=== PATIENT | male | born 1945 | race Caucasian/White ===

== ENCOUNTER → 2021-06-16 15:50 | Outpatient (REF) | payer MEDICARE, SELFPAY ==
--- NOTE | 2021-06-16 15:59 | CA_ITS ---
Transthoracic Echocardiogram Patient (Last, First, Middle): Wily López, Gender: Male Date of : 1945 Age: 75 Procedure Date: 06/16/2021 Procedure Type: Transthoracic Echocardiogram Location: [facility] Height: 180.34 cm Weight: 74.84 kg BSA: 1.94 m2 Heart Rate: bpm BP: 142 / 78 mmHg Screen Maker: GERARD Monreal MD: Tamiko Gibbons MD Symptoms: NON RHEUMATIC AVS Study Quality: Fair ECG Rhythm: Sinus Conclusions: - The left ventricular systolic function is normal. The calculated ejection fraction is 65% by biplane method. - There is moderate aortic valve stenosis. Findings Left Ventricle Normal left ventricular cavity size. The left ventricular systolic function is normal. The calculated ejection fraction is 65% by biplane method. There is no evidence of regional wall motion abnormalities. Diastolic function is normal for age. There is mild septal and mild basal asymmetric hypertrophy. Right Ventricle Normal right ventricular cavity size and systolic function. Atria Both atria are normal in size. Aortic Valve There is severe calcification of the aortic valve. There is moderate aortic valve stenosis. The peak aortic velocity is 3.54 m/s with a calculated peak gradient of 50 mmHg. The mean gradient is 32 mmHg. The aortic valve area is 1.12 cm2. There is mild aortic valve regurgitation. Dimensionless index 0.36. Mitral Valve There is mild mitral annular calcification. There is trace mitral valve regurgitation. There is no mitral valve stenosis. Pulmonic Valve The pulmonic valve is likely normal. Tricuspid Valve There is mild tricuspid valve regurgitation. The pulmonary artery systolic pressure is normal. Great Vessels The asc aorta and aortic arch are normal in size. Small plaque is seen in the sino tubular ridge. Venous The inferior vena cava is normal in size and collapses greater than 50% with inspiration. Pericardium/Pleural There is no evidence of pericardial effusion. Prior Study Comparison Changes noted compared to prior study dated: 05/28/2018. Progression of aortic valve stenosis but still moderate (prior echo from [facility]). Measurements 2D Linear Measurements IVSd: 1.18 0.6-0.9/0.6-1.0 cm LVIDd: 3.26 3.9-5.3/4.2-5.9 cm LVIDd Index: 1.68 2.4-3.2/2.2-3.1 cm/m2 LVIDs: 2.01 2.0-3.6 cm LVPWd: 1.02 0.7-1.1 cm LA Diam: 3.70 2.7-3.8/3.0-4.0 cm LAIDs Index: 1.91 1.5-2.3 cm/m2 LV Mass: 133.25 67-162/88-224 g LV Mass Index: 68.69 43-95/49-115 g/m2 LVOT Diam: 2.00 3.0+(-)1.3 cm 2D Systolic Function EF 4C: 62.50 >55% EF 2C: 67.70 >55% EF BiP: 64.50 >55% Mitral Valve MV Pk E: 1.01 MV PK A: 0.79 MV Decel Time: 266.00 E/A: 1.30 E'Lateral: 6.85 E'Medial: 7.94 E/E' Med: 12.70 E/E' Lat: 14.70 PHT: 78.00 MVA PHT: 2.82 Decel Mclennan: 3.78 Aortic Valve AoV Pk Harpreet: 3.54 AoV Mn Harpreet: 2.75 AoV VTI: 0.92 AoV Pk Grad: 50.00 Aov Mn Grad: 32.00 FREIDA Cont.VTI: 1.12 LVOT LVOT Pk Harpreet: 1.26 LVOT Mn Harpreet: 0.87 LVOT VTI: 0.33 LVOT Pk Grad: 6.00 LVOT Mn Grad: 3.00 LVOT Diam: 2.00 LVOT Area: 3.14 Diastolic Function MV Pk E: 1.01 MV Pk A: 0.79 E/A: 1.30 E'Medial: 7.94 E/E' Med: 12.70 E' Laterial: 6.85 E/E' Lat: 14.70 Right Ventricle TAPSE (mm): 22.60 TVS' Harpreet: 14.50 Tricuspid Valve TR Pk Harpreet: 2.54 TR Pk Grad: 26.00 RA Press: 3.00 RVSP: 29.00 Great Vessels Aorta Sinus of Valsalva: 3.40 2.0-3.5 cm Ao Asc: 3.10 2.1-3.4 cm Ao Arch: 3.00 Updated in Other Vendor System with Status of Final Alcides Johnson MD electronically signed on 06/18/2021 2:31:49 PM with status of Final
== END ==
LOC: HO.CARD 15:50
PROVIDERS: Visit Provider Internal Medicine
DX: I35.0 Nonrheumatic aortic (valve) stenosis (principal)
CPT/HCPCS: 93306

== ENCOUNTER 2024-01-30 13:14 | Outpatient (AMB) | payer MEDICARE, OTHER, SELFPAY ==
[2024-01-30 13:19] VITALS: BP 130/60; PULSE 8; O2SAT 97; BMI 22.6
--- NOTE | 2024-01-30 13:19 | MHC.OFFVIS ---
Vital Signs 01/30/24 13:19 Height 5 ft 11 in Weight 162 lb 4.163 oz BMI 22.6 BP 130/60 Blood Pressure Location Lt brachial Position Sitting Pulse 8 L Pulse Source Pulse Oximeter Pulse Oximetry (%) 97 Oxygen Delivery Method Room Air Intake Visit Reasons: Arthrisis/CM Intake Note: Patient presents for follow up on rheumatoid arthritis. Patient would like to talk about Leflunomide today. Allergies No Known Allergies Allergy (Verified 01/30/24 13:25) HPI HPI Arthrisis/CM: Details: Stopped taking leflunomide 6 weeks ago due to elevated liver enzymes. ALT was 47, AST 40s. Repeat labs 01/21 show ALT is 40 and AST is normal, reviewed on patient's phone from patient portal access. Last ultrasound of the abdomen in the fall was normal. Continues to take MTX No infections recently [facility] who gave him left wrist cortisone injection. He has been experiencing increased pain in his left wrist and last for days. Review of Systems Const All systems reviewed & are unremarkable except as noted in HPI and below Physical Exam Vital Signs: Last Vital Signs Pulse 8 L 01/30/24 13:19 BP 130/60 01/30/24 13:19 Pulse Ox 97 01/30/24 13:19 Oxygen Delivery Method Room Air 01/30/24 13:19 BMI result Body Mass Index 22.6 Const Other: General: Comfortable CVS: RRR Respiratory: clear to auscultation bilaterally. Good respiratory effort Skin: No lesions seen MSK: Tenderness of left wrists with synovitis present radially. No squaring of CMCs. No other joints are tender without synovitis present. Dupuytren's contractures present bilateral. Good range of motion of upper extremities and lower extremities. Assessment & Plan Assessment & Plan (1) Rheumatoid arthritis: Comment: Seronegative. Presenting with synovitis in hands, atypical RA with subjective proximal muscle weakness mimicking PMR but normal inflammatory markers and muscle enzymes. Background Dupuytren's contractures with inability to make a full fist. He has had recurrent left wrist pain and swelling requiring intra-articular cortisone injections (3 this year). Last injection lasted 2 months. He has recurrent left wrist swelling on exam. Recently his labs were noted to have mild elevated liver enzymes. Patient self discontinued leflunomide with improvement. He continues to have minimal elevation in AST. 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: Code(s): Z79.899 - Other longterm (current) drug therapy Category: Medical Plan: See above (3) Dupuytren contracture of both hands: Comment: Stable Code(s): M72.0 - Palmar fascial fibromatosis [Dupuytren] Category: Medical Plan: Monitoring clinically Orders: Orders Erythrocyte Sedimentation Rate Today M06.9 - Rheumatoid arthritis, unspecified Alanine Aminotransferase 6 Weeks Z79.60 - senior living (current) use of unspecified immunomodulators and immunosuppressants Aspartate Amino Transferase 6 Weeks Z79.60 - senior living (current) use of unspecified immunomodulators and immunosuppressants Complete Blood Count Auto Diff Today Z79.60 - senior living (current) use of unspecified immunomodulators and immunosuppressants Hepatitis B,C Profile Today M06.9 - Rheumatoid arthritis, unspecified, Z79.899 - Other 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 Take prednisone with food. 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
--- OUTSIDE RECORDS SUMMARY | 2024-01-31 02:23 | XMS_ITS ---
Author Name [facility] Organization Unknown Results Test Name/Text Value Interpretation Date Range Source CREAT SERPL MCNC 0.7mg/dL Normal [id number] 0.7 - 1.3 [facility] SODIUM SERPL SCNC 138mmol/L Normal [id number] 135 - 145 [facility] GLUCOSE P FAST SERPL MCNC 99mg/dL Normal 70 - 99 [facility] Glomerular filtration rate/1.73 sq M. predicted 95 Normal [id number] 60 - [facility] CHLORIDE SERPL SCNC 105mmol/L Normal [id number] 98 - 10 7 [facility] HCO3 SER SCNC 24mmol/L Normal [id number] 24 - 32 [facility] POTASSIUM SERPL SCNC 3.8mmol/L Normal [id number] 3.5 - 5.1 [facility] ANION GAP SERPL SCNC 9mmol/L Normal [id number] 5 - 14 [facility] BUN SERPL MCNC 14mg/dL Normal [id number] 9 - 20 [facility] CALCIUM SERPL [facility]NC 8.7mg/dL Normal [id number] 8.4 - 10 .2 [facility] MAGNESIUM SERPL MCNC 1.9mg/dL Normal [id number] 1.7 - 2.8 [facility] RBC NO. BLD AUTO 4.24M/uL Below low normal [id number] 4.7 - 6 [facility] MCH RBC QN AUTO 31.8pg Normal [id number] 25 - 33 C [facility] MCHC RBC AUTO MCNC 33.1g/dL Normal 32 - 36 [facility] HGB BLD MCNC 13.5g/dL Normal [id number] 13.5 - 18 [facility] WBC NO. BLD AUTO 10.1K/uL Normal [id number] 4 - 10.5 [facility] HCT VFR BLD AUTO 40.8% Normal [id number] 40 - 54 [facility] MCV RBC AUTO 96.2fL Normal [id number] 78 - 100 [facility] RDW RBC AUTO RTO 14.3% Normal [id number] 12.1 - 17. 7 [facility] PLATELET NO. BLD AUTO 140K/uL Below low normal [id number] 5 150 - 450 [facility] PMV BLD AUTO 9.6fL Normal [id number] 7.4 - 11.4 [facility] GLUCOSE BLDC GLUCOMTR MCNC 93mg/dL Normal [id number] 70 - 199 [facility] GLUCOSE BLDC GLUCOMTR MCNC 106mg/dL Normal [id number] 70 - 199 [facility] GLUCOSE BLDC GLUCOMTR MCNC 116mg/dL Normal [id number] 70 - 199 [facility] GLUCOSE BLDC GLUCOMTR MCNC 271mg/dL Above high normal [id number] 70 - 199 [facility] GLUCOSE BLDC GLUCOMTR MCNC 289mg/dL Above high normal [id number] 70 - 199 [facility] CREAT SERPL MCNC 1mg/dL Normal 0.7 - 1.3 [facility] SODIUM SERPL SCNC 135mmol/L Normal 135 - 145 [facility] GLUCOSE SERPL MCNC 362mg/dL Above high normal [id number] 70 - 199 [facility] Glomerular filtration rate/1.73 sq M. predicted 78 Normal 60 - [facility] CHLORIDE SERPL SCNC 102mmol/L Normal 98 - 10 7 [facility] HCO3 SER SCNC 21mmol/L Below low normal 24 - 3 2 [facility] POTASSIUM SERPL SCNC 4.9mmol/L Normal 3.5 - 5.1 [facility] ANION GAP SERPL SCNC 12mmol/L Normal 5 - 14 [facility] BUN SERPL MCNC 17mg/dL Normal 9 - 20 [facility] CALCIUM SERPL MCNC 8.9mg/dL Normal 8.4 - 10 .2 [facility] MAGNESIUM SERPL MCNC 1.6mg/dL Below low normal 1.7 - 2.8 [facility] BLOOD GAS SITE ARTERIAL Normal CT [facility] XXX-Imp ISTAT Normal [facility] pCO2 temp adj Bld 40.8mmHg Normal 35 - 45 [facility] O2/INSPIRED GAS SETTING VFR VENT 100% Normal [facility] SODIUM BLDC SCNC 138mmol/L Normal 135 - 145 [facility] BASE DEFICIT BLDA SCNC 2mmol/L Normal 0 - 2 [facility] PH TEMP ADJ BLDA 7.368 Normal 7.35 - 7.4 5 [facility] SAO2% BLDA 99% Above high normal 95 - 98 [facility] POTASSIUM BLDC SCNC 3.9mmol/L Normal 3.5 - 5 .1 [facility] HGB BLDC MCNC 11.2g/dL Below low normal 13.5 - 18 [facility] HCO3 BLDA SCNC 23.7mmol/L Normal 22 - 26 C [facility] CORRECTED TEMP 96.8F Normal [facility] GLUCOSE BLDC GLUCOMTR MCNC 175mg/dL Normal 70 - 199 [facility] HCT VFR BLDC 33% Below low normal 40 - 54 [facility] CA I BLDC SCNC 1.28mmol/L Normal 1.19 - 1.35 [facility] pO2 temp adj Bld 168mmHg Above high normal 80 - 105 [facility] GLUCOSE BLDC GLUCOMTR MCNC 336mg/dL Above high normal 70 - 199 [facility] Hgb A1c MFr Bld HPLC 6.8% Above high normal 5 - 5.7 [facility] BLOOD BANK CMNT PATIENT-IMP Normal [facility] ABO+RH GP BLD Normal [id number] [facility] BLD GP AB SCN SERPL QL Normal [facility] DIFFERENTIAL TYPE AUTOMATED Normal [facility] NEUTROPHILS NFR BLD AUTO 60.5% Normal 44 - 74 [facility] BASOPHILS NFR BLD AUTO 0.1% Normal 0 - 2 [facility] MONOCYTES NFR BLD AUTO 10% Normal 2 - 12 [facility] HCT VFR BLD AUTO 34.9% Below low normal 40 - 54 [facility] MONOCYTES NO. BLD AUTO 0.6K/uL Normal 0 - 0.8 [facility] RDW RBC AUTO RTO 14.4% Normal 12.1 - 17. 7 [facility] PLATELET NO. BLD AUTO 145K/uL Below low normal 7 150 - 450 [facility] EOSINOPHIL NO. BLD AUTO 0.1K/uL Normal 0 - 0.5 [facility] RBC NO. BLD AUTO 3.62M/uL Below low normal 4.7 - 6 [facility] MCH RBC QN AUTO 32.3pg Normal 25 - 33 C [facility] MCHC RBC AUTO MCNC 33.6g/dL Normal 32 - 36 [facility] HGB BLD MCNC 11.7g/dL Below low normal 13.5 - 18 [facility] BASOPHILS IN BLOOD BY AUTOMATED COUNT 0K/uL Normal 0 - 0.2 [facility] WBC NO. BLD AUTO 5.8K/uL Normal 4 - 10.5 [facility] EOSINOPHIL NFR BLD AUTO 1.2% Normal 0 - 6 [facility] LYMPHOCYTES NFR BLD AUTO 28.2% Normal 20 - 48 [facility] MCV RBC AUTO 96.3fL Normal 78 - 100 [facility] NEUTROPHILS NO. BLD AUTO 3.5K/uL Normal [id number] 1.8 - 7.8 [facility] LYMPHOCYTES NO. BLD AUTO 1.6K/uL Normal [id number] 1 - 3.2 [facility] PMV BLD AUTO 10fL Normal [id number] 7.4 - 11.4 [facility] GLUCOSE BLDC GLUCOMTR MCNC 169mg/dL Normal [id number] 70 - 199 [facility] TRANS NUM UNITS PACKED RBC Normal [facility] GLUCOSE BLDC GLUCOMTR MCNC 173mg/dL Normal [id number] 70 - 199 [facility] BNP BLD MCNC 89pg/mL Normal 0 - 100 [facility] PATIENT-IMP Normal [facility] ABO+RH GP BLD Normal [facility]TT [facility] BLD GP AB SCN SERPL QL Normal [facility]LOOD [facility] PATIENT-IMP Normal [id number] [facility] ABO+RH GP BLD Normal [id number] [facility] GLUCOSE BLDC GLUCOMTR MCNC 274mg/dL Above high normal [id number] 70 - 199 [facility] CREAT SERPL MCNC 0.7mg/dL Normal 0.7 - 1.3 [facility] SODIUM SERPL SCNC 135mmol/L Normal [id number] 135 - 145 [facility] GLUCOSE SERPL MCNC 306mg/dL Above high normal [id number] 70 - 199 [facility] Glomerular filtration rate/1.73 sq M. predicted 95 Normal [id number] 60 - [facility] CHLORIDE SERPL SCNC 100mmol/L Normal [id number] 98 - 10 7 [facility] HCO3 SER SCNC 26mmol/L Normal [id number] 24 - 32 [facility] POTASSIUM SERPL SCNC 4.6mmol/L Normal 3.5 - 5.1 [facility] ANION GAP SERPL SCNC 9mmol/L Normal [id number] 5 - 14 [facility] BUN SERPL MCNC 18mg/dL Normal [id number] 9 - 20 [facility] CALCIUM SERPL MCNC 8.9mg/dL Normal 8.4 - 10 .2 [facility] ALBUMIN/GLOB SERPL MRTO 1.7 Normal [facility] ALP SERPL-CCNC 63U/L Normal 34 - 104 [facility] BILIRUB SERPL MCNC 1.3mg/dL Above high normal 0.3 - 1 [facility] AST SERPL CCNC 25U/L Normal 5 - 40 [facility] ALBUMIN SERPL BCG MCNC 3.9g/dL Normal 3.5 - 5 [facility] ALT SERPL CCNC 20U/L Normal 7 - 52 [facility] PROT SERPL MCNC 6.2g/dL Below low normal 6.4 - 8.5 [facility] BILIRUB DIRECT SERPL MCNC 0.2mg/dL Normal 0 - 0.2 [facility] PT TIME PPP 10.3sec Below low normal 10.5 - 1 3.3 [facility] INR PPP 0.9 Normal 0.8 - 1.1 [facility] AN APTT TIME PPP 33sec Normal 25 - 37 [facility] DIFFERENTIAL TYPE AUTOMATED Normal [facility] NEUTROPHILS NFR BLD AUTO 68.2% Normal 44 - 74 [facility] BASOPHILS NFR BLD AUTO 0.2% Normal 0 - 2 [facility] MONOCYTES NFR BLD AUTO 8.7% Normal 2 - 12 [facility] HCT VFR BLD AUTO 41.5% Normal 40 - 54 [facility] MONOCYTES NO. BLD AUTO 0.6K/uL Normal 0 - 0.8 [facility] RDW RBC AUTO RTO 14.2% Normal 12.1 - 17. 7 [facility] PLATELET NO. BLD AUTO 173K/uL Normal 150 - 450 [facility] EOSINOPHIL NO. BLD AUTO 0K/uL Normal 0 - 0.5 [facility] RBC NO. BLD AUTO 4.3M/uL Below low normal [id number] 4.7 - 6 [facility] MCH RBC QN AUTO 32.5pg Normal 25 - 33 C [facility] MCHC RBC AUTO MCNC 33.6g/dL Normal 32 - 36 [facility] HGB BLD MCNC 14g/dL Normal 13.5 - 18 [facility] BASOPHILS IN BLOOD BY AUTOMATED COUNT 0K/uL Normal 0 - 0.2 [facility] WBC NO. BLD AUTO 7.1K/uL Normal 4 - 10.5 [facility] EOSINOPHIL NFR BLD AUTO 0.6% Normal 0 - 6 [facility] LYMPHOCYTES NFR BLD AUTO 22.3% Normal 20 - 48 [facility] MCV RBC AUTO 96.5fL Normal 78 - 100 [facility] NEUTROPHILS NO. BLD AUTO 4.8K/uL Normal 1.8 - 7.8 [facility] LYMPHOCYTES NO. BLD AUTO 1.6K/uL Normal 1 - 3.2 [facility] PMV BLD AUTO 9.5fL Normal 7.4 - 11.4 [facility] GLUCOSE BLDC GLUCOMTR MCNC 158mg/dL Normal [id number] 70 - 199 [facility] GLUCOSE BLDC GLUCOMTR MCNC 207mg/dL Above high normal [id number] 70 - 199 [facility] History of Medication Use Medication Directions Dispensed Refills Start Date End Date Stat methotrexate 2.5 mg tablet Take 7 tablets (17.5 mg total) by mouth once a week 01/13/2024 9 active dutasteride (AVODART) 0.5 mg capsule Take 1 capsule (0.5 mg total) by mouth 1 (one) time each day. 01/13/2024 9 active cholecalciferol (VITAMIN D-3) 50 mcg (2,000 unit) capsule Take by mouth 1 (one) time each day. 01/13/2024 9 active melatonin 5 mg tablet 1 tablet (5 mg total) 1 (one) time each day. 01/13/2024 9 active FA/mv,Ca,iron,min/lyc opene/lut (MULTIVITAL ORAL) Take by mouth 1 (one) time each day. 01/13/2024 9 active aspirin 81 mg EC tablet Take 1 tablet (81 mg total) by mouth 1 (one) time each day. 01/13/2024 9 active tamsulosin (FLOMAX) 0.4 mg 24 hr capsule Take 1 capsule (0.4 mg total) by mouth 1 (one) time each day. 01/13/2024 9 active atorvastatin (LIPITOR) 80 mg tablet Take 1 tablet (80 mg total) by mouth 1 (one) time each day. 01/13/2024 9 active leucovorin 5 mg tablet Take 1 tablet (5 mg total) by mouth once a week The day after methotrexate 01/13/2024 9 active lisinopriL (PRINIVIL,ZESTRIL) 10 mg tablet Take 1 tablet (10 mg total) by mouth 1 (one) time each day. 01/13/2024 9 active acetaminophen (TYLENOL) 325 MG tablet Take 2 tablets (650 mg total) by mouth every 6 (six) hours as needed. 08/05/2023 aborted pantoprazole (PROTONIX) 40 MG tablet Take 1 tablet (40 mg total) by mouth every morning on an empty stomach for 90 doses. 08/05/2023 active clopidogrel (PLAVIX) 75 MG tablet Take 1 tablet (75 mg total) by mouth daily. 05/16/2023 aborted atorvastatin (LIPITOR) tablet 80 mg Take 1 tablet (80 mg total) by mouth daily. 01/05/2023 active methotrexate 2.5 MG tablet Take 7 tablets (17.5 mg total) by mouth every 7 days. Saturdays01/05/2023 active dutasteride (AVODART) 0.5 MG capsule Take 1 capsule (0.5 mg total) by mouth daily. 01/05/2023 active Cholecalciferol (D3 2000) 50 MCG (1999 UT) CAPS Take by mouth daily. 01/05/2023 active insulin continuous subcutaneous pump (Outpatient) Inject 46 Units under the skin continuous. Type of insulin: novolog Takes approximately 46 units per day via INSULIN PUMP 01/05/2023 active leucovorin (WELLCOVORIN) 5 MG tablet Take 1 tablet (5 mg total) by mouth once a week The day after methotrexate 01/05/2023 active tamsulosin (FLOMAX) 0.4 MG CAPS Take 1 capsule (0.4 mg total) by mouth daily. 01/05/2023 active Melatonin 5 MG TABS Take 5 mg by mouth daily. 01/05/2023 active Multiple Vitamins-Minerals (MULTIVITAL PO) Take by mouth daily. 01/05/2023 active aspirin 81 MG EC tablet Take 1 tablet (81 mg total) by mouth daily. 01/05/2023 active lisinopril (PRINIVIL,ZESTRIL) tablet 10 mg Take 1 tablet (10 mg total) by mouth daily. 01/05/2023 active Problems Problem Status Onset Date Problem Type Date of Resolution Source Aortic stenosis, severe active ProblemAct [facility] S/p TAVR (transcatheter aortic valve replacement), bioprosthetic active ProblemAct [facility] S/P TAVR (transcatheter aortic valve replacement) active EncounterDiagnosisAct [facility] MG Bradycardia active EncounterDiagnosisAct [facility] Bilateral carotid artery stenosis active EncounterDiagnosisAct [facility] MG Pure hypercholesterolemia active EncounterDiagnosisAct [facility] SDH (subdural hematoma) (HCC) active EncounterDiagnosisAct [facility] MG
== END 2024-01-30 14:08 | disposition home or self-care (01) ==
PROVIDERS: Visit Provider Internal Medicine Rheumatology
DX: M06.9 Rheumatoid arthritis, unspecified (principal); Z79.899 Other long term (current) drug therapy; M72.0 Palmar fascial fibromatosis [Dupuytren]
CPT/HCPCS: 99214; G2211

== ENCOUNTER → 2024-01-30 13:14 | Outpatient (BNVA) | payer MEDICARE, OTHER, SELFPAY | PROVIDERS: Visit Provider Internal Medicine Rheumatology | DX: M06.9 Rheumatoid arthritis, unspecified (principal); M72.0 Palmar fascial fibromatosis [Dupuytren]; Z79.899 Other long term (current) drug therapy | CPT/HCPCS: 99212 ==

== ENCOUNTER 2024-02-05 09:33 | Outpatient (REF) | payer MEDICARE, OTHER, SELFPAY ==
[2024-02-05 10:52] LABS: MANUAL DIFF FLAG NO
[2024-02-05 10:59] LABS: Basophils Percent Auto 0.2 % (0-2); Eosinophils Percent Auto 0.5 % (0-4); Hematocrit 40.4 % (42.0-52.0); Hemoglobin 13.7 g/dl (14.0-18.0); Imm Gran Abs Auto 0.03 X10*3/uL (0.00-0.03); Imm Gran Pct Auto 0.4 % (0.0-0.4); Lymphocytes Absolute Auto 3.2 X10*3/uL (1.2-4.9); Mean Corpuscular HGB Conc 33.9 g/dl (31.0-36.0); Mean Corpuscular Hemoglobin 32.6 pg (27.0-33.0); Mean Corpuscular Volume 96.2 fL (80.0-98.0); Mean Platelet Volume 10.7 fL (9.4-12.4); Monocytes Absolute Auto 0.8 X10*3/uL (0.1-1.2); Monocytes Percent Auto 9.3 % (2-11); Neutrophils Absolute Auto 4.2 x10*3/uL (2.0-8.3); Neutrophils Percent Auto 50.6 % (45-73); Platelet Count 182 X10*3/uL (160-400); Red Cell Distribution Width 13.7 % (11.0-16.0); White Blood Count 8.3 X10*3/uL (4.8-10.8)
[2024-02-05 11:29] LABS: C Reactive Protein < 0.04 mg/dL (< or = 0.50)
[2024-02-05 11:36] LABS: HBS Num1 1.36 mIU/mL (0-7.99); HBc Num1 0.11 S/CO (0.00-0.79); HBsAGNum1 0.38 S/CO (0.00-0.99); Hepatitis B Core Antibody Nonreactive (Nonreactive); Hepatitis B Surface Antigen Negative (Negative); ~HepC Num1 0.06 S/CO (0.00-0.79); ~Hepatitis B Surface Antibody NONREACTIVE (Nonreactive); ~Hepatitis C Antibody Nonreactive (Nonreactive)
[2024-02-05 11:39] LABS: Erythrocyte Sedimentation Rate 4 MM/HR (0-15)
[2024-02-08 05:44] LABS: TS Negative Control Passed; TS Panel A 0; TS Panel B 0; TS Positive Control Passed; TSpotTB Negative (Negative)
== END 2024-02-05 09:34 | disposition home or self-care (01) ==
LOC: HO.10HDL 09:33
PROVIDERS: Visit Provider Internal Medicine Rheumatology
DX: M06.9 Rheumatoid arthritis, unspecified (principal); M72.0 Palmar fascial fibromatosis [Dupuytren]; Z79.899 Other long term (current) drug therapy; Z79.60 Long term (current) use of unspecified immunomodulators and immunosuppressants
CPT/HCPCS: 36415; 85025; 85652; 86140; 86481; 86704; 86706; 86803; 87340

== ENCOUNTER 2024-04-29 13:16 | Outpatient (AMB) | payer MEDICARE, OTHER, SELFPAY ==
--- NOTE | 2024-04-29 13:23 | MHC.OFFVIS ---
Vital Signs 04/29/24 13:24 Height 5 ft 11 in Weight 164 lb 7.437 oz BMI 22.9 BP 130/80 Blood Pressure Location Lt brachial Position Sitting Pulse 61 Pulse Source Pulse Oximeter Pulse Oximetry (%) 99 Oxygen Delivery Method Room Air Intake Visit Reasons: 3 mo follow up Intake Note: Patient presents for follow up on rheumatoid arthritis. Allergies No Known Allergies Allergy (Verified 04/29/24 13:24) HPI HPI 3 mo follow up: Details: Prednisone course caused hyperglycemia. He has intermittent shoulder pain one at a time lasting 3-4 minutes. Occurs every 10 days. No relieving factor. He has not self-medicated with NSAIDs or tylenol. Review of Systems Const All systems reviewed & are unremarkable except as noted in HPI and below Physical Exam Vital Signs: Last Vital Signs Pulse 61 04/29/24 13:24 BP 130/80 04/29/24 13:24 Pulse Ox 99 04/29/24 13:24 Oxygen Delivery Method Room Air 04/29/24 13:24 BMI result Body Mass Index 22.9 Const Other: General: Comfortable CVS: RRR Respiratory: clear to auscultation bilaterally. Good respiratory effort Skin: No lesions seen MSK: Tenderness of left wrists with synovitis present radially. No squaring of CMCs. No other joints are tender without synovitis present. Dupuytren's contractures present bilateral. 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 Normal range of motion of shoulders, hips, knees and ankles. Office Procedures AMB Joint Injection/Aspiration Joint Injection/Aspiration Details: Left wrist Prep: site was prepped using aseptic technique Injected: 20 mg of, Kenalog, with 0.5 mL of and 1% plain lidocaine Procedure: The patient tolerated the procedure well. Postprocedure protocol was discussed with patient. Coding 42064 - Medium joint Procedure code (CPT) selection complete Office Meds lidocaine (PF) 10 mg/mL (1 %) injection solution Performing Provider: Chaim De Jesus MD Performing Location[place] [facility] [facility] Administered by: Chaim De Jesus MD on 04/29/24 21:48 Dose Route Admin Location Dispensed Lot Number Expiration Date [facility] Material Planning [employer] 5 mg Infiltration 2 mL [id number] [facility] Kenalog 40 mg/mL suspension for injection Performing Provider: Chaim De Jesus MD Performing Location: [facility] [place] [facility] Administered by: Chaim De Jesus MD on 04/29/24 21:48 Dose Route Admin Location Dispensed Lot Number Expiration Date [employer] 20 mg intra-articular 1 mL [id number] MICAH HAYES Assessment & Plan Assessment & Plan (1) Rheumatoid arthritis: Comment: Recurrent left synovitis. Prednisone course caused hyperglycemia. He stopped prednisone a day early due to hyperglycemia. He is on an insulin pump but had to give himself additional insulin to control blood sugars, which eventually normalized in a few days. He has response to intra-articular cortisone injection. I will treat current symptoms with intra-articular cortisone injection. We discussed adding on DMARD therapy sulfasalazine. Discussed side effects, benefits and drug monitoring. I will avoid hydroxychloroquine due to risk of photosensitivity. Patient has spends time in the summer golfing. X-ray from 05/2023 of left wrist revealed findings due to sequelae of post ligamentous injury and there is suggestion of early SLAC. If after introducing sulfasalazine and optimizing his dose, if he continues to have left wrist swelling, I will order MRI for further evaluation. Rheumatology history: Seronegative. Presenting with synovitis in hands, atypical RA with subjective proximal muscle weakness mimicking PMR but normal inflammatory markers and muscle enzymes. Background Dupuytren's contractures with inability to make a full fist. He has had recurrent left wrist pain and swelling requiring intra-articular cortisone injections (3 this year). Last injection lasted 2 months. He has recurrent left wrist swelling on exam. Recently his labs were noted to have mild elevated liver enzymes. Patient self discontinued leflunomide with improvement. He continues to have minimal elevation in AST. Code(s): M06.9 - Rheumatoid arthritis, unspecified Category: Medical Qualifiers: Rheumatoid factor presence: without rheumatoid factor Laterality: bilateral Plan: Labs ordered for disease and drug monitoring on high-risk medication Continue methotrexate 20 mg once weekly Continue folic acid 1 mg daily Patient received left wrist cortisone injection After lab results are back, we will send prescription for sulfasalazine 500 mg twice a day. He will then need labs 4 weeks after starting sulfasalazine: CBC, creatinine, AST, ALT. Patient prefers to have labs done locally actually [facility] in 4 weeks. Requisition given to patient. 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: Code(s): Z79.899 - Other shelter (current) drug therapy Category: Medical Plan: See above (3) Dupuytren contracture of both hands: Comment: Stable Code(s): M72.0 - Palmar fascial fibromatosis [Dupuytren] Category: Medical Plan: Monitoring clinically Orders: Orders Complete Blood Count Auto Diff Today Z79.60 - care home (current) use of unspecified immunomodulators and immunosuppressants Alanine Aminotransferase Today Z79.60 - care home (current) use of unspecified immunomodulators and immunosuppressants Erythrocyte Sedimentation Rate Today Z79.899 - Other shelter (current) drug therapy Alanine Aminotransferase 1 Month Z79.60 - care home (current) use of unspecified immunomodulators and immunosuppressants Aspartate Amino Transferase 1 Month Z79.60 - care home (current) use of unspecified immunomodulators and immunosuppressants Creatinine 1 Month Z79.60 - 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) use of unspecified immunomodulators and immunosuppressants Creatinine Today Z79.60 - care home (current) use of unspecified immunomodulators and immunosuppressants Aspartate Amino Transferase Today Z79.60 - 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) use of unspecified immunomodulators and immunosuppressants C Reactive Protein Today Z79.899 - Other shelter (current) drug therapy Complete Blood Count Auto Diff 1 Month Z79.60 - 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 Take prednisone with food. Discontinued Reason: Doctor's Order 5 mg PO DIRECTED 30 tabs 0RF Coding Level of Care Code Est Pt Level 4 (21007) Complex EM visit Add On G2211 Diagnoses Rheumatoid arthritis M06.9 Rheumatoid factor presence: without rheumatoid factor Laterality: bilateral Other shelter (current) drug therapy Z79.899 Dupuytren contracture of both hands M72.0 CPT Codes Coding - 34123 Medium joint: 32998 - Medium joint ([id number]) Time Spent (min) 30
[2024-04-29 13:24] VITALS: BP 130/80; PULSE 61; O2SAT 99; BMI 22.9
--- OUTSIDE RECORDS SUMMARY | 2024-04-29 16:05 | XMS_ITS | Clinical Summary ---
Author Organization [facility] Address [address] [place] [address] Care Team Providers Care Process Consultant Name Role Phone Tawnya Thompson MD Primary Care Provider [phone] Allergies No known active allergies Medications Medication Sig Dispensed Refills Start Date End Date Status atorvastatin (LIPITOR) tablet 80 mg Take 1 tablet (80 mg total) by mouth daily. 0 08/27/2022 Active aspirin 81 MG EC tablet Take 1 tablet (81 mg total) by mouth daily. 0 Active dutasteride (AVODART) 0.5 MG capsule Take 1 capsule (0.5 mg total) by mouth daily. 0 05/26/2016 Active leucovorin (WELLCOVORIN) 5 MG tablet Take 1 tablet (5 mg total) by mouth once a week The day after methotrexate 0 08/26/2022 Active Melatonin 5 MG TABS Take 5 mg by mouth daily. 0 Active methotrexate 2.5 MG tablet Take 7 tablets (17.5 mg total) by mouth every 7 days. Saturdays 0 07/30/2021 Active tamsulosin (FLOMAX) 0.4 MG CAPS Take 1 capsule (0.4 mg total) by mouth daily. 0 05/26/2016 Active Multiple Vitamins-Minerals (MULTIVITAL PO) Take by mouth daily. 0 Active Cholecalciferol (D3 1999) 50 MCG (1999) CAPS Take by mouth daily. 0 Acti ve lisinopril (PRINIVIL,ZESTRIL) tablet 10 mg Take 1 tablet (10 mg total) by mouth daily. 0 Active insulin continuous subcutaneous pump (Outpatient) Inject 46 Units under the skin continuous. 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 Overview: Velasquez Chetan Resilia 26 mm Social History Tobacco Use Types Packs/Day Years Used Date Smoking Tobacco: Former Cigarettes 1 Passive Smoke Exposure: Past Smokeless Tobacco: Never Tobacco Cessation:Counseling Given: Not Answered Alcohol Use Standard Drinks/Week Comments Not Currently 0 (1 standard drink = 0.6 oz pur e alcohol) 3x weekly Sex and Gender Information Value Date Recorded Sex Assigned at Male 01/03/2023 9:33 AM EST Gender Identity Not on file Sexual Orientation Not on file Job Start Date Occupation Industry Not on file Not on file Not on file Last Filed Vital Signs Vital Sign Reading Time Taken Comments Blood Pressure 124/62 05/14/2023 1:31 PM EDT Pulse 57 05/14/2023 1:31 PM EDT Temperature 36.9 ??C (98.5 ??F) 01/31/2023 8:42 AM ES T Respiratory Rate 19 01/31/2023 8:42 AM EST Oxygen Saturation 97% 05/14/2023 1:31 PM EDT Inhaled Oxygen Concentration - - Weight 75.8 kg (167 lb) 05/14/2023 1:31 PM EDT Height 180.3 cm (5' 11 ) 05/14/2023 1:31 PM EDT Body Mass Index 23.29 05/14/2023 1:31 PM EDT Plan of Treatment Health Maintenance Due Date Last Done Comments Hepatitis C Screening 1945 COVID-19 Vaccine (#1) 05/21/1946 Depression Screening 1958 Preventative Health Evaluation 1964 DTap / Tdap / Td (1 - Tdap) 1965 Shingrix-Zoster Vaccine (1 of 2) 1996 Fall Risk Assessment 11/20/2011 Pneumococcal Vaccine (2 of 2 - PCV) 11/20/2011 06/01/2008 RSV Adult > 60+ Yrs or Pregn ant (1 - 1-dose 75+ series) 2021 Influenza Vaccine (#1) 2023 02/09/2009 Hepatitis B Vaccines Aged Out No long er eligible based on patient's age to complete this topic RSV Ped < 20 months Aged Out No longe r eligible based on patient's age to complete this topic Medical Devices Implanted Type Area Sign Painter Device Identifier Shelf Expiration Date Model / Serial / Lot System Perclose Prostyle Suture Medicated Abbt-Vas [id number] - [id number] Implanted:Qty: 1 on 01/25/2023 at [facility] [place] [facility] [employer] BENJI [id number] / / Valve Chetan Thv Velasquez Resilia 26mm [facility] [id number] - [id number] Implanted:Qty: 1 on 01/30/2023 by Rick Nicole MD at [facility] [employer] 08/23/2025 [id number] / [id number] / Advance Directives For more information, please contact: [phone] Latest Code Status on File Code Status Date Activated Date Inactivated Comments Full Code 01/30/2023 8:24 AM 01/31/2023 7:07 PM Thi s code status was ascertained in the following way: discussion with patient Code Status History Code Status Date Activated Date Inactivated Comments Full Code 01/30/2023 6:15 AM 01/30/2023 8:24 AM Thi s code status was ascertained in the following way: discussion with patient . Full Code 01/25/2023 9:20 AM 01/25/2023 8:01 PM . Care Teams Process Consultant Relationship Specialty Start Date End Date Tawnya Thompson MD [address] [place] [phone] PCP - General Family Medicine 11/06/22
--- OUTSIDE RECORDS SUMMARY | 2024-04-29 16:05 | XMS_ITS | Data Portability ---
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 deficiency N PTSD N Heart Attack (AL) N Diabetes Y Bleeding Disorder N Cerebral Palsy N Tuberculosis N Neck Problems N Back Problems N Asthma N Epilepsy/Seizures N Bipolar Disorder N Sleep Disorder N Aneurysm N Hepatitis N Heart Disease N High Cholesterol or Hyperlipidemia Y Osteoporosis N Past Encounters Encounter ID Performer Location Encounter Start Date Encounter Closed Date Diagnosis/Indication Diagnosis SNOMED-CT Code Diagnosis ICD10 Code Diagnosis Note [id number] Ray Quintana MD [facility] [address] [place] [address] ERIC BLANCO SEKOU [id number] 08/09/2021 10:45:46 08/09/2021 16:55:00 Subdural hematoma 61100356 S06.5X0A Focal onse t epileptic seizure 91054756 G40.109 [id number] Ray Quintana MD [facility] [address] [place] [address] ERIC BLANCOSEKOU [id number] 08/24/2021 10:56:06 08/24/2021 19:00:42 Subdural hematoma 58925182 S06.5X0A Focal onse t epileptic seizure [id number] G40.109 [id number] Ray Quintana MD [facility] [address] [place] [address] ERIC BLANCO SEKOU [id number] 10/11/2021 10:42:03 10/11/2021 11:47:22 Subdural hematoma 60578244 S06.5X0A Focal onse t epileptic seizure 04672911 G40.109 Health Concerns Section Related Observation LastModified by Organization Detai ls LastModified Time None Recorded Concern Status LastModified by Organization Details LastModified Time None Recorded Advance Directives Directive None Recorded Payers Encounter Date Sequence Insurance Name Policy Number Policy Mercado Covered Member ID Mercado Member ID Guarantor Name 08/09/2021 2 [facility] PLAN - PREFERRED (MEDICARE SUPPLEMENT) [id number] Wily [facility] [id number] [facility] 08/09/2021 1 MEDICARE B-MA: [employer] Edryanne [facility] [id number] [facility] [facility]AN - PREFERRED (MEDICARE SUPPLEMENT) [id number] [facility] [id number] [facility] 08/24/2021 1 MEDICARE B-UT: [facility] Edryanne T [facility] [id number] [facility] [facility] HE[facility] PLAN - PREFERRED (MEDICARE SUPPLEMENT) [id number] [facility] [id number] [facility] 10/11/2021 1 MEDICARE B-UT: [facility] Wily López [id number] Wily López Notes Date Note Type Note Provider Name and Address Organization Details Recorded Time 08/09/2021 text/html He presents for initial neurology consultation for assessment and management of April 18, 2021 head trauma skiing leading to immediate headache, and delayed? ~ June 28, 2021 onset? 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 Past history includes hypertension, hyperlipidemia, type 1 diabetes, rheumatoid arthritis and benign prostatic hyperplasia. He is accompanied by his , Silke, who helps with the history.On April 18, 2021 he was skiing in [place] when he was hit from behind by another skater. Almost immediately afterwards, he began having headaches. He had hospital evaluation in [place] that was unrevealing. Headaches persisted with no other worrisome symptomatology until ~June 28, 2021 when he had onset of episodic difficulty getting his words out, episodes lasting up to ~15 minutes. In addition, he noticed continual difficulty walking and more subtle difficulty using his arms, especially his right arm.He had three hospitalizations June 28 through ~July 08, 2021. The first hospitalization included SDH evacuation and starting levetiracetam 500 mg twice a day for his episodic expressive aphasia. The second hospitalization involved an increase of levetiracetam by 500 mg twice a day and the third increase occurred during a telephone call in between hospitalizations by another 500 mg twice a day so that he was on 1500 mg twice a day ~2 days before the third hospitalization. At this point, the levetiracetam did not seem to be helping his word finding difficulty and his noticed that it had become almost continual. He noticed throughout the course that speech difficulty was especially likely and especially prominent if he felt pressured such as when a speech therapist came and asked him a lot of questions. He continued to have difficulty walking and more subtle difficulty moving his arms. EEG, 18 hours in duration per , found no evidence of seizure. He was hospitalized a third time for a second subdural evacuation. About 2 days later, his speech difficulty improved markedly. He does not remember any problems with speech after that. His did not notice any but reports that hospital personnel noticed minimal episodes. About 3 days after the second SDH evacuation, his walking and his arm discoordination were completely resolved. At some point, his headaches began to improve. They are now only mild and occasional.He remains on levetiracetam 1500 mg twice a day. He is a little tired in the afternoon which he thinks might relate to the levetiracetam. Neither he nor his has noticed irritability or worsening in mood more generally. Ray Quintana MD [address] [place] [address], [phone], [facility] 08/09/2021 14:56:57 08/24/2021 text/html Follow up of Mar head trauma skiing leading to immediate headache, and delayed? ~ June 28, 2021 onset? 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 Past history includes hypertension, hyperlipidemia, type 1 diabetes, rheumatoid arthritis and benign prostatic hyperplasia. He is accompanied by his , Silke, who helps with the history.Since August 09, 2021 initial neurology consultation, he feels that his slow improvement continues. He is still not 100% but? Over 90%. He notes that he had some visual blurring after the events of June 28, 2021 when that is slowly improving. He wonders if he should go to his scheduled ophthalmology appointment for glasses adjustment. I suggest that he wait until he reach some plateau of visual blurring improvement from after June 28, 2021. Presenting symptomatology is reviewed from initial neurology consultation August 09, 2021:On April 18, 2021 he was skiing in [place] when he was hit from behind by another skater. Almost immediately afterwards, he began having headaches. He had hospital evaluation in [place] that was unrevealing. Headaches persisted with no other worrisome symptomatology until ~June 28, 2021 when he had onset of episodic difficulty getting his words out, episodes lasting up to ~15 minutes. In addition, he noticed continual difficulty walking and more subtle difficulty using his arms, especially his right arm.He had three hospitalizations June 28 through ~July 08, 2021. The first hospitalization included SDH evacuation and starting levetiracetam 500 mg twice a day for his episodic expressive aphasia. The second hospitalization involved an increase of levetiracetam by 500 mg twice a day and the third increase occurred during a telephone call in between hospitalizations by another 500 mg twice a day so that he was on 1500 mg twice a day ~2 days before the third hospitalization. At this point, the levetiracetam did not seem to be helping his word finding difficulty and his noticed that it had become almost continual. He noticed throughout the course that speech difficulty was especially likely and especially prominent if he felt pressured such as when a speech therapist came and asked him a lot of questions. He continued to have difficulty walking and more subtle difficulty moving his arms. EEG, 18 hours in duration per , found no evidence of seizure. He was hospitalized a third time for a second subdural evacuation. About 2 days later, his speech difficulty improved markedly. He does not remember any problems with speech after that. His did not notice any but reports that hospital personnel noticed minimal episodes. About 3 days after the second SDH evacuation, his walking and his arm discoordination were completely resolved. At some point, his headaches began to improve. They are now only mild and occasional.He remains on levetiracetam 1500 mg twice a day. He is a little tired in the afternoon which he thinks might relate to the levetiracetam. Neither he nor his has noticed irritability or worsening in mood more generally. Ray Quintana MD [address] [place] [address] [place], [phone], [facility] 08/24/2021 17:35:04 10/11/2021 text/html Follow up of Mar ru2021 head trauma skiing leading to immediate headache, and delayed? ~ June 28, 2021 onset? 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 Past history includes hypertension, hyperlipidemia, type 1 diabetes, rheumatoid arthritis and benign prostatic hyperplasia. He is accompanied by his , Silke, who helps with the history.Since August 24, 2021 neurology follow-up encounter, Slow improvement has continued of his symptoms status post June 2021 hospitalization for subdural hematoma. He had said he was over 90% better and he is even better. His blurry vision has resolved. (He has not yet had ophthalmology appointment but he plans to do that for an evaluation.) The only different symptom he notes from before the events emerging out of April 18 skiing injury is an occasional seconds long mild headache. He has tapered off levetiracetam. Presenting symptomatology is reviewed from initial neurology consultation August 09, 2021:On April 18, 2021 he was skiing in [place] when he was hit from behind by another skater. Almost immediately afterwards, he began having headaches. He had hospital evaluation in [place] that was unrevealing. Headaches persisted with no other worrisome symptomatology until ~June 28, 2021 when he had onset of episodic difficulty getting his words out, episodes lasting up to ~15 minutes. In addition, he noticed continual difficulty walking and more subtle difficulty using his arms, especially his right arm.He had three hospitalizations June 28 through ~July 08, 2021. The first hospitalization included SDH evacuation and starting levetiracetam 500 mg twice a day for his episodic expressive aphasia. The second hospitalization involved an increase of levetiracetam by 500 mg twice a day and the third increase occurred during a telephone call in between hospitalizations by another 500 mg twice a day so that he was on 1500 mg twice a day ~2 days before the third hospitalization. At this point, the levetiracetam did not seem to be helping his word finding difficulty and his noticed that it had become almost continual. He noticed throughout the course that speech difficulty was especially likely and especially prominent if he felt pressured such as when a speech therapist came and asked him a lot of questions. He continued to have difficulty walking and more subtle difficulty moving his arms. EEG, 18 hours in duration per , found no evidence of seizure. He was hospitalized a third time for a second subdural evacuation. About 2 days later, his speech difficulty improved markedly. He does not remember any problems with speech after that. His did not notice any but reports that hospital personnel noticed minimal episodes. About 3 days after the second SDH evacuation, his walking and his arm discoordination were completely resolved. At some point, his headaches began to improve. They are now only mild and occasional.He remains on levetiracetam 1500 mg twice a day. He is a little tired in the afternoon which he thinks might relate to the levetiracetam. Neither he nor his has noticed irritability or worsening in mood more generally. Ray Quintaan MD [address] [place] [address] [place], [phone], [facility] 10/11/2021 11:43:04
--- OUTSIDE RECORDS SUMMARY | 2024-04-29 16:05 | XMS_ITS | Clinical Summary ---
Author Organization [facility] [place] Address [address] [place] [address] Phone Care Team Providers Care Radiographer Mammographer Name Role Phone Tawnya Thompson MD Primary Care Provider [phone] Allergies No known active allergies Medications aspirin 81 mg EC tablet Take 1 tablet (81 mg total) by mouth 1 (one) time each day. Active atorvastatin (LIPITOR) 80 mg tablet Take 1 tablet (80 mg total) by mouth 1 (one) time each day. 3 Active dutasteride (AVODART) 0.5 mg capsule Take 1 capsule (0.5 mg total) by mouth 1 (one) time each day. 7 Active leucovorin 5 mg tablet Take 1 tablet (5 mg total) by mouth once a week The day after methotrexate 3 Active melatonin 5 mg tablet 1 tablet (5 mg total) 1 (one) time each day. Active methotrexate 2.5 mg tablet Take 8 tablets (20 mg total) by mouth once a week 2 Active tamsulosin (FLOMAX) 0.4 mg 24 hr capsule Take 1 capsule (0.4 mg total) by mouth 1 (one) time each day. 7 Active FA/mv,Ca,iron,m in/lycopene/lut (MULTIVITAL ORAL) Take by mouth 1 (one) time each day. Active lisinopriL (PRINIVIL,ZESTR IL) 20 mg tabletIndicatio ns:S/P TAVR (transcatheter aortic valve replacement),Co ronary artery disease involving navajo coronary artery of navajo heart without angina pectoris,Pure hypercholestero lemia,Bradycard ia Take 1 tablet (20 mg total) by mouth 1 (one) time each day. 90 each 3 5 03/26/19 26 Active Active Problems Problem Noted Date Diagnosed Date Aortic stenosis, severe 01/30/2023 Encounters Date Type Department Care Team Description 03/26/2024 2:30 PM EST Office Visit [facility] [address] [place] [phone] Aj Abdullahi MD S/P TAVR (transcatheter aortic valve replacement) (Primary Dx); Coronary artery disease involving navajo coronary artery of navajo heart without angina pectoris; Pure hypercholesterolemia; Bradycardia 03/26/2024 1:30 PM EST Ancillary Procedure [facility] [address] [place] [phone] Nonrheumatic aortic (valve) stenosis from Last 3 Months Surgical History Surgery Date Site/Laterality Comments CRANIOTOMY PROCEDURE:CRANIOTOMY;COMMENT:2020 -june CARDIAC CATHETERIZATION 01/25/2023 N/A PROCEDURE:CARDIAC CATHETERIZATION;COMMENT:Procedure : LEFT HEART CATHETERIZATION PCI; Surgeon: Cain Hopson MD; Location: [facility]; Service: Cardiology; Laterality: N/A; CARDIAC CATHETERIZATION 01/25/2023 N/A PROCEDURE:CARDIAC CATHETERIZATION;COMMENT:Procedure : CORONARY ANGIOGRAPHY; Surgeon: Cain Hopson MD; Location: [facility]; Service: Cardiology; Laterality: N/A; AORTIC VALVE REPLACEMENT 01/30/2023 Bilateral PROCEDURE:AORTIC VALVE REPLACEMENT;COMMENT:Procedure: TAVR TF PERCUSTANEOUS; Surgeon: Rick Nicole MD; Location: [facility] HYBRID [facility]PERATING ROOM; Service: Cardiovascular; Laterality: Bilateral; Medical History Medical History Date Comments Type 1 diabetes (CMS/HCC) DX:Typ e 1 diabetes (HCC);COMMENT:wears continuous glucose monitor and insulin pumo HTN (hypertension) DX:HTN (hyper tension) HLD (hyperlipidemia) DX:HLD (hyp erlipidemia) Aortic valvar stenosis DX:Aortic valvar stenosis Subdural hematoma (CMS/HCC) DX:S ubdural hematoma (HCC) Eye abnormality DX:Eye abnormali ty;COMMENT:right eye does not close Social History Tobacco Use Types Packs/Day Years Used Date Smoking Tobacco: Former Smokeless Tobacco: Never Alcohol Use Standard Drinks/Week Comments Not Currently 0 (1 standard drink = 0.6 oz pur e alcohol) Sex and Gender Information Value Date Recorded Sex Assigned at Not on file Legal Sex Male 8:42 PM EST Gender Identity Not on file Sexual Orientation Not on file Obstetrics History Last Filed Vital Signs Vital Sign Reading Time Taken Comments Blood Pressure 140/62 03/26/2024 2:01 PM EST Pulse 54 03/26/2024 2:01 PM EST Temperature - - Respiratory Rate - - Oxygen Saturation 99% 03/26/2024 2:01 PM EST Inhaled Oxygen Concentration - - Weight 73.5 kg (162 lb) 03/26/2024 2:01 PM EST Height 180.3 cm (5' 11 ) 03/26/2024 2:01 PM EST Body Mass Index 22.59 03/26/2024 2:01 PM EST Plan of Treatment Upcoming Encounters Date Type Department Care Team (Late st Contact Info) Description 03/26/2025 12:00 PM EST Office Visit [facility] [place] [address] [facility] [address] [place] [address] Aj Abdullahi MD [address] [address] Health Maintenance Due Date Last Done Comments COVID-19 Vaccine (#1) 11/20/1950 Diabetes: Annual Foot Exam 1956 Diabetes: Annual Retina Eye Exam 1955 DTaP,Tdap,and Td Vaccines (1 - Tdap) 1965 Zoster Vaccines (1 of 2) 1996 RSV Immunization Patients 60+ Years Old (1 - 1-dose 75+ series) 2021 Pneumococcal Vaccine: 50+ Years (3 of 3 - PCV20 or PCV21) 03/22/2022 03/22/2017, 06/01/2008 Depression Screening 03/16/2023 Falls Risk Assessment 03/16/2023 Social Influencers of Health Screening 03/16/2023 Medicare Annual Wellness Visit 08/16/2023 08/15/2022 Influenza Vaccine (#1) 2023 , 11/30/2021, 12/03/2020, Additional history exists Diabetes: Annual Urine Albumin-Creatinine Ratio (uACR) 03/26/2024 Diabetes: Blood Sugar Control Test (HGBA1C) 03/26/2024 01/30/2023, 01/30/2023, 07/07/2021 Diabetes: Annual GFR (Glomerular Filtration Rate) 11/11/2024 11/12/2023, 09/21/2023, 01/31/2023, Additional history exists Hypertension/CHF/CAD Annual BMP Blood Test 11/11/2024 11/12/2023, 09/21/2023, 01/31/2023, Additional history exists Cholesterol Screening (Lipid Panel) 06/29/2026 06/29/2021, 06/29/2021 HPV Vaccines Aged Out 10/19/2008 No longer eligi ble based on patient's age to complete this topic Hepatitis C Screening Completed 08/06/2019 HIB Vaccines Aged Out No longer eligi ble based on patient's age to complete this topic Hepatitis A Vaccines Aged Out No long er eligible based on patient's age to complete this topic Hepatitis B Vaccines Aged Out No long er eligible based on patient's age to complete this topic IPV Vaccines Aged Out No longer eligi ble based on patient's age to complete this topic MMR Vaccines Aged Out No longer eligi ble based on patient's age to complete this topic Meningococcal ACWY Vaccine Aged Out N o longer eligible based on patient's age to complete this topic Meningococcal B Vacine Aged Out No lo nger eligible based on patient's age to complete this topic RSV Immunization Patients Under 20 months Aged Out No longer eligible based on patient's age to complete this topic Varicella Vaccines Aged Out No longer eligible based on patient's age to complete this topic Medical Devices Implanted Type Area Strategic Planning Specialist Device Identifier Shelf Expiration Date Model / Serial / Lot System Perclose Prostyle Suture Medicated Abbt-Vasc [id number] Implanted:Qty: 1 on 01/25/2023 [employer] 127 [id number] / / Valve Chetan Thv Velasquez Resilia 26mm [facility] [id number] - [id number] Implanted:Qty: 1 on 01/30/2023 by Rick Nicole MD Heart [employer]HAEL 08/23/2025 [id number] / [id number] / Procedures Procedure Name Priority Date/Time Associated Diagnosis Comments ECG 12-LEAD Routine 03/26/2024 2:21 PM EST S/P TAVR (transcatheter aortic valve replacement) Coronary artery disease involving navajo coronary artery of navajo heart without angina pectoris Pure hypercholesterolem ia Bradycardia TRANSTHORACIC ECHOCARDIOGRAM (TTE) COMPLETE Routine 03/26/2024 1:47 PM EST Nonrheumatic aortic (valve) stenosis ANNUAL BMP BLOOD TEST Routine 01/31/2023 HEMOGLOBIN A1C Routine 01/30/2023 LIPID PANEL Routine 06/29/2021 from Last 3 Months or Most Recently Relevant to Health Maintenance Results * ECG 12 lead (03/26/2024 2:21 PM EST) Narrative Aj Abdullahi MD - 03/26/2024 2:21 PM EST Sinus bradycardia at 53 bpm-otherwise normal tracing Result [facility] Aj Abdullahi MD ECG ORDERABLES Final Result * TRANSTHORACIC ECHOCARDIOGRAM (TTE) COMPLETE (03/26/2024 1:47 PM EST) Anatomical Region Laterality Modality Ultrasound us Aj Abdullahi MD CV ECHO PROCEDURES Final Result * Annual BMP Blood Test (01/31/2023) Annual BMP Blood Test Abstracted Result [facility] Historical Provider HEALTH MAINTENANCE Final Result * (ABNORMAL) Hemoglobin A1c (01/30/2023) Hemoglobin A1C 6.8(A) <=5.7 % Blood Venous blood specimen / Unknown Result [facility] Historical Provider LAB BLOOD ORDERABLES Nani l Result * Lipid panel (06/29/2021) LDL/HDL Ratio 0 Comment:No Interpretation Triglycerides 0 mg/dL Comment:No Interpretation Cholesterol 0 mg/dL Comment:No Interpretation HDL 0 mg/dL Comment:No Interpretation LDL Cholesterol 0 mg/dL Comment:No Interpretation Blood Venous blood specimen / Unknown Historical Provider LAB BLOOD ORDERABLES Nani l Result from Last 3 Months or Most Recently Relevant to Health Maintenance Insurance MEDICARE [facility] Care Teams Radiographer Mammographer Relationship Specialty Start Date End Date Tawnya Thompson MD [facility] [address] [place] [address] PCP - General 11/06/22
--- OUTSIDE RECORDS SUMMARY | 2024-04-29 16:05 | XMS_ITS | Clinical Summary ---
Author Organization [facility] Address [address] [place] [address] Care Team Providers Care Campus Security Director Name Role Phone Tawnya Thompson MD Primary Care Provider + [phone] Allergies No known active allergies Medications Medication Sig Dispensed Refills Start Date End Date Status atorvastatin (LIPITOR) 40 MG tablet Take 40 mg by mouth daily. As part of a 60mg dose. Active dutasteride (AVODART) 0.5 MG capsule Take 0.5 mg by mouth every morning. Active leuCOVORIN (WELLCOVORIN) 5 MG tablet Take 5 mg by mouth once a week. Day after Methotrexate (Every Sunday) Active lisinopril (PRINIVIL,ZeSTRIL) 5 MG tablet Take 5 mg by mouth every morning. Active tamsulosin (FLOMAX) 0.4 MG capsule Take 0.4 mg by mouth every evening. Active acetaminophen (TYLENOL) 500 MG tablet Take 1,000 mg by mouth 4 times daily (every 6 hours) as needed for mild pain. Active melatonin 5 MG Tab tablet Take 5 mg by mouth nightly. Active levETIRAcetam (KEPPRA) 750 MG tabletIndications: Confusion,Seizure (HCC) Take 2 tablets (1,500 mg total) by mouth 2 (two) times a day. 120 tablet 07/08/2021 Active atorvastatin (LIPITOR) 20 MG tablet Take 20 mg by mouth daily. As part of a 60mg dose. Active methotrexate (RHEUMATREX) 2.5 MG tabletIndications: Rheumatoid arthritis, involving unspecified site, unspecified whether rheumatoid factor present (HCC) Take 7 tablets (17.5 mg total) by mouth once a week Every Sunday 28 tablet 07/30/2021 Active amLODIPine (NORVASC) 5 MG tabletIndications: Subdural hematoma (HCC) Take 1 tablet (5 mg total) by mouth 2 (two) times a day. 60 tablet 07/16/2021 Active docusate sodium (COLACE) 100 MG capsuleIndications :Subdural hematoma (HCC) Take 1 capsule (100 mg total) by mouth 2 (two) times a day as needed for constipation. 60 capsule 07/16/2021 Active Alcohol Swabs 70 % PadsIndications:Ty pe 1 diabetes mellitus with other specified complication Use as directed. 100 Pad 07/16/2021 Active insulin detemir (LevEMIR FlexTouch) 100 UNIT/ML prefilled pen injectionIndicatio ns:Type 1 diabetes mellitus with other specified complication Inject 25 Units under the skin daily. 3.5 mL 07/16/2021 Active BD Pen Needle Maria Luz U/F 32G X 4 MM MiscIndications:Ty pe 1 diabetes mellitus with other specified complication Use as directed 100 pen needle 07/16/2021 Active insulin aspart (NovoLOG FlexPen) 100 UNIT/ML prefilled pen injectionIndicatio ns:Type 1 diabetes mellitus with other specified complication Inject 7 Units under the skin 4 (four) times a day with meals and nightly. Correction scale of 1: 40 for BG above 140 mg/dL with meals, 1:50 for BG above 200 mg/dL at bedtime and 2 am. 3.92 mL 07/16/2021 Active BD Pen Needle Maria Luz U/F 32G X 4 MM MiscIndications:Ty pe 1 diabetes mellitus with other specified complication Use as directed 100 pen needle 07/16/2021 Active Active Problems Problem Noted Date Diagnosed Date Seizure 07/07/2021 Aphasia 07/06/2021 Hypertension 06/29/2021 Hyperlipidemia 06/29/2021 BPH (benign prostatic hyperplasia) 06/29/2021 DM (diabetes mellitus) 06/29/2021 Rheumatoid arthritis 06/29/2021 Compression of brain 06/29/2021 Subdural hematoma 06/28/2021 Social History Tobacco Use Types Packs/Day Years Used Date Smoking Tobacco: Never Smokeless Tobacco: Never Alcohol Use Standard Drinks/Week Comments Not Currently 7 (1 standard drink = 0.6 oz pur e alcohol) 1 Drink/day Sex and Gender Information Value Date Recorded Sex Assigned at Not on file Gender Identity Not on file Sexual Orientation Not on file Last Filed Vital Signs Vital Sign Reading Time Taken Comments Blood Pressure 149/62 07/16/2021 7:43 AM EDT Pulse 66 07/16/2021 7:43 AM EDT Temperature 36.6 ??C (97.9 ??F) 07/16/2021 7:43 AM ED T Respiratory Rate 18 07/16/2021 7:43 AM EDT Oxygen Saturation 98% 07/16/2021 7:43 AM EDT Inhaled Oxygen Concentration - - Weight 71.4 kg (157 lb 6.4 oz) 07/16/2021 6:00 A M EDT Height 180.3 cm (5' 11 ) 07/12/2021 6:50 PM EDT Body Mass Index 21.95 07/12/2021 6:50 PM EDT Plan of Treatment Health Maintenance Due Date Last Done Comments Hepatitis C Virus Screening 1945 Foot Exam 1956 Ophthalmology Exam 1956 Microalbumin/Creatinine Ratio Urine 1964 DTaP/Tdap/Td Vaccines (1 - Tdap) 1965 Pneumococcal Vaccines 50+ (1 of 2 - PCV) 1965 Zoster (Shingles) Vaccine (1 of 2) 1996 RSV Vaccine 60 years and older and Patients (1 - 1-dose 75+ series) 2021 Hemoglobin A1C 01/07/2022 07/07/2021, 06/19, 07/22/2020, Additional history exists Lipid Panel 06/29/2022 06/29/2021 Creatinine with GFR 07/16/2022 07/16/2021, 07/15/2021, 07/14/2021, Additional history exists Influenza Vaccine 09/20/2023 10/28/2010, , 12/27/2007, Additional history exists COVID-19 Vaccine ( season) 2023 Hepatitis B Vaccines Aged Out No long er eligible based on patient's age to complete this topic Medical Devices Implanted Type Area Film Historian Device Identifier Shelf Expiration Date Model / Serial / Lot Small Siva Hole Plate Implanted:Qty: 1 on 06/29/2021 by Juliane Joel MD at [facility] Left: Cranial [employer] NL-BR-010S / / 6 Hole Double Y-Plate Implanted:Qty: 2 on 06/29/2021 by Juliane Joel MD at [facility] Left: Cranial [employer] [id number] / / 5mm Low Profile Screw Implanted:Qty: 18 on 06/29/2021 by Juliane Joel MD at [facility] Explanted:Qty: 9 on 07/12/2021 by Juliane Joel MD at [facility] Left: Cranial [employer] 16-NF-005 / / 6 Hole Straight Plate Implanted:Qty: 2 on 07/12/2021 by Juliane Joel MD at [facility] Left: Cranial [employer] [id number] / / 5mm Screw Implanted:Qty: 14 on 07/12/2021 by Juliane Joel MD at [facility] Left: Cranial [employer] 16-NF-005 / / Procedures Procedure Name Priority Date/Time Associated Diagnosis Comments RENAL FUNCTION PANEL Routine 07/16/2021 5:36 AM EDT HEMOGLOBIN A1C WITH ESTIMATED AVERAGE GLUCOSE Routine 07/07/2021 6:31 AM EDT LIPID PANEL Routine 06/29/2021 5:36 AM EDT from Last 3 Months or Most Recently Relevant to Health Maintenance Results * (ABNORMAL) Renal Function Panel (07/16/2021 5:36 AM EDT) Glucose 217(H) 65 - 99 mg/dL 07/16/2021 6:47 AM EDT [facility] Blood Urea Nitrogen (BUN) 12 8 - 21 mg/dL 07/16/2021 6:47 AM EDT [facility] Creatinine 0.7 0.5 - 1.3 mg/dL 07/16/2021 6:47 AM EDT [facility] eGFR >60 >59 07/16/2021 6:47 AM EDT [facility] Comment:MDRD in mL/min/1.73 sq meters. Sodium 134(L) 136 - 145 mmol/L 07/16/2021 6:47 AM EDT [facility] Potassium 3.7 3.4 - 5.3 mmol/L 07/16/2021 6:47 AM EDT [facility] Chloride 96(L) 98 - 107 mmol/L 07/16/2021 6:47 AM EDT [facility] CO2 23 22 - 33 mmol/L 07/16/2021 6:47 AM EDT [facility] Calcium 8.8 8.7 - 10.5 mg/dL 07/16/2021 6:47 AM EDT [facility] Phosphorus 2.9 2.7 - 4.5 mg/dL 07/16/2021 6:47 AM EDT [facility] Albumin 3.2(L) 3.4 - 4.8 g/dL 07/16/2021 6:47 AM EDT [facility] BUN/Creatinine Ratio 17 10.0 - 25.0 Ratio 07/16/2021 6:47 AM T [facility] Blood specimen (specimen) (Plasma/Serum) 07/16/2021 5:36 AM EDT 07/16/2021 6:00 AM EDT Dejah N Vaculin PA [facility] [address] [address] * (ABNORMAL) Hemoglobin A1c with Estimated Average Glucose (07/07/2021 6:31 AM EDT) Hemoglobin A1C 6.5(H) <5.7 % 07/07/2021 3:00 PM T [facility] Comment: A1c% ? Interpretation 5.7 - 6.0 ?Increase risk of diabetes 6.1 - 6.4 ?Higher risk of diabetes > or = 6.5 ?? Consistent with diabetes Diabetes Care, 33(Supp 1):S1-S61, 2009 Estimated Average Glucose 140 mg/dL 07/07/2021 3:00 PM [facility] Blood specimen (specimen) Blood specimen / Unknown 07/07/2021 6:31 AM EDT 07/07/2021 7:02 AM EDT Herson Soriano PA LAB BLOOD ORDERABLE S [facility]OSPITAL [facility] [address] [place] [address] * Lipid Panel (06/29/2021 5:36 AM EDT) Cholesterol, Total 139 <200 mg/dL 2021 6:12 AM EDT [facility] Triglycerides 64 <150 mg/dL 06/29/2021 6:12 AM EDT [facility] Cholesterol, HDL 64 >39 mg/dL 06/30/19 6:12 AM EDT [facility] Estimated LDL 62 <130 mg/dL 06/29/2021 6:12 AM EDT [facility] Comment: NCEP Guidelines: ?< 100 mg/dL ??Optimal 100 - 129 mg/dL ??Near Optimal/Above Optimal 130 - 159 mg/dL ??Borderline High 160 - 189 mg/dL ??High ??>/= 190 mg/dL ??Very High Cholesterol/HDL Ratio 2.2 0.0 - 5.0 Ratio 06/29/2021 6:12 AM EDT [facility] Comment: Relative Risk ? Ratio - Male ? Ratio - Female ?0.5 ?3.4 ?3.3 ?1.0 ?5.0 ?4.4 ?2.0 ?9.6 ?7.1 ?3.0 ? 23.4 ? 11.0 Blood specimen (specimen) (Plasma/Serum) 06/29/2021 5:36 AM EDT 06/29/2021 5:44 AM EDT Haroon Reynolds APRN LAB BLOOD ORD ERABLES [facility] [address] [place] [address] from Last 3 Months or Most Recently Relevant to Health Maintenance Advance Directives * Full Code (Latest Code Status on File) Date Activated Date Inactivated Comments 07/11/2021 2:06 PM * Full Code Date Activated Date Inactivated Comments 07/06/2021 6:43 PM 07/11/2021 10:46 AM * Full Code Date Activated Date Inactivated Comments 06/28/2021 10:17 PM 07/06/2021 2:42 PM Care Teams Campus Security Director Relationship Specialty Start Date End Date Tawnya Thompson MD [address] [place] [id number] PCP - General Family Medicine 06/28/21
== END 2024-04-29 14:12 | disposition home or self-care (01) ==
LOC: HO.RHES 13:17
PROVIDERS: PCP Family Medicine; Visit Provider Internal Medicine Rheumatology
DX: M06.09 Rheumatoid arthritis without rheumatoid factor, multiple sites (principal); Z79.899 Other long term (current) drug therapy; M72.0 Palmar fascial fibromatosis [Dupuytren]; M25.532 Pain in left wrist
CPT/HCPCS: 20605; 99214

== ENCOUNTER 2024-04-29 13:16 | Outpatient (REF) | payer MEDICARE, OTHER, SELFPAY ==
--- OUTSIDE RECORDS SUMMARY | 2024-04-29 17:35 | XMS_ITS | Clinical Summary ---
Author Organization [facility] Address [address] [place] [address] Care Team Providers Care Local Sales Manager Name Role Phone Tawnya Thompson MD Primary Care Provider + [phone] Allergies No known active allergies Medications Medication [...] this topic Medical Devices Implanted Type Area Lithograph Press Operator Device Identifier Shelf Expiration Date Model / Serial / Lot Small Siva Hole Plate Implanted:Qty: 1 on 06/29/2021 by Juliane Joel MD at [facility] Left: Cranial [employer] NL-BR-010S / / 6 Hole Double Y-Plate Implanted:Qty: 2 on 06/29/2021 by Juliane Joel MD at [facility] Left: Cranial [employer] [id number] / / 5mm Low Profile Screw Implanted:Qty: 18 on 06/29/2021 by Juliane Joel MD at [facility] Explanted:Qty: 9 on 07/12/2021 by Juliane Joel MD at [facility] Left: Cranial [employer] 16-NF-005 / / 6 Hole Straight Plate Implanted:Qty: 2 on 07/12/2021 by Juliane Joel MD at [facility] Left: Cranial [employer] [id number] / / 5mm Screw Implanted:Qty: 14 on 07/12/2021 by Juliane Joel MD at [facility] Left: Cranial [employer] 16-NF-005 / [...] - 99 mg/dL 07/16/2021 6:47 AM EDT [facility] Blood Urea Nitrogen (BUN) 12 8 - 21 mg/dL 07/16/2021 6:47 AM EDT [facility] Creatinine 0.7 0.5 - 1.3 mg/dL 07/16/2021 6:47 AM EDT [facility] eGFR >60 >59 07/16/2021 6:47 AM EDT [facility] Comment:MDRD in mL/min/1.73 sq meters. Sodium 134(L) 136 - 145 mmol/L 07/16/2021 6:47 AM EDT [facility] Potassium 3.7 3.4 - 5.3 mmol/L 07/16/2021 6:47 AM EDT [facility] Chloride 96(L) 98 - 107 mmol/L 07/16/2021 6:47 AM EDT [facility] CO2 23 22 - 33 mmol/L 07/16/2021 6:47 AM EDT [facility] Calcium 8.8 8.7 - 10.5 mg/dL 07/16/2021 6:47 AM EDT [facility] Phosphorus 2.9 2.7 - 4.5 mg/dL 07/16/2021 6:47 AM EDT [facility] Albumin 3.2(L) 3.4 - 4.8 g/dL 07/16/2021 6:47 AM EDT [facility] BUN/Creatinine Ratio 17 10.0 - 25.0 Ratio 07/16/2021 6:47 AM T [facility] Blood specimen (specimen) (Plasma/Serum) 07/16/2021 5:36 AM EDT 07/16/2021 6:00 AM EDT Dejah N Vaculin PA [facility] [address] [address] * (ABNORMAL) Hemoglobin A1c with Estimated Average Glucose (07/07/2021 6:31 AM EDT) Hemoglobin A1C 6.5(H) <5.7 % 07/07/2021 3:00 PM T [facility] Comment: A1c% ? Interpretation 5.7 - 6.0 ?Increase risk of diabetes 6.1 - 6.4 ?Higher risk of diabetes > or = 6.5 ?? Consistent with diabetes Diabetes Care, 33(Supp 1):S1-S61, 2009 Estimated Average Glucose 140 mg/dL 07/07/2021 3:00 PM [facility] Blood specimen (specimen) Blood specimen / Unknown 07/07/2021 6:31 AM EDT 07/07/2021 7:02 AM EDT Herson Soriano PA LAB BLOOD ORDERABLE S HOSPITAL LAB [facility] [address] [place] [address] * Lipid Panel (06/29/2021 5:36 AM EDT) Cholesterol, Total 139 <200 mg/dL 2021 6:12 AM EDT [facility] Triglycerides 64 <150 mg/dL 06/29/2021 6:12 AM EDT [facility] Cholesterol, HDL 64 >39 mg/dL 06/30/19 6:12 AM EDT [facility] Estimated LDL 62 <130 mg/dL 06/29/2021 6:12 AM EDT [facility] Comment: NCEP Guidelines: ?< 100 mg/dL ??Optimal 100 - 129 mg/dL ??Near Optimal/Above Optimal 130 - 159 mg/dL ??Borderline High 160 - 189 mg/dL ??High ??>/= 190 mg/dL ??Very High Cholesterol/HDL Ratio 2.2 0.0 - 5.0 Ratio 06/29/2021 6:12 AM EDT [facility] Comment: Relative Risk ? Ratio - Male ? Ratio - Female ?0.5 ?3.4 ?3.3 ?1.0 ?5.0 ?4.4 ?2.0 ?9.6 ?7.1 ?3.0 ? 23.4 ? 11.0 Blood specimen (specimen) (Plasma/Serum) 06/29/2021 5:36 AM EDT 06/29/2021 5:44 AM EDT Haroon Reynolds APRN LAB BLOOD ORD ERABLES [facility] [address] [place] [address] from Last 3 Months or Most Recently Relevant to Health Maintenance Advance Directives * Full Code (Latest Code Status on File) Date Activated Date Inactivated Comments 07/11/2021 2:06 PM * Full Code Date Activated Date Inactivated Comments 07/06/2021 6:43 PM 07/11/2021 10:46 AM * Full Code Date Activated Date Inactivated Comments 06/28/2021 10:17 PM 07/06/2021 2:42 PM Care Teams Local Sales Manager Relationship Specialty Start Date End Date Tawnya Thompson MD [address] [place] [id number] PCP - General Family Medicine 06/28/21
--- OUTSIDE RECORDS SUMMARY | 2024-04-29 17:35 | XMS_ITS | Clinical Summary ---
Author Organization [facility] Address [address] [place] [address] Care Team Providers Care Vp Business Development Name Role Phone Tawnya Thompson MD Primary Care Provider [phone] Allergies No known active allergies Medications Medication [...] this topic Medical Devices Implanted Type Area Job Coach Device Identifier Shelf Expiration Date Model / Serial / Lot System Perclose Prostyle Suture Medicated Abbt-Vas [id number] - [id number] Implanted:Qty: 1 on 01/25/2023 at [facility] [employer] [employer] BENJI [id number] / / Valve Chetan Thv Velasquez Resilia 26mm [facility] [id number] - [id number] Implanted:Qty: 1 on 01/30/2023 by Rick Nicole MD at [facility] Heart [employer] MICHAEL 08/23/2025 [id number] / [id number] / Advance Directives For more information, please contact: [phone] Latest Code Status on File Code Status [...] AM 01/25/2023 8:01 PM . Care Teams Vp Business Development Relationship Specialty Start Date End Date Tawnya Thompson MD [address] [place] [phone] PCP - General Family Medicine 11/06/22
--- OUTSIDE RECORDS SUMMARY | 2024-04-29 17:35 | XMS_ITS | Clinical Summary ---
Author Organization [facility] [employer] [place] Address [address] [place] [address] Phone Care Team Providers Care Funeral Director'S Assistant Name Role Phone Tawnya Thompson MD Primary Care Provider [phone] Allergies No known active allergies Medications aspirin [...] aortic valve replacement),Co ronary artery disease involving alturas coronary artery of alturas heart without angina pectoris,Pure hypercholestero lemia,Bradycard ia Take 1 tablet (20 mg total) by mouth 1 (one) time each day. 90 each 3 5 03/26/19 26 Active Active Problems Problem Noted Date Diagnosed Date Aortic stenosis, severe 01/30/2023 Encounters Date Type Department Care Team Description 03/26/2024 2:30 PM EST Office Visit [facility] [address] [place] [phone] Aj Abdullahi MD S/P TAVR (transcatheter aortic valve replacement) (Primary Dx); Coronary artery disease involving alturas coronary artery of alturas heart without angina pectoris; Pure hypercholesterolemia; Bradycardia 03/26/2024 1:30 PM EST Ancillary Procedure [facility] [address] [place] [phone] Nonrheumatic aortic (valve) stenosis from Last 3 Months Surgical History Surgery Date Site/Laterality Comments CRANIOTOMY PROCEDURE:CRANIOTOMY;COMMENT:2020 -june CARDIAC CATHETERIZATION 01/25/2023 N/A PROCEDURE:CARDIAC CATHETERIZATION;COMMENT:Procedure : LEFT HEART CATHETERIZATION PCI; Surgeon: Cain Hopson MD; Location: [facility] CARDIAC FOOD SUPERVISOR; Service: Cardiology; Laterality: N/A; CARDIAC CATHETERIZATION 01/25/2023 N/A PROCEDURE:CARDIAC CATHETERIZATION;COMMENT:Procedure : CORONARY ANGIOGRAPHY; Surgeon: Cain Hopson MD; Location: [facility] CARDIAC FOOD SUPERVISOR; Service: Cardiology; Laterality: N/A; AORTIC VALVE REPLACEMENT 01/30/2023 Bilateral PROCEDURE:AORTIC VALVE REPLACEMENT;COMMENT:Procedure: TAVR TF PERCUSTANEOUS; Surgeon: Rick Nicole MD; Location: [facility] HYBRID OPERATING ROOM; Service: Cardiovascular; Laterality: Bilateral; [...] 03/26/2025 12:00 PM EST Office Visit [facility] [address] [facility] [address] [place] [address] Aj Abdullahi MD [address] [address] Health Maintenance Due Date Last Done Comments [...] this topic Medical Devices Implanted Type Area Animal Cytologist Device Identifier Shelf Expiration Date Model / Serial / Lot System Perclose Prostyle Suture Medicated Abbt-Vasc [id number] Implanted:Qty: 1 on 01/25/2023 [facility] 127 [id number] / / Valve Chetan Thv Velasquez Resilia 26mm [facility] [id number] - [id number] Implanted:Qty: 1 on 01/30/2023 by Rick Nicole MD Heart [employer] MICHAEL 08/23/2025 [id number] / [id number] / Procedures Procedure Name Priority Date/Time Associated Diagnosis Comments ECG 12-LEAD Routine 03/26/2024 2:21 PM EST S/P TAVR (transcatheter aortic valve replacement) Coronary artery disease involving alturas coronary artery of alturas heart without angina pectoris Pure hypercholesterolem ia [...] bradycardia at 53 bpm-otherwise normal tracing Result [facility] Aj Abdullahi MD ECG ORDERABLES Final Result * TRANSTHORACIC ECHOCARDIOGRAM (TTE) COMPLETE (03/26/2024 1:47 PM EST) Anatomical Region Laterality Modality Ultrasound us Aj Abdullahi MD CV ECHO PROCEDURES Final Result * Annual BMP Blood Test (01/31/2023) Annual BMP Blood Test Abstracted Result [facility] Historical Provider HEALTH MAINTENANCE Final Result * (ABNORMAL) Hemoglobin A1c (01/30/2023) Hemoglobin A1C 6.8(A) <=5.7 % Blood Venous blood specimen / Unknown Result [facility] Historical Provider LAB BLOOD ORDERABLES Nani [...] Recently Relevant to Health Maintenance Insurance MEDICARE [facility] Care Teams Funeral Director'S Assistant Relationship Specialty Start Date End Date Tawnya Thompson MD [facility] [address] [place] [address] PCP - General 11/06/22
[2024-04-29 18:34] LABS: MANUAL DIFF FLAG NO
[2024-04-29 18:41] LABS: Basophils Percent Auto 0.1 % (0-2); Eosinophils Absolute Auto 0.1 X10*3/uL (0.0-0.4); Eosinophils Percent Auto 0.7 % (0-4); Hematocrit 38.7 % (42.0-52.0); Hemoglobin 12.6 g/dl (14.0-18.0); Imm Gran Abs Auto 0.02 X10*3/uL (0.00-0.03); Imm Gran Pct Auto 0.3 % (0.0-0.4); Lymphocytes Absolute Auto 1.7 X10*3/uL (1.2-4.9); Lymphocytes Percent Auto 24.1 % (20-40); Mean Corpuscular HGB Conc 32.6 g/dl (31.0-36.0); Mean Corpuscular Hemoglobin 30.9 pg (27.0-33.0); Mean Corpuscular Volume 94.9 fL (80.0-98.0); Monocytes Absolute Auto 0.6 X10*3/uL (0.1-1.2); Neutrophils Absolute Auto 4.7 x10*3/uL (2.0-8.3); Neutrophils Percent Auto 65.8 % (45-73); Platelet Count 187 X10*3/uL (160-400); Red Blood Count 4.08 X10*6/uL (4.60-5.80); Red Cell Distribution Width 14.5 % (11.0-16.0); White Blood Count 7.1 X10*3/uL (4.8-10.8)
[2024-04-29 19:13] LABS: Alanine Aminotransferase 35 U/L (0-40); Aspartate Amino Transferase 44 U/L (5-37); C Reactive Protein < 0.04 mg/dL (< or = 0.50); Estimated Glomerular Filt Rate > 60
[2024-04-29 20:12] LABS: Erythrocyte Sedimentation Rate 7 MM/HR (0-15)
== END 2024-04-29 13:17 | disposition home or self-care (01) ==
LOC: HO.HKASLDS 13:16
PROVIDERS: PCP Family Medicine; Visit Provider Internal Medicine Rheumatology
DX: M06.9 Rheumatoid arthritis, unspecified (principal); Z79.60 Long term (current) use of unspecified immunomodulators and immunosuppressants; Z79.899 Other long term (current) drug therapy
CPT/HCPCS: 20605; 36415; 82565; 84450; 84460; 85025; 85652; 86140; 99212; J2003; J3300

== ENCOUNTER 2024-07-29 10:06 | Outpatient (AMB) | payer MEDICARE, OTHER, SELFPAY ==
[2024-07-29 10:08] VITALS: BP 130/60; PULSE 55; O2SAT 100; BMI 918.0
--- NOTE | 2024-07-29 10:08 | MHC.OFFVIS ---
Vital Signs 07/29/24 10:08 Height 11 in Weight 158 lb BMI 918.0 BP 130/60 Blood Pressure Location Lt brachial Position Sitting Pulse 55 Pulse Source Pulse Oximeter Pulse Oximetry (%) 100 Oxygen Delivery Method Room Air Intake Visit Reasons: 3 Months Intake Note: Patient presents for follow up on rheumatoid arthritis. Accompanied by: Self / Same As Patient Allergies No Known Allergies Allergy (Verified 04/29/24 13:24) HPI HPI 3 Months: Details: Left wrist pain and swelling returned after cortisone injection. Left wrist feels weak. Avoids putting weight on it. No new joint swelling. No recent infections. History of type 1 diabetes on insulin pump. Physical Exam Vital Signs: Last Vital Signs Pulse 55 07/29/24 10:08 BP 130/60 07/29/24 10:08 Pulse Ox 100 07/29/24 10:08 Oxygen Delivery Method Room Air 07/29/24 10:08 BMI result Body Mass Index 918.0 Const Other: General: Comfortable CVS: RRR Respiratory: clear to auscultation bilaterally. Good respiratory effort Skin: No lesions seen MSK: Tenderness of left wrist with synovitis present radially. No squaring of CMCs. Dupuytren's contractures present bilateral. 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 Normal range of motion of shoulders, hips, knees and ankles. Assessment & Plan Assessment & Plan (1) Rheumatoid arthritis: Comment: Recurrent left synovitis. Failed intra-articular cortisone course. In the past prednisone course caused hyperglycemia. His labs from April revealed mild transaminitis. I will be repeating labs. If LFTs normalize, we discussed adding on DMARD therapy sulfasalazine and changing methotrexate to subcutaneous injection for greater bio availability. Discussed side effects, benefits and drug monitoring. I will avoid hydroxychloroquine due to risk of photosensitivity and patient would like to avoid retinal toxicity with his underlying history of diabetes. Patient has spends time in the summer golfing. X-ray from 05/2023 of left wrist revealed findings due to sequelae of post ligamentous injury and there is suggestion of early SLAC. If after introducing sulfasalazine and optimizing his dose, if he continues to have left wrist swelling, I will order MRI for further evaluation ? Ligament tear contributing to swelling/reduced function. Rheumatology history: Seronegative. Presenting with synovitis in hands, atypical RA with subjective proximal muscle weakness mimicking PMR but normal inflammatory markers and muscle enzymes. Background Dupuytren's contractures with inability to make a full fist. He has had recurrent left wrist pain and swelling requiring intra-articular cortisone injections (3 x 2023). He has had decreased effectiveness of two cortisone injections. He has recurrent left wrist synovitis. He self discontinued leflunomide with resulting improvement. Mild elevation in AST may be related to leflunomide. Code(s): M06.9 - Rheumatoid arthritis, unspecified Category: Medical Qualifiers: Rheumatoid factor presence: without rheumatoid factor Laterality: bilateral Plan: Labs ordered for disease and drug monitoring on high-risk medication Continue methotrexate 20 mg once weekly Continue folic acid 1 mg daily Information on sulfasalazine given to patient After lab results are back, we will send prescription for sulfasalazine 500 mg twice a day. He will then need labs 4 weeks after starting sulfasalazine: CBC, creatinine, AST, ALT. Patient prefers to have labs done locally at [facility] in 4 weeks. He will also be scheduled for nurse teaching visit for methotrexate subcutaneous injection teaching on Sunday or Sunday. He will hold methotrexate Sunday prior to teaching visit. Return to clinic in 3 months (2) Other assisted (current) drug therapy: Code(s): Z79.899 - Other assisted (current) drug therapy Category: Medical Plan: See above (3) Dupuytren contracture of both hands: Comment: Stable Code(s): M72.0 - Palmar fascial fibromatosis [Dupuytren] Category: Medical Plan: Monitoring clinically Orders: Orders Erythrocyte Sedimentation Rate Today Z79.899 - Other continuous churn buttermaker (current) drug therapy C Reactive Protein Today Z79.899 - Other continuous churn buttermaker (current) drug therapy Coding Level of Care Code Est Pt Level 4 (30364) Complex EM visit Add On G2211 Diagnoses Rheumatoid arthritis M06.9 Rheumatoid factor presence: without rheumatoid factor Laterality: bilateral Other assisted (current) drug therapy Z79.899 Dupuytren contracture of both hands M72.0
--- OUTSIDE RECORDS SUMMARY | 2024-07-29 11:35 | XMS_ITS | Clinical Summary ---
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 90 each 3 5 03/26/19 26 Active Active Problems Problem Noted Date Diagnosed Date Aortic stenosis, severe 01/30/2023 Encounters Date Type Department Care Team Description 07/04/2024 Episode [facility] [address] [place] [address] Lurdes Hill RN from Last 3 Months Surgical History Surgery Date Site/Laterality Comments CRANIOTOMY PROCEDURE:CRANIOTOMY;COMMENT:2020 -june CARDIAC CATHETERIZATION 01/25/2023 N/A PROCEDURE:CARDIAC CATHETERIZATION;COMMENT:Procedure : LEFT HEART CATHETERIZATION PCI; Surgeon: Cain Hopson MD; Location: [facility]; Service: Cardiology; Laterality: N/A; CARDIAC CATHETERIZATION 01/25/2023 N/A PROCEDURE:CARDIAC CATHETERIZATION;COMMENT:Procedure : CORONARY ANGIOGRAPHY; Surgeon: Cain Hopson MD; Location: [facility]; Service: Cardiology; Laterality: N/A; AORTIC VALVE REPLACEMENT 01/30/2023 Bilateral PROCEDURE:AORTIC VALVE REPLACEMENT;COMMENT:Procedure: TAVR TF PERCUSTANEOUS; Surgeon: Rick Nicole MD; Location: [facility] HYBRID OPERATING ROOM; Service: Cardiovascular; Laterality: Bilateral; Medical History Medical History Date Comments Type 1 diabetes (CMS/HCC V24 , CMS/HCC V28) DX:Type 1 diabetes (HCC);COM MENT:wears continuous glucose monitor and insulin pumo HTN (hypertension) DX:HTN (hyper tension) HLD (hyperlipidemia) DX:HLD (hyp erlipidemia) Aortic valvar stenosis DX:Aortic valvar stenosis Subdural hematoma (CMS/HCC V 24, CMS/HCC V28) DX:Subdural hematoma (HCC) Eye abnormality DX:Eye abnormali ty;COMMENT:right [...] Description 03/26/2025 12:00 PM EST Office Visit [facility] - [place] [address] [facility] [address] [place] [id number] Aj Abdullahi MD [address] [facility] [address] [place], [place] [id number] Health Maintenance Due Date Last Done Comments COVID-19 Vaccine (#1) 11/20/1950 Diabetes: Annual Foot Exam 1956 Diabetes: Annual Retina Eye Exam 1955 DTaP,Tdap,and Td Vaccines (1 - Tdap) 1965 Zoster Vaccines (1 of 2) 1996 RSV Immunization Adult Patients (1 - 1-dose 75+ series) 2021 Pneumococcal Vaccine: 50+ Years (3 of 3 - PCV20 or PCV21) 03/22/2022 03/22/2017, 06/01/2008 Depression Screening 03/16/2023 Falls Risk Assessment 03/16/2023 Social Influencers of Health Screening 03/16/2023 Medicare Annual Wellness Visit 08/16/2023 08/15/2022 Diabetes: Annual Urine Albumin-Creatinine Ratio (uACR) 03/26/2024 Diabetes: Blood Sugar Control Test (HGBA1C) 03/26/2024 01/30/2023, 01/30/2023, 07/07/2021 Influenza Vaccine (Season Ended) 2024 11/03/2022, 11/30/2021, 12/03/2020, Additional history exists Diabetes: Annual GFR (Glomerular Filtration Rate) 11/11/2024 [...] age to complete this topic Meningococcal B Vaccine Aged Out No l onger eligible based on patient's age to complete this topic RSV Immunization Patients Under 20 months Aged Out No longer eligible based on patient's age to complete this topic Varicella Vaccines Aged Out No longer eligible based on patient's age to complete this topic Medical Devices Implanted Type Area Multimedia Producer Device Identifier Shelf Expiration Date Model / Serial / Lot System Perclose Prostyle Suture Medicated [facility] [id number] Implanted:Qty: 1 on 01/25/2023 [employer] [id number] / / Valve Chetan Thv Velasquez Resilia 26mm [facility] [id number] - [id number] Implanted:Qty: 1 on 01/30/2023 by Rick Nicole MD Heart [employer] 08/23/2025 [id number] / [id number] / Procedures Procedure Name Priority Date/Time Associated Diagnosis Comments HM ANNUAL BMP BLOOD TEST Routine 01/31/2023 HEMOGLOBIN A1C Routine 01/30/2023 LIPID PANEL Routine 06/29/2021 from Last 3 Months or Most Recently Relevant to Health Maintenance Results * Annual BMP Blood Test (01/31/2023) Pathologist [facility] Annual BMP Blood Test Abstracted [facility] Provider HEALTH MAINTENANCE Final Result * (ABNORMAL) Hemoglobin A1c (01/30/2023) [facility] Hemoglobin A1C 6.8(A) <=5.7 % Blood Venous blood specimen / Unknown [facility] Provider LAB BLOOD ORDERABLES Nani l Result * Lipid panel (06/29/2021) [facility] LDL/HDL Ratio 0 Comment:No Interpretation Triglycerides 0 mg/dL Comment:No Interpretation Cholesterol 0 mg/dL Comment:No Interpretation HDL 0 mg/dL Comment:No Interpretation LDL Cholesterol 0 mg/dL Comment:No Interpretation Blood Venous blood specimen / Unknown [facility] Provider LAB BLOOD ORDERABLES Nani l Result from Last 3 Months or Most Recently Relevant to Health Maintenance Insurance MEDICARE [facility] Care Teams Automotive Project Engineer Relationship Specialty Start Date End Date Tawnya Thompson MD [facility] [address] [place] [address] PCP - General 11/06/22
== END 2024-07-29 10:36 | disposition home or self-care (01) ==
LOC: HO.RHES 10:07
PROVIDERS: PCP Family Medicine; Visit Provider Internal Medicine Rheumatology
DX: M06.9 Rheumatoid arthritis, unspecified (principal); Z79.899 Other long term (current) drug therapy; M72.0 Palmar fascial fibromatosis [Dupuytren]
CPT/HCPCS: 99214; G2211

== ENCOUNTER 2024-07-29 10:06 | Outpatient (REF) | payer MEDICARE, OTHER, SELFPAY ==
[2024-07-29 17:57] LABS: MANUAL DIFF FLAG NO
[2024-07-29 18:18] LABS: Basophils Percent Auto 0.2 % (0-2); Eosinophils Absolute Auto 0.1 X10*3/uL (0.0-0.4); Eosinophils Percent Auto 0.9 % (0-4); Hemoglobin 12.9 g/dl (14.0-18.0); Imm Gran Abs Auto 0.01 X10*3/uL (0.00-0.03); Imm Gran Pct Auto 0.2 % (0.0-0.4); Lymphocytes Absolute Auto 1.5 X10*3/uL (1.2-4.9); Lymphocytes Percent Auto 28.1 % (20-40); Mean Corpuscular HGB Conc 33.1 g/dl (31.0-36.0); Mean Corpuscular Hemoglobin 31.2 pg (27.0-33.0); Mean Corpuscular Volume 94.4 fL (80.0-98.0); Mean Platelet Volume 11.2 fL (9.4-12.4); Monocytes Absolute Auto 0.4 X10*3/uL (0.1-1.2); Neutrophils Absolute Auto 3.4 x10*3/uL (2.0-8.3); Neutrophils Percent Auto 62.6 % (45-73); Platelet Count 191 X10*3/uL (160-400); Red Blood Count 4.13 X10*6/uL (4.60-5.80); Red Cell Distribution Width 15.1 % (11.0-16.0); White Blood Count 5.4 X10*3/uL (4.8-10.8)
[2024-07-29 18:30] LABS: Alanine Aminotransferase 32 U/L (0-40); Alkaline Phosphatase 62 U/L (39-117); Aspartate Amino Transferase 39 U/L (5-37); Bilirubin Direct 0.4 mg/dL (0.0-0.5); Bilirubin Total 1.2 mg/dL (0.0-1.0); C Reactive Protein < 0.10 mg/dL (< or = 0.50); Estimated Glomerular Filt Rate > 60; Total Protein 6.1 g/dL (6.5-8.0)
[2024-07-29 19:32] LABS: Erythrocyte Sedimentation Rate 4 MM/HR (0-15)
== END 2024-07-29 10:07 | disposition home or self-care (01) ==
LOC: HO.HKASLDS 10:06
PROVIDERS: PCP Family Medicine; Referring Provider Internal Medicine Rheumatology; Visit Provider Internal Medicine Rheumatology
DX: M06.9 Rheumatoid arthritis, unspecified (principal); Z79.899 Other long term (current) drug therapy; Z79.60 Long term (current) use of unspecified immunomodulators and immunosuppressants
CPT/HCPCS: 36415; 80076; 82565; 85025; 85652; 86140; 99212

== ENCOUNTER 2024-11-04 10:12 | Outpatient (AMB) | payer MEDICARE, OTHER, SELFPAY ==
[2024-11-04 10:16] VITALS: BP 130/80; PULSE 56; O2SAT 99; BMI 22.1
--- NOTE | 2024-11-04 10:16 | MHC.OFFVIS ---
Vital Signs 11/04/24 10:16 Height 5 ft 11 in Weight 158 lb 4.67 oz BMI 22.1 BP 130/80 Blood Pressure Location Rt brachial Position Sitting Pulse 56 Pulse Source Pulse Oximeter Pulse Oximetry (%) 99 Oxygen Delivery Method Room Air Intake Visit Reasons: 3 Months Intake Note: Patient presents for follow up on rheumatoid arthritis. Accompanied by: Spouse Allergies No Known Allergies Allergy (Verified 11/04/24 10:19) Medication List - Last Reconciled 11/04/24 by Chaim De Jesus MD aspirin 81 mg PO DAILY atorvastatin 20 mg PO DAILY dutasteride 0.5 mg PO DAILY insulin aspart U-100 (Novolog PenFill U-100 Insulin aspart) 60 units subcut TID leucovorin calcium 5 mg PO DAILY 12 weeks lisinopril 20 mg PO DAILY methotrexate sodium 17.5 mg (7 x 2.5 mg) PO QWEEK 12 weeks multivitamin 1 tab PO DAILY HPI HPI 3 Months: Details: Accompanied with his . Left shoulder pain and reduced function in 5 days after celevrex. MS in hands all day. MS in back 1 hour, which improves with stretching. Golf 3-4 times a week. He is having a hard time straightening his hand. Physical Exam Vital Signs: Last Vital Signs Pulse 56 11/04/24 10:16 BP 130/80 11/04/24 10:16 Pulse Ox 99 11/04/24 10:16 Oxygen Delivery Method Room Air 11/04/24 10:16 BMI result Body Mass Index 22.1 Const Other: General: Comfortable CVS: RRR Respiratory: clear to auscultation bilaterally. Good respiratory effort Skin: No lesions seen MSK: Tenderness of left wrist with synovitis present radially. No squaring of CMCs. Dupuytren's contractures present bilateral. 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 Normal range of motion of shoulders, hips, knees and ankles. Assessment & Plan Assessment & Plan (1) Rheumatoid arthritis: Comment: Recurrent left synovitis. Failed intra-articular cortisone course. In the past prednisone course caused hyperglycemia. His recent labs in August reveal resolution of transaminitis. We discussed next steps in repeating x-ray. X-ray from 05/2023 of left wrist revealed findings due to sequelae of post ligamentous injury and there is suggestion of early SLAC. If x-ray does not reveal any new joint pathology, I will have to obtain an MRI with and without contrast to evaluate if inflammatory arthritis is contributing to swelling or if there is a ligament injury, which will aid next steps in management. If he has active inflammatory arthritis on MRI, DMARD therapy we will need to be changed. If he has a ligament injury, he will need orthopedic referral for evaluation and further management. Patient agrees with plan. He has agreed to try OT to improve range of motion and stiffness with his underlying Dupuytren's contractures. Rheumatology history: Seronegative. Presenting with synovitis in hands, atypical RA with subjective proximal muscle weakness mimicking PMR but normal inflammatory markers and muscle enzymes. Background Dupuytren's contractures with inability to make a full fist. He has had recurrent left wrist pain and swelling requiring intra-articular cortisone injections (3 x 2023). He has had decreased effectiveness of two cortisone injections. He has recurrent left wrist synovitis. He self discontinued leflunomide with resulting improvement. Mild elevation in AST may be related to leflunomide, which resolved August 2024 labs. I will avoid hydroxychloroquine due to risk of photosensitivity and patient would like to avoid retinal toxicity with his underlying history of diabetes. Code(s): M06.9 - Rheumatoid arthritis, unspecified Category: Medical Qualifiers: Rheumatoid factor presence: without rheumatoid factor Laterality: bilateral Plan: He had labs done ordered by PCP yesterday. I am obtaining lab results for drug monitoring on high-risk medication Continue methotrexate 17.5 mg once weekly Continue folic acid 1 mg daily X-ray left wrist ordered OT ordered. Per patient's request he would like to have it done at [facility]. Requisition given to patient. 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 Code(s): M72.0 - Palmar fascial fibromatosis [Dupuytren] Category: Medical Plan: OT ordered Orders: Orders XR wrist LT min 3V Today M06.9 - Rheumatoid arthritis, unspecified OT Evaluation and Treatment Today M06.9 - Rheumatoid arthritis, unspecified, M72.0 - Palmar fascial fibromatosis [Dupuytren], Z79.899 - Other intermediate school teacher (current) drug therapy Medications: Changed From methotrexate sodium Recheck liver function test in 2 weeks 17.5 mg (7 x 2.5 mg) PO QWEEK 32 tabs 2RF To methotrexate sodium Recheck liver function test in 2 weeks 17.5 mg (7 x 2.5 mg) PO QWEEK 84 tabs 0RF 12 weeks From leucovorin calcium take 1 tab the day after Methotrexate. 5 mg PO DAILY To leucovorin calcium take 1 tab the day after Methotrexate. 5 mg PO DAILY 84 tabs 4RF 12 weeks Coding Level of Care Code Est Pt Level 4 (70348) Complex EM visit Add On G2211 Diagnoses Rheumatoid arthritis M06.9 Rheumatoid factor presence: without rheumatoid factor Laterality: bilateral Other residential (current) drug therapy Z79.899 Dupuytren contracture of both hands M72.0
--- OUTSIDE RECORDS SUMMARY | 2024-11-04 13:16 | XMS_ITS | Encounter Summary ---
Author Organization [facility] Address [address] [place] [address] Phone Care Team Providers Care Iron Pellet Tester Name Role Phone Tamiko Gibbons MD Primary Care Provi shaunna Tamiko Gibbons MD Unavailable [phone] Unknown, Unknown Primary Care Provider Tawnya Dodd MD Primary Care Provider Tawnya Thompson MD Primary Care Provider [phone] Encounter Details Date Type Department Care Team (Late st Contact Info) Description 10/19/2020 Transcribe Orders Virtual Department [address] [place] [address] Tamiko Gibbons MD [address] [place], [place] [id number] [email or web address] Benign lipomatous neoplasm, unspecified (Primary Dx) Social History Tobacco Use Types Packs/Day Years Used Date Smoking Tobacco: Former Smokeless Tobacco: Never Alcohol Use Standard Drinks/Week Comments Yes 0 (1 standard drink = 0.6 oz pur e alcohol) daily Sex and Gender Information Value Date Recorded Sex Assigned at Male 04/01/2017 11:15 AM EST Legal Sex Male 6:46 PM EST Gender Identity Male 04/01/2017 11:15 AM EST Sexual Orientation Straight 04/01/2017 11 :15 AM EST documented as of this encounter Plan of Treatment Not on file documented as of this encounter Visit Diagnoses Diagnosis Benign lipomatous neoplasm, unspecified- Primary documented in this encounter Care Teams Iron Pellet Tester Relationship Specialty Start Date End Date Tamiko Gibbons MD [email or web address] PCP - General 08/25/15 05/31/21 Unknown, Unknown, PCP - General 06/01/21 06/27/21 Tawnya Thompson MD PCP - General Family Medicine 06/28/21 12/19/23 Tawnya Thompson MD [address] [place] [address] PCP - General Family Medicine 12/20/23 Tamiko Gibbons MD [address] [place] [address] [email or web address] Assigned Provider 11/29/19 06/25/21 documented as of this encounter Additional Source Comments The information contained in this document represents components of the legal health record. It is not the complete legal health record.[facility]
--- OUTSIDE RECORDS SUMMARY | 2024-11-04 13:16 | XMS_ITS | Encounter Summary ---
Author Organization [facility] Address [address] [place] [phone] Phone Care Team Providers Care Road Packer Operator Name Role Phone Tamiko Gibbons MD Primary Care Provi shaunna Tamiko Gibbons MD Unavailable [phone] Unknown, Unknown Primary Care Provider Tawnya Dodd MD Primary Care Provider Tawnya Thompson MD Primary Care Provider Encounter Details Date Type Department Care Team (Late st Contact Info) Description 10/27/2020 Ancillary Orders Virtual Department [address] [place] [id number] Tamiko Gibbons MD [address] [place], [place] [phone] [email or web address] Benign lipomatous neoplasm, unspecified Social History Tobacco Use Types Packs/Day Years [...] on file documented as of this encounter Results * US Chest Wall (10/27/2020 12:53 PM EDT) Anatomical Region Laterality Modality Chest Ultrasound 10/27/2020 1:07 PM EDT Impressions 10/27/2020 1:13 PM EDT Mass likely is a lipoma and can be correlated clinically as above. Narrative 10/27/2020 1:13 PM EDT Ultrasonic examination of the left chest wall along the axillary line is performed and compared to a chest CT from 09/13/2019. Corresponding to palpable abnormality is an area similar in appearance to subcutaneous fat measuring 5.0 x 1.0 x 5.4 cm. This may correlate to an area of some fatty asymmetry on the prior CT and very likely represents a lipoma. Correlate clinically regarding pain or growth which may make it an active actionable finding. Otherwise clinical follow-up over time suggested. Procedure Note Leobardo Costa MD - 10/27/2020 Ultrasonic examination of the left chest wall along the axillary line isperformed and compared to a chest CT from 09/13/2019. Corresponding topalpable abnormality is an area similar in appearance to subcutaneous fatmeasuring 5.0 x 1.0 x 5.4 cm. This may correlate to an area of some fattyasymmetry on the prior CT and very likely represents a lipoma. Correlateclinically regarding pain or growth which may make it an active actionablefinding. Otherwise clinical follow-up over time suggested. IMPRESSION: Mass likely is a lipoma and can be correlated clinically as above. us Tamiko Gibbons MD IMG US CHEST Fin al Result documented in this encounter Visit Diagnoses Diagnosis Benign lipomatous neoplasm, unspecified Benign lipomatous neoplasm, unspecified documented in this encounter Care Teams Road Packer Operator Relationship Specialty Start Date End Date Tamiko Gibbons MD [email or web address] PCP - General 08/25/15 05/31/21 Unknown, Unknown, PCP - General 06/01/21 06/27/21 Tawnya Thompson MD [email or web address] PCP - General Family Medicine 06/28/21 12/19/23 Tawnya Thompson MD [address] [place] [address] PCP - General Family Medicine 12/20/23 Tamiko Gibbons MD [address] [place] [address] [email or web address] Insurance Assigned Provider 11/29/19 06/25/21 documented as of this encounter Additional Source Comments The information contained in this document represents components of the legal health record. It is not the complete legal health record.[facility]
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
--- OUTSIDE RECORDS SUMMARY | 2024-11-04 13:17 | XMS_ITS | Encounter Summary ---
Author Organization [facility] Address [address] [facility] [address] [place] [address] Phone Care Team Providers Care Power And Recovery Supervisor Name Role Phone Tawnya Thompson MD Primary Care Provider [phone] Tawnya Thompson MD Primary Care Provider [phone] Encounter Details Date Type Department Care Team (Late st Contact Info) Description 12/19/2023 Procedure Pass [facility] Endoscopy Admitting Dept Virtual Department [address] [place] [address] Social History Tobacco Use Types Packs/Day Years [...] documented as of this encounter Visit Diagnoses Not on filedocumented in this encounter Care Teams Power And Recovery Supervisor Relationship Specialty Start Date End Date Tawnya Thompson MD PCP - General Family Medicine 06/28/21 12/19/23 Tawnya Thompson MD [address] [place] [id number] PCP - General Family Medicine 12/20/23 documented as of this encounter Additional Source Comments The information contained in this document represents components of the legal health record. It is not the complete legal health record.[facility]
--- OUTSIDE RECORDS SUMMARY | 2024-11-04 13:17 | XMS_ITS | Clinical Summary ---
Author Organization [facility] Music Composition Teacher [place] Address [address] [place] [address] Phone Care Team Providers Care Tanning Consultant Name Role Phone Tawnya Thompson MD Primary Care Provider [phone] Allergies No known active allergies Medications aspirin [...] aortic valve replacement),Co ronary artery disease involving [place] coronary artery of [place] heart without angina pectoris,Pure hypercholestero lemia,Bradycard ia Take 1 tablet (20 mg total) by mouth 1 (one) time each day. 90 each 3 5 03/26/19 26 Active Active Problems Problem Noted Date Diagnosed Date Aortic stenosis, severe 01/30/2023 Surgical History Surgery Date Site/Laterality Comments CRANIOTOMY PROCEDURE:CRANIOTOMY;COMMENT:2020 -june CARDIAC CATHETERIZATION 01/25/2023 N/A PROCEDURE:CARDIAC CATHETERIZATION;COMMENT:Procedure : LEFT HEART CATHETERIZATION PCI; Surgeon: Cain Hopson MD; Location: [facility] CARDIAC INFORMATION TECHNOLOGY COORDINATOR; Service: Cardiology; Laterality: N/A; CARDIAC CATHETERIZATION 01/25/2023 N/A PROCEDURE:CARDIAC CATHETERIZATION;COMMENT:Procedure : CORONARY ANGIOGRAPHY; Surgeon: Cain Hopson MD; Location: [facility] CARDIAC INFORMATION TECHNOLOGY COORDINATOR; Service: Cardiology; Laterality: N/A; AORTIC VALVE REPLACEMENT 01/30/2023 Bilateral PROCEDURE:AORTIC VALVE REPLACEMENT;COMMENT:Procedure: TAVR TF PERCUSTANEOUS; Surgeon: Rick Nicole MD; Location: [facility] HYBRID OPERATING ROOM; Service: Cardiovascular; Laterality: Bilateral; Medical History Medical History Date Comments Type 1 diabetes (CMS/HCC V24 , CMS/HCC V28) DX:Type 1 diabetes (HCC);COM MENT:wears continuous glucose monitor and insulin pumo HTN (hypertension) DX:HTN (hyper tension) HLD (hyperlipidemia) DX:HLD (hyp erlipidemia) Aortic valvar stenosis DX:Aortic valvar stenosis Subdural hematoma (CMS/HCC V 24, [facility]/HCC V28) DX:Subdural hematoma (HCC) Eye abnormality DX:Eye [...] 03/26/2025 12:00 PM EST Office Visit [facility] [place] [address] [facility] [address] [place] [id number] Aj Abdullahi MD [address] [facility] [address] [place], [place] [id number] Health Maintenance Due Date Last Done Comments COVID-19 Vaccine (#1) 11/20/1950 Diabetes: Annual Foot Exam 1956 Diabetes: Annual Retina Eye Exam 1955 DTaP,Tdap,and Td Vaccines (1 - Tdap) 1965 Zoster Vaccines (1 of 2) 1996 RSV Immunization Adult Patients (1 - 1-dose 75+ series) 2021 Pneumococcal Vaccine: 50+ Years (3 of 3 - PCV20 or PCV21) 03/22/2022 03/22/2017, 06/01/2008 Falls Risk Assessment 03/16/2023 Social Influencers of Health Screening 03/16/2023 Medicare Annual Wellness Visit 08/16/2023 08/15/2022 Depression Screening 02/20/2024 Diabetes: Annual Urine Albumin-Creatinine Ratio (uACR) 03/26/2024 Diabetes: Blood Sugar Control Test (HGBA1C) 03/26/2024 01/30/2023, 01/30/2023, 07/07/2021 Influenza Vaccine (#1) 2024 , 11/30/2021, 12/03/2020, Additional history exists Diabetes: [...] this topic Medical Devices Implanted Type Area Merchandise Pickup/Receiving Associate Device Identifier Shelf Expiration Date Model / Serial / Lot System Perclose Prostyle Suture Medicated [facility] [id number] Implanted:Qty: 1 on 01/25/2023 [employer] [id number] / / Valve Chetan Thv Velasquez Resilia 26mm [facility] [id number] - [id number] Implanted:Qty: 1 on 01/30/2023 by Rick Nicole MD Heart [employer] 08/23/2025 [id number] / [id number] / Procedures Procedure Name Priority Date/Time Associated Diagnosis Comments ANNUAL BMP BLOOD TEST Routine 01/31/2023 HEMOGLOBIN A1C Routine 01/30/2023 LIPID PANEL Routine 06/29/2021 from Last 3 Months or Most Recently Relevant to Health Maintenance Results * Annual BMP Blood Test (01/31/2023) Pathologist [facility] Annual BMP Blood Test Abstracted Historical Provider HEALTH MAINTENANCE Final Result * (ABNORMAL) Hemoglobin A1c (01/30/2023) [facility] Hemoglobin A1C 6.8(A) <=5.7 % Blood Venous blood specimen / Unknown Result [facility] Provider LAB BLOOD ORDERABLES Nani l Result * Lipid panel (06/29/2021) [facility] LDL/HDL Ratio 0 Comment:No Interpretation Triglycerides 0 mg/dL Comment:No Interpretation Cholesterol 0 mg/dL Comment:No Interpretation HDL 0 mg/dL Comment:No Interpretation LDL Cholesterol 0 mg/dL Comment:No Interpretation Blood Venous blood specimen / Unknown [facility] Provider LAB BLOOD ORDERABLES Nani l Result from Last 3 Months or Most Recently Relevant to Health Maintenance Insurance MEDICARE [facility] Care Teams Tanning Consultant Relationship Specialty Start Date End Date Tawnya Thompson MD [facility] [address] [place] [address] PCP - General 11/06/22
--- OUTSIDE RECORDS SUMMARY | 2024-11-04 13:17 | XMS_ITS | Encounter Summary ---
Author Organization [facility] Address [address] [facility] [place] [address] Phone Care Team Providers Care Metal Technician Name Role Phone Tamiko Gibbons MD Primary Care Provi shaunna Tamiko Gibbons MD Unavailable [phone] Unknown, Unknown Primary Care Provider Tawnya Dodd MD Primary Care Provider Tawnya Thompson MD Primary Care Provider Encounter Details Date Type Department Care Team (Late st Contact Info) Description 02/28/2019 Transcribe [address] [facility] Laboratory [address]nd [place] [address] Tamiko Gibbons MD [address] [place], [place] [phone] [email or web address] Type 1 diabetes mellitus with complication (Primary Dx); Elevated PSA Social History Tobacco Use Types Packs/Day Years [...] documented as of this encounter Results * Comprehensive metabolic panel (02/28/2019 7:32 AM EST) SODIUM 138 133 - 146 mmol/L [facility] POTASSIUM 4.7 3.3 - 5.1 mmol/L [facility] CHLORIDE 100 96 - 108 mmol/L [facility] CO2 27 21 - 35 mmol/L [facility] BUN 18 6 - 19 mg/dL [facility] CREATININE 0.80 0.5 - 1.5 mg/dL [facility] GLUCOSE 95 70 - 99 mg/dL [facility] ALBUMIN 4.0 3.9 - 4.8 g/dL [facility] TOTAL PROTEIN 6.8 6.5 - 8.0 g/dL [facility] CALCIUM 9.3 8.4 - 10.3 mg/dL [facility] ALKALINE PHOSPHATASE 75 39 - 117 U/L [facility] TOTAL BILIRUBIN 1.2 0.0 - 1.2 mg/dL [facility] AST 30 0 - 37 U/L [facility] ALT 21 0 - 40 U/L [facility] GLOBULIN 2.8 1 - 4.8 g/dL [facility] EGFR 89 >59 mL/min/1.7 3m2 [facility] Comment:If patient is black, multiply result by 1.159. Estimated glomerular filtration rate calculated using the CKD-EPI equation. ANION GAP 16 10 - 20 mmol/L [facility] Blood 02/28/2019 7:32 AM EST 02/28/2019 7:35 AM EST us Tamiko Gibbons MD LAB BLOOD ORDERABLE S Final Result [facility] [address] [place], [place] [id number] * (ABNORMAL) CBC and differential (02/28/2019 7:32 AM EST) WBC 5.29 3.40 - 11.20 K/uL [facility] RBC 4.32(L) 4.50 - 5.50 M/uL [facility] HGB 13.4 13.0 - 17.0 g/dL [facility] HCT 40.5 40.0 - 51.0 % [facility] PLT 212 130 - 400 K/uL [facility] MCV 93.8 79.0 - 98.0 fL [facility] MCH 31.0 27.0 - 34.8 pg [facility] MCHC 33.1 31.5 - 36.0 g/dL [facility] RDW 12.6 10.8 - 14.6 % [facility] MPV 10.7 9.4 - 12.4 fl [facility] NRBC 0.00 0.00 /100 WBCs [facility] ABSOLUTE NRBC 0.00 0.00 K/uL [facility] DIFF METHOD Auto [facility] NEUTS 39.3(L) 45.30 - 77.70 % [facility] LYMPHS 45.0(H) 12.30 - 39.70 % [facility] MONOS 12.5 4.10 - 12.80 % [facility] EOS 2.6 0 - 7.2 % [facility] BASOS 0.4 0 - 2.80 % [facility] Granulocytes, immature (%) 0.2 0.0 - 0.9 % [facility] ABSOLUTE NEUTS 2.08 1.40 - 7.70 K/uL [facility] ABSOLUTE LYMPHS 2.38 0.60 - 3.20 K/uL [facility] ABSOLUTE MONOS 0.66(H) 0.11 - 0.59 K/uL [facility] ABSOLUTE EOS 0.14 0.01 - 0.50 K/uL [facility] ABSOLUTE BASOS 0.02 0.00 - 0.08 K/uL [facility] Granulocytes, immature 0.01 0.00 - 0.05 K/uL [facility] Blood 02/28/2019 7:32 AM EST 02/28/2019 7:35 AM EST us Tamiko Gibbons MD LAB BLOOD ORDERABLE S Final Result [facility] [address] [place] [address] * (ABNORMAL) Hemoglobin A1c (02/28/2019 7:32 AM EST) HEMOGLOBIN A1C 7.2(H) 4.3 - 5.8 % [facility] Blood 02/28/2019 7:32 AM EST 02/28/2019 7:35 AM EST us Tamiko Gibbons MD LAB BLOOD ORDERABLE S Final Result Performing Organization Address City/[facility]/ZIP Co de Phone Number [address] [address] * (ABNORMAL) PSA (screening) (02/28/2019 7:32 AM EST) PSA 4.24(H) 0 - 4.00 ng/mL [facility] Blood 02/28/2019 7:32 AM EST 02/28/2019 7:34 AM EST us Tamiko Gibbons MD LAB BLOOD ORDERABLE S Final Result Performing Organization Address City/[facility] Co de Phone Number [address] [address] documented in this encounter Visit Diagnoses Diagnosis Type 1 diabetes mellitus with complication- Primary Elevated PSA Elevated prostate specific antigen (PSA) documented in this encounter Care Teams Metal Technician Relationship Specialty Start Date End Date Tamiko Gibbons MD [email or web address] PCP - General 08/25/15 05/31/21 Unknown, Yung, PCP - General 06/01/21 06/27/21 Tawnya Thompson MD PCP - General Family Medicine 06/28/21 12/19/23 Tawnya Thompson MD [address] [place] [id number] PCP - General Family Medicine 12/20/23 Tamiko Gibbons MD [address] [place] [address] [email or web address] Insurance Assigned Provider 11/29/19 06/25/21 documented as of this encounter Additional Source Comments The information contained in this document represents components of the legal health record. It is not the complete legal health record.[facility]
--- OUTSIDE RECORDS SUMMARY | 2024-11-04 13:17 | XMS_ITS | Encounter Summary ---
Author Organization [facility] Address [address] [place] [address] [place] [phone] Phone Care Team Providers Care Chief Of Party Name Role Phone Tamiko Gibbons MD Primary Care Provi shaunna Tamiko Gibbons MD Unavailable [phone] Unknown, Unknown Primary Care Provider Tawnya Dodd MD Primary Care Provider Tawnya Thompson MD Primary Care Provider Encounter Details Date Type Department Care Team (Late st Contact Info) Description 03/19/2017 Transcribe Orders [facility] Laboratory [address] [facility] 2nd [place] [address] Tamiko Gibbons MD [address] [place], [place] [phone] [email or web address] Type 1 diabetes mellitus with complication (Primary Dx); Hyperlipidemia, unspecified hyperlipidemia type; Elevated PSA Social History Tobacco Use Types Packs/Day Years Used Date Smoking Tobacco: Former Sex and Gender Information Value Date Recorded Sex Assigned at Male 04/01/2017 11:15 AM EST Legal Sex Male 6:46 PM EST Gender Identity Male 04/01/2017 11:15 AM EST Sexual Orientation Straight 04/01/2017 11 :15 AM EST documented as of this encounter Plan of Treatment Not on file documented as of this encounter Results * Alanine aminotransferase (ALT) (03/19/2017 2:37 PM EST) ALT 17 0 - 40 U/L [facility] Blood 03/19/2017 2:37 PM EST 03/19/2017 2:40 PM EST us Tamiko Gibbons MD LAB BLOOD ORDERABLE S Final Result Performing Organization Address [facility]/ZIP Co de Phone Number [address] [address] * Aspartate aminotransferase (AST) (03/19/2017 2:37 PM EST) AST 22 0 - 37 U/L [facility] Blood 03/19/2017 2:37 PM EST 03/19/2017 2:40 PM EST Tamiko Gibbons MD LAB BLOOD ORDERABLE S Final Result Performing Organization Address [facility]/ZIP Co de Phone Number [address] [address] * (ABNORMAL) PSA (screening) (03/19/2017 2:37 PM EST) PSA 5.04(H) 0 - 4.00 ng/mL [facility] Blood 03/19/2017 2:37 PM EST 03/19/2017 2:39 PM EST Tamiko Gibbons MD LAB BLOOD ORDERABLE S Final Result Performing Organization Address [facility] Co de Phone Number [address] [address] * (ABNORMAL) Hemoglobin A1c (03/19/2017 2:37 PM EST) HEMOGLOBIN A1C 6.5(H) 4.3 - 5.8 % [facility] Blood 03/19/2017 2:37 PM EST 03/19/2017 2:40 PM EST us Tamiko Gibbons MD LAB BLOOD ORDERABLE S Final Result Performing Organization Address [facility]/ZIP Co de Phone Number [address] [address] * (ABNORMAL) Basic metabolic panel (03/19/2017 2:37 PM EST) SODIUM 137 133 - 146 mmol/L [facility] CHLORIDE 101 96 - 108 mmol/L [facility] POTASSIUM 4.3 3.3 - 5.1 mmol/L [facility] CO2 28 21 - 35 mmol/L [facility] BUN 20(H) 6 - 19 mg/dL [facility] CREATININE 0.90 0.5 - 1.5 mg/dL [facility] GLUCOSE 101(H) 70 - 99 mg/dL [facility] CALCIUM 8.8 8.4 - 10.3 mg/dL [facility] EGFR >60 mL/min/1.7 3m2 [facility] Comment:Abnormal if <60. If patient is -Bulgarian, multiply the result by 1.21. ANION GAP 12 10 - 20 mmol/L [facility] Blood 03/19/2017 2:37 PM EST 03/19/2017 2:40 PM EST Tamiko Gibbons MD LAB BLOOD ORDERABLE S Final Result Performing Organization Address [facility] Co de Phone Number [address] [address] documented in this encounter Visit Diagnoses Diagnosis Type 1 diabetes mellitus with complication- Primary Hyperlipidemia, unspecified hyperlipidemia type Elevated PSA Elevated prostate specific antigen (PSA) documented in this encounter Care Teams Chief Of Party Relationship Specialty Start Date End Date Tamiko Gibbons MD [email or web address] PCP - General 08/25/15 05/31/21 Unknown, Unknown, PCP - General 06/01/21 06/27/21 Tawnya Thompson MD [email or web address] PCP - General Family Medicine 06/28/21 12/19/23 Tawnya Thompson MD [address] [place] [address] [email or web address] PCP - General Family Medicine 12/20/23 Tamiko Gibbons MD [address] [place] [address] [email or web address] Assigned Provider 11/29/19 06/25/21 documented as of this encounter Additional Source Comments The information contained in this document represents components of the legal health record. It is not the complete legal health record.[facility]
--- OUTSIDE RECORDS SUMMARY | 2024-11-04 13:17 | XMS_ITS | Encounter Summary ---
Author Organization [facility] Address [address] [facility] [address] [place] [address] Phone Care Team Providers Care Executive Office Manager Name Role Phone Tawnya Thompson MD Primary Care Provider [phone] Tawnya Thompson MD Primary Care Provider [phone] Encounter Details Date Type Department Care Team (Late st Contact Info) Description 10/04/2023 Procedure Pass [facility], Ct Scan - [address] [address] Social History Tobacco Use Types Packs/Day Years Used Date Smoking Tobacco: Former Smokeless Tobacco: Never Alcohol Use Standard Drinks/Week Comments Yes 0 (1 standard drink = 0.6 oz pur e alcohol) daily Education Answer Date Recorded Are you interested in more education? Not on noni e 06/25/2022 Are you concerned about learning? Not on file 06/25/2022 No 06/25/2022 No 06/25/2022 Digital Access Answer Date Recorded No 07/15/2022 No 07/15/2022 Reliable internet access at home? Not on file 07/15/2022 Device with a working camera? Not on file Sex and Gender Information Value Date Recorded Sex Assigned at Male 04/01/2017 11:15 AM EST Legal Sex Male 6:46 PM EST Gender Identity Male 04/01/2017 11:15 AM EST Sexual Orientation Straight 04/01/2017 11 :15 AM EST documented as of this encounter Plan of Treatment Not on file documented as of this encounter Visit Diagnoses Not on filedocumented in this encounter Care Teams Executive Office Manager Relationship Specialty Start Date End Date Tawnya Thompson MD PCP - General Family Medicine 06/28/21 12/19/23 Tawnya Thompson MD [address] [place] [id number] PCP - General Family Medicine 12/20/23 documented as of this encounter Additional Source Comments The information contained in this document represents components of the legal health record. It is not the complete legal health record.[facility]
--- OUTSIDE RECORDS SUMMARY | 2024-11-04 13:17 | XMS_ITS | Encounter Summary ---
Author Organization [facility] Address [address] [facility] [address] [place] [address] Phone Care Team Providers Care Capacity Planning Engineer Name Role Phone Tamiko Gibbons MD Primary Care Provi shaunna Tamiko Gibbons MD Unavailable [phone] Unknown, Unknown Primary Care Provider Tawnya Dodd MD Primary Care Provider Tawnya Thompson MD Primary Care Provider Encounter Details Date Type Department Care Team (Late st Contact Info) Description 07/16/2019 Ancillary Orders Virtual Department [address] [place] [phone] Tamiko Gibbons MD [address] [place], [place] [phone] [email or web address] Acute pain of right shoulder; Weakness of extremity Social History Tobacco Use Types Packs/Day Years [...] documented as of this encounter Results * XR SHOULDER 2 VIEWS (RIGHT) (07/24/2019 1:53 PM EDT) Anatomical Region Laterality Modality Shoulder Right Radiographic Lashae ging 07/24/2019 2:02 PM EDT Impressions 07/24/2019 2:03 PM EDT Mild degenerative changes without acute bony pathology suggested. POS - [id number] Narrative 07/24/2019 2:03 PM EDT COMPARISON: None FINDINGS: Frontal, oblique, and transscapular Y-views disclose no fracture, subluxation, or other acute bony abnormality. Mild degenerative spurring is seen along the caudal margin of the glenoid. Humeral head articular surface is smooth. There are degenerative changes and small dystrophic-appearing soft tissue calcifications related to the acromioclavicular joint. Visualized right ribs are intact and visualized upper lung field clear. Procedure Note Roseline Denney MD - 07/24/2019 COMPARISON: None FINDINGS: Frontal, oblique, and transscapular Y-views disclose no fracture,subluxation, or other acute bony abnormality. Mild degenerative spurringis seen along the caudal margin of the glenoid. Humeral head articularsurface is smooth. There are degenerative changes and smalldystrophic-appearing soft tissue calcifications related to theacromioclavicular joint. Visualized right ribs are intact and visualizedupper lung field clear. IMPRESSION: Mild degenerative changes without acute bony pathology suggested. POS - [id number] Tamiko Gibbons MD IMG XR UPPER EXTREM ITY Final Result * XR CERVICAL SPINE 4-5 VIEWS (07/24/2019 1:53 PM EDT) Anatomical Region Laterality Modality C-spine Radiographic Lashae ging 07/24/2019 2:00 PM EDT Impressions 07/24/2019 2:02 PM EDT Mild degenerative disc changes without evidence of acute bony pathology or significant bony neural foraminal stenosis. POS - [id number] Narrative 07/24/2019 2:02 PM EDT COMPARISON: None FINDINGS: Frontal, lateral, oblique, and AP open-mouth views were obtained. No vertebral body fracture or subluxation apparent. Mild diffuse degenerative disc changes from the C3-C7 levels without large osteophytes present. Neural foramina are overall patent. Prevertebral soft tissues are within normal limits in width with chronic calcific plaquing demonstrated on the left. Procedure Note Roseline Denney MD - 07/24/2019 COMPARISON: None FINDINGS: Frontal, lateral, oblique, and AP open-mouth views were obtained. Novertebral body fracture or subluxation apparent. Mild diffuse degenerativedisc changes from the C3-C7 levels without large osteophytes present.Neural foramina are overall patent. Prevertebral soft tissues are withinnormal limits in width with chronic calcific plaquing demonstrated on theleft. IMPRESSION: Mild degenerative disc changes without evidence of acute bony pathology orsignificant bony neural foraminal stenosis. POS - [id number] Tamiko Gibbons MD IMG XR SPINE Fin al Result documented in this encounter Visit Diagnoses Diagnosis Acute pain of right shoulder Weakness of extremity Acute pain of right shoulder Weakness of extremity Acute pain of right shoulder Weakness of extremity documented in this encounter Care Teams Capacity Planning Engineer Relationship Specialty Start Date End Date Tamiko Gibbons MD [email or web address] PCP - General 08/25/15 05/31/21 Unknown, Yung, PCP - General 06/01/21 06/27/21 Tawnya Thompson MD [email or web address] PCP - General Family Medicine 06/28/21 12/19/23 Tawnya Thompson MD [address] [place] [address] [email or web address] PCP - General Family Medicine 12/20/23 Tamiko Gibbons MD [address] [place] [address] [email or web address] Assigned Provider 11/29/19 06/25/21 documented as of this encounter Additional Source Comments The information contained in this document represents components of the legal health record. It is not the complete legal health record.[facility]
--- OUTSIDE RECORDS SUMMARY | 2024-11-04 13:17 | XMS_ITS | Encounter Summary ---
Author Organization [facility] Address [address] [place] [address] Phone Care Team Providers Care Erector Operator Name Role Phone Tamiko Gibbons MD Primary Care Provi shaunna Tamiko Gibbons MD Unavailable [phone] Unknown, Unknown Primary Care Provider Tawnya Dodd MD Primary Care Provider [phone] Tawnya Thompson MD Primary Care Provider [phone] Encounter Details Date Type Department Care Team (Late st Contact Info) Description 05/31/2020 Transcribe Orders [facility] Laboratory [address] [place] [address] Tamiko Gibbons MD [address] [place], [place] [phone] [email or web address] Type 1 diabetes mellitus with complication (Primary Dx); Neuropathy Social History Tobacco Use Types Packs/Day Years [...] on file documented as of this encounter Procedures Procedure Name Priority Date/Time Associated Diagnosis Comments TSH WITH REFLEX Routine 05/31/2020 7:49 AM EDT Type 1 diabetes mellitus with complication Neuropathy HEMOGLOBIN A1C Routine 05/31/2020 7:49 AM EDT Type 1 diabetes mellitus with complication Neuropathy VITAMIN B12 Routine 05/31/2020 7:49 AM EDT Type 1 diabetes mellitus with complication Neuropathy LIPID PANEL Routine 05/31/2020 7:49 AM EDT Type 1 diabetes mellitus with complication Neuropathy BASIC METABOLIC PANEL Routine 05/31/2020 7:49 AM EDT Type 1 diabetes mellitus with complication Neuropathy documented in this encounter Results * Vitamin B12 (05/31/2020 7:49 AM EDT) VITAMIN B12 467 232 - 1,245 pg/mL [facility] Blood 05/31/2020 7:49 AM EDT 05/31/2020 8:00 AM EDT us Tamiko Gibbons MD LAB BLOOD ORDERABLE S Final Result Performing Organization Address City/[facility]/ZIP Co de Phone Number [address] [address] * (ABNORMAL) Hemoglobin A1c (05/31/2020 7:49 AM EDT) HEMOGLOBIN A1C 6.7(H) 4.3 - 5.8 % [facility] Blood 05/31/2020 7:49 AM EDT 05/31/2020 8:00 AM EDT us Tamiko Gibbons MD LAB BLOOD ORDERABLE S Final Result Performing Organization Address City/[facility]/ZIP Co de Phone Number [address] [address] * TSH with reflex (05/31/2020 7:49 AM EDT) TSH 4.19 0.27 - 4.20 uIU/mL [facility] Blood 05/31/2020 7:49 AM EDT 05/31/2020 8:00 AM EDT Tamiko Gibbons MD LAB BLOOD ORDERABLE S Final Result Performing Organization Address City/[facility]/ZIP Co de Phone Number [address] [address] * (ABNORMAL) Lipid panel (05/31/2020 7:49 AM EDT) HDL 67 mg/dL [facility] Comment: Interpretation <40 mg/dL: Low HDL cholesterol (major risk factor for CHD) Greater than or equal to 60 mg/dL: High HDL cholesterol ( negative risk factor for CHD) HDL - cholesterol is affected by a number of factors, e.g. smoking, excerise, hormones, sex and age. CHOLESTEROL 168 0 - 240 mg/dL [facility] TRIGLYCERIDES 66 30 - 160 mg/dL [facility] LDL 88 50 - 129 mg/dL [facility] Comment: LDL levels in terms of risk for coronary heart disease: <100 mg/dL: Optimal 100-129 mg/dL: Near or above optimal 130-159 mg/dL: Borderline high 160-189 mg/dL: High >190 mg/dL: Very High CARDIAC RISK RATIO 2.5(L) 3.4 - 5.0 [facility] Blood 05/31/2020 7:49 AM EDT 05/31/2020 8:00 AM EDT us Tamiko Gibbons MD LAB BLOOD ORDERABLE S Final Result Performing Organization Address City/[facility]/ZIP Co de Phone Number [address] [address] * Basic metabolic panel (05/31/2020 7:49 AM EDT) SODIUM 141 133 - 146 mmol/L [facility] CHLORIDE 104 96 - 108 mmol/L [facility] POTASSIUM 4.4 3.3 - 5.1 mmol/L [facility] CO2 28 21 - 35 mmol/L [facility] BUN 18 6 - 19 mg/dL [facility] CREATININE 0.80 0.5 - 1.5 mg/dL [facility] GLUCOSE 91 70 - 99 mg/dL [facility] CALCIUM 9.3 8.4 - 10.3 mg/dL [facility] EGFR 89 >59 mL/min/1.7 3m2 [facility] Comment:Estimated glomerular filtration rate calculated using the CKD-EPI equation. ANION GAP 13 10 - 20 mmol/L [facility] Blood 05/31/2020 7:49 AM EDT 05/31/2020 8:00 AM EDT us Tamiko Gibbons MD LAB BLOOD ORDERABLE S Final Result Performing Organization Address City/State/[facility] Co de Phone Number [address] [address] documented in this encounter Visit Diagnoses Diagnosis Type 1 diabetes mellitus with complication- Primary Neuropathy Mononeuritis of unspecified site documented in this encounter Care Teams Erector Operator Relationship Specialty Start Date End Date Tamiko Gibbons MD [email or web address] PCP - General 08/25/15 05/31/21 Unknown, Yung, PCP - General 06/01/21 06/27/21 Tawnya Thompson MD PCP - General Family Medicine 06/28/21 12/19/23 Tawnya Thompson MD [address] [place] [address] PCP - General Family Medicine 12/20/23 Tamiko Gibbons MD [address] [place] [address] [email or web address] Assigned Provider 11/29/19 06/25/21 documented as of this encounter Additional Source Comments The information contained in this document represents components of the legal health record. It is not the complete legal health record.[facility]
--- OUTSIDE RECORDS SUMMARY | 2024-11-04 13:17 | XMS_ITS | Encounter Summary ---
Author Organization [facility] Address [address] [place] [address] Phone Care Team Providers Care Behavioral Scientist Name Role Phone Tamiko Gibbons MD Primary Care Provi shaunna Tamiko Gibbons MD Unavailable [phone] Unknown, Unknown Primary Care Provider Tawnya Dodd MD Primary Care Provider Tawnya Thompson MD Primary Care Provider [phone] Encounter Details Date Type Department Care Team (Latest Contact Info) Description 06/07/2018 Transcribe Orders [facility] Laboratory [address]nd [place] [address] Madalyn Ellsworth NP [address] [place] [address] [email or web address] Abdominal pain, unspecified abdominal location (Primary Dx) Social History Tobacco Use Types [...] documented as of this encounter Results * Stool fat/fiber exam (06/13/2018 9:14 AM EDT) FATTY ACID NORMAL NORMAL [facility] Neutral Fat, stool NORMAL NORMAL [facility] Stool (Stool) 06/13/2018 9:1 4 AM EDT 06/13/2018 9:16 AM EDT Madalyn Ellsworth BREWERY REPRESENTATIVE BODY FLUIDS AND STOOLS ORDE RABLES Final Result [address] [address] * Ova and parasites, stool (06/13/2018 9:14 AM EDT) Specimen Source/ Description STOOL STOOL [facility] Special Requests None [facility] DIRECT EXAM NO PARASITES FOUND BY DIRECT OR CONCENTRATION METHODS [facility] DIRECT EXAM No parasites found by Trichrome Stain [facility] Report Status 06/19/2018 FINAL [facility] Stool (Stool) 06/13/2018 9:1 4 AM EDT 06/13/2018 9:17 AM EDT Madalyn Ellsworth BREWERY REPRESENTATIVE MICROBIOLOGY - GENERAL ORDE RABMARY Final Result Performing Organization Address [facility]/ZIP Co de Phone Number [address] [address] * H. pylori antigen, stool (06/13/2018 9:14 AM EDT) ST H.PYLORI AG Negative Negative [facility] DPT OF LAB MED AND PAT+ Stool (Stool) 06/13/2018 9:1 4 AM EDT 06/13/2018 9:16 AM EDT Madalyn Ellsworth BREWERY REPRESENTATIVE BODY FLUIDS AND STOOLS ORDE RABLES Final Result [facility] DPT OF LAB MED AND PAT+ [address] [place] [address] * Fecal occult blood, multiple (06/13/2018 9:14 AM EDT) FECAL OCC BLD 1 DATE 42,[id number] [facility] Occult bld, stool, #1 Negative Negative [facility] Stool (Stool) 06/13/2018 9:1 4 AM EDT 06/13/2018 9:16 AM EDT Madalyn Ellsworth BREWERY REPRESENTATIVE BODY FLUIDS AND STOOLS ORDE RABLES Final Result [facility] [address] [place] [address] * Giardia antigen screen (06/13/2018 9:14 AM EDT) ST GIARDIA ANTIGEN Negative Negative [facility] DPT OF LAB MED AND PAT+ Stool (Stool) 06/13/2018 9:1 4 AM EDT 06/13/2018 9:16 AM EDT us Madalyn Ellsworth NP MICROBIOLOGY - GENERAL ORDE RABLES Final Result [facility] DPT OF LAB MED AND PAT+ [address] [place] [address] * Fecal leukocyte examination (06/13/2018 9:14 AM EDT) Pathologist [facility] Specimen Source/ Description STOOL STOOL [facility] Special Requests None [employer] [facility] GRAM STAIN Few WBC'S [facility] Report Status 06/14/2018 FINAL [facility] Stool (Stool) 06/13/2018 9:1 4 AM EDT 06/13/2018 9:17 AM EDT Madalyn Ellsworth NP MICROBIOLOGY - GENERAL ORDE RABLES Final Result Performing Organization Address City/[facility]/ZIP Co de Phone Number [facility] [address] [place] [address] * C. DIFFICILE PCR (06/13/2018 9:14 AM EDT) Pathologist [facility] C.DIFFICILE PCR Negative Negative [facility] C.DIFFICILE STRAIN PRESUMPTIVE NEGATIVE PRESUMPTIVE NEGATIVE [facility] Comment:Detection of 027/NAP 1/BI strains of C.difficile is presumptive and is solely for epidemiological purposes and is not intended to guide or monitor treatment of infections. Stool (Stool) 06/13/2018 9:1 4 AM EDT 06/13/2018 9:17 AM EDT Madalyn Ellsworth NP MICROBIOLOGY - GENERAL ORD RABMARY Final Result Performing Organization Address [facility] Co de Phone Number [address] [address] * Ova and parasites, stool (06/11/2018 9:11 AM EDT) Specimen Source/ Description STOOL STOOL STOOL [facility] Special Requests None [facility] DIRECT EXAM NO PARASITES FOUND BY DIRECT OR CONCENTRATION METHODS [facility] DIRECT EXAM No parasites found by Trichrome Stain [facility] Report Status 06/19/2018 FINAL [facility] Stool (Stool) 06/11/2018 9:1 1 AM EDT 06/13/2018 9:15 AM EDT Madalyn Ellsworth NP [facility]BIOLOGY - [facility] Final Result Performing Organization Address [facility] Co de Phone Number [address] [address] * Ova and parasites, stool (06/10/2018 9:10 AM EDT) Specimen Source/ Description STOOL STOOL STOOL [facility] Special Requests None [facility] DIRECT EXAM NO PARASITES FOUND BY DIRECT OR CONCENTRATION METHODS [facility] DIRECT EXAM No parasites found by Trichrome Stain [facility] Report Status 06/19/2018 FINAL [facility] Stool (Stool) 06/10/2018 9:1 0 AM EDT 06/13/2018 9:13 AM EDT Madalyn Ellsworth NP MICROBIOLOGY - GENERAL ORD RONAL Final Result [address] [address] * TSH (06/07/2018 8:39 AM EDT) Pathologist [facility] TSH 3.27 0.27 - 4.20 uIU/mL [facility] Blood 06/07/2018 8:39 AM EDT 06/07/2018 8:46 AM EDT Madalynnicole Kiser Seng BREWERY REPRESENTATIVE LAB BLOOD ORDERABLES Final Result Performing Organization Address [facility]/ZIP Co de Phone Number [address] [address] * C-Reactive Protein (06/07/2018 8:39 AM EDT) [facility] C REACTIVE PROTEIN <0.3 0.0 - 4.0 mg/L [facility] Blood 06/07/2018 8:39 AM EDT 06/07/2018 8:46 AM EDT Madalyn Ellsworth BREWERY REPRESENTATIVE LAB BLOOD ORDERABLES Final Result Performing Organization Address [facility]/ZIP Co de Phone Number [address] [address] * (ABNORMAL) Comprehensive metabolic panel (06/07/2018 8:39 AM EDT) [facility] SODIUM 139 133 - 146 mmol/L [facility] POTASSIUM 4.6 3.3 - 5.1 mmol/L [facility] CHLORIDE 104 96 - 108 mmol/L [facility] CO2 23 21 - 35 mmol/L [facility] BUN 15 6 - 19 mg/dL [facility] CREATININE 0.80 0.5 - 1.5 mg/dL [facility] GLUCOSE 107(H) 70 - 99 mg/dL [facility] ALBUMIN 4.0 3.9 - 4.8 g/dL [facility] TOTAL PROTEIN 6.3(L) 6.5 - 8.0 g/dL [facility] CALCIUM 9.1 8.4 - 10.3 mg/dL [facility] ALKALINE PHOSPHATASE 61 39 - 117 U/L [facility] TOTAL BILIRUBIN 1.0 0.0 - 1.2 mg/dL [facility] Comment: Results from certain multiple myeloma patients may show a positive bias in recovery. Not all multiple myeloma patients show the bias and severity of the bias may vary between patients. In very rare cases, gammopathy, in particular type IgM (Waldenstrom's macroglobulinemia), may cause unreliable results. AST 29 0 - 37 U/L [facility] ALT 22 0 - 40 U/L [facility] GLOBULIN 2.3 1 - 4.8 g/dL [facility] EGFR 90 >59 mL/min/1.7 3m2 [facility] Comment:If patient is black, multiply result by 1.159. Estimated glomerular filtration rate calculated using the CKD-EPI equation. ANION GAP 17 10 - 20 mmol/L [facility] Blood 06/07/2018 8:39 AM EDT 06/07/2018 8:46 AM EDT us Madalyn Ellsworth NP LAB BLOOD ORDERABLES Final Result Performing Organization Address City/State/[facility] Co de Phone Number [facility] [address] [place] [address] * (ABNORMAL) CBC (06/07/2018 8:39 AM EDT) WBC 5.37 3.40 - 11.20 K/uL [facility] RBC 4.40(L) 4.50 - 5.50 M/uL [facility] HGB 13.3 13.0 - 17.0 g/dL [facility] HCT 41.2 40.0 - 51.0 % [facility] PLT 219 130 - 400 K/uL [facility] MCV 93.6 79.0 - 98.0 fL [facility] MCH 30.2 27.0 - 34.8 pg [facility] MCHC 32.3 31.5 - 36.0 g/dL [facility] RDW 13.2 10.8 - 14.6 % [facility] MPV 11.2 9.4 - 12.4 fl [facility] NRBC 0.00 0.00 /100 WBCs [facility] ABSOLUTE NRBC 0.00 0.00 K/uL [facility] Blood 06/07/2018 8:39 AM EDT 06/07/2018 8:46 AM EDT Madalyn Ellsworth BREWERY REPRESENTATIVE LAB BLOOD ORDERABLES Final Result Performing Organization Address [facility] Co de Phone Number [address] [address] * Immunoglobulin A (06/07/2018 8:39 AM EDT) IgA 214 70 - 400 mg/dL [facility] Blood 06/07/2018 8:39 AM EDT 06/07/2018 8:46 AM EDT Madalyn Ellsworth BREWERY REPRESENTATIVE LAB BLOOD ORDERABLES Final Result Performing Organization Address [facility] de Phone Number [address] [address] * Tissue transglutaminase IgA (06/07/2018 8:39 AM EDT) TTG IGA ANTIBODY <1.2 <4.0 (Negative) U/mL [facility] Blood 06/07/2018 8:39 AM EDT 06/07/2018 8:47 AM EDT Madalyn Ellsworth BREWERY REPRESENTATIVE LAB BLOOD ORDERABLES Final Result Performing Organization Address [facility] Co de Phone Number [facility] [address] [place] [phone] documented in this encounter Visit Diagnoses Diagnosis Abdominal pain, unspecified abdominal location- Primary documented in this encounter Care Teams Behavioral Scientist Relationship Specialty Start Date End Date Tamiko Gibbons MD [email or web address] PCP - General 08/25/15 05/31/21 Unknown, Unknown, PCP - General 06/01/21 06/27/21 Tawnya Thompson MD [email or web address] PCP - General Family Medicine 06/28/21 12/19/23 Tawnya Thompson MD [address] [place] [address] [email or web address] PCP - General Family Medicine 12/20/23 Tamiko Gibbons MD [address] [place] [address] [email or web address] Insurance Assigned Provider 11/29/19 06/25/21 documented as of this encounter Additional Source Comments The information contained in this document represents components of the legal health record. It is not the complete legal health record.[facility]
--- OUTSIDE RECORDS SUMMARY | 2024-11-04 13:17 | XMS_ITS | Encounter Summary ---
Author Organization [facility] Address [address] [place] [address] [place] [address] Phone Care Team Providers Care Photogrammetric Engineer Name Role Phone Tamiko Gibbons MD Primary Care Provi shaunna Tamiko Gibbons MD Unavailable [phone] Unknown, Unknown Primary Care Provider Tawnya Dodd MD Primary Care Provider Tawnya Thompson MD Primary Care Provider Encounter Details Date Type Department Care Team (Latest Contact Info) Description 01/14/2018 Transcribe Orders [facility] Laboratory [address] [facility] 2nd [place] [address] Tamiko Gibbons MD [address] [place], [place] [phone] [email or web address] Gastroesophageal reflux disease, esophagitis presence not specified (Primary Dx); Type 1 diabetes mellitus with complication Social History Tobacco Use Types Packs/Day Years [...] documented as of this encounter Results * (ABNORMAL) Hemoglobin A1c (01/14/2018 7:32 AM EST) HEMOGLOBIN A1C 6.5(H) 4.3 - 5.8 % [facility] Blood 01/14/2018 7:32 AM EST 01/14/2018 7:36 AM EST us Tamiko Gibbons MD LAB BLOOD ORDERABLE S Final Result [facility] [address] [place] [address] * (ABNORMAL) CBC and differential (01/14/2018 7:32 AM EST) WBC 5.42 3.40 - 11.20 K/uL [facility] RBC 4.17(L) 4.50 - 5.50 M/uL [facility] HGB 12.9(L) 13.0 - 17.0 g/dL [facility] HCT 39.0(L) 40.0 - 51.0 % [facility] PLT 213 130 - 400 K/uL [facility] MCV 93.5 79.0 - 98.0 fL [facility] MCH 30.9 27.0 - 34.8 pg [facility] MCHC 33.1 31.5 - 36.0 g/dL [facility] RDW 12.6 10.8 - 14.6 % [facility] MPV 10.4 9.4 - 12.4 fl [facility] NRBC 0.00 0.00 /100 WBCs [facility] ABSOLUTE NRBC 0.00 0.00 K/uL [facility] DIFF METHOD Auto [facility] NEUTS 37.6(L) 45.30 - 77.70 % [facility] LYMPHS 48.7(H) 12.30 - 39.70 % [facility] MONOS 10.3 4.10 - 12.80 % [facility] EOS 3.0 0 - 7.2 % [facility] BASOS 0.2 0 - 2.80 % [facility] Granulocytes, immature (%) 0.2 0.0 - 0.9 % [facility] ABSOLUTE NEUTS 2.04 1.40 - 7.70 K/uL [facility] ABSOLUTE LYMPHS 2.64 0.60 - 3.20 K/uL [facility] ABSOLUTE MONOS 0.56 0.11 - 0.59 K/uL [facility] ABSOLUTE EOS 0.16 0.01 - 0.50 K/uL [facility] ABSOLUTE BASOS 0.01 0.00 - 0.08 K/uL [facility] Granulocytes, immature 0.01 0.00 - 0.05 K/uL [facility] Blood 01/14/2018 7:32 AM EST 01/14/2018 7:36 AM EST us Tamiko Gibbons MD LAB BLOOD ORDERABLE S Final Result Performing Organization Address [facility]/ZIP Co de Phone Number [address] [address] * TSH with reflex (01/14/2018 7:32 AM EST) TSH 3.59 0.27 - 4.20 uIU/mL [facility] Blood 01/14/2018 7:32 AM EST 01/14/2018 7:36 AM EST us Tamiko Gibbons MD LAB BLOOD ORDERABLE S Final Result Performing Organization Address City/[facility]/ZIP Co de Phone Number [address] [address] * (ABNORMAL) Comprehensive metabolic panel (01/14/2018 7:32 AM EST) SODIUM 140 133 - 146 mmol/L [facility] POTASSIUM 4.4 3.3 - 5.1 mmol/L [facility] CHLORIDE 101 96 - 108 mmol/L [facility] CO2 24 21 - 35 mmol/L [facility] BUN 20(H) 6 - 19 mg/dL [facility] CREATININE 0.80 0.5 - 1.5 mg/dL [facility] GLUCOSE 78 70 - 99 mg/dL [facility] ALBUMIN 3.7(L) 3.9 - 4.8 g/dL [facility] TOTAL PROTEIN 5.9(L) 6.5 - 8.0 g/dL [facility] CALCIUM 9.3 8.4 - 10.3 mg/dL [facility] ALKALINE PHOSPHATASE 52 39 - 117 U/L [facility] TOTAL BILIRUBIN 1.0 0.0 - 1.2 mg/dL [facility] AST 30 0 - 37 U/L [facility] ALT 28 0 - 40 U/L [facility] GLOBULIN 2.2 1 - 4.8 g/dL [facility] EGFR 90 >59 mL/min/1.7 3m2 [facility] Comment:If patient is black, multiply result by 1.159. Estimated glomerular filtration rate calculated using the CKD-EPI equation. ANION GAP 19 10 - 20 mmol/L [facility] Blood 01/14/2018 7:32 AM EST 01/14/2018 7:36 AM EST us Tamiko Gibbons MD LAB BLOOD ORDERABLE S Final Result [facility] [address] [place] [address] documented in this encounter Visit Diagnoses Diagnosis Gastroesophageal reflux disease, esophagitis presence not specified- Primary Type 1 diabetes mellitus with complication documented in this encounter Care Teams Photogrammetric Engineer Relationship Specialty Start Date End Date Tamiko Gibbons MD [email or web address] PCP - General 08/25/15 05/31/21 Unknown, Yung, PCP - General 06/01/21 06/27/21 Tawnya Thompson MD PCP - General Family Medicine 06/28/21 12/19/23 Tawnya Thompson MD [address] [place] [phone] PCP - General Family Medicine 12/20/23 Tamiko Gibbons MD [address] [place] [address] [email or web address] Insurance Assigned Provider 11/29/19 06/25/21 documented as of this encounter Additional Source Comments The information contained in this document represents components of the legal health record. It is not the complete legal health record.[facility]
--- OUTSIDE RECORDS SUMMARY | 2024-11-04 13:17 | XMS_ITS | Encounter Summary ---
Author Organization [facility] Address [address] [facility] [address] [place] [address] Phone Care Team Providers Care Salesperson Hosiery Name Role Phone Tamiko Gibbons MD Primary Care Provi shaunna Tamiko Gibbons MD Unavailable [phone] Unknown, Unknown Primary Care Provider Tawnya Dodd MD Primary Care Provider Tawnya Thompson MD Primary Care Provider Encounter Details Date Type Department Care Team (Late st Contact Info) Description 04/12/2017 Transcribe Orders [facility] Laboratory [address] [facility] 2nd [place] [address] Tamiko Gibbons MD [address] [place], [place] [phone] [email or web address] Urinary tract infection without hematuria, site unspecified (Primary Dx) Social History Tobacco Use [...] documented as of this encounter Results * Urine culture (04/12/2017 12:06 PM EST) Specimen Source/ Description URINE CLEAN CATCH URINE [facility] Special Requests None [facility] GRAM STAIN NO ORGANISMS SEEN [facility] Culture/Test <10,000 colony forming units per ml [facility] Report Status 04/14/2017 FINAL [facility] Urine (Urine) 04/12/2017 12: 06 PM EST 04/12/2017 12:09 PM EST us Tamiko Gibbons MD MICROBIOLOGY - GENE RAL ORDERABLES Final Result Performing Organization Address [facility] Co de Phone Number [address] [address] * (ABNORMAL) Urinalysis (04/12/2017 12:06 PM EST) COLOR Yellow Yellow [facility] CLARITY Clear [facility] GLUCOSE Trace(A) Negative [facility] BILI Negative Negative [facility] KETONES Trace(A) Negative [facility] SPECIFIC GRAVITY 1.020 1.005 - 1.030 [facility] BLOOD Negative Negative [facility] PH 6.0 5.0 - 8.0 [facility] Protein-UA Negative Negative [facility] NITRITE Negative Negative [facility] Leukocyte esterase, ur Negative Negative [facility] Urine (Urine) 04/12/2017 12: 06 PM EST 04/12/2017 12:10 PM EST us Tamiko Gibbons MD URINE ORDERABLES Fi nal Result Performing Organization Address City/[facility]/ZIP Co de Phone Number [address] [address] documented in this encounter Visit Diagnoses Diagnosis Urinary tract infection without hematuria, site unspecified- Primary documented in this encounter Care Teams Salesperson Hosiery Relationship Specialty Start Date End Date Tamiko Gibbons MD [email or web address] PCP - General 08/25/15 05/31/21 Unknown, Unknown, PCP - General 06/01/21 06/27/21 Tawnya Thompson MD [email or web address] PCP - General Family Medicine 06/28/21 12/19/23 Tawnya Thompson MD [address] [place] [address] [email or web address] PCP - General Family Medicine 12/20/23 Tamiko Gibbons MD [address] [place] [address] [email or web address] Insurance Assigned Provider 11/29/19 06/25/21 documented as of this encounter Additional Source Comments The information contained in this document represents components of the legal health record. It is not the complete legal health record.[facility]
--- OUTSIDE RECORDS SUMMARY | 2024-11-04 13:17 | XMS_ITS | Encounter Summary ---
Author Organization [facility] Address [address] [place] [address] [place] [address] Phone Care Team Providers Care Script Artist Name Role Phone Tamiko Gibbons MD Primary Care Provi shaunna Tamiko Gibbons MD Unavailable [phone] Unknown, Unknown Primary Care Provider Tawnya Dodd MD Primary Care Provider Tawnya Thompson MD Primary Care Provider Encounter Details Date Type Department Care Team (Late st Contact Info) Description 08/12/2018 Transcribe Orders [facility] Laboratory 10 [facility] 2nd [place] [address] Tamiko Gibbons MD [address] [place], [place] [id number] [email or web address] Type 2 diabetes mellitus with complication, unspecified whether 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 smoking, excerise, hormones, sex and age. CHOLESTEROL 168 0 - 240 mg/dL [facility] TRIGLYCERIDES 69 30 - 160 mg/dL [facility] LDL 86 50 - 129 mg/dL [facility] Comment: LDL levels in terms of risk for coronary heart disease: <100 mg/dL: Optimal 100-129 mg/dL: Near or above optimal 130-159 mg/dL: Borderline high 160-189 mg/dL: High >190 mg/dL: Very High CARDIAC RISK RATIO 2.5(L) 3.4 - 5.0 C [facility] Blood 08/12/2018 7:32 AM EDT 08/12/2018 7:42 AM EDT us Tamiko Gibbons MD LAB BLOOD ORDERABLE S Final Result [facility] [address] [place] [address] * (ABNORMAL) Comprehensive metabolic panel (08/12/2018 7:32 AM EDT) SODIUM 139 133 - 146 mmol/L [facility] POTASSIUM 4.3 3.3 - 5.1 mmol/L [facility] CHLORIDE 105 96 - 108 mmol/L [facility] CO2 24 21 - 35 mmol/L [facility] BUN 22(H) 6 - 19 mg/dL [facility] CREATININE 0.80 0.5 - 1.5 mg/dL [facility] GLUCOSE 74 70 - 99 mg/dL [facility] ALBUMIN 3.7(L) 3.9 - 4.8 g/dL [facility] TOTAL PROTEIN 6.2(L) 6.5 - 8.0 g/dL [facility] CALCIUM 8.9 8.4 - 10.3 mg/dL [facility] ALKALINE PHOSPHATASE 55 39 - 117 U/L [facility] TOTAL BILIRUBIN 1.0 0.0 - 1.2 mg/dL [facility] AST 26 0 - 37 U/L [facility] ALT 18 0 - 40 U/L [facility] GLOBULIN 2.5 1 - 4.8 g/dL [facility] EGFR 90 >59 mL/min/1.7 3m2 [facility] Comment:If patient is black, multiply result by 1.159. Estimated glomerular filtration rate calculated using the CKD-EPI equation. ANION GAP 14 10 - 20 mmol/L [facility] Blood 08/12/2018 7:32 AM EDT 08/12/2018 7:42 AM EDT us Tamiko Gibbons MD LAB BLOOD ORDERABLE S Final Result Performing Organization Address City/State/[facility] Co de Phone Number [address] [address] documented in this encounter Visit Diagnoses Diagnosis Type 2 diabetes mellitus with complication, unspecified whether assisted insulin use- Primary documented in this encounter Care Teams Script Artist Relationship Specialty Start Date End Date Tamiko Gibbons MD [email or web address] PCP - General 08/25/15 05/31/21 Unknown, Unknown, PCP - General 06/01/21 06/27/21 Tawnya Thompson MD [email or web address] PCP - General Family Medicine 06/28/21 12/19/23 Tawnya Thompson MD [address] [place] [address] PCP - General Family Medicine 12/20/23 Tamiko Gibbons MD [address] [place] [address] [email or web address] Assigned Provider 11/29/19 06/25/21 documented as of this encounter Additional Source Comments The information contained in this document represents components of the legal health record. It is not the complete legal health record.[facility]
--- OUTSIDE RECORDS SUMMARY | 2024-11-04 13:17 | XMS_ITS | Encounter Summary ---
Author Organization [facility] Address [address] [address] Phone Care Team Providers Care Partner Name Role Phone Tamiko Gibbons MD Primary Care Provi shaunna Tamiko Gibbons MD Unavailable [phone] Unknown, Unknown Primary Care Provider Tawnya Dodd MD Primary Care Provider [phone] Tawnya Thompson MD Primary Care Provider Reason for Referral * Outpatient Procedure - Closed Specialty Diagnoses / Procedures Referred By Milady eller Referred To Contact Diagnoses Nonrheumatic aortic (valve) stenosis Procedures Adult Echo TTE Tamiko Gibbons MD Phone: tel: mailto:[email or web address] Referral ID Status Reason Start Date Expiration Date Visits Re quested Visits Authorized [id number] Closed 04/05/2021 04/05/2022 1 1 Encounter Details Date Type Department Care Team (Late st Contact Info) Description 04/05/2021 Transcribe Orders Virtual Department [address] [place] [address] Tamiko Gibbons MD [address] [place] [phone] [email or web address] Nonrheumatic aortic (valve) stenosis Social History Tobacco Use Types Packs/Day Years [...] as of this encounter Plan of Treatment Scheduled Orders Name Type Priority Associated Diagnoses Orde r Schedule Adult Echo TTE Echocardiography Routine Nonrheumatic aortic (valve) stenosis Expected: 04/05/2021, Expires: 04/05/2022 documented as of this encounter Visit Diagnoses Diagnosis Nonrheumatic aortic (valve) stenosis documented in this encounter Care Teams Partner Relationship Specialty Start Date End Date Tamiko Gibbons MD [email or web address] PCP - General 08/25/15 05/31/21 Unknown, Unknown, PCP - General 06/01/21 06/27/21 Tawnya Thompson MD PCP - General Family Medicine 06/28/21 12/19/23 Tawnya Thompson MD [address] [place] [address] PCP - General Family Medicine 12/20/23 Tamiko Gibbons MD [address] [place] [address] [email or web address] Insurance Assigned Provider 11/29/19 06/25/21 documented as of this encounter Additional Source Comments The information contained in this document represents components of the legal health record. It is not the complete legal health record.[facility]
--- OUTSIDE RECORDS SUMMARY | 2024-11-04 13:17 | XMS_ITS | Encounter Summary ---
Author Organization [facility] Address [address] [place] [address] Phone Care Team Providers Care Account Development Associate Name Role Phone Tamiko Gibbons MD Primary Care Provi shaunna Tamiko Gibbons MD Unavailable [phone] Unknown, Unknown Primary Care Provider Tawnya Dodd MD Primary Care Provider Tawnya Thompson MD Primary Care Provider [phone] Encounter Details Date Type Department Care Team (Late st Contact Info) Description 03/22/2017 Ancillary Orders Virtual Department [address] [place] [address] Tamiko Gibbons MD [address] [place], [place] [phone] [email or web address] Aortic valve stenosis, etiology of cardiac valve disease unspecified Social History Tobacco Use Types Packs/Day [...] documented as of this encounter Results * TTE COMPREHENSIVE (04/02/2017 8:59 AM EST) Body Surface Area 1.9 m2 Weight 73 kg Systolic BP 134 mmHg Diastolic BP 70 mmHg Left Atrium Dimension Anterior-Posterior 34 15 - 40 mm Aortic Valve Mean Gradient 15 mmHg Aortic Valve Mean Gradient 15 mmHg Aortic Valve Time Velocity Integral 656 mm Aortic Valve Peak Velocity 2,470 mm/s Aortic Valve Peak Velocity 2,470 mm/s Aortic Valve Peak Gradient 24 mmHg Aortic Sinus Diameter 34 mm Ascending Aorta Diameter 28 mm Inferior Vena Cava Diameter 12 0.0 - 21 mm Interventricular Septum Thickness 8 mm Left Ventricle Internal Diameter End Diastole 51 42 - 58 mm Left Ventricle Internal Diameter End Systole 25 25 - 40 mm Left Ventricular Outflow Tract Diameter 18 mm LVOT VTI REST 254 mm Left Ventricular Outflow Tract Velocity 1,150 mm/s Left Ventricular Outflow Tract Gradient at Rest 5 mmHg Left Ventricular Posterior Wall Thickness 9 mm Ejection Fraction 75 50 - 75 Percent Mitral Valve Deceleration Time 222 ms Mitral Valve A Wave Speed 89.5 mm/s Mitral Valve E Wave Speed 95.3 mm/s Right Ventricle Basal Diameter 31.8 25 - 41 mm Tricuspid Valve Peak Velocity 1,750 mm/s Tricuspid Valve Peak Velocity 1,750 mm/s Tricuspid Valve Peak Velocity 1,750 mm/s Raw LV EF% 76 % Height 180 cm Aortic Valve Sinus Index 1 18 20 - 32 mm Ascending Aorta Diameter 15 mm Aortic Sinus Index 18 mm Ascending Aorta Index 15 mm Anatomical Region Laterality Modality Heart Ultrasound Narrative 04/02/2017 11:27 AM EST The left ventricular cavity size and wall thickness are normal. Left ventricular systolic function is normal The estimated ejection fraction is 75% Left ventricular diastolic function appears within normal limits for age. There is restricted aortic leaflet opening consistent with mild valvular aortic stenosis Normal pulmonary pressure Compared to a prior TTE from 03/12/2015 no important changes Left Ventricle The left ventricular cavity size and wall thickness are normal. Left ventricular systolic function is normal. There are no segmental left ventricular wall motion abnormalities noted. The estimated ejection fraction is 75% (Normal 50-75%). The left ventricular ejection fraction was measured by visual estimate. Left ventricular diastolic function appears within normal limits for age. Right Ventricle The right ventricular size is normal. The right ventricular systolic function is normal. Left Atrium The left atrium is normal in size. The left atrial anterior-posterior dimension measures 34 mm (normal 15-40 mm). Right Atrium The right atrium is normal in size. The IVC is normal in size (2.1cm or less). The IVC measures 12 mm (normal <=21 mm). The IVC demonstrates normal collapse with inspiration which is consistent with normal RA pressure. Mitral Valve The mitral valve appears normal. The E/A ratio is 1.1. There is no significant mitral regurgitation detected by spectral and color Doppler. Tricuspid Valve The tricuspid valve appears normal. The peak TR jet is 12mmHg. The RAP is 3. The estimated RVSP is 15mmHg. Normal pulmonary pressure. There is evidence of trace tricuspid regurgitation by color and spectral Doppler. Aortic Valve The aortic valve appears abnormal. There is mild thickening of multiple aortic leaflets. There is restricted aortic leaflet opening consistent with mild valvular aortic stenosis. The peak aortic valve gradient is 24 mmHg. The aortic valve area was calculated by continuity equation. The mean aortic valve gradient is 15mmHg. The FREIDA is 0.98CM2. There is no evidence of aortic regurgitation by color and spectral Doppler. Pulmonic Valve The pulmonary valve appears normal. There is evidence of trace pulmonary regurgitation by color and spectral Doppler. Pericardium There is no evidence of pericardial effusion. There no evidence of a pleural effusion. Interatrial Septum The interatrial septum appears normal. Interventricular Septum Interventricular septal motion appears normal. General Findings The image quality was good (2). Comparison Findings Compared to a prior TTE from 03/12/2015 no important changes. Tamiko Gibbons MD CV ECHO ORDERABLES Final Result documented in this encounter Visit Diagnoses Diagnosis Aortic valve stenosis, etiology of cardiac valve disease unspecified Aortic valve stenosis, etiology of cardiac valve disease unspecified documented in this encounter Care Teams Account Development Associate Relationship Specialty Start Date End Date Tamiko Gibbons MD [email or web address] PCP - General 08/25/15 05/31/21 Yung, Yung, PCP - General 06/01/21 06/27/21 Tawnya hTompson MD PCP - General Family Medicine 06/28/21 12/19/23 Tawnya Thompson MD [address] [place] [address] [email or web address] PCP - General Family Medicine 12/20/23 Tamiko Gibbons MD [address] [place] [address] [email or web address] Assigned Provider 11/29/19 06/25/21 documented as of this encounter Additional Source Comments The information contained in this document represents components of the legal health record. It is not the complete legal health record.[facility]
--- OUTSIDE RECORDS SUMMARY | 2024-11-04 13:17 | XMS_ITS | Encounter Summary ---
Author Organization [facility] Address [address] [place] [address] [place] [address] Phone Care Team Providers Care Fisheries Biologist Name Role Phone Tamiko Gibbons MD Primary Care Provi shaunna Tamiko Gibbons MD Unavailable [phone] Unknown, Unknown Primary Care Provider Tawnya Dodd MD Primary Care Provider Tawnya Thompson MD Primary Care Provider Encounter Details Date Type Department Care Team (Late st Contact Info) Description 10/02/2017 Transcribe Orders [facility] Laboratory 10 [facility] 2nd [place] [address] Tamiko Gibbons MD [address] [place], [place] [phone] [email or web address] Type 1 diabetes mellitus with complication (Primary Dx); Hyperlipidemia, unspecified hyperlipidemia type Social History Tobacco Use Types Packs/Day Years [...] documented as of this encounter Results * PSA (screening) (10/02/2017 7:40 AM EDT) PSA 3.91 0 - 4.00 ng/mL [facility] Blood 10/02/2017 7:40 AM EDT 10/02/2017 7:44 AM EDT Tamiko Gibbons MD LAB BLOOD ORDERABLE S Final Result [address] [address] * (ABNORMAL) Lipid panel (10/02/2017 7:40 AM EDT) Pathologist [facility] HDL 80 mg/dL [facility] Comment: Interpretation: Risk Level Males Decreased >45 mg/dL Average 40-45 mg/dL Increased <40 mg/dL CHOLESTEROL 172 0 - 240 mg/dL [facility] TRIGLYCERIDES 67 30 - 160 mg/dL [facility] LDL 79 50 - 129 mg/dL [facility] Comment: LDL levels in terms of risk for coronary heart disease: <100 mg/dL: Optimal 100-129 mg/dL: Near or above optimal 130-159 mg/dL: Borderline high 160-189 mg/dL: High >190 mg/dL: Very High CARDIAC RISK RATIO 2.2(L) 3.4 - 5.0 C [facility] Blood 10/02/2017 7:40 AM EDT 10/02/2017 7:44 AM EDT us Tamiko Gibbons MD LAB BLOOD ORDERABLE S Final Result [address] [address] * (ABNORMAL) Comprehensive metabolic panel (10/02/2017 7:40 AM EDT) SODIUM 140 133 - 146 mmol/L [facility] POTASSIUM 4.4 3.3 - 5.1 mmol/L [facility] CHLORIDE 102 96 - 108 mmol/L [facility] CO2 25 21 - 35 mmol/L [facility] BUN 17 6 - 19 mg/dL [facility] CREATININE 0.80 0.5 - 1.5 mg/dL [facility] GLUCOSE 126(H) 70 - 99 mg/dL [facility] ALBUMIN 3.7(L) 3.9 - 4.8 g/dL [facility] TOTAL PROTEIN 6.3(L) 6.5 - 8.0 g/dL [facility] CALCIUM 9.3 8.4 - 10.3 mg/dL [facility] ALKALINE PHOSPHATASE 56 39 - 117 U/L [facility] TOTAL BILIRUBIN 0.9 0.0 - 1.2 mg/dL [facility] AST 25 0 - 37 U/L [facility] ALT 23 0 - 40 U/L [facility] GLOBULIN 2.6 1 - 4.8 g/dL [facility] EGFR 91 >59 mL/min/1.7 3m2 [facility] Comment:If patient is black, multiply result by 1.159. Estimated glomerular filtration rate calculated using the CKD-EPI equation. ANION GAP 17 10 - 20 mmol/L [facility] Blood 10/02/2017 7:40 AM EDT 10/02/2017 7:44 AM EDT us Tamiko Gibbons MD LAB BLOOD ORDERABLE S Final Result Performing Organization Address City/State/[facility] Co de Phone Number [facility] [address] [place] [address] documented in this encounter Visit Diagnoses Diagnosis Type 1 diabetes mellitus with complication- Primary Hyperlipidemia, unspecified hyperlipidemia type documented in this encounter Care Teams Fisheries Biologist Relationship Specialty Start Date End Date Tamiko Gibbons MD [email or web address] PCP - General 08/25/15 05/31/21 Unknown, Yung, PCP - General 06/01/21 06/27/21 Tawnya Thompson MD [email or web address] PCP - General Family Medicine 06/28/21 12/19/23 Tawnya Thompson MD [address] [place] [address] PCP - General Family Medicine 12/20/23 Tamiko Gibbons MD [address] [place] [address] [email or web address] Assigned Provider 11/29/19 06/25/21 documented as of this encounter Additional Source Comments The information contained in this document represents components of the legal health record. It is not the complete legal health record.[facility]
--- OUTSIDE RECORDS SUMMARY | 2024-11-04 13:17 | XMS_ITS | Encounter Summary ---
Author Organization [facility] Address [address] [address] Phone Care Team Providers Care Department Supervisor Name Role Phone Tamiko Gibbons MD Primary Care Provi shaunna Tamiko Gibbons MD Unavailable [phone] Unknown, Unknown Primary Care Provider Tawnya Dodd MD Primary Care Provider Tawnya Thompson MD Primary Care Provider [phone] Encounter Details Date Type Department Care Team (Late st Contact Info) Description 10/11/2017 Transcribe Orders [facility] Laboratory [address] [place] [address] Tamiko Gibbons MD [address] [place], [place] [phone] [email or web address] Diarrhea, unspecified type (Primary Dx) Social History Tobacco Use Types [...] documented as of this encounter Results * Giardia antigen screen (10/11/2017 8:25 AM EDT) ST GIARDIA ANTIGEN Negative Negative [facility] DPT OF LAB MED AND PAT+ Stool (Stool) 10/11/2017 8:2 5 AM EDT 10/11/2017 11:10 AM EDT Tamiko Gibbons MD MICROBIOLOGY - GENE RAL ORDERABLES Final Result [facility] DPT OF LAB MED AND PAT+ [address] [place] [address] * Fecal leukocyte examination (10/11/2017 8:25 AM EDT) Specimen Source/ Description STOOL STOOL STOOL [facility] Special Requests None HELIOTHERAPIST [facility] GRAM STAIN Rare WBC'S [facility] Report Status 10/12/2017 FINAL [facility] Stool (Stool) 10/11/2017 8:2 5 AM EDT 10/11/2017 11:10 AM EDT Tamiko Gibbons MD MICROBIOLOGY - GENE RAL ORDERABLES Final Result Performing Organization Address [facility] Co de Phone Number [address] [address] * Ova and parasites, stool (10/11/2017 8:25 AM EDT) Specimen Source/ Description STOOL STOOL STOOL [facility] Special Requests None [facility] DIRECT EXAM No parasites found by Trichrome Stain [facility] DIRECT EXAM NO PARASITES FOUND BY DIRECT OR CONCENTRATION METHODS [facility] Report Status 10/22/2017 FINAL [facility] Stool (Stool) 10/11/2017 8:2 5 AM EDT 10/11/2017 11:10 AM EDT Tamiko Gibbons MD MICROBIOLOGY - GENE RAL ORDERABLES Final Result Performing Organization Address City/[facility]/ZIP Co de Phone Number [address] [address] documented in this encounter Visit Diagnoses Diagnosis Diarrhea, unspecified type- Primary documented in this encounter Care Teams Department Supervisor Relationship Specialty Start Date End Date Tamiko Gibbons MD [email or web address] PCP - General 08/25/15 05/31/21 Unknown, Unknown, PCP - General 06/01/21 06/27/21 Tawnya Thompson MD PCP - General Family Medicine 06/28/21 12/19/23 Tawnya Thompson MD [address] [place] [address] PCP - General Family Medicine 12/20/23 Tamiko Gibbons MD [address] [place] [address] [email or web address] Assigned Provider 11/29/19 06/25/21 documented as of this encounter Additional Source Comments The information contained in this document represents components of the legal health record. It is not the complete legal health record.[facility]
--- OUTSIDE RECORDS SUMMARY | 2024-11-04 13:18 | XMS_ITS | Encounter Summary ---
Author Organization [facility] Address [address] [place] [address] [place] [address] Phone Care Team Providers Care Dope Weigh Operator Name Role Phone Tamiko Gibbons MD Primary Care Provi shaunna Tamiko Gibbons MD Unavailable [phone] Unknown, Unknown Primary Care Provider Tawnya Dodd MD Primary Care Provider Tawnya Thompson MD Primary Care Provider Encounter Details Date Type Department Care Team (Late st Contact Info) Description 09/13/2019 Procedure Pass [facility], Ct Scan - [address] [address] Social History Tobacco Use Types Packs/Day Years [...] on filedocumented in this encounter Care Teams Dope Weigh Operator Relationship Specialty Start Date End Date Tamiko Gibbons MD [email or web address] PCP - General 08/25/15 05/31/21 Unknown, Yung, PCP - General 06/01/21 06/27/21 Tawnya Thompson MD PCP - General Family Medicine 06/28/21 12/19/23 Tawnya Thompson MD [address] [place] [address] PCP - General Family Medicine 12/20/23 Tamiko Gibbons MD [address] [place] [address] [email or web address] Insurance Assigned Provider 11/29/19 06/25/21 documented as of this encounter Additional Source Comments The information contained in this document represents components of the legal health record. It is not the complete legal health record.[facility]
--- OUTSIDE RECORDS SUMMARY | 2024-11-04 13:18 | XMS_ITS | Encounter Summary ---
Author Organization [facility] Address [address] [facility] [address] [place] [address] Phone Care Team Providers Care Linoleum Tile Layer Name Role Phone Tawnya Thompson MD Primary Care Provider [phone] Tawnya Thompson MD Primary Care Provider [phone] Encounter Details Date Type Department Care Team (Late st Contact Info) Description 06/28/2021 Procedure Pass [facility], Ct Scan - [address] [address] Social History Tobacco Use Types Packs/Day Years [...] AM EST documented as of this encounter Functional Status * Calculated C-SSRS Risk Score (Lifetime/Recent) Answer Date of Assessment Author No Risk Indicated 06/28/2021 11:43 AM EDT Angela Dorantes RN * [place] Suicide Severity Rating Scale (Screener/Recent Self-Report) Question Answer Date of Assessment Author 1. Wish to be (Past 1 Month) No 06/28/2021 11:43 AM EDT Rafy Zamorano cie, RN 2. Non-Specific Active Suicidal Thoughts (Past 1 Month) No 06/28/2021 11:43 AM Rafy Estevez cie, RN 6. Suicidal Behavior (Lifetime) No 06/28/2021 11:43 AM Rafy Estevez cie, RN documented as of this encounter Plan of Treatment Not on file documented as of this encounter Visit Diagnoses Not on filedocumented in this encounter Care Teams Linoleum Tile Layer Relationship Specialty Start Date End Date Tawnya Thompson MD [email or web address] PCP - General Family Medicine 06/28/21 12/19/23 Tawnya Thompson MD [address] [place] [address] PCP - General Family Medicine 12/20/23 documented as of this encounter Additional Source Comments The information contained in this document represents components of the legal health record. It is not the complete legal health record.[facility]
--- OUTSIDE RECORDS SUMMARY | 2024-11-04 13:18 | XMS_ITS | Encounter Summary ---
Author Organization [facility] Address [address] [place] [address] [place] [address] Phone Care Team Providers Care Teaching Music Lessons Name Role Phone Tawnya Thompson MD Primary Care Provider [phone] Tawnya Thompson MD Primary Care Provider [phone] Encounter Details Date Type Department Care Team (Late st Contact Info) Description 07/01/2021 Ancillary Orders [facility],Outside Imaging [address] [place] [address] System, Provider Not In, PhD Partners [address] [address] Social History Tobacco Use Types Packs/Day Years [...] of this encounter Results * US Chest Outside (No Interpretation) (06/16/2021 12:00 AM EDT) Narrative SYSTEMGENERATED, DOCUMENTATION - 07/01/2021 5:29 PM EDT This study is for PACS storage only and not for interpretation. us Provider Not In System PhD IMG OUTSIDE IMAGING W /OUT INTERPRETATION Final Result documented in this encounter Visit Diagnoses Not on filedocumented in this encounter Care Teams Teaching Music Lessons Relationship Specialty Start Date End Date Tawnya Thompson MD [email or web address] PCP - General Family Medicine 06/28/21 12/19/23 Tawnya Thompson MD [address] [place] [address] PCP - General Family Medicine 12/20/23 documented as of this encounter Additional Source Comments The information contained in this document represents components of the legal health record. It is not the complete legal health record.[facility]
--- OUTSIDE RECORDS SUMMARY | 2024-11-04 13:18 | XMS_ITS | Encounter Summary ---
Author Organization [facility] Address [address] [place] [address] [place] [address] Phone Care Team Providers Care Dredge Engineer Name Role Phone Tamiko Gibbons MD Primary Care Provi shaunna Tamiko Gibbons MD Unavailable [phone] Unknown, Unknown Primary Care Provider Tawnya Dodd MD Primary Care Provider Tawnya Thompson MD Primary Care Provider Encounter Details Date Type Department Care Team (Late st Contact Info) Description 09/13/2019 Procedure Pass [facility], Ct Scan - [address] [address] Social History Tobacco Use Types Packs/Day Years [...] on filedocumented in this encounter Care Teams Dredge Engineer Relationship Specialty Start Date End Date Tamiko Gibbons MD [email or web address] PCP - General 08/25/15 05/31/21 Unknown, Yung, PCP - General 06/01/21 06/27/21 Tawnya Thompson MD [email or web address] PCP - General Family Medicine 06/28/21 12/19/23 Tawnya Thompson MD [address] [place] [address] [email or web address] PCP - General Family Medicine 12/20/23 Tamiko Gibbons MD [address] [place] [address] [email or web address] Insurance Assigned Provider 11/29/19 06/25/21 documented as of this encounter Additional Source Comments The information contained in this document represents components of the legal health record. It is not the complete legal health record.[facility]
--- OUTSIDE RECORDS SUMMARY | 2024-11-04 13:18 | XMS_ITS | Encounter Summary ---
Author Organization [facility] Address [address] [facility] [address] [place] [address] Phone Care Team Providers Care Ict Systems Test Engineer Name Role Phone Tamiko Gibbons MD Primary Care Provi shaunna Tamiko Gibbons MD Unavailable [phone] Unknown, Unknown Primary Care Provider Tawnya Dodd MD Primary Care Provider Tawnya Thompson MD Primary Care Provider Encounter Details Date Type Department Care Team (Latest Contact Info) Description 01/24/2019 Transcribe Orders [facility] Laboratory [address] 2nd [place] [address] Blade Velazco MD [address] [place] [address] [address] [place] [address] [email or web address] 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) Social History Tobacco Use Types [...] as of this encounter Results * (ABNORMAL) PSA (screening) (01/24/2019 9:31 AM EST) PSA 4.71(H) 0 - 4.00 ng/mL [facility] Blood 01/24/2019 9:31 AM EST 01/24/2019 9:33 AM EST us Blade Velazco MD LAB BLOOD ORDERABLES Nani styles Result [facility] [address] [place] [address] documented in this encounter Visit Diagnoses Diagnosis Benign localized hyperplasia of prostate with urinary retention- Primary Benign localized hyperplasia of prostate with urinary obstruction and other lower urinary tract symptoms (LUTS) documented in this encounter Care Teams Ict Systems Test Engineer Relationship Specialty Start Date End Date Tamiko Gibbons MD [email or web address] PCP - General 08/25/15 05/31/21 Unknown, Unknown, PCP - General 06/01/21 06/27/21 Tawnya Thompson MD PCP - General Family Medicine 06/28/21 12/19/23 Tawnya Thompson MD [address] [place] [address] PCP - General Family Medicine 12/20/23 Tamiko Gibbons MD [address] [place] [address] [email or web address] Insurance Assigned Provider 11/29/19 06/25/21 documented as of this encounter Additional Source Comments The information contained in this document represents components of the legal health record. It is not the complete legal health record.[facility]
--- OUTSIDE RECORDS SUMMARY | 2024-11-04 13:18 | XMS_ITS ---
Author Name [facility] Organization Unknown Results Test Name/Text Value Interpretation Date Range Source GLUCOSE BLDC GLUCOMTR MCNC 93.0 mg/dL Normal 01/31/2023 70 - 199 [facility] MCHC RBC AUTO MCNC 33.1 g/dL Normal 01/31/2023 32 - 36 [facility] MCH RBC QN AUTO 31.8 pg Normal 01/31/2023 25 - 33 CTT [facility] RDW RBC AUTO RTO 14.3 % Normal 01/31/2023 12.1 - 17.7 [facility] PMV BLD AUTO 9.6 fL Normal 01/31/2023 7.4 - 11.4 [facility] WBC NO. BLD AUTO 10.1 K/uL Normal 01/31/2023 4 - 10.5 CT [facility] MCV RBC AUTO 96.2 fL Normal 01/31/2023 78 - 100 [facility] HGB BLD MCNC 13.5 g/dL Normal 01/31/2023 13.5 - 18 [facility] RBC NO. BLD AUTO 4.24 M/uL Below low normal 01/31/2023 4.7 - 6 [facility] HCT VFR BLD AUTO 40.8 % Normal 01/31/2023 40 - 54 [facility] PLATELET NO. BLD AUTO 140.0 K/uL Below low normal 01/31/2023 150 - 450 [facility] BUN SERPL MCNC 14.0 mg/dL Normal 01/31/2023 9 - 20 CTT [facility] Glomerular filtration rate/1.73 sq M. predicted 95.0 Normal 01/31/2023 60 - [facility] CHLORIDE SERPL SCNC 105.0 mmol/L Normal 01/31/2023 98 - 1 07 [facility] CREAT SERPL MCNC 0.7 mg/dL Normal 01/31/2023 0.7 - 1.3 CT [facility] CALCIUM SERPL MCNC 8.7 mg/dL Normal 01/31/2023 8.4 - 10.2 [facility] ANION GAP SERPL SCNC 9.0 mmol/L Normal 01/31/2023 5 - 14 [facility] SODIUM SERPL SCNC 138.0 mmol/L Normal 01/31/2023 135 - 14 5 [facility] GLUCOSE P FAST SERPL MCNC 99.0 mg/dL Normal 01/31/2023 70 - 99 [facility] HCO3 SER SCNC 24.0 mmol/L Normal 01/31/2023 24 - 32 CTT [facility] POTASSIUM SERPL SCNC 3.8 mmol/L Normal 01/31/2023 3.5 - 5.1 [facility] MAGNESIUM SERPL MCNC 1.9 mg/dL Normal 01/31/2023 1.7 - 2.8 [facility] GLUCOSE BLDC GLUCOMTR MCNC 106.0 mg/dL Normal 01/31/2023 70 - 199 [facility] GLUCOSE BLDC GLUCOMTR MCNC 116.0 mg/dL Normal 01/31/2023 70 - 199 [facility] GLUCOSE BLDC GLUCOMTR MCNC 271.0 mg/dL Above high normal 01/30/2023 70 - 199 [facility] GLUCOSE BLDC GLUCOMTR MCNC 289.0 mg/dL Above high normal 01/30/2023 70 - 199 [facility] GLUCOSE BLDC GLUCOMTR MCNC 336.0 mg/dL Above high normal 01/30/2023 70 - 199 [facility] ANION GAP SERPL SCNC 12.0 mmol/L Normal 01/30/2023 5 - 14 [facility] CREAT SERPL MCNC 1.0 mg/dL Normal 01/30/2023 0.7 - 1.3 CT [facility] CHLORIDE SERPL SCNC 102.0 mmol/L Normal 01/30/2023 98 - 1 07 [facility] BUN SERPL MCNC 17.0 mg/dL Normal 01/30/2023 9 - 20 CTT [facility] GLUCOSE SERPL MCNC 362.0 mg/dL Above high normal 01/30/2023 70 - 199 [facility] SODIUM SERPL SCNC 135.0 mmol/L Normal 01/30/2023 135 - 14 5 [facility] CALCIUM SERPL MCNC 8.9 mg/dL Normal 01/30/2023 8.4 - 10.2 [facility] Glomerular filtration rate/1.73 sq M. predicted 78.0 Normal 01/30/2023 60 - [facility] POTASSIUM SERPL SCNC 4.9 mmol/L Normal 01/30/2023 3.5 - 5.1 [facility] HCO3 SER SCNC 21.0 mmol/L Below low normal 01/30/2023 24 - 3 2 [facility] MAGNESIUM SERPL MCNC 1.6 mg/dL Below low normal 01/30/2023 1.7 - 2.8 [facility] GLUCOSE BLDC GLUCOMTR MCNC 169.0 mg/dL Normal 01/30/2023 70 - 199 [facility] Hgb A1c MFr Bld HPLC 6.8 % Above high normal 01/30/2023 - 5.7 [facility] RBC NO. BLD AUTO 3.62 M/uL Below low normal 01/30/2023 4.7 - 6 [facility] MCHC RBC AUTO MCNC 33.6 g/dL Normal 01/30/2023 32 - 36 [facility] EOSINOPHIL NFR BLD AUTO 1.2 % Normal 01/30/2023 0 - 6 [facility] PMV BLD AUTO 10.0 fL Normal 01/30/2023 7.4 - 11.4 [facility] MONOCYTES NFR BLD AUTO 10.0 % Normal 01/30/2023 2 - 12 [facility] MCH RBC QN AUTO 32.3 pg Normal 01/30/2023 25 - 33 CTT [facility] NEUTROPHILS NO. BLD AUTO 3.5 K/uL Normal 01/30/2023 1.8 - 7.8 [facility] HCT VFR BLD AUTO 34.9 % Below low normal 01/30/2023 40 - 54 [facility] BASOPHILS IN BLOOD BY AUTOMATED COUNT 0.0 K/uL Normal 01/30/2023 0 - 0.2 [facility] MONOCYTES NO. BLD AUTO 0.6 K/uL Normal 01/30/2023 0 - 0.8 [facility] BASOPHILS NFR BLD AUTO 0.1 % Normal 01/30/2023 0 - 2 [facility] DIFFERENTIAL TYPE AUTOMATED Normal 01/30/2023 C T[facility] WBC NO. BLD AUTO 5.8 K/uL Normal 01/30/2023 4 - 10.5 CT [facility] HGB BLD MCNC 11.7 g/dL Below low normal 01/30/2023 13.5 - 18 [facility] LYMPHOCYTES NO. BLD AUTO 1.6 K/uL Normal 01/30/2023 1 - 3.2 [facility] RDW RBC AUTO RTO 14.4 % Normal 01/30/2023 12.1 - 17.7 [facility] LYMPHOCYTES NFR BLD AUTO 28.2 % Normal 01/30/2023 20 - 48 [facility] PLATELET NO. BLD AUTO 145.0 K/uL Below low normal 01/30/2023 150 - 450 [facility] MCV RBC AUTO 96.3 fL Normal 01/30/2023 78 - 100 [facility] NEUTROPHILS NFR BLD AUTO 60.5 % Normal 01/30/2023 44 - 74 [facility] EOSINOPHIL NO. BLD AUTO 0.1 K/uL Normal 01/30/2023 0 - 0.5 [facility] SAO2% BLDA 99.0 % Above high normal 01/30/2023 95 - 98 [facility] BASE DEFICIT BLDA SCNC 2.0 mmol/L Normal 01/30/2023 0 - 2 [facility] GLUCOSE BLDC GLUCOMTR MCNC 175.0 mg/dL Normal 01/30/2023 70 - 199 [facility] HCT VFR BLDC 33.0 % Below low normal 01/30/2023 40 - 54 [facility] SODIUM BLDC SCNC 138.0 mmol/L Normal 01/30/2023 135 - 145 [facility] O2/INSPIRED GAS SETTING VFR VENT 100.0 % Normal 01/30/2023 [facility] CORRECTED TEMP 96.8 F Normal 01/30/2023 [facility] CA I BLDC SCNC 1.28 mmol/L Normal 01/30/2023 1.19 - 1.35 [facility] pO2 temp adj Bld 168.0 mmHg Above high normal 01/30/2023 80 - 105 [facility] PH TEMP ADJ BLDA 7.368 Normal 01/30/2023 7.35 - 7.45 [facility] pCO2 temp adj Bld 40.8 mmHg Normal 01/30/2023 35 - 45 C T[facility] POTASSIUM BLDC SCNC 3.9 mmol/L Normal 01/30/2023 3.5 - 5. 1 [facility] G[facility]ITE ARTERIAL Normal [facility]/30[facility]20[facility] HGB BLDC MCNC 11.2 g/dL Below low normal 01/30/2023 13.5 - 1 8 [facility] Service Cmmt XXX-Imp ISTAT Normal 01/30/2023 [facility] HCO3 BLDA SCNC 23.7 mmol/L Normal 01/30/2023 22 - 26 CT [facility] TRANS NUM UNITS PACKED RBC Refer to TYPE AND SCREEN Order, for Red Cell Product Data / Detail Normal 01/30/2023 [facility] ABO+RH GP BLD O POSITIVE Normal 01/30/2023 [facility] BLD GP AB SCN SERPL QL NEGATIVE Normal 01/30/2023 [facility] BLOOD BANK CMNT PATIENT-IMP Testing performed at [facility], [address] [place] [address], Luci Vizcarra MD Sock Drier, [facility] [id number] Normal 01/30/2023 [facility] GLUCOSE BLDC GLUCOMTR MCNC 173.0 mg/dL Normal 01/30/2023 70 - 199 [facility] GLUCOSE BLDC GLUCOMTR MCNC 274.0 mg/dL Above high normal 01/25/2023 70 - 199 [facility] BILIRUB DIRECT SERPL MCNC 0.2 mg/dL Normal 01/25/2023 0 - 0.2 [facility] ALBUMIN SERPL BCG MCNC 3.9 g/dL Normal 01/25/2023 3.5 - 5 [facility] ALT SERPL CCNC 20.0 U/L Normal 01/25/2023 7 - 52 [facility] ALP SERPL-CCNC 63.0 U/L Normal 01/25/2023 34 - 104 [facility] BILIRUB SERPL MCNC 1.3 mg/dL Above high normal 01/25/2023 0. 3 - 1 [facility] ALBUMIN/GLOB SERPL MRTO 1.7 Normal 01/25/2023 [facility] AST SERPL CCNC 25.0 U/L Normal 01/25/2023 5 - 40 [facility] PROT SERPL MCNC 6.2 g/dL Below low normal 01/25/2023 6.4 - 8.5 [facility] BNP BLD MCNC 89.0 pg/mL Normal 01/25/2023 0 - 100 [facility] HGB BLD MCNC 14.0 g/dL Normal 01/25/2023 13.5 - 18 [facility] LYMPHOCYTES NO. BLD AUTO 1.6 K/uL Normal 01/25/2023 1 - 3.2 [facility] LYMPHOCYTES NFR BLD AUTO 22.3 % Normal 01/25/2023 20 - 48 [facility] RDW RBC AUTO RTO 14.2 % Normal 01/25/2023 12.1 - 17.7 [facility] PMV BLD AUTO 9.5 fL Normal 01/25/2023 7.4 - 11.4 [facility] EOSINOPHIL NFR BLD AUTO 0.6 % Normal 01/25/2023 0 - 6 [facility] MONOCYTES NO. BLD AUTO 0.6 K/uL Normal 01/25/2023 0 - 0.8 [facility] HCT VFR BLD AUTO 41.5 % Normal 01/25/2023 40 - 54 [facility] MCV RBC AUTO 96.5 fL Normal 01/25/2023 78 - 100 [facility] NEUTROPHILS NO. BLD AUTO 4.8 K/uL Normal 01/25/2023 1.8 - 7.8 [facility] RBC NO. BLD AUTO 4.3 M/uL Below low normal 01/25/2023 4.7 - 6 [facility] PLATELET NO. BLD AUTO 173.0 K/uL Normal 01/25/2023 150 - 450 [facility] MONOCYTES NFR BLD AUTO 8.7 % Normal 01/25/2023 2 - 12 [facility] BASOPHILS NFR BLD AUTO 0.2 % Normal 01/25/2023 0 - 2 [facility] NEUTROPHILS NFR BLD AUTO 68.2 % Normal 01/25/2023 44 - 74 [facility] MCHC RBC AUTO MCNC 33.6 g/dL Normal 01/25/2023 32 - 36 [facility] DIFFERENTIAL TYPE AUTOMATED Normal 01/25/2023 C [facility] EOSINOPHIL NO. BLD AUTO 0.0 K/uL Normal 01/25/2023 0 - 0.5 [facility] MCH RBC QN AUTO 32.5 pg Normal 01/25/2023 25 - 33 CTT [facility] WBC NO. BLD AUTO 7.1 K/uL Normal 01/25/2023 4 - 10.5 CT [facility] BASOPHILS IN BLOOD BY AUTOMATED COUNT 0.0 K/uL Normal 01/25/2023 0 - 0.2 [facility] Glomerular filtration rate/1.73 sq M. predicted 95.0 Normal 01/25/2023 60 - [facility] GLUCOSE SERPL MCNC 306.0 mg/dL Above high normal 01/25/2023 70 - 199 [facility] CREAT SERPL MCNC 0.7 mg/dL Normal 01/25/2023 0.7 - 1.3 CT [facility] SODIUM SERPL SCNC 135.0 mmol/L Normal 01/25/2023 135 - 14 5 [facility] CALCIUM SERPL MCNC 8.9 mg/dL Normal 01/25/2023 8.4 - 10.2 [facility] ANION GAP SERPL SCNC 9.0 mmol/L Normal 01/25/2023 5 - 14 [facility] CHLORIDE SERPL SCNC 100.0 mmol/L Normal 01/25/2023 98 - 1 07 [facility] BUN SERPL MCNC 18.0 mg/dL Normal 01/25/2023 9 - 20 CTT [facility] POTASSIUM SERPL SCNC 4.6 mmol/L Normal 01/25/2023 3.5 - 5.1 [facility] HCO3 SER SCNC 26.0 mmol/L Normal 01/25/2023 24 - 32 CTT [facility] INR PPP 0.9 Normal 01/25/2023 0.8 - 1.1 [facility] PT TIME PPP 10.3 sec Below low normal 01/25/2023 10.5 - 13. 3 [facility] APTT TIME PPP 33.0 sec Normal 01/25/2023 25 - 37 [facility] ABO+RH GP BLD O POSITIVE Normal 01/25/2023 [facility]IENT-IMP Testing performed at [facility], [address] [place] [address], Luci Vizcarra MD Sock Drier, [facility] [id number] No history of previous ABO/Rh. Pt nee Normal 01/25/2023 [facility] BLD GP AB SCN SERPL QL NEGATIVE Normal 01/25/2023 [facility] BLOOD BANK CMNT PATIENT-IMP Testing performed at [facility], [address] [place] [address], Luci Vizcarra MD Sock Drier, [facility] [id number] Normal 01/25/2023 [facility] ABO+RH GP BLD O POSITIVE Normal 01/25/2023 [facility] GLUCOSE BLDC GLUCOMTR MCNC 158.0 mg/dL Normal 01/25/2023 70 - 199 [facility] GLUCOSE BLDC GLUCOMTR MCNC 207.0 mg/dL Above high normal 01/25/2023 70 - 199 [facility] History of Medication Use Medication Directions Dispensed Refills Start Date End Date Stat lisinopriL (PRINIVIL,ZESTRIL) 20 mg tablet Take 1 tablet (20 mg total) by mouth 1 (one) time each day. 03/26/2024 active clopidogrel (PLAVIX) 75 MG tablet Take 1 tablet (75 mg total) by mouth daily. 02/01/2023 05/14/2023 aborted methotrexate 2.5 mg tablet Take 8 tablets (20 mg total) by mouth once a week 07/30/2021 active dutasteride (AVODART) 0.5 mg capsule Take 1 capsule (0.5 mg total) by mouth 1 (one) time each day. 05/26/2016 active dutasteride (AVODART) 0.5 MG capsule Take 1 capsule (0.5 mg total) by mouth daily. 05/26/2016 active tamsulosin (FLOMAX) 0.4 mg 24 hr capsule Take 1 capsule (0.4 mg total) by mouth 1 (one) time each day. 05/26/2016 active aspirin 81 mg EC tablet Take 1 tablet (81 mg total) by mouth 1 (one) time each day. active Cholecalciferol (D3 2000) 50 MCG (2000 UT) CAPS Take by mouth daily. active cholecalciferol (VITAMIN D-3) 50 mcg (2,000 unit) capsule Take by mouth 1 (one) time each day. active FA/mv,Ca,iron,min/lyco pene/lut (MULTIVITAL ORAL) Take by mouth 1 (one) time each day. active melatonin 5 mg tablet 1 tablet (5 mg total) 1 (one) time each day. active Melatonin 5 MG TABS Take 5 mg by mouth daily. 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 03/26/2024 Ambulatory Nonrheumatic aortic (valve) stenosis Nonrheumatic aortic (valve) stenosis [facility] 03/26/2024 Ambulatory Nonrheumatic aortic (valve) stenosis Nonrheumatic aortic (valve) stenosis [facility] 02/28/2023 Ambulatory [facility] 02/28/2023 Ambulatory [facility] 02/28/2023 Ambulatory Nonrheumatic aortic (valve) stenosis Nonrheumatic aortic (valve) stenosis [facility] 02/28/2023 Inpatient Presence of xenogeni c heart valve Presence of xenogenic heart valve [facility] 01/30/2023 Ambulatory Atherosclerotic hear t disease of port lions coronary artery without angina pectoris Atherosclerotic heart disease of port lions coronary artery without angina pectoris [facility] 01/25/2023 Ambulatory Nonrheumatic aortic (valve) stenosis Nonrheumatic aortic (valve) stenosis [facility] 01/03/2023 Ambulatory Nonrheumatic aortic (valve) stenosis Nonrheumatic aortic (valve) stenosis [facility] 01/03/2023 Ambulatory Nonrheumatic aortic (valve) stenosis Nonrheumatic aortic (valve) stenosis [facility] 01/03/2023 Ambulatory [facility] 01/03/2023 Ambulatory Nonrheumatic aortic (valve) stenosis Nonrheumatic aortic (valve) stenosis [facility] 01/03/2023 Ambulatory Nonrheumatic aortic (valve) stenosis Nonrheumatic aortic (valve) stenosis [facility] 01/03/2023 Ambulatory Traumatic subdur al hemorrhage with loss of consciousness of unspecified duration, initial encounter [facility] 10/05/2021 Ambulatory Traumatic subdur al hemorrhage with loss of consciousness of unspecified duration, initial encounter [facility] 08/15/2021 Inpatient Traumatic subdur al hemorrhage with loss of consciousness of unspecified duration, initial encounter [facility] 07/11/2021 Inpatient Disorientation, unspecified [facility] 07/06/2021 Inpatient Traumatic subdur al hemorrhage with loss of consciousness of unspecified duration, initial encounter [facility] 06/28/2021 Care Team Organization Name Specialty Phone Email Start Date End Da te [facility] Primary Care 04/30/2024 [facility] Primary [facility] 03/26/2024 [facility] 02/28/2023 02/28/2023 [facility] 01/03/2023 09/02/2024 [facility] Primary Care 01/03/20232022 [facility] C [facility] Primary Care 10/05/2021 [facility] Primary Care 06/28/202108/15
--- OUTSIDE RECORDS SUMMARY | 2024-11-04 13:18 | XMS_ITS | Encounter Summary ---
Author Organization [facility] Address [address] [place] [address] [place] [address] Phone Care Team Providers Care Bobbin Sorter Name Role Phone Tamiko Gibbons MD Primary Care Provi shaunna Tamiko Gibbons MD Unavailable [phone] Unknown, Unknown Primary Care Provider Tawnya Dodd MD Primary Care Provider [phone] Tawnya Thompson MD Primary Care Provider Encounter Details Date Type Department Care Team (Late st Contact Info) Description 09/22/2019 Procedure Pass [facility] Endoscopy Admitting Dept [facility] Department [address] [place] [phone] Social History Tobacco Use Types Packs/Day Years [...] on filedocumented in this encounter Care Teams Bobbin Sorter Relationship Specialty Start Date End Date Tamiko Gibbons MD [email or web address] PCP - General 08/25/15 05/31/21 Unknown, Yung, PCP - General 06/01/21 06/27/21 Tawnya Thompson MD PCP - General Family Medicine 06/28/21 12/19/23 Tawnya Thompson MD [address] [place] [address] PCP - General Family Medicine 12/20/23 Tamiko Gibbons MD [address] [place] [address] [email or web address] Insurance Assigned Provider 11/29/19 06/25/21 documented as of this encounter Additional Source Comments The information contained in this document represents components of the legal health record. It is not the complete legal health record.[facility]
--- OUTSIDE RECORDS SUMMARY | 2024-11-04 13:18 | XMS_ITS | Encounter Summary ---
Author Organization [facility] Address [address] [place] [address] [place] [phone] Phone Care Team Providers Care Software Applications Specialist Name Role Phone Tawnya Thompson MD Primary Care Provider [phone] Tawnya Thompson MD Primary Care Provider [phone] Encounter Details Date Type Department Care Team (Latest Contact Info) Description 07/07/2021 Transcribe Orders Virtual Department [address] [place] [phone] [place] [address] Subdural hematoma (Primary Dx) Social History Tobacco Use Types [...] as of this encounter Visit Diagnoses Diagnosis Subdural hematoma- Primary Subdural hemorrhage documented in this encounter Care Teams Software Applications Specialist Relationship Specialty Start Date End Date Tawnya Thompson MD PCP - General Family Medicine 06/28/21 12/19/23 Tawnya Thompson MD [address] [place] [address] PCP - General Family Medicine 12/20/23 documented as of this encounter Additional Source Comments The information contained in this document represents components of the legal health record. It is not the complete legal health record.[facility]
--- OUTSIDE RECORDS SUMMARY | 2024-11-04 13:18 | XMS_ITS | Encounter Summary ---
Author Organization [facility] Address [address] [place] [address] Phone Care Team Providers Care Bunch Breaker Machine Operator Name Role Phone Tawnya Thompson MD Primary Care Provider [phone]- [phone] Tawnya Thompson MD Primary Care Provider [phone]- [phone] Encounter Details Date Type Department Care Team (Late st Contact Info) Description 02/07/2023 Procedure Pass [facility] Admitting Dept Virtual Department [address] [place] [address] Social History Tobacco Use Types Packs/Day Years [...] on filedocumented in this encounter Care Teams Bunch Breaker Machine Operator Relationship Specialty Start Date End Date Tawnya Thompson MD [email or web address] PCP - General Family Medicine 06/28/21 12/19/23 Tawnya Thompson MD [address] [place] [address] [email or web address] PCP - General Family Medicine 12/20/23 documented as of this encounter Additional Source Comments The information contained in this document represents components of the legal health record. It is not the complete legal health record.[facility]
--- OUTSIDE RECORDS SUMMARY | 2024-11-04 13:18 | XMS_ITS | Encounter Summary ---
Author Organization [facility] Address [address] [place] [address] [place] [address] Phone Care Team Providers Care Flow Floor Attendant Name Role Phone Tamiko Gibbons MD Primary Care Provi shaunna Tamiko Gibbons MD Unavailable [phone] Unknown, Unknown Primary Care Provider Tawnya Dodd MD Primary Care Provider Tawnya Thompson MD Primary Care Provider Encounter Details Date Type Department Care Team (Late st Contact Info) Description 09/13/2019 Procedure Pass [facility], Ct Scan - [address] [address] Social History Tobacco Use Types Packs/Day Years [...] on filedocumented in this encounter Care Teams Flow Floor Attendant Relationship Specialty Start Date End Date Tamiko Gibbons MD [email or web address] PCP - General 08/25/15 05/31/21 Unknown, Yung, PCP - General 06/01/21 06/27/21 Tawnya Thompson MD PCP - General Family Medicine 06/28/21 12/19/23 Tawnya Thompson MD [address] [place] [address] PCP - General Family Medicine 12/20/23 Tamiko Gibbons MD [address] [place] [address] [email or web address] Insurance Assigned Provider 11/29/19 06/25/21 documented as of this encounter Additional Source Comments The information contained in this document represents components of the legal health record. It is not the complete legal health record.[facility]
--- OUTSIDE RECORDS SUMMARY | 2024-11-04 13:18 | XMS_ITS | Encounter Summary ---
Author Organization [facility] Address [address] [facility] [address] [place] [address] Phone Care Team Providers Care Radiological Defense Officer Name Role Phone Tawnya Thompson MD Primary Care Provider Tawnya Thompson MD Primary Care Provider [phone] Encounter Details Date Type Department Care Team (Latest Contact Info) Description 09/21/2023 Transcribe Orders [facility] Laboratory [address] [place] [address] Yulisa Cox PA-C [address], [address] [place] [address] [email or web address] Change in bowel habits (Primary Dx) Social History Tobacco Use Types [...] as of this encounter Results * (ABNORMAL) Pancreatic Elastase, Stool (09/29/2023 8:30 AM EDT) Pancreatic Elastase, Feces 118(L) >200 (Normal) mcg/g [facility] LAB MED/PATH [facility]PERIOR Comment: (NOTE) Interpretation: Borderline (100-200 mcg/g); Consistent with slight to moderate pancreatic insufficiency Stool (Stool) 09/29/2023 8:3 0 AM EDT 09/29/2023 10:24 AM EDT us Yulisa Cox PA-C BODY FLUIDS AND STOOLS ORDERABL ES Final Result Performing Organization Address [facility] Co de Phone Number [facility] LAB MED/[facility] [address] [place] [address] * (ABNORMAL) Stool fat/fiber exam (09/29/2023 8:30 AM EDT) FATTY ACID INCREASED(A ) NORMAL [facility] Neutral Fat, stool NORMAL NORMAL [facility] Stool (Stool) 09/29/2023 8:3 0 AM EDT 09/29/2023 10:25 AM EDT us Yulisa Cox PA-C BODY FLUIDS AND STOOLS ORDERABL ES Final Result Performing Organization Address City/[facility]/ZIP Co de Phone Number [facility] [address] [place] [address] * Ova and parasites, stool (09/29/2023 8:30 AM EDT) Parasitic exam FINAL [address] [facility] DPT OF LAB MED AND PAT+ Comment: (NOTE) SOURCE: STOOL, STLP OVA AND PARASITE, MICROSCOPY, F FINAL No parasites seen. Cryptosporidium, Cyclospora, and microsporidia are not readily detected by this method. Single negative specimen does not rule out parasitic infection. Stool (Stool) 09/29/2023 8:3 0 AM EDT 09/29/2023 10:25 AM EDT Yulisa Cox PA-C MICROBIOLOGY - GENERAL ORDERABL ES Final Result Performing Organization Address City/[facility]/ZIP Co de Phone Number [facility] DPT OF LAB MED AND PAT+ [address] [place] [address] * Stool culture (09/29/2023 8:30 AM EDT) Special Requests None 09/29/2023 10:22 AM EDT [facility] Stool Culture NO SALMONELLA, SHIGELLA OR CAMPYLOBACTER ISOLATED 09/30/2023 10:31 AM EDT [facility] Stool (Stool) 09/29/2023 8:3 0 AM EDT 09/29/2023 10:25 AM EDT Yulisa Cox PA-C MICROBIOLOGY - GENERAL ORDERABL ES Final Result Performing Organization Address [facility] Co de Phone Number [facility] [address] [place] [address] * Ova and parasites, stool (09/22/2023 2:42 PM EDT) Parasitic exam FINAL [address] [facility] DPT OF LAB MED AND PAT+ Comment: (NOTE) SOURCE: STOOL, STLP OVA AND PARASITE, MICROSCOPY, F FINAL No parasites seen. Leukocytes present. Red blood cells present. Cryptosporidium, Cyclospora, and microsporidia are not readily detected by this method. Single negative specimen does not rule out parasitic infection. Stool (Stool) 09/22/2023 2:4 2 PM EDT 09/28/2023 3:06 PM EDT Yulisa Cox PA-C MICROBIOLOGY - GENERAL ORDERABL ES Final Result Performing Organization Address City/[facility]/ZIP Co de Phone Number [facility] DPT OF LAB MED AND PAT+ [address] [place] [address] * Vitamin B12 (09/21/2023 2:43 PM EDT) VITAMIN B12 596 232 - 1,245 pg/mL [facility] Blood 09/21/2023 2:43 PM EDT 09/21/2023 2:53 PM EDT Yulisa Cox PA-C LAB BLOOD ORDERABLES Final Resu lt Performing Organization Address City/[facility]/ZIP Co de Phone Number [address] [address] * TSH (09/21/2023 2:43 PM EDT) TSH 1.95 0.27 - 4.20 uIU/mL [facility] Blood 09/21/2023 2:43 PM EDT 09/21/2023 2:53 PM EDT Yulisa Cox PA-C LAB BLOOD ORDERABLES Final Resu lt Performing Organization Address [facility]/ZIP Co de Phone Number [address] [address] * C-Reactive Protein (09/21/2023 2:43 PM EDT) Pathologist [facility] C REACTIVE PROTEIN <3.0 0.0 - 4.0 mg/L [facility] Blood 09/21/2023 2:43 PM EDT 09/21/2023 2:53 PM EDT Yulisa Cox PA-C LAB BLOOD ORDERABLES Final Resu lt Performing Organization Address City/[facility]/ZIP Co de Phone Number [address] [address] * (ABNORMAL) Comprehensive metabolic panel (09/21/2023 2:43 PM EDT) SODIUM 137 133 - 146 mmol/L [facility] POTASSIUM 4.3 3.3 - 5.1 mmol/L [facility] CHLORIDE 102 96 - 108 mmol/L [facility] CO2 24 21 - 35 mmol/L [facility] BUN 18 6 - 19 mg/dL [facility] CREATININE 0.70 0.5 - 1.5 mg/dL [facility] GLUCOSE 102(H) 70 - 99 mg/dL [facility] ALBUMIN 3.9 3.9 - 4.8 g/dL [facility] TOTAL PROTEIN 6.6 6.5 - 8.0 g/dL [facility] CALCIUM 9.4 8.4 - 10.3 mg/dL [facility] ALKALINE PHOSPHATASE 76 39 - 117 U/L [facility] TOTAL BILIRUBIN 1.1 0.0 - 1.2 mg/dL [facility] AST 42(H) 0 - 37 U/L [facility] ALT 32 0 - 40 U/L [facility] GLOBULIN 2.7 1 - 4.8 g/dL [facility] EGFR 95 >59 mL/min/1.7 3m2 [facility] Comment:Estimated glomerular filtration rate calculated using the CKD-EPI refit equation. ANION GAP 15 10 - 20 mmol/L [facility] Blood 09/21/2023 2:43 PM EDT 09/21/2023 2:53 PM EDT us Yulisa Cox PA-C LAB BLOOD ORDERABLES Final Resu lt [address] [address] * CBC (09/21/2023 2:43 PM EDT) WBC 6.09 4.00 - 11.00 K/uL [facility] RBC 4.17 3.90 - 5.69 M/uL [facility] HGB 12.9 12.4 - 17.3 g/dL [facility] HCT 39.6 37.0 - 51.0 % [facility] PLT 151 140 - 430 K/uL [facility] MCV 95.0 78.0 - 97.0 fL [facility] MCH 30.9 25.0 - 33.0 pg [facility] MCHC 32.6 32.0 - 36.0 g/dL [facility] RDW 15.0 11.0 - 15.0 % [facility] MPV 11.8 8.4 - 12.8 fl [facility] Blood 09/21/2023 2:43 PM EDT 09/21/2023 2:53 PM EDT Yulisa Cox PA-C LAB BLOOD ORDERABLES Final Resu lt Performing Organization Address [facility]/ZIP Co de Phone Number [address] [address] * Immunoglobulin A (09/21/2023 2:43 PM EDT) IgA 193 70 - 400 mg/dL [facility] Blood 09/21/2023 2:43 PM EDT 09/21/2023 2:53 PM EDT Yulisa Cox PA-C LAB BLOOD ORDERABLES Final Resu lt Performing Organization Address [facility] Co de Phone Number [address] [address] * Tissue transglutaminase IgA (09/21/2023 2:43 PM EDT) TTG IGA ANTIBODY <1.2 <4.0 (Negative) U/mL [facility] Blood 09/21/2023 2:43 PM EDT 09/21/2023 2:53 PM EDT Yulisa Cox PA-C LAB BLOOD ORDERABLES Final Resu lt Performing Organization Address City/[facility]/ZIP Co de Phone Number [facility] [address] [place] [address] * Ova and parasites, stool (09/21/2023 2:41 PM EDT) Parasitic exam FINAL [address] [facility] DPT OF LAB MED AND PAT+ Comment: (NOTE) SOURCE: STOOL, STLP OVA AND PARASITE, MICROSCOPY, F FINAL No parasites seen. Leukocytes present. Red blood cells present. Cryptosporidium, Cyclospora, and microsporidia are not readily detected by this method. Single negative specimen does not rule out parasitic infection. Stool (Stool) 09/21/2023 2:4 1 PM EDT 09/28/2023 3:05 PM EDT us Yulisa Cox PA-C MICROBIOLOGY - GENERAL ORDERABL ES Final Result [facility] DPT OF LAB MED AND PAT+ [address] [place] [address] documented in this encounter Visit Diagnoses Diagnosis Change in bowel habits- Primary Other symptoms involving digestive system documented in this encounter Care Teams Radiological Defense Officer Relationship Specialty Start Date End Date Tawnya Thompson MD PCP - General Family Medicine 06/28/21 12/19/23 Tawnya Thompson MD [address] [place] [address] PCP - General Family Medicine 12/20/23 documented as of this encounter Additional Source Comments The information contained in this document represents components of the legal health record. It is not the complete legal health record.[facility]
--- OUTSIDE RECORDS SUMMARY | 2024-11-04 13:18 | XMS_ITS | Clinical Summary ---
Author Organization [facility] Address [address] [place] [address] Care Team Providers Care Butadiene Converter Operator Name Role Phone Tawnya Thompson MD Primary Care Provider [phone] Allergies No known active allergies Medications atorvastatin (LIPITOR) 40 MG tablet Take 40 mg by mouth daily. As part of a 60mg dose. Active dutasteride (AVODART) 0.5 MG capsule Take 0.5 mg by mouth every morning. Active leuCOVORIN (WELLCOVORIN) 5 MG tablet Take 5 mg by mouth once a week. Day after Methotrexate (Every Sunday) Active lisinopril (PRINIVIL,ZeSTRI L) 5 MG tablet Take 5 mg by mouth every morning. Active tamsulosin (FLOMAX) 0.4 MG capsule Take 0.4 mg by mouth every evening. Active acetaminophen (TYLENOL) 500 MG tablet Take 1,000 mg by mouth 4 times daily (every 6 hours) as needed for mild pain. Active melatonin 5 MG Tab tablet Take 5 mg by mouth nightly. Active levETIRAcetam (KEPPRA) 750 MG tabletIndication s:Confusion,Seiz ure (HCC) Take 2 tablets (1,500 mg total) by mouth 2 (two) times a day. 120 tablet 2 Active atorvastatin (LIPITOR) 20 MG tablet Take 20 mg by mouth daily. As part of a 60mg dose. Active methotrexate (RHEUMATREX) 2.5 MG tabletIndication s:Rheumatoid arthritis, involving unspecified site, unspecified whether rheumatoid factor present (HCC) Take 7 tablets (17.5 mg total) by mouth once a week Every Sunday 28 tablet 2 Active amLODIPine (NORVASC) 5 MG tabletIndication s:Subdural hematoma (HCC) Take 1 tablet (5 mg total) by mouth 2 (two) times a day. 60 tablet 2 Active docusate sodium (COLACE) 100 MG capsuleIndicatio ns:Subdural hematoma (HCC) Take 1 capsule (100 mg total) by mouth 2 (two) times a day as needed for constipation. 60 capsule 2 Active Alcohol Swabs 70 % PadsIndications: Type 1 diabetes mellitus with other specified complication (HCC) Use as directed. 100 Pad 2 Active insulin detemir (LevEMIR FlexTouch) 100 UNIT/ML prefilled pen injectionIndicat ions:Type 1 diabetes mellitus with other specified complication (HCC) Inject 25 Units under the skin daily. 3.5 mL 2 Active BD Pen Needle Maria Luz U/F 32G X 4 MM MiscIndications: Type 1 diabetes mellitus with other specified complication (HCC) Use as directed 100 pen needle 2 Active insulin aspart (NovoLOG FlexPen) 100 UNIT/ML prefilled pen injectionIndicat ions:Type 1 diabetes mellitus with other specified complication (HCC) Inject 7 Units under the skin 4 (four) times a day with meals and nightly. Correction scale of 1: 40 for BG above 140 mg/dL with meals, 1:50 for BG above 200 mg/dL at bedtime and 2 am. 3.92 mL 2 Active BD Pen Needle Maria Luz U/F 32G X 4 MM MiscIndications: Type 1 diabetes mellitus with other specified complication (HCC) Use as directed 100 pen needle 2 Active Active Problems Problem Noted Date Diagnosed [...] at Not on file Legal Sex Male 4:09 PM EDT Gender Identity Not on file Sexual Orientation Not on file Last Filed Vital Signs Vital Sign Reading Time Taken Comments Blood Pressure 149/62 07/16/2021 7:43 AM EDT Pulse 66 07/16/2021 7:43 AM EDT Temperature 36.6 C (97.9 F) 07/16/2021 7:43 AM EDT Respiratory Rate 18 07/16/2021 7:43 AM EDT Oxygen Saturation 98% 07/16/2021 7:43 AM EDT Inhaled Oxygen Concentration - - Weight 71.4 kg (157 lb 6.4 oz) 07/16/2021 6:00 A M EDT Height 180.3 cm (5' 11 ) 07/12/2021 6:50 PM EDT Body Mass Index 21.95 07/12/2021 6:50 PM EDT Plan of Treatment Health Maintenance Due Date Last Done Comments Advance Care Planning 1945 Hepatitis C Virus Screening 1945 Foot Exam [...] 07/15/2021, 07/14/2021, Additional history exists Influenza Vaccine 09/19/2024 10/28/2010, , 12/27/2007, Additional history exists COVID-19 Vaccine ( season) 2024 Hepatitis B Vaccines Aged Out No long er eligible based on patient's age to complete this topic Medical Devices Implanted Type Area Director Of Retail Merchandising Device Identifier Shelf Expiration Date Model / Serial / Lot Small Siva Hole Plate Implanted:Qty: 1 on 06/29/2021 by Juliane Joel MD at [facility] Left: Cranial [employer] [id number] / / 6 Hole Double Y-Plate Implanted:Qty: 2 on 06/29/2021 by Juliane Joel MD at [facility] Left: Cranial [employer] [id number] / / 5mm Low Profile Screw Implanted:Qty: 18 on 06/29/2021 by Juliane Joel MD at [facility] Explanted:Qty: 9 on 07/12/2021 by Juliane Joel MD at [facility] Left: Cranial [employer] [id number] / / 6 Hole Straight Plate Implanted:Qty: 2 on 07/12/2021 by Juliane Joel MD at [facility] Left: Cranial [employer] [id number] / / 5mm Screw Implanted:Qty: 14 on 07/12/2021 by Juliane Joel MD at [facility] Left: Cranial [employer] [id number]-NF-[id number] [...] - 99 mg/dL 07/16/2021 6:47 AM EDT [facility] Blood Urea Nitrogen (BUN) 12 8 - 21 mg/dL 07/16/2021 6:47 AM EDT [facility] Creatinine 0.7 0.5 - 1.3 mg/dL 07/16/2021 6:47 AM EDT [facility] eGFR >60 >59 07/16/2021 6:47 AM EDT [facility] Comment:MDRD in mL/min/1.73 sq meters. Sodium 134(L) 136 - 145 mmol/L 07/16/2021 6:47 AM EDT [facility] Potassium 3.7 3.4 - 5.3 mmol/L 07/16/2021 6:47 AM T [facility] Chloride 96(L) 98 - 107 mmol/L 07/16/2021 6:47 AM EDT [facility] CO2 23 22 - 33 mmol/L 07/16/2021 6:47 AM EDT [facility] Calcium 8.8 8.7 - 10.5 mg/dL 07/16/2021 6:47 AM EDT [facility] Phosphorus 2.9 2.7 - 4.5 mg/dL 07/16/2021 6:47 AM T [facility] Albumin 3.2(L) 3.4 - 4.8 g/dL 07/16/2021 6:47 AM T [facility] BUN/Creatinine Ratio 17 10.0 - 25.0 Ratio 07/16/2021 6:47 AM T [facility] Blood specimen (specimen) (Plasma/Serum) 07/16/2021 5:36 AM EDT 07/16/2021 6:00 AM EDT us Dejah N Vaculin PA LAB BLOOD ORDERABLES Final Re sult [place] [address] * (ABNORMAL) Hemoglobin A1c with Estimated Average Glucose (07/07/2021 6:31 AM EDT) Hemoglobin A1C 6.5(H) <5.7 % 07/07/2021 3:00 PM EDT [facility] Comment: A1c% Interpretation 5.7 - 6.0 Increase risk of diabetes 6.1 - 6.4 Higher risk of diabetes > or = 6.5 Consistent with diabetes Diabetes Care, 33(Supp 1):S1-S61, 2009 Estimated Average Glucose 140 mg/dL 07/07/2021 3:00 PM EDT [facility] Blood specimen (specimen) Blood specimen / Unknown 07/07/2021 6:31 AM EDT 07/07/2021 7:02 AM EDT us Herson ROMO LAB BLOOD ORDERABLES Final Result [facility] [address] [place] [address] * Lipid Panel (06/29/2021 5:36 AM EDT) Pathologist [facility] Cholesterol, Total 139 <200 mg/dL 2021 6:12 AM EDT [facility] Triglycerides 64 <150 mg/dL 06/29/2021 6:12 AM EDT [facility] Cholesterol, HDL 64 >39 mg/dL 06/30/19 6:12 AM EDT [facility] Estimated LDL 62 <130 mg/dL 06/29/2021 6:12 AM EDT [facility] Comment: NCEP Guidelines: < 100 mg/dL Optimal 100 - 129 mg/dL Near Optimal/Above Optimal 130 - 159 mg/dL Borderline High 160 - 189 mg/dL High >/= 190 mg/dL Very High Cholesterol/HDL Ratio 2.2 0.0 - 5.0 Ratio 06/29/2021 6:12 AM EDT [facility] Comment: Relative Risk Ratio - Male Ratio - Female 0.5 3.4 3.3 1.0 5.0 4.4 2.0 9.6 7.1 3.0 23.4 11.0 Blood specimen (specimen) (Plasma/Serum) 06/29/2021 5:36 AM EDT 06/29/2021 5:44 AM EDT us Haroon Reynolds APRN LAB BLOOD ORDERABLES Final Result [facility] [address] [place] [address] from Last 3 Months or Most Recently Relevant to Health Maintenance Insurance MEDICARE PART A & B [facility] SUPPLEMENT ONLY Advance Directives * Full Code (Latest Code Status on File) Date Activated Date Inactivated Comments 07/11/2021 2:06 PM * Full Code Date Activated Date Inactivated Comments 07/06/2021 6:43 PM 07/11/2021 10:46 AM * Full Code Date Activated Date Inactivated Comments 06/28/2021 10:17 PM 07/06/2021 2:42 PM Care Teams Butadiene Converter Operator Relationship Specialty Start Date End Date Tawnya Thompson MD [address] [place] [id number] PCP - General Family Medicine 06/28/21
== END 2024-11-04 10:51 | disposition home or self-care (01) ==
LOC: HO.RHES 10:12
PROVIDERS: PCP Family Medicine; Visit Provider Internal Medicine Rheumatology
DX: M06.9 Rheumatoid arthritis, unspecified (principal); Z79.899 Other long term (current) drug therapy; M72.0 Palmar fascial fibromatosis [Dupuytren]
CPT/HCPCS: 99214; G2211

== ENCOUNTER → 2024-11-04 10:12 | Outpatient (BNVA) | payer MEDICARE, OTHER, SELFPAY | PROVIDERS: PCP Family Medicine; Visit Provider Internal Medicine Rheumatology | DX: M06.09 Rheumatoid arthritis without rheumatoid factor, multiple sites (principal); M72.0 Palmar fascial fibromatosis [Dupuytren]; Z79.899 Other long term (current) drug therapy | CPT/HCPCS: 99212 ==

== ENCOUNTER 2024-11-06 11:32 | Outpatient (REF) | payer MEDICARE, OTHER, SELFPAY ==
--- NOTE | ~2024-11-06 | XR_ITS ---
EXAMINATION: XR WRIST 3 OR MORE VIEWS LEFT HISTORY: M06.9 - Rheumatoid arthritis, unspecified COMPARISON: There are no prior studies available for comparison. FINDINGS: Four views of the left wrist including a scaphoid view are submitted. Osseous mineralization is normal. There is no fracture or dislocation. 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 There is widening of the scapholunate space, suggestive of old ligamentous injury. The soft tissues are unremarkable. XR/XR wrist LT min 3V IMPRESSION: Widening of the scapholunate space, suggestive of old ligamentous injury. 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 Electronically signed by: Sarmad Jeffers MD 11/06/2024 12:09 PM EDT
--- OUTSIDE RECORDS SUMMARY | 2024-11-06 13:55 | XMS_ITS | Clinical Summary ---
Author Organization [facility] Address [address] [place] [address] Care Team Providers Care Technical Report Writer Name Role Phone Tawnya Thompson MD Primary Care Provider Allergies No known active allergies Medications Medication [...] 57 05/14/2023 1:31 PM EDT Temperature 36.9 C (98.5 F) 01/31/2023 8:42 AM EST Respiratory Rate 19 01/31/2023 8:42 AM EST [...] 1-dose 75+ series) 2021 Influenza Vaccine (#1) 2024 02/09/2009 Hepatitis B Vaccines Aged Out No long er eligible based on patient's age to complete this topic RSV Ped < 20 months Aged Out No longe r eligible based on patient's age to complete this topic Medical Devices Implanted Type Area Statistical Methods Professor Device Identifier Shelf Expiration Date Model / Serial / Lot System Perclose Prostyle Suture Medicated Abbt-Vas [id number] - [id number] Implanted:Qty: 1 on 01/25/2023 at [facility] [employer] BENJI [id number] / / Valve Chetan Thv Velasquez Resilia 26mm [facility] [id number] - [id number] Implanted:Qty: 1 on 01/30/2023 by Rick Nicole MD at [facility] [employer] 08/23/2025 [id number] / [id number] / Advance Directives For more information, please contact: [phone] Latest Code Status on File Code Status [...] AM 01/25/2023 8:01 PM . Care Teams Technical Report Writer Relationship Specialty Start Date End Date Tawnya Thompson MD [address] [place] [phone] PCP - General Family Medicine 11/06/22
--- OUTSIDE RECORDS SUMMARY | 2024-11-06 13:55 | XMS_ITS | Encounter Summary ---
Author Organization [facility] Address [address] [facility] [address] [place] [address] Phone Care Team Providers Care Commission Broker Name Role Phone Tawnya Thompson MD Primary Care Provider [phone]- [phone] Tawnya Thompson MD Primary Care Provider [phone]- [phone] Encounter Details Date Type Department Care Team (Late st Contact Info) Description 10/04/2023 Procedure Pass [facility], Ct Scan - [address] [address] Social History Tobacco Use Types Packs/Day Years [...] on filedocumented in this encounter Care Teams Commission Broker Relationship Specialty Start Date End Date Tawnya Thompson MD PCP - General Family Medicine 06/28/21 12/19/23 Tawnya Thompson MD [address] [place] [phone] PCP - General Family Medicine 12/20/23 documented as of this encounter Additional Source Comments The information contained in this document represents components of the legal health record. It is not the complete legal health record.[facility]
--- OUTSIDE RECORDS SUMMARY | 2024-11-06 13:55 | XMS_ITS | Encounter Summary ---
Author Organization [facility] Address [address] [place] [address] [place] [address] Phone Care Team Providers Care Director Of Premium Seat Sales Name Role Phone Tamiko Gibbons MD Primary Care Provi shaunna Tamiko Gibbons MD Unavailable [phone] Unknown, Unknown Primary Care Provider Tawnya Dodd MD Primary Care Provider [phone] Tawnya Thompson MD Primary Care Provider Encounter Details Date Type Department Care Team (Latest Contact Info) Description 06/07/2018 Transcribe Orders [facility] Laboratory [address] [facility] [address]nd [place] [address] Madalyn Ellsworth, CAFETERIA MANAGER [address] [place] [address] Abdominal pain, unspecified abdominal location (Primary Dx) [...] 9:14 AM EDT) FATTY ACID NORMAL NORMAL [facility] Neutral Fat, stool NORMAL NORMAL [facility] Stool (Stool) 06/13/2018 9:1 4 AM EDT 06/13/2018 9:16 AM EDT Madalyn Ellsworth CAFETERIA MANAGER BODY FLUIDS AND STOOLS ORD ERABLES Final Result Performing Organization Address City/[facility]/ZIP Co de Phone Number [address] [address] * Ova and parasites, stool (06/13/2018 9:14 AM EDT) Specimen Source/ Description STOOL STOOL [facility] Special Requests None [facility] DIRECT EXAM NO PARASITES FOUND BY DIRECT OR CONCENTRATION METHODS [facility] DIRECT EXAM No parasites found by Trichrome Stain [facility] Report Status 06/19/2018 FINAL [facility] Stool (Stool) 06/13/2018 9:1 4 AM EDT 06/13/2018 9:17 AM EDT Madalyn Ellsworth CNP MICROBIOLOGY - GENERAL ORD ERABLES Final Result Performing Organization Address [facility]/ZIP Co de Phone Number [address] [address] * H. pylori antigen, stool (06/13/2018 9:14 AM EDT) ST H.PYLORI AG Negative Negative [facility] ER DPT OF LAB MED AND PAT+ Stool (Stool) 06/13/2018 9:1 4 AM EDT 06/13/2018 9:16 AM EDT Madalyn Margitodd Ellsworth CAFETERIA MANAGER BODY FLUIDS AND STOOLS ORD ERABLES Final Result Performing Organization Address City/[facility]/ZIP Co de Phone Number [facility] ER DPT OF LAB MED AND PAT+ [address] [place] [address] * Fecal occult blood, multiple (06/13/2018 9:14 AM EDT) FECAL OCC BLD 1 DATE [id number] [facility] Occult bld, stool, #1 Negative Negative [facility] Stool (Stool) 06/13/2018 9:1 4 AM EDT 06/13/2018 9:16 AM EDT Madalyn Margitodd Ellsworth [facility] BODY FLUIDS AND STOOLS ORD ERABLES Final Result [facility] [address] [place] [address] * Giardia antigen screen (06/13/2018 9:14 AM EDT) ST GIARDIA ANTIGEN Negative Negative [facility] ER DPT OF LAB MED AND PAT+ Stool (Stool) 06/13/2018 9:1 4 AM EDT 06/13/2018 9:16 AM EDT Madalyn Margi Seng [facility] MICROBIOLOGY - GENERAL ORD ERABLES Final Result Performing Organization Address City/[facility]/ZIP Co de Phone Number [facility] ER DPT OF LAB MED AND PAT+ [address] [place] [address] * Fecal leukocyte examination (06/13/2018 9:14 AM EDT) Specimen Source/ Description STOOL STOOL [facility] Special Requests None SONAR TECHNICIAN [facility] GRAM STAIN Few WBC'S [facility] Report Status 06/14/2018 FINAL [facility] Stool (Stool) 06/13/2018 9:1 4 AM EDT 06/13/2018 9:17 AM EDT Madalynnicole Ellsworth [facility] MICROBIOLOGY - GENERAL ORD ERABLES Final Result Performing Organization Address City/[facility]/ZIP Co de Phone Number [facility] [address] [place] [address] * C. DIFFICILE PCR (06/13/2018 9:14 AM EDT) C.DIFFICILE PCR Negative Negative [facility] C.DIFFICILE STRAIN PRESUMPTIVE NEGATIVE PRESUMPTIVE NEGATIVE [facility] Comment:Detection of 027/NAP 1/BI strains of C.difficile is presumptive and is solely for epidemiological purposes and is not intended to guide or monitor treatment of infections. Stool (Stool) 06/13/2018 9:1 4 AM EDT 06/13/2018 9:17 AM EDT Madalyn Margitodd Ellsworth [facility] MICROBIOLOGY - GENERAL ORD ERABLES Final Result Performing Organization Address [facility] Co de Phone Number [address] [address] * Ova and parasites, stool (06/11/2018 9:11 AM EDT) Specimen Source/ Description STOOL STOOL STOOL [facility] Special Requests None [facility] DIRECT EXAM NO PARASITES FOUND BY DIRECT OR CONCENTRATION METHODS [facility] DIRECT EXAM No parasites found by Trichrome Stain [facility] Report Status 06/19/2018 FINAL [facility] Stool (Stool) 06/11/2018 9:1 1 AM EDT 06/13/2018 9:15 AM EDT Madalyn Margitodd Ellsworth [facility] MICROBIOLOGY - GENERAL ORD ERABLES Final Result Performing Organization Address [facility] Co de Phone Number [address] [address] * Ova and parasites, stool (06/10/2018 9:10 AM EDT) Specimen Source/ Description STOOL STOOL STOOL [facility] Special Requests None [facility] DIRECT EXAM NO PARASITES FOUND BY DIRECT OR CONCENTRATION METHODS [facility] DIRECT EXAM No parasites found by Trichrome Stain [facility] Report Status 06/19/2018 FINAL [facility] Stool (Stool) 06/10/2018 9:1 0 AM EDT 06/13/2018 9:13 AM EDT Madalyn Ellsworth [facility] MICROBIOLOGY - GENERAL ORD ERABLES Final Result Performing Organization Address City/[facility] Co de Phone Number [address] [address] * TSH (06/07/2018 8:39 AM EDT) TSH 3.27 0.27 - 4.20 uIU/mL [facility] Blood 06/07/2018 8:39 AM EDT 06/07/2018 8:46 AM EDT Maadlyn Ellsworth [facility] LAB BLOOD ORDERABLES Final Result [address] [address] * C-Reactive Protein (06/07/2018 8:39 AM EDT) [facility] C REACTIVE PROTEIN <0.3 0.0 - 4.0 mg/L [facility] Blood 06/07/2018 8:39 AM EDT 06/07/2018 8:46 AM EDT Madalyn Ellsworth [facility] LAB BLOOD ORDERABLES Final Result [address] [address] * (ABNORMAL) Comprehensive metabolic panel (06/07/2018 8:39 AM EDT) Pathologist [facility] SODIUM 139 133 - 146 mmol/L [facility] POTASSIUM 4.6 3.3 - 5.1 mmol/L [facility] CHLORIDE 104 96 - 108 mmol/L [facility] CO2 23 21 - 35 mmol/L [facility] BUN 15 6 - 19 mg/dL [facility] CREATININE 0.80 0.5 - 1.5 mg/dL [facility] GLUCOSE 107(H) 70 - 99 mg/dL [facility] ALBUMIN 4.0 3.9 - 4.8 g/dL [facility] TOTAL PROTEIN 6.3(L) 6.5 - 8.0 g/dL [facility] CALCIUM 9.1 8.4 - 10.3 mg/dL [facility] ALKALINE PHOSPHATASE 61 39 - 117 U/L [facility] TOTAL BILIRUBIN 1.0 0.0 - 1.2 mg/dL [facility] Comment: Results from certain multiple myeloma patients may show a positive bias in recovery. Not all multiple myeloma patients show the bias and severity of the bias may vary between patients. In very rare cases, gammopathy, in particular type IgM (Waldenstrom's macroglobulinemia), may cause unreliable results. AST 29 0 - 37 U/L [facility] ALT 22 0 - 40 U/L [facility] GLOBULIN 2.3 1 - 4.8 g/dL [facility] EGFR 90 >59 mL/min/1.7 3m2 [facility] Comment:If patient is black, multiply result by 1.159. Estimated glomerular filtration rate calculated using the CKD-EPI equation. ANION GAP 17 10 - 20 mmol/L [facility] Blood 06/07/2018 8:39 AM EDT 06/07/2018 8:46 AM EDT Madalyn Ellsworth [facility] LAB BLOOD ORDERABLES Final Result [facility] [address] [place], [place] [id number] * (ABNORMAL) CBC (06/07/2018 8:39 AM EDT) WBC 5.37 3.40 - 11.20 K/uL [facility] RBC 4.40(L) 4.50 - 5.50 M/uL [facility] HGB 13.3 13.0 - 17.0 g/dL [facility] HCT 41.2 40.0 - 51.0 % [facility] PLT 219 130 - 400 K/uL [facility] MCV 93.6 79.0 - 98.0 fL [facility] MCH 30.2 27.0 - 34.8 pg [facility] MCHC 32.3 31.5 - 36.0 g/dL [facility] RDW 13.2 10.8 - 14.6 % [facility] MPV 11.2 9.4 - 12.4 fl [facility] NRBC 0.00 0.00 /100 WBCs [facility] ABSOLUTE NRBC 0.00 0.00 K/uL [facility] Blood 06/07/2018 8:39 AM EDT 06/07/2018 8:46 AM EDT Madalyn Ellsworth [facility] LAB BLOOD ORDERABLES Final Result Performing Organization Address [facility] Co de Phone Number [address] [address] * Immunoglobulin A (06/07/2018 8:39 AM EDT) IgA 214 70 - 400 mg/dL [facility] Blood 06/07/2018 8:39 AM EDT 06/07/2018 8:46 AM EDT [facility] LAB BLOOD ORDERABLES Final Result Performing Organization Address [facility] de Phone Number [address] [address] * Tissue transglutaminase IgA (06/07/2018 8:39 AM EDT) TTG IGA ANTIBODY <1.2 <4.0 (Negative) U/mL [facility] Blood 06/07/2018 8:39 AM EDT 06/07/2018 8:47 AM EDT Madalyn Ellsworth [facility] LAB BLOOD ORDERABLES Final Result Performing Organization Address [facility] de Phone Number [facility] [address] [place] [address] documented in this encounter Visit Diagnoses Diagnosis Abdominal pain, unspecified abdominal location- Primary documented in this encounter Care Teams Director Of Premium Seat Sales Relationship Specialty Start Date End Date Tamiko Gibbons MD [email or web address] PCP - General 08/25/15 05/31/21 Unknown, Yung, PCP - General 06/01/21 06/27/21 Tawnya Thompson MD [email or web address] PCP - General Family Medicine 06/28/21 12/19/23 Tawnya Thompson MD [address] [place] [address] [email or web address] PCP - General Family Medicine 12/20/23 Tamiko Gibbons MD [address] [place] [address] [email or web address] Assigned Provider 11/29/19 06/25/21 documented as of this encounter Additional Source Comments The information contained in this document represents components of the legal health record. It is not the complete legal health record.[facility]
--- OUTSIDE RECORDS SUMMARY | 2024-11-06 13:55 | XMS_ITS | Encounter Summary ---
Author Organization [facility] Address [address] [place] [address] Phone Care Team Providers Care College And Career Counselor Name Role Phone Tamiko Gibbons MD Primary Care Provi shaunna Tamiko Gibbons MD Unavailable [phone] Unknown, Unknown Primary Care Provider Tawnya Dodd MD Primary Care Provider Tawnya Thompson MD Primary Care Provider Encounter Details Date Type Department Care Team (Late st Contact Info) Description 03/22/2017 Ancillary Orders Virtual Department [address] [place] [address] Tamiko Gibbons MD [address] [place], [place] [phone] [email or web address] Aortic valve stenosis, etiology of cardiac valve [...] unspecified documented in this encounter Care Teams College And Career Counselor Relationship Specialty Start Date End Date Tamiko Gibbons MD [email or web address] PCP - General 08/25/15 05/31/21 Yung, Yung, PCP - General 06/01/21 06/27/21 Tawnya Thompson MD [email or web address] PCP - General Family Medicine 06/28/21 12/19/23 Tawnya Thompson MD [address] [place] [address] [email or web address] PCP - General Family Medicine 12/20/23 Tamiko Gibbons MD [address] [place] [address] [email or web address] Assigned Provider 11/29/19 06/25/21 documented as of this encounter Additional Source Comments The information contained in this document represents components of the legal health record. It is not the complete legal health record.[facility]
--- OUTSIDE RECORDS SUMMARY | 2024-11-06 13:55 | XMS_ITS | Encounter Summary ---
Author Organization [facility] Address [address] [place] [address] Phone Care Team Providers Care Bearingizer Name Role Phone Tamiko Gibbons MD Primary Care Provi shaunna Tamiko Gibbons MD Unavailable [phone] Unknown, Unknown Primary Care Provider Tawnya Dodd MD Primary Care Provider Tawnya Thompson MD Primary Care Provider Encounter Details Date Type Department Care Team (Late st Contact Info) Description 04/12/[address] [facility] Laboratory [address] [facility] 2nd [place] [address] Tamiko Gibbons MD [address] [place], [place] [phone] [email or web address] Urinary tract infection without hematuria, site unspecified [...] Specimen Source/ Description URINE CLEAN CATCH URINE [facility] Special Requests None [facility] GRAM STAIN NO ORGANISMS SEEN [facility] Culture/Test <10,000 colony forming units per ml [facility] Report Status 04/14/2017 FINAL [facility] Urine (Urine) 04/12/2017 12: 06 PM EST 04/12/2017 12:09 PM EST us Tamiko Gibbons MD MICROBIOLOGY - GENE RAL ORDERABLES Final Result Performing Organization Address [facility] Co de Phone Number [address] [address] * (ABNORMAL) Urinalysis (04/12/2017 12:06 PM EST) COLOR Yellow Yellow [facility] CLARITY Clear [facility] GLUCOSE Trace(A) Negative [facility] BILI Negative Negative [facility] KETONES Trace(A) Negative [facility] SPECIFIC GRAVITY 1.020 1.005 - 1.030 [facility] BLOOD Negative Negative [facility] PH 6.0 5.0 - 8.0 [facility] Protein-UA Negative Negative [facility] NITRITE Negative Negative [facility] Leukocyte esterase, ur Negative Negative [facility] Urine (Urine) 04/12/2017 12: 06 PM EST 04/12/2017 12:10 PM EST us Tamiko Gibbons MD URINE ORDERABLES Fi nal Result Performing Organization Address City/[facility]/ZIP Co de Phone Number [address] [address] documented in this encounter Visit Diagnoses Diagnosis Urinary tract infection without hematuria, site unspecified- Primary documented in this encounter Care Teams Bearingizer Relationship Specialty Start Date End Date Tamiko Gibbons MD [email or web address] PCP - General 08/25/15 05/31/21 Unknown, Unknown, PCP - General 06/01/21 06/27/21 Tawnya Thompson MD PCP - General Family Medicine 06/28/21 12/19/23 Tawnya Thompson MD [address] [place] [id number] PCP - General Family Medicine 12/20/23 Tamiko Gibbons MD [address] [place] [address] [email or web address] Assigned Provider 11/29/19 06/25/21 documented as of this encounter Additional Source Comments The information contained in this document represents components of the legal health record. It is not the complete legal health record.[facility]
--- OUTSIDE RECORDS SUMMARY | 2024-11-06 13:55 | XMS_ITS | Encounter Summary ---
Author Organization [facility] Address [address] [place] [address] [place] [address] Phone Care Team Providers Care Medical Certification Specialist Name Role Phone Tamiko Gibbons MD Primary Care Provi shaunna Tamiko Gibbons MD Unavailable [phone] Unknown, Unknown Primary Care Provider Tawnya Dodd MD Primary Care Provider Tawnya Thompson MD Primary Care Provider [phone] Encounter Details Date Type Department Care Team (Late st Contact Info) Description 03/19/2017 Transcribe Orders [facility] Laboratory [address] [facility] 2nd [place] [address] Tamiko Gibbons MD [address] [place], [place] [phone] [email or web address] Type 1 diabetes mellitus with complication (Primary [...] EST) ALT 17 0 - 40 U/L [facility] Blood 03/19/2017 2:37 PM EST 03/19/2017 2:40 PM EST us Tamiko Gibbons MD LAB BLOOD ORDERABLE S Final Result Performing Organization Address [facility]/ZIP Co de Phone Number [address] [address] * Aspartate aminotransferase (AST) (03/19/2017 2:37 PM EST) AST 22 0 - 37 U/L [facility] Blood 03/19/2017 2:37 PM EST 03/19/2017 2:40 PM EST Tamiko Gibbons MD LAB BLOOD ORDERABLE S Final Result Performing Organization Address [facility]/ZIP Co de Phone Number [address] [address] * (ABNORMAL) PSA (screening) (03/19/2017 2:37 PM EST) PSA 5.04(H) 0 - 4.00 ng/mL [facility] Blood 03/19/2017 2:37 PM EST 03/19/2017 2:39 PM EST Tamiko Gibbons MD LAB BLOOD ORDERABLE S Final Result Performing Organization Address [facility] Co de Phone Number [address] [address] * (ABNORMAL) Hemoglobin A1c (03/19/2017 2:37 PM EST) HEMOGLOBIN A1C 6.5(H) 4.3 - 5.8 % [facility] Blood 03/19/2017 2:37 PM EST 03/19/2017 2:40 PM EST us Tamiko Gibbons MD LAB BLOOD ORDERABLE S Final Result Performing Organization Address [facility]/ZIP Co de Phone Number [address] [address] * (ABNORMAL) Basic metabolic panel (03/19/2017 2:37 PM EST) SODIUM 137 133 - 146 mmol/L [facility] CHLORIDE 101 96 - 108 mmol/L [facility] POTASSIUM 4.3 3.3 - 5.1 mmol/L [facility] CO2 28 21 - 35 mmol/L [facility] BUN 20(H) 6 - 19 mg/dL [facility] CREATININE 0.90 0.5 - 1.5 mg/dL [facility] GLUCOSE 101(H) 70 - 99 mg/dL [facility] CALCIUM 8.8 8.4 - 10.3 mg/dL [facility] EGFR >60 mL/min/1.7 3m2 [facility] Comment:Abnormal if <60. If patient is -[place], multiply the result by 1.21. ANION GAP 12 10 - 20 mmol/L [facility] Blood 03/19/2017 2:37 PM EST 03/19/2017 2:40 PM EST Tamiko Gibbons MD LAB BLOOD ORDERABLE S Final Result Performing Organization Address [facility] Co de Phone Number [address] [address] documented in this encounter Visit Diagnoses Diagnosis Type 1 diabetes mellitus with complication- Primary Hyperlipidemia, unspecified hyperlipidemia type Elevated PSA Elevated prostate specific antigen (PSA) documented in this encounter Care Teams Medical Certification Specialist Relationship Specialty Start Date End Date Tamiko Gibbons MD [email or web address] PCP - General 08/25/15 05/31/21 Unknown, Unknown, PCP - General 06/01/21 06/27/21 Tawnya Thompson MD [email or web address] PCP - General Family Medicine 06/28/21 12/19/23 Tawnya Thompson MD [address] [place] [address] [email or web address] PCP - General Family Medicine 12/20/23 Tamiko Gibbons MD [address] [place] [address] [email or web address] Assigned Provider 11/29/19 06/25/21 documented as of this encounter Additional Source Comments The information contained in this document represents components of the legal health record. It is not the complete legal health record.[facility]
--- OUTSIDE RECORDS SUMMARY | 2024-11-06 13:55 | XMS_ITS | Encounter Summary ---
Author Organization [facility] Address [address] [facility] [address] [place] [address] Phone Care Team Providers Care Vallez Filter Operator Name Role Phone Tawnya Thompson MD Primary Care Provider [phone] Tawnya Thompson MD Primary Care Provider [phone] Encounter Details Date Type Department Care Team (Late st Contact Info) Description 12/19/2023 Procedure Pass [facility] Endoscopy Admitting Dept Virtual Department [address] [place] [address] Social History Tobacco Use Types Packs/Day Years [...] on filedocumented in this encounter Care Teams Vallez Filter Operator Relationship Specialty Start Date End Date Tawnya Thompson MD PCP - General Family Medicine 06/28/21 12/19/23 Tawnya Thompson MD [address] [place] [address] PCP - General Family Medicine 12/20/23 documented as of this encounter Additional Source Comments The information contained in this document represents components of the legal health record. It is not the complete legal health record.[facility]
--- OUTSIDE RECORDS SUMMARY | 2024-11-06 13:56 | XMS_ITS | Encounter Summary ---
Author Organization [facility] Address [address] [place] [address] Phone Care Team Providers Care Physician General Internal Medicine Name Role Phone Tamiko Gibbons MD Primary Care Provi shaunna Tamiko Gibbons MD Unavailable [phone] Unknown, Unknown Primary Care Provider Tawnya Dodd MD Primary Care Provider Tawnya Thompson MD Primary Care Provider Encounter Details Date Type Department Care Team (Late st Contact Info) Description 10/27/2020 Ancillary Orders Virtual Department [address] [place] [phone] Tamiko Gibbons MD [address] [place], [place] [phone] [email or web address] Benign lipomatous neoplasm, unspecified Social History Tobacco [...] unspecified documented in this encounter Care Teams Physician General Internal Medicine Relationship Specialty Start Date End Date Tamiko Gibbons MD [email or web address] PCP - General 08/25/15 05/31/21 Unknown, Unknown, PCP - General 06/01/21 06/27/21 Tawnya Thompson MD PCP - General Family Medicine 06/28/21 12/19/23 Tawnya Thompson MD [address] [place] [address] PCP - General Family Medicine 12/20/23 Tamiko Gibbons MD [address] [place] [address] [email or web address] Assigned Provider 11/29/19 06/25/21 documented as of this encounter Additional Source Comments The information contained in this document represents components of the legal health record. It is not the complete legal health record.[facility]
--- OUTSIDE RECORDS SUMMARY | 2024-11-06 13:56 | XMS_ITS | Clinical Summary ---
Author Organization [facility] Address [address] [facility] [address] [place] [address] Phone Care Team Providers Care Rn Case Management Name Role Phone Tawnya Thompson MD Primary [...] Department Care Team Description 10/20/2024 Orders Only [facility] Specimen Processing [address] [place] [address] Chaim De Jesus MD Rheumatoid arthritis, involving unspecified site, unspecified whether rheumatoid factor present (Primary Dx); Elevated liver enzymes; Drug therapy 08/19/2024 7:49 AM EDT - 08/19/2024 11:59 PM EDT Hospital Encounter [facility] Laboratory [address] [place] [address] Chaim De Jesus MD Discharge Disposition: Home or Self Care from Last 3 Months Immunizations Immunization Administration Dates Next Due [id number] FORMULATION 02/09/2009 HPV,quadrivalent 10/19/2008 Influenza, Unspecified Formulation [...] TAVR (transcatheter aortic valve replacement) 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, unspecified whether hamilton or transplanted heart COMPREHENSIVE METABOLIC PANEL Routine [...] EDT) ALT 21 0 - 40 U/L [facility] Blood 08/19/2024 8:15 AM EDT 08/19/2024 8:19 AM EDT us Chaim De Jesus MD LAB BLOOD ORDERABLES Nani l Result Performing Organization Address [facility]/ZIP Co de Phone Number [address] [address] * Aspartate aminotransferase (AST) (08/19/2024 8:15 AM EDT) AST 29 0 - 37 U/L [facility] Blood 08/19/2024 8:15 AM EDT 08/19/2024 8:19 AM EDT us Chaim De Jesus MD LAB BLOOD ORDERABLES Nani l Result [address] [address] * Creatinine/eGFR (05/30/2024 7:45 AM EDT) CREATININE 0.90 0.5 - 1.5 mg/dL [facility] EGFR 88 >59 mL/min/1.7 3m2 [facility] Comment:Estimated glomerular filtration rate calculated using the CKD-EPI refit equation. Blood 05/30/2024 7:45 AM EDT 05/30/2024 7:48 AM EDT us Chaim De Jesus MD LAB BLOOD ORDERABLES Nani l Result Performing Organization Address [facility]/ZIP Co de Phone Number [address] [address] * (ABNORMAL) Lipid panel (04/04/2024 8:12 AM EST) HDL 70 mg/dL [facility] Comment: Interpretation <40 mg/dL: Low HDL cholesterol (major risk factor for CHD) Greater than or equal to 60 mg/dL: High HDL cholesterol ( negative risk factor for CHD) HDL - cholesterol is affected by a number of factors, e.g. smoking, excerise, hormones, sex and age. CHOLESTEROL 161 0 - 240 mg/dL [facility] TRIGLYCERIDES 59 30 - 160 mg/dL [facility] LDL 79 50 - 129 mg/dL [facility] Comment: LDL levels in terms of risk for coronary heart disease: <100 mg/dL: Optimal 100-129 mg/dL: Near or above optimal 130-159 mg/dL: Borderline high 160-189 mg/dL: High >190 mg/dL: Very High CARDIAC RISK RATIO 2.3(L) 3.4 - 5.0 C [facility] Blood 04/04/2024 8:12 AM EST 04/04/2024 8:15 AM EST us Aj Abdullahi MD LAB BLOOD ORDERABLES Final R esult Performing Organization Address City/[facility]/ZIP Co de Phone Number [address] [address] * (ABNORMAL) Comprehensive metabolic panel (11/12/2023 12:37 PM EDT) SODIUM 139 133 - 146 mmol/L [facility] POTASSIUM 4.4 3.3 - 5.1 mmol/L [facility] CHLORIDE 104 96 - 108 mmol/L [facility] CO2 24 21 - 35 mmol/L [facility] BUN 16 6 - 19 mg/dL [facility] CREATININE 0.70 0.5 - 1.5 mg/dL [facility] GLUCOSE 133(H) 70 - 99 mg/dL [facility] ALBUMIN 4.1 3.9 - 4.8 g/dL [facility] TOTAL PROTEIN 6.7 6.5 - 8.0 g/dL [facility] CALCIUM 9.6 8.4 - 10.3 mg/dL [facility] ALKALINE PHOSPHATASE 77 39 - 117 U/L [facility] TOTAL BILIRUBIN 1.3(H) 0.0 - 1.2 mg/dL [facility] AST 37 0 - 37 U/L [facility] ALT 29 0 - 40 U/L [facility] GLOBULIN 2.6 1 - 4.8 g/dL [facility] EGFR 95 >59 mL/min/1.7 3m2 [facility] Comment:Estimated glomerular filtration rate calculated using the CKD-EPI refit equation. ANION GAP 15 10 - 20 mmol/L [facility] Blood 11/12/2023 12:3 7 PM EDT 11/12/2023 12:39 PM EDT us Yulisa Cox PA-C LAB BLOOD ORDERABLES Final Resu lt [address] [address] * (ABNORMAL) Hemoglobin A1c (07/22/2020 7:20 AM EDT) HEMOGLOBIN A1C 6.5(H) 4.3 - 5.8 % [facility] Blood 07/22/2020 7:20 AM EDT 07/22/2020 8:43 AM EDT Tamiko Gibbons MD LAB BLOOD ORDERABLE S Final Result Performing Organization Address City/[facility]/ZIP Co de Phone Number [address] [address] * Hepatitis C antibody, qualitative (08/06/2019 10:35 AM EDT) HCV NON-REACTIV E NON-REACTI VE [facility] Blood 08/06/2019 10:3 5 AM EDT 08/06/2019 10:37 AM EDT Tamiko Gibbons MD LAB BLOOD ORDERABLE S Final Result Performing Organization Address [facility] Co de Phone Number [address] [address] from Last 3 Months or Most Recently Relevant to Health Maintenance Insurance MEDICARE PART A & B [employer] MEDIC[employer] ENHANCE SUPPLEMENT MEDICARE PART A & B MEDICARE ENHANCE SUPPLEMENT MEDICARE PART A & B Member Subscriber Plan / Payer ( fective 2011-) Name:Wily López Member ID:[id number] Relation to Subscriber:Self Name:Wily López Subscriber ID:[id number] Payer ID:[id number] Group ID:Not on file Type:Medicare Address: [employer] [address] MEDICARE ENHANCE SUPPLEMENT MEDICARE PART A & B [facility] MEDICARE ENHANCE SUPPLEMENT MEDICARE PART A & [place] [address] [place] [id number] MEDICARE ENHANCE SUPPLEMENT MEDICARE PART A & B [facility] MEDICARE ENHANCE SUPPLEMENT MEDICARE PART A & [place] [address] [place] [id number] MEDICARE ENHANCE SUPPLEMENT MEDICARE PART A & B [facility] MEDICARE ENHANCE SUPPLEMENT MEDICARE PART A & B [employer] MED[employer] ENHANCE SUPPLEMENT Advance Directives For more information, please contact: [phone] (9AM - 5PM [facility], Sunday-Sunday) Documents on File Type Date Recorded 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 It is not the complete legal health record.[facility]
--- OUTSIDE RECORDS SUMMARY | 2024-11-06 13:56 | XMS_ITS | Encounter Summary ---
Author Organization [facility] Address [address] [place] [address] [place] [address] Phone Care Team Providers Care Coding Specialist Name Role Phone Tawnya Thompson MD Primary Care Provider [phone] Tawnya Thompson MD Primary Care Provider [phone] Encounter Details Date Type Department Care Team (Latest Contact Info) Description 07/07/2021 Transcribe Orders Virtual Department [address] [place] [address] [place] [address] Subdural hematoma (Primary Dx) Social History Tobacco [...] hemorrhage documented in this encounter Care Teams Coding Specialist Relationship Specialty Start Date End Date Tawnya Thompson MD PCP - General Family Medicine 06/28/21 12/19/23 Tawnya Thompson MD [address] [place] [phone] PCP - General Family Medicine 12/20/23 documented as of this encounter Additional Source Comments The information contained in this document represents components of the legal health record. It is not the complete legal health record.[facility]
--- OUTSIDE RECORDS SUMMARY | 2024-11-06 13:56 | XMS_ITS | Clinical Summary ---
Author Organization [facility] Address [address] [place] [address] Care Team Providers Care Habitat Conservation Planner Name Role Phone Tawyna Thompson MD Primary Care Provider [phone] Allergies No known active allergies Medications atorvastatin [...] this topic Medical Devices Implanted Type Area Extractor Operator Solvent Process Device Identifier Shelf Expiration Date Model / Serial / Lot Small Siva Hole Plate Implanted:Qty: 1 on 06/29/2021 by Juliane Joel MD at [facility] Left: Cranial [employer] [id number] / / 6 Hole Double Y-Plate Implanted:Qty: 2 on 06/29/2021 by Juliane Joel MD at [facility] Left: [employer]ranial [employer] [id number] / / 5mm Low Profile Screw Implanted:Qty: 18 on 06/29/2021 by Juliane Joel MD at [facility] Explanted:Qty: 9 on 07/12/2021 by Juliane Joel MD at [facility] Left: Cranial [employer] [id number] / / 6 Hole Straight Plate Implanted:Qty: 2 on 07/12/2021 by Juliane Joel MD at [facility] Left: Cranial [employer] [id number] / / 5mm Screw Implanted:Qty: 14 on 07/12/2021 by Juliane Joel MD at [facility] Left: Cranial [employer] [id number] [...] - 99 mg/dL 07/16/2021 6:47 AM EDT [facility] Blood Urea Nitrogen (BUN) 12 8 - 21 mg/dL 07/16/2021 6:47 AM EDT [facility] Creatinine 0.7 0.5 - 1.3 mg/dL 07/16/2021 6:47 AM EDT [facility] eGFR >60 >59 07/16/2021 6:47 AM EDT [facility] Comment:MDRD in mL/min/1.73 sq meters. Sodium 134(L) 136 - 145 mmol/L 07/16/2021 6:47 AM EDT [facility] Potassium 3.7 3.4 - 5.3 mmol/L 07/16/2021 6:47 AM T [facility] Chloride 96(L) 98 - 107 mmol/L 07/16/2021 6:47 AM EDT [facility] CO2 23 22 - 33 mmol/L 07/16/2021 6:47 AM EDT [facility] Calcium 8.8 8.7 - 10.5 mg/dL 07/16/2021 6:47 AM EDT [facility] Phosphorus 2.9 2.7 - 4.5 mg/dL 07/16/2021 6:47 AM T [facility] Albumin 3.2(L) 3.4 - 4.8 g/dL 07/16/2021 6:47 AM T [facility] BUN/Creatinine Ratio 17 10.0 - 25.0 Ratio 07/16/2021 6:47 AM T [facility] Blood specimen (specimen) (Plasma/Serum) 07/16/2021 5:36 AM EDT 07/16/2021 6:00 AM EDT us Dejah N Vaculin PA LAB BLOOD ORDERABLES Final [place] [address] * (ABNORMAL) Hemoglobin A1c with Estimated Average [...] Herson ROMO LAB BLOOD ORDERABLES Final Result [facility] [address] [place] [address] * Lipid Panel (06/29/2021 5:36 AM EDT) Pathologist [facility] Cholesterol, Total 139 <200 mg/dL 2021 6:12 AM EDT [facility] Triglycerides 64 <150 mg/dL 06/29/2021 6:12 AM EDT [facility] Cholesterol, HDL 64 >39 mg/dL 06/30/19 6:12 AM EDT [facility] Estimated LDL 62 <130 mg/dL 06/29/2021 6:12 AM EDT [facility] Comment: NCEP Guidelines: < 100 mg/dL Optimal 100 - 129 mg/dL Near Optimal/Above Optimal 130 - 159 mg/dL Borderline High 160 - 189 mg/dL High >/= 190 mg/dL Very High Cholesterol/HDL Ratio 2.2 0.0 - 5.0 Ratio 06/29/2021 6:12 AM EDT [facility] Comment: Relative Risk Ratio - Male Ratio - Female 0.5 3.4 3.3 1.0 5.0 4.4 2.0 9.6 7.1 3.0 23.4 11.0 Blood specimen (specimen) (Plasma/Serum) 06/29/2021 5:36 AM EDT 06/29/2021 5:44 AM EDT us Haroon Reynolds APRN LAB BLOOD ORDERABLES Final Result [facility] [address] [place] [address] from Last 3 Months or Most Recently Relevant to Health Maintenance Insurance MEDICARE PART A & B [facility] SUPPLEMENT ONLY Advance Directives * Full Code (Latest Code Status on File) Date Activated Date Inactivated Comments 07/11/2021 2:06 PM * Full Code Date Activated Date Inactivated Comments 07/06/2021 6:43 PM 07/11/2021 10:46 AM * Full Code Date Activated Date Inactivated Comments 06/28/2021 10:17 PM 07/06/2021 2:42 PM Care Teams Habitat Conservation Planner Relationship Specialty Start Date End Date Tawnya Thompson MD [address] [place] [phone] PCP - General Family Medicine 06/28/21
--- OUTSIDE RECORDS SUMMARY | 2024-11-06 13:56 | XMS_ITS | Encounter Summary ---
Author Organization [facility] Address [address] [facility] [address] [place] [address] Phone Care Team Providers Care Wool Shearer Name Role Phone Tawnya Thompson MD Primary Care Provider [phone] Tawnya Thompson MD Primary Care Provider [phone] Encounter Details Date Type Department Care Team (Late st Contact Info) Description 02/07/2023 Procedure Pass [facility] Endoscopy Admitting Dept Virtual Department [address] [place] [address] Social History Tobacco Use Types Packs/Day Years [...] on filedocumented in this encounter Care Teams Wool Shearer Relationship Specialty Start Date End Date Tawnya Thompson MD [email or web address] PCP - General Family Medicine 06/28/21 12/19/23 Tawnya Thompson MD [address] [place] [address] [email or web address] PCP - General Family Medicine 12/20/23 documented as of this encounter Additional Source Comments The information contained in this document represents components of the legal health record. It is not the complete legal health record.[facility]
--- OUTSIDE RECORDS SUMMARY | 2024-11-06 13:56 | XMS_ITS | Encounter Summary ---
Author Organization [facility] Address [address] [place] [address] Phone Care Team Providers Care Copy Editor Name Role Phone Tamiko Gibbons MD Primary Care Provi shaunna Tamiko Gibbons MD Unavailable [phone] Unknown, Unknown Primary Care Provider Tawnya Dodd MD Primary Care Provider Tawnya Thompson MD Primary Care Provider Encounter Details Date Type Department Care Team (Late st Contact Info) Description 05/31/2020 Transcribe Orders [facility] Laboratory [address] [place] [address] Tamiko Gibbons MD [address] [place], [place] [phone] [email or web address] Type 1 diabetes mellitus with complication (Primary [...] VITAMIN B12 467 232 - 1,245 pg/mL [facility] Blood 05/31/2020 7:49 AM EDT 05/31/2020 8:00 AM EDT us Tamiko Gibbons MD LAB BLOOD ORDERABLE S Final Result Performing Organization Address City/[facility]/ZIP Co de Phone Number [address] [address] * (ABNORMAL) Hemoglobin A1c (05/31/2020 7:49 AM EDT) HEMOGLOBIN A1C 6.7(H) 4.3 - 5.8 % [facility] Blood 05/31/2020 7:49 AM EDT 05/31/2020 8:00 AM EDT us Tamiko Gibbons MD LAB BLOOD ORDERABLE S Final Result Performing Organization Address City/[facility]/ZIP Co de Phone Number [address] [address] * TSH with reflex (05/31/2020 7:49 AM EDT) TSH 4.19 0.27 - 4.20 uIU/mL [facility] Blood 05/31/2020 7:49 AM EDT 05/31/2020 8:00 AM EDT Tamiko Gibbons MD LAB BLOOD ORDERABLE S Final Result Performing Organization Address City/[facility]/ZIP Co de Phone Number [address] [address] * (ABNORMAL) Lipid panel (05/31/2020 7:49 AM EDT) HDL 67 mg/dL [facility] Comment: Interpretation <40 mg/dL: Low HDL cholesterol (major risk factor for CHD) Greater than or equal to 60 mg/dL: High HDL cholesterol ( negative risk factor for CHD) HDL - cholesterol is affected by a number of factors, e.g. smoking, excerise, hormones, sex and age. CHOLESTEROL 168 0 - 240 mg/dL [facility] TRIGLYCERIDES 66 30 - 160 mg/dL [facility] LDL 88 50 - 129 mg/dL [facility] Comment: LDL levels in terms of risk for coronary heart disease: <100 mg/dL: Optimal 100-129 mg/dL: Near or above optimal 130-159 mg/dL: Borderline high 160-189 mg/dL: High >190 mg/dL: Very High CARDIAC RISK RATIO 2.5(L) 3.4 - 5.0 C [facility] Blood 05/31/2020 7:49 AM EDT 05/31/2020 8:00 AM EDT us Tamiko Gibbons MD LAB BLOOD ORDERABLE S Final Result Performing Organization Address City/[facility]/ZIP Co de Phone Number [address] [address] * Basic metabolic panel (05/31/2020 7:49 AM EDT) SODIUM 141 133 - 146 mmol/L [facility] CHLORIDE 104 96 - 108 mmol/L [facility] POTASSIUM 4.4 3.3 - 5.1 mmol/L [facility] CO2 28 21 - 35 mmol/L [facility] BUN 18 6 - 19 mg/dL [facility] CREATININE 0.80 0.5 - 1.5 mg/dL [facility] GLUCOSE 91 70 - 99 mg/dL [facility] CALCIUM 9.3 8.4 - 10.3 mg/dL [facility] EGFR 89 >59 mL/min/1.7 3m2 [facility] Comment:Estimated glomerular filtration rate calculated using the CKD-EPI equation. ANION GAP 13 10 - 20 mmol/L [facility] Blood 05/31/2020 7:49 AM EDT 05/31/2020 8:00 AM EDT us Tamiko Gibbons MD LAB BLOOD ORDERABLE S Final Result Performing Organization Address City/State/[facility] Co de Phone Number [address] [address] documented in this encounter Visit Diagnoses Diagnosis Type 1 diabetes mellitus with complication- Primary Neuropathy Mononeuritis of unspecified site documented in this encounter Care Teams Copy Editor Relationship Specialty Start Date End Date Tamiko Gibbons MD [email or web address] PCP - General 08/25/15 05/31/21 Unknown, Yung, PCP - General 06/01/21 06/27/21 Tawnya Thompson MD PCP - General Family Medicine 06/28/21 12/19/23 Tawnya Thompson MD [address] [place] [phone] PCP - General Family Medicine 12/20/23 Tamiko Gibbons MD [address] [place] [address] [email or web address] Assigned Provider 11/29/19 06/25/21 documented as of this encounter Additional Source Comments The information contained in this document represents components of the legal health record. It is not the complete legal health record.[facility]
--- OUTSIDE RECORDS SUMMARY | 2024-11-06 13:56 | XMS_ITS | Encounter Summary ---
Author Organization [facility] Address [address] [place] [address] Phone Care Team Providers Care Air Vice Marshal Name Role Phone Tamiko Gibbons MD Primary Care Provi shaunna Tamiko Gibbons MD Unavailable [phone] Unknown, Unknown Primary Care Provider Tawnya Dodd MD Primary Care Provider Tawnya Thompson MD Primary Care Provider Encounter Details Date Type Department Care Team (Late st Contact Info) Description 10/19/2020 Transcribe Orders Virtual Department [address] [place] [address] Tamiko Gibbons MD [address] [place], [place] [phone] [email or web address] Benign lipomatous neoplasm, unspecified (Primary Dx) Social [...] Primary documented in this encounter Care Teams Air Vice Marshal Relationship Specialty Start Date End Date Tamiko Gibbons MD [email or web address] PCP - General 08/25/15 05/31/21 Unknown, Unknown, PCP - General 06/01/21 06/27/21 Tawnya Thompson MD [email or web address] PCP - General Family Medicine 06/28/21 12/19/23 Tawnya Thompson MD [address] [place] [phone] [email or web address] PCP - General Family Medicine 12/20/23 Tamiko Gibbons MD [address] [place] [address] [email or web address] Assigned Provider 11/29/19 06/25/21 documented as of this encounter Additional Source Comments The information contained in this document represents components of the legal health record. It is not the complete legal health record.[facility]
--- OUTSIDE RECORDS SUMMARY | 2024-11-06 13:56 | XMS_ITS | Encounter Summary ---
Author Organization [facility] Address [address] [place] [address] Phone Care Team Providers Care Highway Construction Inspector Name Role Phone Tamiko Gibbons MD Primary Care Provi shaunna Tamiko Gibbons MD Unavailable [phone] Unknown, Unknown Primary Care Provider Tawnya Dodd MD Primary Care Provider Tawnya Thompson MD Primary Care Provider Reason for Referral * Outpatient Procedure - Closed Specialty Diagnoses / Procedures Referred By Milady eller Referred To Contact Diagnoses Nonrheumatic aortic (valve) stenosis Procedures Adult Echo TTE Tamiko Gibbons MD Phone: tel: [email or web address] Referral ID Status Reason Start Date Expiration Date Visits Re quested Visits Authorized [id number] Closed 04/05/2021 04/05/2022 1 1 Encounter Details Date Type Department Care Team (Late st Contact Info) Description 04/05/2021 Transcribe Orders Virtual Department [address] [place] [address] Tamiko Gibbons MD [address] [place] [phone] [email or web address] Nonrheumatic aortic (valve) stenosis Social History Tobacco [...] stenosis documented in this encounter Care Teams Highway Construction Inspector Relationship Specialty Start Date End Date Tamiko Gibbons MD [email or web address] PCP - General 08/25/15 05/31/21 Unknown, Unknown, PCP - General 06/01/21 06/27/21 Tawnya Thompson MD PCP - General Family Medicine 06/28/21 12/19/23 Tawnya Thompson MD [address] [place] [phone] PCP - General Family Medicine 12/20/23 Tamiko Gibbons MD [address] [place] [address] [email or web address] Assigned Provider 11/29/19 06/25/21 documented as of this encounter Additional Source Comments The information contained in this document represents components of the legal health record. It is not the complete legal health record.[facility]
--- OUTSIDE RECORDS SUMMARY | 2024-11-06 13:56 | XMS_ITS | Encounter Summary ---
Author Organization [facility] Address [address] [facility] [address] [place] [address] Phone Care Team Providers Care Fuse Cutter Name Role Phone Tamiko Gibbons MD Primary Care Provi shaunna Tamiko Gibbons MD Unavailable [phone] Unknown, Unknown Primary Care Provider Tawnya Dodd MD Primary Care Provider [phone] Tawnya Thompson MD Primary Care Provider Encounter Details Date Type Department Care Team (Late st Contact Info) Description 02/28/2019 Transcribe Orders [facility] Laboratory [address] 2nd [place] [address] Tamiko Gibbons MD [address], [place] [id number] [email or web address] Type 1 diabetes mellitus with complication (Primary [...] EST) SODIUM 138 133 - 146 mmol/L [facility] POTASSIUM 4.7 3.3 - 5.1 mmol/L [facility] CHLORIDE 100 96 - 108 mmol/L [facility] CO2 27 21 - 35 mmol/L [facility] BUN 18 6 - 19 mg/dL [facility] CREATININE 0.80 0.5 - 1.5 mg/dL [facility] GLUCOSE 95 70 - 99 mg/dL [facility] ALBUMIN 4.0 3.9 - 4.8 g/dL [facility] TOTAL PROTEIN 6.8 6.5 - 8.0 g/dL [facility] CALCIUM 9.3 8.4 - 10.3 mg/dL [facility] ALKALINE PHOSPHATASE 75 39 - 117 U/L [facility] TOTAL BILIRUBIN 1.2 0.0 - 1.2 mg/dL [facility] AST 30 0 - 37 U/L [facility] ALT 21 0 - 40 U/L [facility] GLOBULIN 2.8 1 - 4.8 g/dL [facility] EGFR 89 >59 mL/min/1.7 3m2 [facility] Comment:If patient is black, multiply result by 1.159. Estimated glomerular filtration rate calculated using the CKD-EPI equation. ANION GAP 16 10 - 20 mmol/L [facility] Blood 02/28/2019 7:32 AM EST 02/28/2019 7:35 AM EST us Tamiko Gibbons MD LAB BLOOD ORDERABLE S Final Result [facility] [address] [place], [place] [id number] * (ABNORMAL) CBC and differential (02/28/2019 7:32 AM EST) WBC 5.29 3.40 - 11.20 K/uL [facility] RBC 4.32(L) 4.50 - 5.50 M/uL [facility] HGB 13.4 13.0 - 17.0 g/dL [facility] HCT 40.5 40.0 - 51.0 % [facility] PLT 212 130 - 400 K/uL [facility] MCV 93.8 79.0 - 98.0 fL [facility] MCH 31.0 27.0 - 34.8 pg [facility] MCHC 33.1 31.5 - 36.0 g/dL [facility] RDW 12.6 10.8 - 14.6 % [facility] MPV 10.7 9.4 - 12.4 fl [facility] NRBC 0.00 0.00 /100 WBCs [facility] ABSOLUTE NRBC 0.00 0.00 K/uL [facility] DIFF METHOD Auto [facility] NEUTS 39.3(L) 45.30 - 77.70 % [facility] LYMPHS 45.0(H) 12.30 - 39.70 % [facility] MONOS 12.5 4.10 - 12.80 % [facility] EOS 2.6 0 - 7.2 % [facility] BASOS 0.4 0 - 2.80 % [facility] Granulocytes, immature (%) 0.2 0.0 - 0.9 % [facility] ABSOLUTE NEUTS 2.08 1.40 - 7.70 K/uL [facility] ABSOLUTE LYMPHS 2.38 0.60 - 3.20 K/uL [facility] ABSOLUTE MONOS 0.66(H) 0.11 - 0.59 K/uL [facility] ABSOLUTE EOS 0.14 0.01 - 0.50 K/uL [facility] ABSOLUTE BASOS 0.02 0.00 - 0.08 K/uL [facility] Granulocytes, immature 0.01 0.00 - 0.05 K/uL [facility] Blood 02/28/2019 7:32 AM EST 02/28/2019 7:35 AM EST us Tamiko Gibbons MD LAB BLOOD ORDERABLE S Final Result [facility] [address] [place] [address] * (ABNORMAL) Hemoglobin A1c (02/28/2019 7:32 AM EST) HEMOGLOBIN A1C 7.2(H) 4.3 - 5.8 % [facility] Blood 02/28/2019 7:32 AM EST 02/28/2019 7:35 AM EST us Tamiko Gibbons MD LAB BLOOD ORDERABLE S Final Result Performing Organization Address City/[facility]/ZIP Co de Phone Number [address] [address] * (ABNORMAL) PSA (screening) (02/28/2019 7:32 AM EST) PSA 4.24(H) 0 - 4.00 ng/mL [facility] Blood 02/28/2019 7:32 AM EST 02/28/2019 7:34 AM EST us Tamiko Gibbons MD LAB BLOOD ORDERABLE S Final Result Performing Organization Address City/[facility] Co de Phone Number [address] [address] documented in this encounter Visit Diagnoses Diagnosis Type 1 diabetes mellitus with complication- Primary Elevated PSA Elevated prostate specific antigen (PSA) documented in this encounter Care Teams Fuse Cutter Relationship Specialty Start Date End Date Tamiko Gibbons MD [email or web address] PCP - General 08/25/15 05/31/21 Unknown, Yung, PCP - General 06/01/21 06/27/21 Tawnya Thompson MD PCP - General Family Medicine 06/28/21 12/19/23 Tawnya Thompson MD [address] [place] [address] PCP - General Family Medicine 12/20/23 Tamiko Gibbons MD [address] [place] [address] [email or web address] Insurance Assigned Provider 11/29/19 06/25/21 documented as of this encounter Additional Source Comments The information contained in this document represents components of the legal health record. It is not the complete legal health record.[facility]
--- OUTSIDE RECORDS SUMMARY | 2024-11-06 13:56 | XMS_ITS | Encounter Summary ---
Author Organization [facility] Address [address] [place] [address] [place] [address] Phone Care Team Providers Care Professor Of French Name Role Phone Tamiko Gibbons MD Primary Care Provi shaunna Tamiko Gibbons MD Unavailable [phone] Unknown, Unknown Primary Care Provider Tawnya Dodd MD Primary Care Provider Tawnya Thompson MD Primary Care Provider Encounter Details Date Type Department Care Team (Late st Contact Info) Description 10/02/2017 Transcribe Orders [facility] Laboratory [address] [facility] 2nd [place] [address] Tamiko Gibbons MD [address] [place], [place] [phone] [email or web address] Type 1 diabetes mellitus with complication (Primary [...] EDT) PSA 3.91 0 - 4.00 ng/mL [facility] Blood 10/02/2017 7:40 AM EDT 10/02/2017 7:44 AM EDT Tamiko Gibbons MD LAB BLOOD ORDERABLE S Final Result [address] [address] * (ABNORMAL) Lipid panel (10/02/2017 7:40 AM EDT) Pathologist [facility] HDL 80 mg/dL [facility] Comment: Interpretation: Risk Level Males Decreased >45 mg/dL Average 40-45 mg/dL Increased <40 mg/dL CHOLESTEROL 172 0 - 240 mg/dL [facility] TRIGLYCERIDES 67 30 - 160 mg/dL [facility] LDL 79 50 - 129 mg/dL [facility] Comment: LDL levels in terms of risk for coronary heart disease: <100 mg/dL: Optimal 100-129 mg/dL: Near or above optimal 130-159 mg/dL: Borderline high 160-189 mg/dL: High >190 mg/dL: Very High CARDIAC RISK RATIO 2.2(L) 3.4 - 5.0 [facility] Blood 10/02/2017 7:40 AM EDT 10/02/2017 7:44 AM EDT us Tamiko Gibbons MD LAB BLOOD ORDERABLE S Final Result [address] [address] * (ABNORMAL) Comprehensive metabolic panel (10/02/2017 7:40 AM EDT) SODIUM 140 133 - 146 mmol/L [facility] POTASSIUM 4.4 3.3 - 5.1 mmol/L [facility] CHLORIDE 102 96 - 108 mmol/L [facility] CO2 25 21 - 35 mmol/L [facility] BUN 17 6 - 19 mg/dL [facility] CREATININE 0.80 0.5 - 1.5 mg/dL [facility] GLUCOSE 126(H) 70 - 99 mg/dL [facility] ALBUMIN 3.7(L) 3.9 - 4.8 g/dL [facility] TOTAL PROTEIN 6.3(L) 6.5 - 8.0 g/dL [facility] CALCIUM 9.3 8.4 - 10.3 mg/dL [facility] ALKALINE PHOSPHATASE 56 39 - 117 U/L [facility] TOTAL BILIRUBIN 0.9 0.0 - 1.2 mg/dL [facility] AST 25 0 - 37 U/L [facility] ALT 23 0 - 40 U/L [facility] GLOBULIN 2.6 1 - 4.8 g/dL [facility] EGFR 91 >59 mL/min/1.7 3m2 [facility] Comment:If patient is black, multiply result by 1.159. Estimated glomerular filtration rate calculated using the CKD-EPI equation. ANION GAP 17 10 - 20 mmol/L [facility] Blood 10/02/2017 7:40 AM EDT 10/02/2017 7:44 AM EDT us Tamiko Gibbons MD LAB BLOOD ORDERABLE S Final Result Performing Organization Address City/State/[facility] Co de Phone Number [facility] [address] [place] [address] documented in this encounter Visit Diagnoses Diagnosis Type 1 diabetes mellitus with complication- Primary Hyperlipidemia, unspecified hyperlipidemia type documented in this encounter Care Teams Professor Of French Relationship Specialty Start Date End Date Tamiko Gibbons MD [email or web address] PCP - General 08/25/15 05/31/21 Unknown, Yung, PCP - General 06/01/21 06/27/21 Tawnya Thompson MD [email or web address] PCP - General Family Medicine 06/28/21 12/19/23 Tawnya Thompson MD [address] [place] [address] PCP - General Family Medicine 12/20/23 Tamiko Gibbons MD [address] [place] [address] [email or web address] Insurance Assigned Provider 11/29/19 06/25/21 documented as of this encounter Additional Source Comments The information contained in this document represents components of the legal health record. It is not the complete legal health record.[facility]
--- OUTSIDE RECORDS SUMMARY | 2024-11-06 13:56 | XMS_ITS | Encounter Summary ---
Author Organization [facility] Address [address] [place] [address] [place] [address] Phone Care Team Providers Care Sas Administrator Name Role Phone Tamiko Gibbons MD Primary Care Provi shaunna Tamiko Gibbons MD Unavailable [phone] Unknown, Unknown Primary Care Provider Tawnya Dodd MD Primary Care Provider Tawnya Thompson MD Primary Care Provider Encounter Details Date Type Department Care Team (Latest Contact Info) Description 01/14/2018 Transcribe Orders [facility] Laboratory 10 [facility] 2nd [place] [address] Tamiko Gibbons MD [address] [place], [place] [phone] [email or web address] Gastroesophageal reflux disease, esophagitis presence not specified [...] HEMOGLOBIN A1C 6.5(H) 4.3 - 5.8 % [facility] Blood 01/14/2018 7:32 AM EST 01/14/2018 7:36 AM EST us Tamiko Gibbons MD LAB BLOOD ORDERABLE S Final Result [facility] [address] [place] [address] * (ABNORMAL) CBC and differential (01/14/2018 7:32 AM EST) WBC 5.42 3.40 - 11.20 K/uL [facility] RBC 4.17(L) 4.50 - 5.50 M/uL [facility] HGB 12.9(L) 13.0 - 17.0 g/dL [facility] HCT 39.0(L) 40.0 - 51.0 % [facility] PLT 213 130 - 400 K/uL [facility] MCV 93.5 79.0 - 98.[address] [facility] MCH 30.9 27.0 - 34.[address] [facility] MCHC 33.1 31.5 - 36.0 g/dL [facility] RDW 12.6 10.8 - 14.6 % [facility] MPV 10.4 9.4 - 12.[address] [facility] NRBC 0.00 0.00 /[address] [facility] ABSOLUTE NRBC 0.00 0.00 K/uL [facility] DIFF METHOD Auto [facility] NEUTS 37.6(L) 45.30 - 77.70 % [facility] LYMPHS 48.7(H) 12.30 - 39.70 % [facility] MONOS 10.3 4.10 - 12.80 % [facility] EOS 3.0 0 - 7.2 % [facility] BASOS 0.2 0 - 2.80 % [facility] Granulocytes, immature (%) 0.2 0.0 - 0.9 % [facility] ABSOLUTE NEUTS 2.04 1.40 - 7.70 K/uL [facility] ABSOLUTE LYMPHS 2.64 0.60 - 3.20 K/uL [facility] ABSOLUTE MONOS 0.56 0.11 - 0.59 K/uL [facility] ABSOLUTE EOS 0.16 0.01 - 0.50 K/uL [facility] ABSOLUTE BASOS 0.01 0.00 - 0.08 K/uL [facility] Granulocytes, immature 0.01 0.00 - 0.05 K/uL [facility] Blood 01/14/2018 7:32 AM EST 01/14/2018 7:36 AM EST us Tamiko Gibbons MD LAB BLOOD ORDERABLE S Final Result Performing Organization Address [facility]/ZIP Co de Phone Number [address] [address] * TSH with reflex (01/14/2018 7:32 AM EST) TSH 3.59 0.27 - 4.20 uIU/mL [facility] Blood 01/14/2018 7:32 AM EST 01/14/2018 7:36 AM EST us Tamiko Gibbons MD LAB BLOOD ORDERABLE S Final Result Performing Organization Address City/[facility]/ZIP Co de Phone Number [address] [address] * (ABNORMAL) Comprehensive metabolic panel (01/14/2018 7:32 AM EST) SODIUM 140 133 - 146 mmol/L [facility] POTASSIUM 4.4 3.3 - 5.1 mmol/L [facility] CHLORIDE 101 96 - 108 mmol/L [facility] CO2 24 21 - 35 mmol/L [facility] BUN 20(H) 6 - 19 mg/dL [facility] CREATININE 0.80 0.5 - 1.5 mg/dL [facility] GLUCOSE 78 70 - 99 mg/dL [facility] ALBUMIN 3.7(L) 3.9 - 4.8 g/dL [facility] TOTAL PROTEIN 5.9(L) 6.5 - 8.0 g/dL [facility] CALCIUM 9.3 8.4 - 10.3 mg/dL [facility] ALKALINE PHOSPHATASE 52 39 - 117 U/L [facility] TOTAL BILIRUBIN 1.0 0.0 - 1.2 mg/dL [facility] AST 30 0 - 37 U/L [facility] ALT 28 0 - 40 U/L [facility] GLOBULIN 2.2 1 - 4.8 g/dL [facility] EGFR 90 >59 mL/min/1.[address] [facility] Comment:If patient is black, multiply result by 1.159. Estimated glomerular filtration rate calculated using the CKD-EPI equation. ANION GAP 19 10 - 20 mmol/L [facility] Blood 01/14/2018 7:32 AM EST 01/14/2018 7:36 AM EST us Tamiko Gibbons MD LAB BLOOD ORDERABLE S Final Result [facility] [address] [place] [address] documented in this encounter Visit Diagnoses Diagnosis Gastroesophageal reflux disease, esophagitis presence not specified- Primary Type 1 diabetes mellitus with complication documented in this encounter Care Teams Sas Administrator Relationship Specialty Start Date End Date Tamiko Gibbons MD [email or web address] PCP - General 08/25/15 05/31/21 Unknown, Yung, PCP - General 06/01/21 06/27/21 Tawnya Thompson MD PCP - General Family Medicine 06/28/21 12/19/23 Tawnya Thompson MD [address] [place] [address] PCP - General Family Medicine 12/20/23 Tamiko Gibbons MD [address] [place] [address] [email or web address] Insurance Assigned Provider 11/29/19 06/25/21 documented as of this encounter Additional Source Comments The information contained in this document represents components of the legal health record. It is not the complete legal health record.[facility]
--- OUTSIDE RECORDS SUMMARY | 2024-11-06 13:56 | XMS_ITS | Encounter Summary ---
Author Organization [facility] Address [address] [facility] [address] [place] [address] Phone Care Team Providers Care Fire Controlman Name Role Phone Tawnya Thompson MD Primary Care Provider [phone] Tawnya Thompson MD Primary Care Provider [phone] Encounter Details Date Type Department Care Team (Late st Contact Info) Description 06/28/2021 Procedure Pass [facility], Ct Scan - [address] [address] Social History Tobacco Use Types Packs/Day Years [...] No Risk Indicated 06/28/2021 11:43 AM EDT Angeal Dorantes RN * [place] Suicide Severity Rating Scale (Screener/Recent Self-Report) Question [...] on filedocumented in this encounter Care Teams Fire Controlman Relationship Specialty Start Date End Date Tawnya Thompson MD [email or web address] PCP - General Family Medicine 06/28/21 12/19/23 Tawnya Thompson MD [address] [place] [address] PCP - General Family Medicine 12/20/23 documented as of this encounter Additional Source Comments The information contained in this document represents components of the legal health record. It is not the complete legal health record.[facility]
--- OUTSIDE RECORDS SUMMARY | 2024-11-06 13:56 | XMS_ITS | Encounter Summary ---
Author Organization [facility] Address [address] [facility] [address] [place] [address] Phone Care Team Providers Care Nanny/Household Manager Name Role Phone Tamiko Gibbons MD Primary Care Provi shaunna Tamiko Gibbons MD Unavailable [phone] Unknown, Unknown Primary Care Provider Tawnya oDdd MD Primary Care Provider Tawnya Thompson MD Primary Care Provider [phone] Encounter Details Date Type Department Care Team (Late st Contact Info) Description 05/03/2018 Transcribe Orders [facility] Laboratory 10 [facility] 2nd [place] [address] Tamiko Gibbons MD [address] [place], [place] [phone] [email or web address] Anemia, unspecified type (Primary Dx) Social History Tobacco [...] documented as of this encounter Results * Vitamin B12 (05/03/2018 8:53 AM EDT) VITAMIN B12 479 232 - 1,245 pg/mL [facility] Blood 05/03/2018 8:53 AM EDT 05/03/2018 8:56 AM EDT us Tamiko Gibbons MD LAB BLOOD ORDERABLE S Final Result [address] [address] * Iron and iron binding capacity (05/03/2018 8:53 AM EDT) IRON 122 45 - 160 ug/dL [facility] IRON BINDING CAPACITY 324 228 - 428 ug/dL [facility] TRANSFERRIN SATURAT. 38 20 - 55 % [facility] Blood 05/03/2018 8:53 AM EDT 05/03/2018 8:56 AM EDT us Tamiko Gibbons MD LAB BLOOD ORDERABLE S Final Result Performing Organization Address City/[facility]/ZIP Co de Phone Number [address] [address] * (ABNORMAL) Ferritin (05/03/2018 8:53 AM EDT) FERRITIN 25(L) 30 - 400 ug/L [facility] Blood 05/03/2018 8:53 AM EDT 05/03/2018 8:56 AM EDT us Tamiko Gibbons MD LAB BLOOD ORDERABLE S Final Result Performing Organization Address City/[facility]/ZIP Co de Phone Number [address] [address] * (ABNORMAL) CBC and differential (05/03/2018 8:53 AM EDT) WBC 6.04 3.40 - 11.20 K/uL [facility] RBC 4.40(L) 4.50 - 5.50 M/uL [facility] HGB 13.7 13.0 - 17.0 g/dL [facility] HCT 40.3 40.0 - 51.0 % [facility] PLT 255 130 - 400 K/uL [facility] MCV 91.6 79.0 - 98.0 fL [facility] MCH 31.1 27.0 - 34.8 pg [facility] MCHC 34.0 31.5 - 36.0 g/dL [facility] RDW 12.8 10.8 - 14.6 % [facility] MPV 10.5 9.4 - 12.4 fl [facility] NRBC 0.00 0.00 /100 WBCs [facility] ABSOLUTE NRBC 0.00 0.00 K/uL [facility] DIFF METHOD Auto [facility] NEUTS 53.6 45.30 - 77.70 % [facility] LYMPHS 33.4 12.30 - 39.70 % [facility] MONOS 10.1 4.10 - 12.80 % [facility] EOS 2.3 0 - 7.2 % [facility] BASOS 0.3 0 - 2.80 % [facility] Granulocytes, immature (%) 0.3 0.0 - 0.9 % [facility] ABSOLUTE NEUTS 3.23 1.40 - 7.70 K/uL [facility] ABSOLUTE LYMPHS 2.02 0.60 - 3.20 K/uL [facility] ABSOLUTE MONOS 0.61(H) 0.11 - 0.59 K/uL [facility] ABSOLUTE EOS 0.14 0.01 - 0.50 K/uL [facility] ABSOLUTE BASOS 0.02 0.00 - 0.08 K/uL [facility] Granulocytes, immature 0.02 0.00 - 0.05 K/uL [facility] Blood 05/03/2018 8:53 AM EDT 05/03/2018 8:56 AM EDT us Tamiko Gibbons MD LAB BLOOD ORDERABLE S Final Result [facility] [address] [address] documented in this encounter Visit Diagnoses Diagnosis Anemia, unspecified type- Primary documented in this encounter Care Teams Nanny/Household Manager Relationship Specialty Start Date End Date Tamiko Gibbons MD [email or web address] PCP - General 08/25/15 05/31/21 Unknown, Unknown, MD PCP - General 06/01/21 06/27/21 Tawnya Thompson MD PCP - General Family Medicine 06/28/21 12/19/23 Tawnya Thompson MD [address] [place] [address] PCP - General Family Medicine 12/20/23 Tamiko Gibbons MD [address] [place] [address] [email or web address] Assigned Provider 11/29/19 06/25/21 documented as of this encounter Additional Source Comments The information contained in this document represents components of the legal health record. It is not the complete legal health record.[facility]
--- OUTSIDE RECORDS SUMMARY | 2024-11-06 13:56 | XMS_ITS | Encounter Summary ---
Author Organization [facility] Address [address] [place] [address] [place] [address] Phone Care Team Providers Care Test Fixture Assembler Name Role Phone Tamiko Gibbons MD Primary Care Provi shaunna Tamiko Gibbons MD Unavailable [phone] Unknown, Unknown Primary Care Provider Tawnya Dodd MD Primary Care Provider Tawnya Thompson MD Primary Care Provider Encounter Details Date Type Department Care Team (Late st Contact Info) Description 09/13/2019 Procedure Pass [facility], Ct Scan - [address] [address] Social History Tobacco Use Types Packs/Day Years [...] on filedocumented in this encounter Care Teams Test Fixture Assembler Relationship Specialty Start Date End Date Tamiko Gibbons MD [email or web address] PCP - General 08/25/15 05/31/21 Unknown, Yung, PCP - General 06/01/21 06/27/21 Tawnya Thompson MD [email or web address] PCP - General Family Medicine 06/28/21 12/19/23 Tawnya Thompson MD [address] [place] [address] [email or web address] PCP - General Family Medicine 12/20/23 Tamiko Gibbons MD [address] [place] [address] [email or web address] Insurance Assigned Provider 11/29/19 06/25/21 documented as of this encounter Additional Source Comments The information contained in this document represents components of the legal health record. It is not the complete legal health record.[facility]
--- OUTSIDE RECORDS SUMMARY | 2024-11-06 13:56 | XMS_ITS | Encounter Summary ---
Author Organization [facility] Address [address] [place] [address] [place] [address] Phone Care Team Providers Care Child Specialist Name Role Phone Tamiko Gibbons MD Primary Care Provi shaunna Tamiko Gibbons MD Unavailable [phone] Unknown, Unknown Primary Care Provider Tawnya Dodd MD Primary Care Provider [phone] Tawnya Thompson MD Primary Care Provider [phone] Encounter Details Date Type Department Care Team (Late st Contact Info) Description 09/13/2019 Procedure Pass [facility], Ct Scan - [address] [address] Social History Tobacco Use Types Packs/Day Years [...] on filedocumented in this encounter Care Teams Child Specialist Relationship Specialty Start Date End Date Tamiko Gibbons MD [email or web address] PCP - General 08/25/15 05/31/21 Unknown, Yung, PCP - General 06/01/21 06/27/21 Tawnya Thompson MD [email or web address] PCP - General Family Medicine 06/28/21 12/19/23 Tawnya Thompson MD [address] [place] [address] [email or web address] PCP - General Family Medicine 12/20/23 Tamiko Gibbons MD [address] [place] [address] [email or web address] Insurance Assigned Provider 11/29/19 06/25/21 documented as of this encounter Additional Source Comments The information contained in this document represents components of the legal health record. It is not the complete legal health record.[facility]
--- OUTSIDE RECORDS SUMMARY | 2024-11-06 13:56 | XMS_ITS | Clinical Summary ---
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,Pure hypercholestero lemia,Bradycard ia [...] PCI; Surgeon: Cain Hopson MD; Location: [facility]; Service: Cardiology; Laterality: N/A; CARDIAC CATHETERIZATION 01/25/2023 N/A PROCEDURE:CARDIAC CATHETERIZATION;COMMENT:Procedure : CORONARY ANGIOGRAPHY; Surgeon: Cain Hopson MD; Location: [facility]; Service: Cardiology; Laterality: N/A; AORTIC VALVE REPLACEMENT 01/30/2023 Bilateral PROCEDURE:AORTIC VALVE REPLACEMENT;COMMENT:Procedure: TAVR TF PERCUSTANEOUS; Surgeon: Rick Nicole MD; Location: [facility] HYBRID [facility]PERATING ROOM; Service: Cardiovascular; Laterality: Bilateral; Medical History Medical History Date Comments Type 1 diabetes (CMS/HCC V24 , CMS/HCC V28) DX:Type 1 diabetes (HCC);COM MENT:wears continuous glucose monitor and insulin pumo HTN (hypertension) DX:HTN (hyper tension) HLD (hyperlipidemia) DX:HLD (hyp erlipidemia) Aortic valvar stenosis DX:Aortic valvar stenosis Subdural hematoma (CMS/HCC V 24, [facility]/HCC V28) DX:Subdural hematoma (HCC) Eye abnormality DX:Eye [...] 03/26/2025 12:00 PM EST Office Visit [facility] [place] [address] [facility] [address] [place] [address] Aj Abdullahi MD [address] [facility] [address] [place], [place] [id number] Health Maintenance Due Date Last Done Comments [...] this topic Medical Devices Implanted Type Area Bmet Device Identifier Shelf Expiration Date Model / Serial / Lot System Perclose Prostyle Suture [facility] [id number] Implanted:Qty: 1 on 01/25/2023 [employer] 127 73-03 / / Valve Chetan Thv Velasquez Resilia 26mm [facility] [id number] - [id number] Implanted:Qty: 1 on 01/30/2023 by Rick Nicole MD Heart [employer] 08/23/2025 [id number] / [id number] / Procedures Procedure Name Priority Date/Time Associated Diagnosis Comments ANNUAL BMP BLOOD TEST Routine 01/31/2023 HEMOGLOBIN A1C Routine 01/30/2023 LIPID PANEL Routine 06/29/2021 from Last 3 Months or Most Recently Relevant to Health Maintenance Results * Annual BMP Blood Test (01/31/2023) Pathologist Count includes the [facility] Annual BMP Blood Test Abstracted Historical Provider HEALTH MAINTENANCE Final Result * (ABNORMAL) Hemoglobin A1c (01/30/2023) [facility] Hemoglobin A1C 6.8(A) <=5.7 % Blood Venous blood specimen / Unknown Result [facility] Provider LAB BLOOD ORDERABLES Nani l Result * Lipid panel (06/29/2021) [facility] LDL/HDL Ratio 0 Comment:No Interpretation Triglycerides 0 mg/dL Comment:No Interpretation Cholesterol 0 mg/dL Comment:No Interpretation HDL 0 mg/dL Comment:No Interpretation LDL Cholesterol 0 mg/dL Comment:No Interpretation Blood Venous blood specimen / Unknown [facility] Provider LAB BLOOD ORDERABLES Nani l Result from Last 3 Months or Most Recently Relevant to Health Maintenance Insurance MEDICARE [facility] Care Teams Studio Coordinator Relationship Specialty Start Date End Date Tawnya Thompson MD [facility] [address] [place] [address] PCP - General 11/06/22
--- OUTSIDE RECORDS SUMMARY | 2024-11-06 13:56 | XMS_ITS | Encounter Summary ---
Author Organization [facility] Address [address] [facility] [address] [place] [address] Phone Care Team Providers Care Used Car Salesperson Name Role Phone Tawnya Thompson MD Primary Care Provider Tawnya Thompson MD Primary Care Provider [phone] Encounter Details Date Type Department Care Team (Latest Contact Info) Description 09/21/2023 Transcribe Orders [facility] Laboratory [address] [place] [address] Yulisa Cox PA-C [address], [address] [place] [address] [email or web address] Change in bowel habits (Primary Dx) Social [...] Pancreatic Elastase, Feces 118(L) >200 (Normal) mcg/g [facility] LAB MED/[facility] Comment: (NOTE) Interpretation: Borderline (100-200 mcg/g); Consistent with slight to moderate pancreatic insufficiency Stool (Stool) 09/29/2023 8:3 0 AM EDT 09/29/2023 10:24 AM EDT us Yulisa Cox PA-C BODY FLUIDS AND STOOLS ORDERABL ES Final Result Performing Organization Address [facility] Co de Phone Number [facility] LAB MED/[facility] [address] [place] [address] * (ABNORMAL) Stool fat/fiber exam (09/29/2023 8:30 AM EDT) FATTY ACID INCREASED(A ) NORMAL [facility] Neutral Fat, stool NORMAL NORMAL [facility] Stool (Stool) 09/29/2023 8:3 0 AM EDT 09/29/2023 10:25 AM EDT us Yulisa Cox PA-C BODY FLUIDS AND STOOLS ORDERABL ES Final Result Performing Organization Address City/[facility]/ZIP Co de Phone Number [facility] [address] [place] [address] * Ova and parasites, stool (09/29/2023 8:30 AM EDT) Parasitic exam FINAL 4 1342 [facility] DPT OF LAB MED AND PAT+ Comment: [...] ORDERABL ES Final Result Performing Organization Address City/[facility]/ZIP Co de Phone Number [facility] DPT OF LAB MED AND PAT+ [address] [place] [address] * Stool culture (09/29/2023 8:30 AM EDT) Special Requests None 09/29/2023 10:22 AM EDT [facility] Stool Culture NO SALMONELLA, SHIGELLA OR CAMPYLOBACTER ISOLATED 09/30/2023 10:31 AM EDT [facility] Stool (Stool) 09/29/2023 8:3 0 AM EDT 09/29/2023 10:25 AM EDT Yulisa Cox PA-C MICROBIOLOGY - GENERAL ORDERABL ES Final Result Performing Organization Address [facility] Co de Phone Number [facility] [address] [place] [address] * Ova and parasites, stool (09/22/2023 2:42 PM EDT) Parasitic exam FINAL 4 1214 [facility] DPT OF LAB MED AND PAT+ Comment: [...] ORDERABL ES Final Result Performing Organization Address City/[facility]/ZIP Co de Phone Number [facility] DPT OF LAB MED AND PAT+ [address] [place] [address] * Vitamin B12 (09/21/2023 2:43 PM EDT) VITAMIN B12 596 232 - 1,245 pg/mL [facility] Blood 09/21/2023 2:43 PM EDT 09/21/2023 2:53 PM EDT Yulisa Cox PA-C LAB BLOOD ORDERABLES Final Resu lt Performing Organization Address City/[facility]/ZIP Co de Phone Number [address] [address] * TSH (09/21/2023 2:43 PM EDT) TSH 1.95 0.27 - 4.20 uIU/mL [facility] Blood 09/21/2023 2:43 PM EDT 09/21/2023 2:53 PM EDT Yulisa Cox PA-C LAB BLOOD ORDERABLES Final Resu lt Performing Organization Address [facility]/ZIP Co de Phone Number [address] [address] * C-Reactive Protein (09/21/2023 2:43 PM EDT) Pathologist [facility] C REACTIVE PROTEIN <3.0 0.0 - 4.0 mg/L [facility] Blood 09/21/2023 2:43 PM EDT 09/21/2023 2:53 PM EDT Yulisa Cox PA-C LAB BLOOD ORDERABLES Final Resu lt Performing Organization Address City/[facility]/ZIP Co de Phone Number [address] [address] * (ABNORMAL) Comprehensive metabolic panel (09/21/2023 2:43 PM EDT) SODIUM 137 133 - 146 mmol/L [facility] POTASSIUM 4.3 3.3 - 5.1 mmol/L [facility] CHLORIDE 102 96 - 108 mmol/L [facility] CO2 24 21 - 35 mmol/L [facility] BUN 18 6 - 19 mg/dL [facility] CREATININE 0.70 0.5 - 1.5 mg/dL [facility] GLUCOSE 102(H) 70 - 99 mg/dL [facility] ALBUMIN 3.9 3.9 - 4.8 g/dL [facility] TOTAL PROTEIN 6.6 6.5 - 8.0 g/dL [facility] CALCIUM 9.4 8.4 - 10.3 mg/dL [facility] ALKALINE PHOSPHATASE 76 39 - 117 U/L [facility] TOTAL BILIRUBIN 1.1 0.0 - 1.2 mg/dL [facility] AST 42(H) 0 - 37 U/L [facility] ALT 32 0 - 40 U/L [facility] GLOBULIN 2.7 1 - 4.8 g/dL [facility] EGFR 95 >59 mL/min/1.7 3m2 [facility] Comment:Estimated glomerular filtration rate calculated using the CKD-EPI refit equation. ANION GAP 15 10 - 20 mmol/L [facility] Blood 09/21/2023 2:43 PM EDT 09/21/2023 2:53 PM EDT us Yulisa Cox PA-C LAB BLOOD ORDERABLES Final Resu lt [address] [address] * CBC (09/21/2023 2:43 PM EDT) WBC 6.09 4.00 - 11.00 K/uL [facility] RBC 4.17 3.90 - 5.69 M/uL [facility] HGB 12.9 12.4 - 17.3 g/dL [facility] HCT 39.6 37.0 - 51.0 % [facility] PLT 151 140 - 430 K/uL [facility] MCV 95.0 78.0 - 97.0 fL [facility] MCH 30.9 25.0 - 33.0 pg [facility] MCHC 32.6 32.0 - 36.0 g/dL [facility] RDW 15.0 11.0 - 15.0 % [facility] MPV 11.8 8.4 - 12.8 fl [facility] Blood 09/21/2023 2:43 PM EDT 09/21/2023 2:53 PM EDT Yulisa Cox PA-C LAB BLOOD ORDERABLES Final Resu lt Performing Organization Address [facility]/ZIP Co de Phone Number [address] [address] * Immunoglobulin A (09/21/2023 2:43 PM EDT) IgA 193 70 - 400 mg/dL [facility] Blood 09/21/2023 2:43 PM EDT 09/21/2023 2:53 PM EDT Yulisa Cox PA-C LAB BLOOD ORDERABLES Final Resu lt Performing Organization Address [facility] Co de Phone Number [address] [address] * Tissue transglutaminase IgA (09/21/2023 2:43 PM EDT) TTG IGA ANTIBODY <1.2 <4.0 (Negative) U/mL [facility] Blood 09/21/2023 2:43 PM EDT 09/21/2023 2:53 PM EDT Yulisa Cox PA-C LAB BLOOD ORDERABLES Final Resu lt Performing Organization Address City/[facility]/ZIP Co de Phone Number [facility] [address] [place] [address] * Ova and parasites, stool (09/21/2023 2:41 PM EDT) Parasitic exam FINAL 4 1236 [facility] DPT OF LAB MED AND PAT+ Comment: [...] MICROBIOLOGY - GENERAL ORDERABL ES Final Result [facility] DPT OF LAB MED AND PAT+ [address] [place] [address] documented in this encounter Visit Diagnoses Diagnosis Change in bowel habits- Primary Other symptoms involving digestive system documented in this encounter Care Teams Used Car Salesperson Relationship Specialty Start Date End Date Tawnya Thompson MD PCP - General Family Medicine 06/28/21 12/19/23 Tawnya Thompson MD [address] [place] [address] PCP - General Family Medicine 12/20/23 documented as of this encounter Additional Source Comments The information contained in this document represents components of the legal health record. It is not the complete legal health record.[facility]
--- OUTSIDE RECORDS SUMMARY | 2024-11-06 13:56 | XMS_ITS | Encounter Summary ---
Author Organization [facility] Address [address] [facility] [address] [place] [address] Phone Care Team Providers Care Reception Agent Name Role Phone Tamiko Gibbons MD Primary Care Provi shaunna Tamiko Gibbons MD Unavailable [phone] Unknown, Unknown Primary Care Provider Tawnya Dodd MD Primary Care Provider Tawnya Thompson MD Primary Care Provider Encounter Details Date Type Department Care Team (Latest Contact Info) Description 01/24/2019 Transcribe Orders [facility] Laboratory [address] [place] [address] Blade Velazco MD [address] [place] [address] [address] [place] [address] [email or web address] Benign localized hyperplasia of prostate with [...] EST) PSA 4.71(H) 0 - 4.00 ng/mL [facility] Blood 01/24/2019 9:31 AM EST 01/24/2019 9:33 AM EST us Blade Velazco MD LAB BLOOD ORDERABLES Nani styles Result [facility] [address] [place] [address] documented in this encounter Visit Diagnoses Diagnosis Benign localized hyperplasia of prostate with urinary retention- Primary Benign localized hyperplasia of prostate with urinary obstruction and other lower urinary tract symptoms (LUTS) documented in this encounter Care Teams Reception Agent Relationship Specialty Start Date End Date Tamiko Gibbons MD [email or web address] PCP - General 08/25/15 05/31/21 Unknown, Unknown, PCP - General 06/01/21 06/27/21 Tawnya Thompson MD [email or web address] PCP - General Family Medicine 06/28/21 12/19/23 Tawnya Thompson MD [address] [place] [address] [email or web address] PCP - General Family Medicine 12/20/23 Tamiko Gibbons MD [address] [place] [address] [email or web address] Assigned Provider 11/29/19 06/25/21 documented as of this encounter Additional Source Comments The information contained in this document represents components of the legal health record. It is not the complete legal health record.[facility]
--- OUTSIDE RECORDS SUMMARY | 2024-11-06 13:56 | XMS_ITS | Encounter Summary ---
Author Organization [facility] Address [address] [facility] [address] [place] [address] Phone Care Team Providers Care Dross Skimmer Name Role Phone Tamiko Gibbons MD Primary Care Provi shaunna Tamiko Gibbons MD Unavailable [phone] Unknown, Unknown Primary Care Provider Tawnya Dodd MD Primary Care Provider Tawnya Thompson MD Primary Care Provider Encounter Details Date Type Department Care Team (Late st Contact Info) Description 07/16/2019 Ancillary Orders Virtual Department [address] [place] [address] Tamiko Gibbons MD [address] [place], [place] [id number] [email or web address] Acute pain of right shoulder; Weakness of [...] extremity documented in this encounter Care Teams Dross Skimmer Relationship Specialty Start Date End Date Tamiko Gibbons MD [email or web address] PCP - General 08/25/15 05/31/21 Unknown, Yung, PCP - General 06/01/21 06/27/21 Tawnya Thompson MD [email or web address] PCP - General Family Medicine 06/28/21 12/19/23 Tawnya Thompson MD [address] [place] [address] [email or web address] PCP - General Family Medicine 12/20/23 Tamiko Gibbons MD [address] [place] [address] [email or web address] Assigned Provider 11/29/19 06/25/21 documented as of this encounter Additional Source Comments The information contained in this document represents components of the legal health record. It is not the complete legal health record.[facility]
--- OUTSIDE RECORDS SUMMARY | 2024-11-06 13:56 | XMS_ITS | Encounter Summary ---
Author Organization [facility] Address [address] [place] [address] [place] [address] Phone Care Team Providers Care Stockroom Selector Name Role Phone Tamiko Gibbons MD Primary Care Provi shaunna Tamiko Gibbons MD Unavailable [phone] Unknown, Unknown Primary Care Provider Tawnya Dodd MD Primary Care Provider Tawnya Thompson MD Primary Care Provider Encounter Details Date Type Department Care Team (Late st Contact Info) Description 09/13/2019 Procedure Pass [facility], Ct Scan - [address] [address] Social History Tobacco Use Types Packs/Day Years [...] on filedocumented in this encounter Care Teams Stockroom Selector Relationship Specialty Start Date End Date Tamiko Gibbons MD [email or web address] PCP - General 08/25/15 05/31/21 Unknown, Yung, PCP - General 06/01/21 06/27/21 Tawnya Thompson MD [email or web address] PCP - General Family Medicine 06/28/21 12/19/23 Tawnya Thompson MD [address] [place] [address] [email or web address] PCP - General Family Medicine 12/20/23 Tamiko Gibbons MD [address] [place] [address] [email or web address] Assigned Provider 11/29/19 06/25/21 documented as of this encounter Additional Source Comments The information contained in this document represents components of the legal health record. It is not the complete legal health record.[facility]
--- OUTSIDE RECORDS SUMMARY | 2024-11-06 13:56 | XMS_ITS | Encounter Summary ---
Author Organization [facility] Address [address] [place] [address] [place] [address] Phone Care Team Providers Care Custom Feed Mill Operator Helper Name Role Phone Tamiko Gibbons MD Primary Care Provi shaunna Tamiko Gibbons MD Unavailable [phone] Unknown, Unknown Primary Care Provider Tawnya Dodd MD Primary Care Provider Tawnya Thompson MD Primary Care Provider Encounter Details Date Type Department Care Team (Late st Contact Info) Description 09/22/2019 Procedure Pass [facility] Admitting Dept [facility] Department [address] [place] [address] Social History Tobacco Use Types Packs/Day Years [...] on filedocumented in this encounter Care Teams Custom Feed Mill Operator Helper Relationship Specialty Start Date End Date Tamiko Gibbons MD [email or web address] PCP - General 08/25/15 05/31/21 Unknown, Yung, PCP - General 06/01/21 06/27/21 Tawnya Thompson MD [email or web address] PCP - General Family Medicine 06/28/21 12/19/23 Tawnya Thompson MD [address] [place] [address] [email or web address] PCP - General Family Medicine 12/20/23 Tamiko Gibbons MD [address] [place] [address] [email or web address] Assigned Provider 11/29/19 06/25/21 documented as of this encounter Additional Source Comments The information contained in this document represents components of the legal health record. It is not the complete legal health record.[facility]
--- OUTSIDE RECORDS SUMMARY | 2024-11-06 13:56 | XMS_ITS | Encounter Summary ---
Author Organization [facility] Address [address] [place] [address] [place] [phone] Phone Care Team Providers Care Director Of Oncology Name Role Phone Tamiko Gibbons MD Primary Care Provi shaunna Tamiko Gibbons MD Unavailable [phone] Unknown, Unknown Primary Care Provider Tawnya Dodd MD Primary Care Provider Tawnya Thompson MD Primary Care Provider Encounter Details Date Type Department Care Team (Late st Contact Info) Description 08/12/2018 Transcribe Orders [facility] Laboratory [address] [facility] 2nd [place] [address] Tamiko Gibbons MD [address] [place], [place] [id number] [email or web address] Type 2 diabetes mellitus with complication, unspecified whether supervisor intermediates insulin use (Primary Dx) Social History Tobacco [...] (08/12/2018 7:32 AM EDT) HDL 68 mg/dL [facility] Comment: Interpretation <40 mg/dL: Low HDL cholesterol (major risk factor for CHD) Greater than or equal to 60 mg/dL: High HDL cholesterol ( negative risk factor for CHD) HDL - cholesterol is affected by a number of factors, e.g. smoking, excerise, hormones, sex and age. CHOLESTEROL 168 0 - 240 mg/dL [facility] TRIGLYCERIDES 69 30 - 160 mg/dL [facility] LDL 86 50 - 129 mg/dL [facility] Comment: LDL levels in terms of risk for coronary heart disease: <100 mg/dL: Optimal 100-129 mg/dL: Near or above optimal 130-159 mg/dL: Borderline high 160-189 mg/dL: High >190 mg/dL: Very High CARDIAC RISK RATIO 2.5(L) 3.4 - 5.0 [facility] Blood 08/12/2018 7:32 AM EDT 08/12/2018 7:42 AM EDT us Tamiko Gibbons MD LAB BLOOD ORDERABLE S Final Result [facility] [address] [place] [address] * (ABNORMAL) Comprehensive metabolic panel (08/12/2018 7:32 AM EDT) SODIUM 139 133 - 146 mmol/L [facility] POTASSIUM 4.3 3.3 - 5.1 mmol/L [facility] CHLORIDE 105 96 - 108 mmol/L [facility] CO2 24 21 - 35 mmol/L [facility] BUN 22(H) 6 - 19 mg/dL [facility] CREATININE 0.80 0.5 - 1.5 mg/dL [facility] GLUCOSE 74 70 - 99 mg/dL [facility] ALBUMIN 3.7(L) 3.9 - 4.8 g/dL [facility] TOTAL PROTEIN 6.2(L) 6.5 - 8.0 g/dL [facility] CALCIUM 8.9 8.4 - 10.3 mg/dL [facility] ALKALINE PHOSPHATASE 55 39 - 117 U/L [facility] TOTAL BILIRUBIN 1.0 0.0 - 1.2 mg/dL [facility] AST 26 0 - 37 U/L [facility] ALT 18 0 - 40 U/L [facility] GLOBULIN 2.5 1 - 4.8 g/dL [facility] EGFR 90 >59 mL/min/1.7 3m2 [facility] Comment:If patient is black, multiply result by 1.159. Estimated glomerular filtration rate calculated using the CKD-EPI equation. ANION GAP 14 10 - 20 mmol/L [facility] Blood 08/12/2018 7:32 AM EDT 08/12/2018 7:42 AM EDT us Tamiko Gibbons MD LAB BLOOD ORDERABLE S Final Result Performing Organization Address City/State/[facility] Co de Phone Number [address] [address] documented in this encounter Visit Diagnoses Diagnosis Type 2 diabetes mellitus with complication, unspecified whether residential insulin use- Primary documented in this encounter Care Teams Director Of Oncology Relationship Specialty Start Date End Date Tamiko Gibbons MD [email or web address] PCP - General 08/25/15 05/31/21 Unknown, Unknown, PCP - General 06/01/21 06/27/21 Tawnya Thompson MD [email or web address] PCP - General Family Medicine 06/28/21 12/19/23 Tawnya Thompson MD [address] [place] [phone] PCP - General Family Medicine 12/20/23 Tamiko Gibbons MD [address] [place] [address] [email or web address] Assigned Provider 11/29/19 06/25/21 documented as of this encounter Additional Source Comments The information contained in this document represents components of the legal health record. It is not the complete legal health record.[facility]
--- OUTSIDE RECORDS SUMMARY | 2024-11-06 13:56 | XMS_ITS | Encounter Summary ---
Author Organization [facility] Address [address] [address] Phone Care Team Providers Care Automation Specialist Name Role Phone Tamiko Gibbons MD Primary Care Provi shaunna Tamiko Gibbons MD Unavailable [phone] Unknown, Unknown Primary Care Provider Tawnya Dodd MD Primary Care Provider Tawnya Thompson MD Primary Care Provider Encounter Details Date Type Department Care Team (Late st Contact Info) Description 10/11/2017 Transcribe Orders [facility] Laboratory [address] [place] [address] Tamiko Gibbons MD [address] [place], [place] [phone] [email or web address] Diarrhea, unspecified type (Primary Dx) Social History [...] AM EDT) [facility] ANTIGEN Negative Negative [facility] DPT OF LAB MED AND PAT+ Stool (Stool) 10/11/2017 8:2 5 AM EDT 10/11/2017 11:10 AM EDT Tamiko Gibbons MD MICROBIOLOGY - GENE RAL ORDERABLES Final Result [facility] DPT OF LAB MED AND PAT+ [address] [place] [address] * Fecal leukocyte examination (10/11/2017 8:25 AM EDT) Specimen Source/ Description STOOL STOOL STOOL [facility] Special Requests None RN CLINICAL DOCUMENTATION [facility] GRAM STAIN Rare [facility] Report Status 10/12/2017 FINAL [facility] Stool (Stool) 10/11/2017 8:2 5 AM EDT 10/11/2017 11:10 AM EDT Tamiko Gibbons MD MICROBIOLOGY - GENE RAL ORDERABLES Final Result Performing Organization Address [facility]/[employer] Co de Phone Number [address] [address] * Ova and parasites, stool (10/11/2017 8:25 AM EDT) Specimen Source/ Description STOOL STOOL STOOL [facility] Special Requests None [facility] DIRECT EXAM No parasites found by Trich[employer] Stain [facility] DIRECT EXAM NO PARASITES FOUND BY DIRECT OR CONCENTRATION METHODS [facility] Report Status 10/22/2017 FINAL [facility] Stool (Stool) 10/11/2017 8:2 5 AM EDT 10/11/2017 11:10 AM EDT Tamiko Gibbons MD MICROBIOLOGY - GENE RAL ORDERABLES Final Result Performing Organization Address City/[facility]/ZIP Co de Phone Number [address] [address] documented in this encounter Visit Diagnoses Diagnosis Diarrhea, unspecified type- Primary documented in this encounter Care Teams Automation Specialist Relationship Specialty Start Date End Date Tamiko Gibbons MD [email or web address] PCP - General 08/25/15 05/31/21 Unknown, Unknown, PCP - General 06/01/21 06/27/21 Tawnya Thompson MD [email or web address] PCP - General Family Medicine 06/28/21 12/19/23 Tawnya Thompson MD [address] [place] [id number] [email or web address] PCP - General Family Medicine 12/20/23 Tamiko Gibbons MD [address] [place] [address] [email or web address] Assigned Provider 11/29/19 06/25/21 documented as of this encounter Additional Source Comments The information contained in this document represents components of the legal health record. It is not the complete legal health record.[facility]
--- OUTSIDE RECORDS SUMMARY | 2024-11-06 13:56 | XMS_ITS | Encounter Summary ---
Author Organization [facility] Address [address] [place] [address] [place] [phone] Phone Care Team Providers Care Marketing Strategy Analyst Name Role Phone Tawnya Thompson MD Primary Care Provider [phone] Tawnya Thompson MD Primary Care Provider [phone] Encounter Details Date Type Department Care Team (Late st Contact Info) Description 07/01/2021 Ancillary Orders [facility],Outside Imaging [address] [place] [address] System, Provider Not In, [facility] [address] [address] Social History Tobacco Use Types Packs/Day Years [...] on filedocumented in this encounter Care Teams Marketing Strategy Analyst Relationship Specialty Start Date End Date Tawnya Thompson MD [email or web address] PCP - General Family Medicine 06/28/21 12/19/23 Tawnya Thompson MD [address] [place] [id number] PCP - General Family Medicine 12/20/23 documented as of this encounter Additional Source Comments The information contained in this document represents components of the legal health record. It is not the complete legal health record.[facility]
== END 2024-11-06 11:33 | disposition home or self-care (01) ==
LOC: HO.XRAY 11:32
PROVIDERS: PCP Family Medicine; Visit Provider Internal Medicine Rheumatology
DX: M06.9 Rheumatoid arthritis, unspecified (principal)
CPT/HCPCS: 73110

== ENCOUNTER → 2024-11-06 11:37 | Outpatient (BNV) | payer MEDICARE, OTHER, SELFPAY | PROVIDERS: PCP Family Medicine; Visit Provider Radiology Diagnostic Radiology | DX: M25.332 Other instability, left wrist (principal) | CPT/HCPCS: 73110 ==

== ENCOUNTER 2024-11-18 13:53 | Outpatient (REF) | payer MEDICARE, OTHER, SELFPAY ==
--- NOTE | ~2024-11-18 | MR_ITS ---
EXAM: MRI of the left wrist without and with IV contrast IV contrast: 7.5 mL Gadavist TECHNIQUE: Multiplanar - multisequence imaging through an upper extremity joint was performed without and with IV contrast. INDICATION: M06.9 - Rheumatoid arthritis, unspecified PRIOR: X-ray on 11/06/2024 FINDINGS: Triangular fibrocartilage complex: There is linear intermediate signal splitting the triangular fibrocartilage likely extending to the ulnar surface near the sigmoid notch of radius. Intrinsic wrist ligaments: Scapholunate ligament is torn and there is 2 mm proximal migration of the scaphoid. Lunotriquetral ligament is intact. Extensor compartments: There is fluid encircling the tendons of the second extensor compartment and the third extensor compartment where the tendon crosses over the second compartment. There is hyperenhancement of the synovium. The tendons are thickened with increased signal. There is patchy intermediate signal in the extensor carpi ulnaris tendon. It is very mildly subluxed along the ulna. Flexor tendons: Flexor tendons are intact. Carpal tunnel and Guyon's canal: Carpal tunnel and Guyon's canal structures are unremarkable. Bones/Marrow: Patchy reactive marrow signal changes present in the scaphoid somewhat sparing the distal end. There is an intraosseous cyst with thin sclerotic margin within hamate measuring 6 x 11 mm (transverse by CC). There is a small degenerative cyst involving the proximal pole of MA. There is reactive marrow signal change throughout most of MA. There is reactive marrow signal change along the radial side of capitate with concordant enhancement. There is a degenerative cyst in the base of the first metacarpal. There is marrow signal change in the central base of the second metacarpal with minimal decreasing on T1 imaging, mildly increased signal on fluid sensitive sequences, and mild enhancement. The scapholunate angle measures 80 degrees consistent with DISI deformity. There is scalloping of the scaphoid fossa of distal radius. There is associated full-thickness or full-thickness cartilage loss in the radial scaphoid joint. Soft tissues: There is thickening and hyperenhancement of the synovium around the proximal and middle carpal rows. MR/MR wrist LT wo/w con IMPRESSION: Scapholunate ligament tear with scapholunate dissociation and DISI deformity. There is proximal migration of scaphoid into the scaphoid fossa of distal radius with full-thickness or near full-thickness cartilage loss. 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 There is a delaminated split of trying fibrocartilage. Delamination extends to the ulnar surface near radial styloid. Tenosynovitis of the second (De Quervain's) and third extensor compartments. Mild tendinopathy of the extensor carpi ulnaris tendon and minimal subluxation of the tendon along the ulna. Multifocal degenerative marrow signal changes noted in the carpus and in the base of the first and second metacarpals is nonspecific. Additionally there is a moderate-sized degenerative cyst within hamate. There is evidence of synovitis involving the carpus. Electronically signed by: Melecio Faria MD 11/18/2024 03:23 PM EDT
--- OUTSIDE RECORDS SUMMARY | 2024-11-18 15:16 | XMS_ITS | Clinical Summary ---
Author Organization [facility] Address [address] [place] [address] Care Team Providers Care Tar Man Name Role Phone Tawnya Thompson MD Primary Care Provider [phone] Allergies No known active allergies Medications atorvastatin [...] this topic Medical Devices Implanted Type Area Claims Account Specialist Device Identifier Shelf Expiration Date Model / Serial / Lot Small Siva Hole Plate Implanted:Qty: 1 on 06/29/2021 by Juliane Joel MD at [facility] Left: [employer]ranial [employer] [id number] / / 6 Hole Double Y-Plate Implanted:Qty: 2 on 06/29/2021 by Juliane Joel MD at [facility] Left: [employer] [id number] / / 5mm Low Profile Screw Implanted:Qty: 18 on 06/29/2021 by Juliane Joel MD at [facility] Explanted:Qty: 9 on 07/12/2021 by Juliane Joel MD at [facility] Left: [employer] [id number] / / 6 Hole Straight Plate Implanted:Qty: 2 on 07/12/2021 by Juliane Joel MD at [facility] Left: [employer]ranial [employer] [id number] / / 5mm Screw Implanted:Qty: 14 on 07/12/2021 by Juliane Joel MD at [facility] Left: Cranial [employer] [id number] [...] - 99 mg/dL 07/16/2021 6:[address] [facility] Blood Urea Nitrogen (BUN) 12 8 - 21 mg/dL 07/16/2021 6:[address] [facility] Creatinine 0.7 0.5 - 1.3 mg/dL 07/16/2021 6:[address] [facility] eGFR >60 >59 07/16/2021 6:[address] [facility] Comment:MDRD in mL/min/1.73 sq meters. Sodium 134(L) 136 - 145 mmol/L 07/16/2021 6:[address] [facility] Potassium 3.7 3.4 - 5.3 mmol/L 07/16/2021 6:[address] [facility] Chloride 96(L) 98 - 107 mmol/L 07/16/2021 6:[address] [facility] CO2 23 22 - 33 mmol/L 07/16/2021 6:[address] [facility] Calcium 8.8 8.7 - 10.5 mg/dL 07/16/2021 6:[address] [facility] Phosphorus 2.9 2.7 - 4.5 mg/dL 07/16/2021 6:[address] [facility] Albumin 3.2(L) 3.4 - 4.8 g/dL 07/16/2021 6:[address] [facility] BUN/Creatinine Ratio 17 10.0 - 25.0 Ratio 07/16/2021 6:[address] [facility] Blood specimen (specimen) (Plasma/Serum) 07/16/2021 5:36 AM EDT 07/16/2021 6:00 AM EDT us Dejah N Vaculin PA LAB BLOOD ORDERABLES Final [place] [address] * (ABNORMAL) Hemoglobin A1c with Estimated Average Glucose (07/07/2021 6:31 AM EDT) Hemoglobin A1C 6.5(H) <5.7 % 07/07/2021 3:00 PM EDT [facility] Comment: A1c% Interpretation 5.7 - 6.0 Increase risk of diabetes 6.1 - 6.4 Higher risk of diabetes > or = 6.5 Consistent with diabetes Diabetes Care, 33(Supp 1):S1-S61, 2009 Estimated Average Glucose 140 mg/dL 07/07/2021 3:00 PM EDT [facility] Blood specimen (specimen) Blood specimen / Unknown 07/07/2021 6:31 AM EDT 07/07/2021 7:02 AM EDT us Herson ROMO LAB BLOOD ORDERABLES Final Result [facility] [address] [place] [address] * Lipid Panel (06/29/2021 5:36 AM EDT) Pathologist [facility] Cholesterol, Total 139 <200 mg/dL 2021 6:[address] [facility] Triglycerides 64 <150 mg/dL 06/29/2021 6:[address] [facility] Cholesterol, HDL 64 >39 mg/dL 06/30/19 6:[address] [facility] Estimated LDL 62 <130 mg/dL 06/29/2021 6:[address] [facility] Comment: NCEP Guidelines: < 100 mg/dL Optimal 100 - 129 mg/dL Near Optimal/Above Optimal 130 - 159 mg/dL Borderline High 160 - 189 mg/dL High >/= 190 mg/dL Very High Cholesterol/HDL Ratio 2.2 0.0 - 5.0 Ratio 06/29/2021 6:[address] [facility] Comment: Relative Risk Ratio - Male Ratio - Female 0.5 3.4 3.3 1.0 5.0 4.4 2.0 9.6 7.1 3.0 23.4 11.0 Blood specimen (specimen) (Plasma/Serum) 06/29/2021 5:36 AM EDT 06/29/2021 5:44 AM EDT us Haroon Reynolds APRN LAB BLOOD ORDERABLES Final Result [facility] [address] [place] [address] from Last 3 Months or Most Recently Relevant to Health Maintenance Insurance MEDICARE PART A [facility] SUPP[facility] ONLY Advance Directives * Full Code (Latest Code Status on File) Date Activated Date Inactivated Comments 07/11/2021 2:06 PM * Full Code Date Activated Date Inactivated Comments 07/06/2021 6:43 PM 07/11/2021 10:46 AM * Full Code Date Activated Date Inactivated Comments 06/28/2021 10:17 PM 07/06/2021 2:42 PM Care Teams Tar Man Relationship Specialty Start Date End Date Tawnya Thompson MD [address] [place] [id number] PCP - General Family Medicine 06/28/21
--- OUTSIDE RECORDS SUMMARY | 2024-11-18 15:16 | XMS_ITS | Data Portability ---
Author Organization Formerly [facility] [employer], Get Me Listed Address [address] [facility] [place] [address] Care Team Providers Care Warehouse Shipping Receiving Clerk Name Role Phone KULWANT CHERRY Primary Care Provider [phone] KULWANT CHERRY Referring Provider Ariana PEDRO OTHER Assessment Encounter Date Assessment Date Assessment LastModified by Organization Details LastModified Time 08/09/2021 08/09/2021 IMPRESSION: June ~2021 discovery of left greater than right parietal or frontal parietal hematomas, context March 2021 skiing accident immediately after which no SDH was found; June 28, 2021 onset e pisodic trouble getting words out, and [...] hospital teams final evaluation for the expressive aphasia l ikely caused by pressure from the SDH, less likely seizure. Therefore, levetiracetam taper is indicated. They are in agreement and schedule is developed as detailed in the plan below. Delayed SDH is not uncommon after concussive blow to the head and so the normal CT imaging in [place] after the March accident reported by the [...] if there is residual underlying brain damage. [facility] [address], [place] [address] [facility] radiology and imaging The imaging facility [...] no SDH was found; June 28, 2021 onset e pisodic trouble getting words out, and [...] to CT head June 28, 2021 at [facility], per dictation [facility] neuroradiology Dr. Willard Quiñones (he notes that [...] may be of benefit, as mentioned by [facility] healthcare providers at discharge for this patient [...] hospital teams final evaluation for the expressive aphasia l ikely caused by pressure from the [...] Referral to vascular neurology, Dr. Alexander Pedro, [address] [place] [address] [address], [place], [place] [phone] For consideration of embolization of subdural arterial [...] sudden significant worsening. Ray Quintana MD, PhD [facility] [email or web address] Not available 08/24/2021 17:32:45 10/11/2021 10/11/2021 IMPRESSION: June ~2021 discovery of left greater than right parietal or frontal parietal hematomas, context March 2021 skiing accident immediately after which no SDH was found; June 28, 2021 onset e pisodic trouble getting words out, and [...] to CT head June 28, 2021 at [facility], per dictation [facility] neuroradiology Dr. Willard Quiñones (he notes that [...] may be of benefit, as mentioned by [facility] healthcare providers at discharge for this patient [...] hospital teams final evaluation for the expressive aphasia l ikely caused by pressure from the SDH, less likely seizure. T PLAN Wily López, October 11, 2021 Referral to vascular neurology, Dr. Christophe Blandon, neurologist/interv entional neurology specialty [facility] [place], [place] For consideration of embolization of subdural arterial [...] sudden significant worsening. Ray Quintana MD, PhD [place] [facility] [email or web address] Not available 10/11/2021 11:41:59 Plan [...] 022 vlefebvre 1 Christophe Blandon MD, 2 [facility] [address], [place], [address], 2 11:02:36 vascular neurologist referral 2021 022 [email or web address] 1 Ariana Pedro MD, 2 [facility] [address], [place], [address], 10:07:41 Procedures None recorded. Surgeries None recorded. Imaging MRI, brain, w/wo contrast - to assess whether June 2021 discovery of left greater than right parietal or frontal parietal hematomas, context March 2021 skiing accident immediately after which no SDH was found, has additional meningeal etiology, AVM or other; and if there is residual underlying brain damage. 2021 022 vlefebvre 1 [facility] [address], [place], [address], 02:38:59 Medication Orders levetiracet am 500 mg tablet 2021 022 mrossen [id number], [address] [place], [address], 14:56:53 Patient TargetsNo targets recorded. Patient Instructions Encounter Date Encounter Id Patient Instructions Last Modified By Organization Details Last Modified Time 10/11/2021 [id number] BILLING Discussion across issues of diagnoses and management and same day associated chart review and management greater than 50% greater than 30 minutes [email or web address] Not available 10/11/2021 11:42:20 Reason for Referral Vascular Neurologist Referra l for Subdural intracranial hematoma Referring Physician: Ray Quintana, Neurology, Encounter Date: 08/24/2021 Vascular Neurologist Referra l for Subdural intracranial hematoma For consideration of embolization of subdural [...] stem, w/wo contr ast [facility] Access ion Number : [id number] Gillian t Name: Corinne alicia, [employer] Record Number : [id number] Date of : 1945 Date of Exam: 2021 Referr ing Physic christiano: Awilda Quintana MD Neurol [facility] [address] [place] [address] Exam: MR Brain (C-/C+ ) CPT 05849 Room Descri ption: [place] [facility] 2 1.5 HISTOR Y: Trauma tic subdur al hemorr breanna. TECHNI QUE: Multip lanar multis equenc e MRI of the brain was obtain ed before and after the admini strati on of 14 cc of Dotare m. COMPAR LEÓN: CT scan of the head 022 [facility]. FINDIN GS: Postop erativ e [...] l lobe has decrea sed. On the T1-sophie ghted images , the hemato ma is [...] al hemorr breanna overly ing the right tube winder hand ior pariet al lobe, which was also presen t on the CT dated 022. No mass effect on the underl pa [...] ct. The flow voids throug h the marshall of [place] are mainta ined, and there [...] ed. Electr onical ly Signed By: Willard Quiñones MD [address] [facility] ([facility]) [address] [place], [address], 08/16/2021 09:49:18 08/19/19 22 06/28/2021 CT, head, w/o contr ast No observ ation record ed. farida [address], [address], 08/23/2021 12:36:29 08/24/19 22 07/14/2021 CT, head, w/o contr ast No observ ation record ed. [facility] [address] [place], [address], 08/24/2021 11:09:19 Result Notes Documentation Provider Name and Address Organization Details Recorded Time Mri, Brain + Brain Stem, W/wo Contrast : [facility] Accession Number: [id number] Patient Name: Wily López Date of : 1945 Date of Exam: 08-13-2021 Referring Physician: Ray Quintana MD Neurology- [address] [place] [address] Exam: MR Brain (C-/C+) CPT 70174 Room Description: [facility] 2 1.5 HISTORY: Traumatic subdural hemorrhage. TECHNIQUE: Multiplanar multisequence MRI of the brain was obtained before and after the administration of 14 cc of Dotarem. COMPARISON: CT scan of the head 06/28/2021 performed at [facility]. FINDINGS: Postoperative changes compatible with a left parietal and temporal craniotomy are present, and there is an heterogeneous subdural collection overlying the right frontoparietal convexities. This measures up to 25 mm in thickness versus 38 mm on the prior study, and flattening of the underlying left parietal lobe is present, but less pronounced. Flattening of the underlying left frontal lobe has decreased. On the T1-weighted images, the hematoma is isointense, but greater than CSF. Intermixed regions of T1 bright signal are present within the parietal component of the collection. On the T2-weighted images, the collection is largely T2 bright with intermixed regions of diminished signal. Chronic blood products are noted along the margins of the left parietal hematoma cavity with intermixed regions of susceptibility artifact. There is also a small amount of T1 bright subacute subdural hemorrhage overlying the right posterior parietal lobe, which was also present on the CT dated 06/28/2021. No mass effect on the underlying brain parenchyma. A few scattered small T2 bright foci within the supratentorial white matter are nonspecific, but compatible with chronic microangiopathic/small vessel ischemic change. No intraparenchymal hematoma. On the postcontrast images, there is dural enhancement subjacent to the left frontoparietal and temporal calvarium. Mild overall prominence of the ventricles. FLAIR hyperintensity is noted within multiple left frontal and parietal sulci. No associated restricted diffusion, enhancement, or susceptibility artifact. The flow voids through the marshall of [place] are maintained, and there is no parenchymal restricted diffusion. The visualized extracranial soft tissues and orbital structures are unremarkable. IMPRESSION: 1. Status post left parietotemporal craniotomy. There is an heterogeneous subdural fluid collection overlying the left frontal and parietal convexities measuring up to 25 mm, which is less pronounced when compared with the preoperative CT dated 06/28/2021 at which time a subdural hematoma measured up to 38 mm. The signal characteristics of the hematoma are heterogeneous, and this may represent intermixed chronic subdural blood with more recent acute and subacute blood products. No immediate postoperative CT is noted, it is impossible to assess for interval change after craniotomy performed after 06/28/2021. The collection can be correlated with the patient's symptoms and neurological examination. 2. Slender subacute hemorrhage overlying the right parietal lobe correlating with the site of hemorrhage on the prior CT. 3. Sulcal FLAIR hyperintensity is noted over the left frontal and parietal lobes which may represent proteinaceous material related to previous hemorrhage. Proteinaceous material related to meningitis is not excluded. Electronically Signed By: Willard Alva [facility] Neurology [facility] 08/16/2021 09:49:18 Procedures Surgical History Date Name Laterality Status Provider Name and Address Organization Details Recorded Time 10/11/2021 DATA REVIEW completed Ray Quintana MD [address] [place] [address] [place], [phone], [facility] Neurology [facility] 10/11/2021 11:18:58 08/24/2021 DATA REVIEW completed Ray Quintana MD [address] [place] [address] [place], [phone], [facility] Neurology [facility] 08/24/2021 17:25:45 08/09/2021 DATA REVIEW completed Ray Quintana MD [address] [place] [address] [place], [phone], [facility] Neurology [facility] 08/09/2021 11:26:16 Imaging Results None recorded. Procedure Notes None recorded. Medical Equipment None [...] 2nd Gen Pen Needle 32 gauge x USE DIRECTED active Not Available Not Available No t Available Vitals Date Recorded Body height Body mass index (BMI) Body weight Respiratory rate Provider Name and Address Organization Details Last Updated DateTime 08/09/2021 180.34 cm 22 kg/m2 58778.59 g 12 /min Rita Busby [facility] 08/09/2021 11:21:02 Social History Question Answer Notes LastModified by Organizat ion Details LastModified Time Tobacco Smoking Status Former Smoker [facility] 08/09/2021 11:35:16 What Is Your Level Of Caffeine Consumption? Heavy 2 Or 3 Cups Per Day Information not available 08/09/2021 What Is The Highest Grade Or Level Of School You Have Completed Or The Highest Degree You Have Received? BC17187-5 Information not available 08/09/2021 Which Of Your Hands Is Dominant? Right Information not available 08/09/2021 Sex: Unknown Functional Status Question Answer Note LastModified by Organization D etails LastModified Time What is your level of alcohol consumption? None Information not available 08/09/2021 Mental Status None recorded. Family History Nothing Reported. Medical History Condition Response Head Trauma/Injury N Depression N Spine Problems N Obstructive Sleep Apnea N Alcoholism N Autoimmune disease N Arthritis N Cancer N Stroke N Heartburn, acid reflux, GERD N Fibromyalgia N Headaches N Kidney Disease N Hospitalizations N Brain Tumors N Encephalitis N Vitamin B12 deficiency N PTSD N Bleeding Disorder N Cerebral Palsy N Tuberculosis N Back Problems N Asthma N Sleep Disorder N Hepatitis N High Cholesterol or Hyperlipidemia Y Lung Disease N COPD or emphysema N Developmental Problems N Vitamin D Deficiency N Liver Disease N Claustrophobia N High Blood Pressure or Hypertension N Thyroid Problems N Heart Attack ([place]) N Diabetes Y Neck Problems N Epilepsy/Seizures N Bipolar Disorder N Aneurysm N Heart Disease N Osteoporosis N Past Encounters Encounter ID Performer Location Encounter Start Date Encounter Closed Date Diagnosis/Indication Diagnosis SNOMED-CT Code Diagnosis ICD10 Code Diagnosis IMO Codes Diagnosis Note [id number] Ray Quintana MD [facility] [address] [place] [address] [place] [address] 08/09/2021 10:45:46 08/09/2021 16:55:00 Subdural intracranial hematoma 10145566 S06.5X0A Focal onse t epileptic seizure 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 [id number] Ray Quintana MD [facility] [address] [place] [address] [place] [address] 08/24/2021 10:56:06 08/24/2021 19:00:42 Subdural intracranial hematoma 42941644 S06.5X0A Focal onse t epileptic seizure 32122224 G40.109 [id number] Ray Quintana MD [facility] [address] [place] [address] [place] [address] 10/11/2021 10:42:03 10/11/2021 11:47:22 Subdural intracranial hematoma 29945921 S06.5X0A Focal onse t epileptic seizure 14020922 G40.109 Health Concerns Section Related Observation LastModified by Organization Detai ls LastModified Time None Recorded Concern Status LastModified by Organization Details LastModified Time None Recorded Advance Directives Directive None Recorded Payers Insurance Date Sequence Insurance Name Policy Number Policy Mercado Covered Member ID Mercado Member ID Guarantor Name 10/11/[address] [facility] [place] [place] - PREFERRED (MEDICARE SUPPLEMENT) [id number] Wily López [id number] Wily López 10/11/2021 1 [place] [employer] Wily López [id number] Wily López Notes Date Note Type Note Provider Name and Address Organization Details Recorded Time 08/09/2021 text/html He presents for initial neurology consultation for assessment and management of April 18, 2021 head trauma skiing leading to immediate headache, and delayed ~ June 28, 2021 onset e pisodic trouble getting words out, and [...] April 18, 2021 he was skiing in [place] when he was hit from behind by another skater. Almost immediately afterwards, he began having headaches. He had hospital evaluation in [place] that was unrevealing. Headaches persisted with no [...] in mood more generally. Ray Quintana MD [address] [place] [address] [place], [phone], [facility] Neurology [facility] 08/09/2021 14:56:57 08/24/2021 text/html Follow up of April 18, 2021 head trauma skiing leading to immediate headache, and delayed ~ June 28, 2021 onset e pisodic trouble getting words out, and [...] improvement continues. He is still not 100% but Over 90%. He notes that he had [...] April 18, 2021 he was skiing in [place] when he was hit from behind by another skater. Almost immediately afterwards, he began having headaches. He had hospital evaluation in [place] that was unrevealing. Headaches persisted with no [...] in mood more generally. Ray Quintana MD [address] [place] [address], [phone], [facility] Neurology [facility] 08/24/2021 17:35:04 10/11/2021 text/html Follow up of April 18, 2021 head trauma skiing leading to immediate headache, and delayed ~ June 28, 2021 onset e pisodic trouble getting words out, and [...] April 18, 2021 he was skiing in [place] when he was hit from behind by another skater. Almost immediately afterwards, he began having headaches. He had hospital evaluation in [place] that was unrevealing. Headaches persisted with no [...] in mood more generally. Ray Quintana MD [address] [place] [address] [place], [phone], [facility] 10/11/2021 11:43:04
--- OUTSIDE RECORDS SUMMARY | 2024-11-18 15:16 | XMS_ITS | Clinical Summary ---
Author Organization [facility] Address [address] [place] [address] Care Team Providers Care Varnisher Plasticoater Name Role Phone Tawnya Thompson MD Primary Care Provider [phone] Allergies No known active allergies Medications Medication [...] this topic Medical Devices Implanted Type Area Manager Of Transportation Device Identifier Shelf Expiration Date Model / Serial / Lot System Perclose Prostyle Suture Medicated Abbt-Vas [id number] - [id number] Implanted:Qty: 1 on 01/25/2023 at [facility] [employer] [id number] / / Valve Chetan Thv Velasquez Resilia 26mm [facility] [id number] - [id number] Implanted:Qty: 1 on 01/30/2023 by Rick Nicole MD at [facility] [employer] 08/23/2025 [id number] / [id number] / Advance Directives For more information, please contact: [phone] Latest Code Status on File Code Status [...] AM 01/25/2023 8:01 PM . Care Teams Varnisher Plasticoater Relationship Specialty Start Date End Date Tawnya Thompson MD [address] [place] [phone] PCP - General Family Medicine 11/06/22
--- OUTSIDE RECORDS SUMMARY | 2024-11-18 15:16 | XMS_ITS | Clinical Summary ---
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 90 each 3 5 03/26/19 26 Active Active Problems Problem Noted Date Diagnosed Date Aortic stenosis, severe 01/30/2023 Surgical History Surgery Date Site/Laterality Comments CRANIOTOMY PROCEDURE:CRANIOTOMY;COMMENT:2020 -june CARDIAC CATHETERIZATION 01/25/2023 N/A PROCEDURE:CARDIAC CATHETERIZATION;COMMENT:Procedure : LEFT HEART CATHETERIZATION PCI; Surgeon: Cain Hopson MD; Location: [facility] CARDIAC INDEPENDENT CONTRACTOR; Service: Cardiology; Laterality: N/A; CARDIAC CATHETERIZATION 01/25/2023 N/A PROCEDURE:CARDIAC CATHETERIZATION;COMMENT:Procedure : CORONARY ANGIOGRAPHY; Surgeon: Cain Hopson MD; Location: [facility] CARDIAC INDEPENDENT CONTRACTOR; Service: Cardiology; Laterality: N/A; AORTIC VALVE REPLACEMENT 01/30/2023 Bilateral PROCEDURE:AORTIC VALVE REPLACEMENT;COMMENT:Procedure: TAVR TF PERCUSTANEOUS; Surgeon: Rick Nicole MD; Location: [facility] HYBRID OPERATING ROOM; Service: Cardiovascular; Laterality: Bilateral; Medical History Medical History Date Comments Type 1 diabetes (CMS/HCC V24 , CMS/HCC V28) DX:Type 1 diabetes (HCC);COM MENT:wears continuous glucose monitor and insulin pumo HTN (hypertension) DX:HTN (hyper tension) HLD (hyperlipidemia) DX:HLD (hyp erlipidemia) Aortic valvar stenosis DX:Aortic valvar stenosis Subdural hematoma (CMS/HCC V 24, [facility]/HCC V28) DX:Subdural hematoma (HCC) Eye abnormality DX:Eye [...] 03/26/2025 12:00 PM EST Office Visit [facility] [address] [place] [address] Aj Abdullahi MD [address] [facility] [address] [place], [place] [id number] Health Maintenance Due Date Last Done Comments [...] this topic Medical Devices Implanted Type Area Lease Out Worker Device Identifier Shelf Expiration Date Model / Serial / Lot System Perclose Prostyle Suture Medicated [facility] [id number] Implanted:Qty: 1 on 01/25/2023 [employer] [id number] [id number] / / Valve Chetan Thv Velasquez Resilia 26mm [facility] [id number] - [id number] Implanted:Qty: 1 on 01/30/2023 by Rick Nicole MD Heart [employer] 08/23/2025 [id number] / [id number] / Procedures Procedure Name Priority Date/Time Associated Diagnosis Comments ANNUAL BMP BLOOD TEST Routine 01/31/2023 HEMOGLOBIN A1C Routine 01/30/2023 LIPID PANEL Routine 06/29/2021 from Last 3 Months or Most Recently Relevant to Health Maintenance Results * Annual BMP Blood Test (01/31/2023) Pathologist [facility] Annual BMP Blood Test Abstracted Historical Provider HEALTH MAINTENANCE Final Result * (ABNORMAL) Hemoglobin A1c (01/30/2023) [facility] Hemoglobin A1C 6.8(A) <=5.7 % Blood Venous blood specimen / Unknown Result [facility] Provider LAB BLOOD ORDERABLES Nani l Result * Lipid panel (06/29/2021) [facility] LDL/HDL Ratio 0 Comment:No Interpretation Triglycerides 0 mg/dL Comment:No Interpretation Cholesterol 0 mg/dL Comment:No Interpretation HDL 0 mg/dL Comment:No Interpretation LDL Cholesterol 0 mg/dL Comment:No Interpretation Blood Venous blood specimen / Unknown [facility] Provider LAB BLOOD ORDERABLES Nani l Result from Last 3 Months or Most Recently Relevant to Health Maintenance Insurance MEDICARE [facility] Care Teams Modeling Agency Manager Relationship Specialty Start Date End Date Tawnya Thompson MD [facility] [address] [place] [address] PCP - General 11/06/22
== END 2024-11-18 13:54 | disposition home or self-care (01) ==
LOC: HO.MRI 13:53
PROVIDERS: PCP Family Medicine; Visit Provider Internal Medicine Rheumatology
DX: M06.9 Rheumatoid arthritis, unspecified (principal)
CPT/HCPCS: 73223; A9585

== ENCOUNTER → 2024-11-18 14:11 | Outpatient (BNV) | payer MEDICARE, OTHER, SELFPAY | PROVIDERS: PCP Family Medicine; Visit Provider Radiology Diagnostic Radiology | DX: M06.9 Rheumatoid arthritis, unspecified (principal); S63.392A Traumatic rupture of other ligament of left wrist, initial encounter; M65.4 Radial styloid tenosynovitis [de Quervain] | CPT/HCPCS: 73223 ==

== ENCOUNTER 2025-01-14 08:19 | Outpatient (AMB) | payer MEDICARE, OTHER, SELFPAY ==
--- NOTE | 2025-01-14 08:25 | A.OFFVIS_ITS ---
Vital Signs 01/14/25 08:26 Height 5 ft 11 in Weight 161 lb 9.581 oz BMI 22.5 BP 110/58 L Blood Pressure Location Rt brachial Position Sitting Pulse 60 Pulse Source Pulse Oximeter Pulse Oximetry (%) 99 Oxygen Delivery Method Room Air Intake Visit Reasons: discuss MRI results Intake Note: Patient presents for follow up on rheumatoid arthritis. Discuss MRI results. Accompanied by: Self / Same As Patient Allergies No Known Allergies Allergy (Verified 01/14/25 08:26) HPI HPI discuss MRI results: Details: Morning stiffness is 30 minutes. He continues to have left wrist swelling and pain. He is limiting his function with use of his left wrist. He recently saw hand surgeon 3 weeks ago who we will be scheduling him for surgery in February. In the past when he received prednisone course it increased his blood sugar levels. He is type 1 diabetic for 50 years. He currently uses an insulin pump. Physical Exam Vital Signs: Last Vital Signs Pulse 60 01/14/25 08:26 BP 110/58 L 01/14/25 08:26 Pulse Ox 99 01/14/25 08:26 Oxygen Delivery Method Room Air 01/14/25 08:26 BMI result Body Mass Index 22.5 Const Other: General: Comfortable CVS: RRR Respiratory: clear to auscultation bilaterally. Good respiratory effort Skin: No lesions seen MSK: Tenderness of left wrist with mild synovitis present. No squaring of CMCs. Dupuytren's contractures present bilateral. 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 Normal range of motion of shoulders, hips, knees and ankles. Results Reviewed Results Reviewed: Ordering Physician: Chaim De Jesus MD Date of Service: 11/18/24 Procedure(s): MR wrist LT wo/w con Accession Number(s): [id number] cc: Tawnya Thompson MD; Chaim De Jesus MD~ Reason for Exam: M06.9 - Rheumatoid arthritis, unspecified EXAM: MRI of the left wrist without and with IV contrast IV contrast: 7.5 mL Gadavist TECHNIQUE: Multiplanar - multisequence imaging through an upper extremity joint was performed without and with IV contrast. INDICATION: M06.9 - Rheumatoid arthritis, unspecified PRIOR: X-ray on 11/06/2024 FINDINGS: Triangular fibrocartilage complex: There is linear intermediate signal splitting the triangular fibrocartilage likely extending to the ulnar surface near the sigmoid notch of radius. Intrinsic wrist ligaments: Scapholunate ligament is torn and there is 2 mm proximal migration of the scaphoid. Lunotriquetral ligament is intact. Extensor compartments: There is fluid encircling the tendons of the second extensor compartment and the third extensor compartment where the tendon crosses over the second compartment. There is hyperenhancement of the synovium. The tendons are thickened with increased signal. There is patchy intermediate signal in the extensor carpi ulnaris tendon. It is very mildly subluxed along the ulna. Flexor tendons: Flexor tendons are intact. Carpal tunnel and Guyon's canal: Carpal tunnel and Guyon's canal structures are unremarkable. Bones/Marrow: Patchy reactive marrow signal changes present in the scaphoid somewhat sparing the distal end. There is an intraosseous cyst with thin sclerotic margin within hamate measuring 6 x 11 mm (transverse by CC). There is a small degenerative cyst involving the proximal pole of MA. There is reactive marrow signal change throughout most of MA. There is reactive marrow signal change along the radial side of capitate with concordant enhancement. There is a degenerative cyst in the base of the first metacarpal. There is marrow signal change in the central base of the second metacarpal with minimal decreasing on T1 imaging, mildly increased signal on fluid sensitive sequences, and mild enhancement. The scapholunate angle measures 80 degrees consistent with DISI deformity. There is scalloping of the scaphoid fossa of distal radius. There is associated full-thickness or full-thickness cartilage loss in the radial scaphoid joint. Soft tissues: There is thickening and hyperenhancement of the synovium around the proximal and middle carpal rows. MR/MR wrist LT wo/w con IMPRESSION: Scapholunate ligament tear with scapholunate dissociation and DISI deformity. There is proximal migration of scaphoid into the scaphoid fossa of distal radius with full-thickness or near full-thickness cartilage loss. 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 There is a delaminated split of trying fibrocartilage. Delamination extends to the ulnar surface near radial styloid. Tenosynovitis of the second (De Quervain's) and third extensor compartments. Mild tendinopathy of the extensor carpi ulnaris tendon and minimal subluxation of the tendon along the ulna. Multifocal degenerative marrow signal changes noted in the carpus and in the base of the first and second metacarpals is nonspecific. Additionally there is a moderate-sized degenerative cyst within hamate. There is evidence of synovitis involving the carpus. Assessment & Plan Assessment & Plan (1) Rheumatoid arthritis: Comment: Recurrent left synovitis. Failed intra-articular cortisone course. In the past prednisone course caused hyperglycemia. 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 He is planning surgery in February. To treat active inflammatory arthritis we discussed add on DMARD therapy with hydroxychloroquine if his water treatment plant supervisor in [place] clears him. He has history of diabetes and he sees a retinal specialist in [place]. It is not clear to me if he currently has diabetic retinopathy or age-related macular degeneration. If hydroxychloroquine is contraindicated, I will consider Sulfasalazine. We discussed side effects, benefits and drug monitoring on both hydroxychloroquine and Sulfasalazine. With his upcoming plan for wrist surgery, I recommended that he continue conventional DMARD therapy methotrexate. Risks of worsening inflammatory arthritis is greater being off of DMARD therapy, which will then require course of prednisone to treat his flare. Prednisone contributes to hyperglycemia for patient, may affect wound healing and increased risk for infection. Despite active RA he is tolerating symptoms. Rheumatology history: Seronegative. Presenting with synovitis in hands, atypical RA with subjective proximal muscle weakness mimicking PMR but normal inflammatory markers and muscle enzymes. Background Dupuytren's contractures with inability to make a full fist. He has had recurrent left wrist pain and swelling requiring intra-articular cortisone injections (3 x 2023). He has had decreased effectiveness of two cortisone injections. He has recurrent left wrist synovitis. He self discontinued leflunomide with resulting improvement. Mild elevation in AST may be related to leflunomide, which resolved August 2024 labs. I will avoid hydroxychloroquine due to risk of photosensitivity and patient would like to avoid retinal toxicity with his underlying history of diabetes. MRI left wrist December 2024 confirmed synovitis, DISI and extensor tendinopathy. 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) drug therapy Category: Medical Plan: See above (3) Dupuytren contracture of both hands: Code(s): M72.0 - Palmar fascial fibromatosis [Dupuytren] Category: Medical Plan: OT ordered last visit RTC 3 months Orders: Orders Complete Blood Count Auto Diff 01/14/25 Z79.899 - Other fci (current) drug therapy Alanine Aminotransferase 01/14/25 Z79.899 - Other 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) drug therapy Aspartate Amino Transferase 01/14/25 Z79.899 - Other 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) drug therapy Creatinine 01/14/25 Z79.899 - Other 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) drug therapy C Reactive Protein 01/14/25 Z79.899 - Other fci (current) drug therapy Erythrocyte Sedimentation Rate 01/14/25 Z79.899 - Other 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) drug therapy Coding Level of Care Code Est Pt Level 4 (67726) Complex visit Add On G2211 Diagnoses Rheumatoid arthritis M06.9 Rheumatoid factor presence: without rheumatoid factor Laterality: bilateral Other fci (current) drug therapy Z79.899 Dupuytren contracture of both hands M72.0
[2025-01-14 08:26] VITALS: BP 110/58; PULSE 60; O2SAT 99; BMI 22.5
--- OUTSIDE RECORDS SUMMARY | 2025-01-14 08:39 | XMS_ITS | Encounter Summary ---
Author Organization [facility] Address [address] [place] [address] [place] [address] Phone Care Team Providers Care Manuscript Reader Name Role Phone Tamiko Gibbons MD Primary Care Provi shaunna Tamiko Gibbons MD Unavailable [phone] Unknown, Unknown Primary Care Provider Tawnya Dodd MD Primary Care Provider [phone] Tawnya Thompson MD Primary Care Provider Encounter Details Date Type Department Care Team (Late st Contact Info) Description 04/12/2017 Transcribe Orders [facility] [address] [place] [address] Tamiko Gibbons MD [address] [place] [address] [email or web address] Urinary tract infection without hematuria, site unspecified [...] Specimen Source/ Description URINE CLEAN CATCH URINE [facility] Special Requests None [facility] GRAM STAIN NO ORGANISMS SEEN [facility] Culture/Test <10,000 colony forming units per ml [facility] Report Status 04/14/2017 FINAL [facility] Urine (Urine) 04/12/2017 12: 06 PM EST 04/12/2017 12:09 PM EST us Tamiko Gibbons MD LAB MICROBIOLOGY CU LTURE ORDERABLES Final Result Performing Organization Address [facility] Co de Phone Number [address] [address] * (ABNORMAL) Urinalysis (04/12/2017 12:06 PM EST) COLOR Yellow Yellow [facility] CLARITY Clear [facility] GLUCOSE Trace(A) Negative [facility] BILI Negative Negative [facility] KETONES Trace(A) Negative [facility] SPECIFIC GRAVITY 1.020 1.005 - 1.030 [facility] BLOOD Negative Negative [facility] PH 6.0 5.0 - 8.0 [facility] Protein-UA Negative Negative [facility] NITRITE Negative Negative [facility] Leukocyte esterase, ur Negative Negative [facility] Urine (Urine) 04/12/2017 12: 06 PM EST 04/12/2017 12:10 PM EST us Tamiko Gibbons MD LAB URINE ORDERABLE S Final Result Performing Organization Address City/[facility]/ZIP Co de Phone Number [address] [phone] documented in this encounter Visit Diagnoses Diagnosis Urinary tract infection without hematuria, site unspecified- Primary documented in this encounter Care Teams Manuscript Reader Relationship Specialty Start Date End Date Tamiko Gibbons MD [email or web address] PCP - General 08/25/15 05/31/21 Unknown, Unknown, PCP - General 06/01/21 06/27/21 Tawnya Thompson MD [email or web address] PCP - General Family Medicine 06/28/21 12/19/23 Tawnya Thompson MD [address] [place] [address] [email or web address] PCP - General Family Medicine 12/20/23 Tamiko Gibbons MD [address] [place] [address] [email or web address] Assigned Provider 11/29/19 06/25/21 documented as of this encounter Additional Source Comments The information contained in this document represents components of the legal health record. It is not the complete legal health record.[facility]
--- OUTSIDE RECORDS SUMMARY | 2025-01-14 08:39 | XMS_ITS | Encounter Summary ---
Author Organization [facility] Address [address] [facility] [address] [place] [address] Phone Care Team Providers Care Vice President Payer Name Role Phone Tawnya Thompson MD Primary Care Provider [phone] Tawnya Thompson MD Primary Care Provider [phone] Encounter Details Date Type Department Care Team (Late st Contact Info) Description 10/04/2023 Procedure Pass [facility], Ct Scan - [address] [address] Social History Tobacco Use Types Packs/Day Years [...] on filedocumented in this encounter Care Teams Vice President Payer Relationship Specialty Start Date End Date Tawnya Thompson MD PCP - General Family Medicine 06/28/21 12/19/23 Tawnya Thompson MD [address] [place] [id number] PCP - General Family Medicine 12/20/23 documented as of this encounter Additional Source Comments The information contained in this document represents components of the legal health record. It is not the complete legal health record.[facility]
--- OUTSIDE RECORDS SUMMARY | 2025-01-14 08:39 | XMS_ITS | Clinical Summary ---
Author Organization [facility] Address [address] [place] [address] Care Team Providers Care Catering And Events Manager Name Role Phone Tawnya Thompson MD [...] this topic Medical Devices Implanted Type Area Farebox Repairer Device Identifier Shelf Expiration Date Model / Serial / Lot System Perclose Prostyle Suture Medicated Abbt-Vas [id number] - [id number] Implanted:Qty: 1 on [place] [facility] [place] [facility] [employer] BENJI [id number] / / Valve Chetan Thv Velasquez Resilia 26mm [facility] [id number] - [id number] Implanted:Qty: 1 on 01/30/2023 by Rick Nicole MD [place] [facility] [place] [facility] [employer] MICHAEL 08/23/2025 [id number] / [id number] / Advance Directives For more information, please contact: [phone] Latest Code Status on File Code Status [...] AM 01/25/2023 8:01 PM . Care Teams Catering And Events Manager Relationship Specialty Start Date End Date Tawnya Thompson MD [address] [place] [phone] PCP - General Family Medicine 11/06/22
--- OUTSIDE RECORDS SUMMARY | 2025-01-14 08:39 | XMS_ITS | Encounter Summary ---
Author Organization [facility] Address [address] [place] [address] Phone Care Team Providers Care Director Of Physical Security Name Role Phone Tamiko Gibbons MD Primary Care Provi shaunna Tamiko Gibbons MD Unavailable [phone] Unknown, Unknown Primary Care Provider Tawnya Dodd MD Primary Care Provider [phone] Tawnya Thompson MD Primary Care Provider Encounter Details Date Type Department Care Team (Late st Contact Info) Description 03/22/2017 Ancillary Orders Virtual Department [address] [place] [address] Tamiko Gibbons MD [address] [place], [place] [phone] [email or web address] Aortic valve stenosis, etiology of cardiac valve [...] unspecified documented in this encounter Care Teams Director Of Physical Security Relationship Specialty Start Date End Date Tamiko Gibbons MD [email or web address] PCP - General 08/25/15 05/31/21 Yung, Yung, PCP - General 06/01/21 06/27/21 Tawnya Thompson MD [email or web address] PCP - General Family Medicine 06/28/21 12/19/23 Tawnya Thompson MD [address] [place] [address] [email or web address] PCP - General Family Medicine 12/20/23 Tamiko Gibbons MD [address] [place] [address] [email or web address] Assigned Provider 11/29/19 06/25/21 documented as of this encounter Additional Source Comments The information contained in this document represents components of the legal health record. It is not the complete legal health record.[facility]
--- OUTSIDE RECORDS SUMMARY | 2025-01-14 08:40 | XMS_ITS | Encounter Summary ---
Author Organization [facility] Address [address] [place] [address] [place] [address] Phone Care Team Providers Care Curtain Hemmer Automatic Name Role Phone Tamiko Gibbons MD Primary Care Provi shaunna Tamiko Gibbons MD Unavailable [phone] Unknown, Unknown Primary Care Provider Tawnya Dodd MD Primary Care Provider Tawnya Thompson MD Primary Care Provider Encounter Details Date Type Department Care Team (Late st Contact Info) Description 09/13/2019 Procedure Pass [facility], Ct Scan - [address] [address] Social History Tobacco Use Types Packs/Day Years [...] on filedocumented in this encounter Care Teams Curtain Hemmer Automatic Relationship Specialty Start Date End Date Tamiko Gibbons MD [email or web address] PCP - General 08/25/15 05/31/21 Unknown, Yung, PCP - General 06/01/21 06/27/21 Tawnya Thompson MD [email or web address] PCP - General Family Medicine 06/28/21 12/19/23 Tawnya Thompson MD [address] [place] [phone] [email or web address] PCP - General Family Medicine 12/20/23 Tamiko Gibbons MD [address] [place] [address] [email or web address] Insurance Assigned Provider 11/29/19 06/25/21 documented as of this encounter Additional Source Comments The information contained in this document represents components of the legal health record. It is not the complete legal health record.[facility]
--- OUTSIDE RECORDS SUMMARY | 2025-01-14 08:40 | XMS_ITS | Encounter Summary ---
Author Organization [facility] Address [address] [facility] [address] [place] [address] Phone Care Team Providers Care Horse Groomer Name Role Phone Tamiko Gibbons MD Primary Care Provi shaunna Tamiko Gibbons MD Unavailable [phone] Unknown, Unknown Primary Care Provider Tawnya Dodd MD Primary Care Provider Tawnya Thompson MD Primary Care Provider Encounter Details Date Type Department Care Team (Late st Contact Info) Description 05/03/2018 Transcribe Orders [facility] Phleb [facility] [address] [place] [address] Tamiko Gibbons MD [address] [place] [address] [email or web address] Anemia, unspecified type (Primary Dx) Social History [...] VITAMIN B12 479 232 - 1,245 pg/mL [facility] Blood 05/03/2018 8:53 AM EDT 05/03/2018 8:56 AM EDT us Tamiko Gibbons MD LAB BLOOD BKR ORDER EMILY Final Result Performing Organization Address City/[facility]/ZIP Co de Phone Number [address] [address] * Iron and iron binding capacity (05/03/2018 8:53 AM EDT) IRON 122 45 - 160 ug/dL [facility] IRON BINDING CAPACITY 324 228 - 428 ug/dL [facility] TRANSFERRIN SATURAT. 38 20 - 55 % [facility] Blood 05/03/2018 8:53 AM EDT 05/03/2018 8:56 AM EDT us Tamiko Gibbons MD LAB BLOOD BKR ORDER EMILY Final Result Performing Organization Address [facility] Co de Phone Number [address] [address] * (ABNORMAL) Ferritin (05/03/2018 8:53 AM EDT) FERRITIN 25(L) 30 - 400 ug/L [facility] Blood 05/03/2018 8:53 AM EDT 05/03/2018 8:56 AM EDT us Tamiko Gibbons MD LAB BLOOD BKR ORDER EMILY Final Result Performing Organization Address City/[facility] Co de Phone Number [address] [address] * (ABNORMAL) CBC and differential (05/03/2018 8:53 AM EDT) WBC 6.04 3.40 - 11.20 K/uL [facility] RBC 4.40(L) 4.50 - 5.50 M/uL [facility] HGB 13.7 13.0 - 17.0 g/dL [facility] HCT 40.3 40.0 - 51.0 % [facility] PLT 255 130 - 400 K/uL [facility] MCV 91.6 79.0 - 98.0 fL [facility] MCH 31.1 27.0 - 34.8 pg [facility] MCHC 34.0 31.5 - 36.0 g/dL [facility] RDW 12.8 10.8 - 14.6 % [facility] MPV 10.5 9.4 - 12.4 fl [facility] NRBC 0.00 0.00 /100 WBCs [facility] ABSOLUTE NRBC 0.00 0.00 K/uL [facility] DIFF METHOD Auto [facility] NEUTS 53.6 45.30 - 77.70 % [facility] LYMPHS 33.4 12.30 - 39.70 % [facility] MONOS 10.1 4.10 - 12.80 % [facility] EOS 2.3 0 - 7.2 % [facility] BASOS 0.3 0 - 2.80 % [facility] Granulocytes, immature (%) 0.3 0.0 - 0.9 % [facility] ABSOLUTE NEUTS 3.23 1.40 - 7.70 K/uL [facility] ABSOLUTE LYMPHS 2.02 0.60 - 3.20 K/uL [facility] ABSOLUTE MONOS 0.61(H) 0.11 - 0.59 K/uL [facility] ABSOLUTE EOS 0.14 0.01 - 0.50 K/uL [facility] ABSOLUTE BASOS 0.02 0.00 - 0.08 K/uL [facility] Granulocytes, immature 0.02 0.00 - 0.05 K/uL [facility] Blood 05/03/2018 8:53 AM EDT 05/03/2018 8:56 AM EDT us Tamiko Gibbons MD LAB BLOOD BKR ORDER EMILY Final Result [address] [address] documented in this encounter Visit Diagnoses Diagnosis Anemia, unspecified type- Primary documented in this encounter Care Teams Horse Groomer Relationship Specialty Start Date End Date Tamiko Gibbons MD [email or web address] PCP - General 08/25/15 05/31/21 Unknown, Unknown, MD PCP - General 06/01/21 06/27/21 Tawnya Thompson MD [email or web address] PCP - General Family Medicine 06/28/21 12/19/23 Tawnya Thompson MD [address] [place] [address] [email or web address] PCP - General Family Medicine 12/20/23 Tamiko Gibbons MD [address] [place] [address] [email or web address] [email or web address] Provider 11/29/19 06/25/21 documented as of this encounter Additional Source Comments The information contained in this document represents components of the legal health record. It is not the complete legal health record.[facility]
--- OUTSIDE RECORDS SUMMARY | 2025-01-14 08:40 | XMS_ITS | Encounter Summary ---
Author Organization [facility] Address [address] [place] [address] [place] [address] Phone Care Team Providers Care Oven Stripper Name Role Phone Tamiko Gibbons MD Primary Care Provi shaunna Tamiko Gibbons MD Unavailable [phone] Unknown, Unknown Primary Care Provider Tawnya Dodd MD Primary Care Provider Tawnya Thompson MD Primary Care Provider Encounter Details Date Type Department Care Team (Late st Contact Info) Description 09/22/2019 Procedure Pass [facility] Endoscopy Admitting Dept [facility] Department [address] [place] [address] Social History Tobacco Use Types Packs/Day Years [...] on filedocumented in this encounter Care Teams Oven Stripper Relationship Specialty Start Date End Date Tamiko Gibbons MD [email or web address] PCP - General 08/25/15 05/31/21 Unknown, Yung, PCP - General 06/01/21 06/27/21 Tawnya Thompson MD [email or web address] PCP - General Family Medicine 06/28/21 12/19/23 Tawnya Thompson MD [address] [place] [address] [email or web address] PCP - General Family Medicine 12/20/23 Tamiko Gibbons MD [address] [place] [address] [email or web address] Assigned Provider 11/29/19 06/25/21 documented as of this encounter Additional Source Comments The information contained in this document represents components of the legal health record. It is not the complete legal health record.[facility]
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
--- OUTSIDE RECORDS SUMMARY | 2025-01-14 08:40 | XMS_ITS | Encounter Summary ---
Author Organization [facility] Address [address] [place] [address] Phone Care Team Providers Care Exercise Rider Name Role Phone Tamiko Gibbons MD Primary Care Provi shaunna Tamiko Gibbons MD Unavailable [phone] Unknown, Unknown Primary Care Provider Tawnya Dodd MD Primary Care Provider Tawnya Thompson MD Primary Care Provider Reason for Referral * Outpatient Procedure - Closed Specialty Diagnoses / Procedures Referred By Milady eller Referred To Contact Diagnoses Nonrheumatic aortic (valve) stenosis Procedures Adult Echo TTE Tamiko Gibbons MD Phone: tel: [email or web address] Referral ID Status Reason Start Date Expiration Date Visits Re quested Visits Authorized [id number] Closed 04/05/2021 04/05/2022 1 1 Encounter Details Date Type Department Care Team (Late st Contact Info) Description 04/05/2021 Transcribe Orders Virtual Department [address] [place] [address] Tamiko Gibbons MD [address] [place] [phone] [email or web address] Nonrheumatic aortic (valve) stenosis Social History Tobacco [...] stenosis documented in this encounter Care Teams Exercise Rider Relationship Specialty Start Date End Date Tamiko Gibbons MD [email or web address] PCP - General 08/25/15 05/31/21 Unknown, Unknown, PCP - General 06/01/21 06/27/21 Tawnya Thompson MD [email or web address] PCP - General Family Medicine 06/28/21 12/19/23 Tawnya Thompson MD [address] [place] [address] [email or web address] PCP - General Family Medicine 12/20/23 Tamiko Gibbons MD [address] [place] [address] [email or web address] Assigned Provider 11/29/19 06/25/21 documented as of this encounter Additional Source Comments The information contained in this document represents components of the legal health record. It is not the complete legal health record.[facility]
--- OUTSIDE RECORDS SUMMARY | 2025-01-14 08:40 | XMS_ITS | Clinical Summary ---
Author Organization [facility] Address [address] [facility] [address] [place] [address] Phone Care Team Providers Care Fiber Optics Supervisor Name Role Phone Tawnya Thompson MD [...] Encounters Date Type Department Care Team Description 12/15/2024 2:00 PM EDT Office Visit [facility] [address] [place] [address] Chaim De Jesus MD Kelley, Karen, OT Chronic hand pain, left (Primary Dx) 12/12/2024 11:00 AM EDT Office Visit [facility] [address] [place] [address] Chaim De Jesus MD Kelley, Karen, OT Chronic hand pain, left (Primary Dx) 12/08/2024 1:15 PM EDT Office Visit [facility] [address] [place] [address] Chaim De Jesus MD Kelley, Karen, OT Chronic hand pain, left (Primary Dx) 12/08/2024 Plan of Care Documentation [facility] [address] [place] [address] 12/02/2024 Transcribe Orders [facility] [address] [place] [address] Chaim De Jesus MD Encounter for rehabilitation (Primary Dx) 10/20/2024 Orders Only [facility] Specimen Processing [address] [place] [address] Chaim De Jesus MD Rheumatoid arthritis, involving unspecified site, unspecified whether rheumatoid factor present (Primary Dx); Elevated liver enzymes; Drug therapy from Last 3 Months Immunizations Immunization Administration Dates Next Due [id number] FORMULATION 02/09/2009 HPV,quadrivalent 10/19/2008 Influenza, Unspecified Formulation [...] SMOKING Hx and SMOKELESS TOBACCO SCREENING 11/20/1958 RSV VACCINE (1 - 1-dose 75+ series) 2021 HEMOGLOBIN A1C 08/01/2023 01/30/2023, 01/19, 07/07/2021, Additional history exists INFLUENZA VACCINE (#1) 2024 , 11/03/2022, 11/03/2021, Additional history exists COVID-19 VACCINE ( season) 2024 11/12/2023, 05/01/2023, 11/10/2022, Additional history exists POTASSIUM LEVEL 11/11/2024 11/12/2023, 08/0 03/2023, 12/26/2022, Additional history exists LIPID PANEL 04/04/2025 04/04/2024, 05/02/2021, 03/04/2021, Additional history exists CREATININE LEVEL 05/30/2025 05/30/2024, , 09/21/2023, Additional history exists DIABETIC EYE EXAM 06/05/2025 06/05/2024, , 06/05/2024 Adult Td,Tdap Booster 05/06/2031 05/05/2021, 01/31/2 012 PNEUMOCOCCAL VACCINES (50+ years) Completed 03/22/2017, [...] Procedure Name Priority Date/Time Associated Diagnosis Comments CREATININE WITH ESTIMATED GLOMERULAR FILTRATION RATE (EGFR) Routine 05/30/2024 7:45 AM EDT Immunodeficiency due to treatment with immunosuppressive medication LIPID PANEL Routine 04/04/2024 8:12 AM EST Pure hypercholesterolemia 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 coronary artery without angina pectoris, unspecified whether [place] or transplanted heart COMPREHENSIVE METABOLIC PANEL (CMP) Routine 11/12/2023 12:37 PM EDT Elevated liver [...] Recently Relevant to Health Maintenance Results * Creatinine/eGFR (05/30/2024 7:45 AM EDT) CREATININE 0.90 0.5 - 1.5 mg/dL [facility] EGFR 88 >59 mL/min/1.7 3m2 [facility] Comment:Estimated glomerular filtration rate calculated using the CKD-EPI refit equation. Blood 05/30/2024 7:45 AM EDT 05/30/2024 7:48 AM EDT us Chaim De Jesus MD LAB BLOOD BKR ORDERABLES Final Result Performing Organization Address [facility] Co de Phone Number [address] [address] * (ABNORMAL) Lipid panel (04/04/2024 8:12 AM EST) HDL 70 mg/dL [facility] Comment: Interpretation <40 mg/dL: Low HDL cholesterol (major risk factor for CHD) Greater than or equal to 60 mg/dL: High HDL cholesterol ( negative risk factor for CHD) HDL - cholesterol is affected by a number of factors, e.g. smoking, excerise, hormones, sex and age. CHOLESTEROL 161 0 - 240 mg/dL [facility] TRIGLYCERIDES 59 30 - 160 mg/dL [facility] LDL 79 50 - 129 mg/dL [facility] Comment: LDL levels in terms of risk for coronary heart disease: <100 mg/dL: Optimal 100-129 mg/dL: Near or above optimal 130-159 mg/dL: Borderline high 160-189 mg/dL: High >190 mg/dL: Very High CARDIAC RISK RATIO 2.3(L) 3.4 - 5.0 [facility] Blood 04/04/2024 8:12 AM EST 04/04/2024 8:15 AM EST us Aj Abdullahi MD LAB BLOOD BKR ORDERABLES Fin al Result Performing Organization Address [facility] Co de Phone Number [address] [address] * (ABNORMAL) Comprehensive metabolic panel (11/12/2023 12:37 PM EDT) SODIUM 139 133 - 146 mmol/L [facility] POTASSIUM 4.4 3.3 - 5.1 mmol/L [facility] CHLORIDE 104 96 - 108 mmol/L [facility] CO2 24 21 - 35 mmol/L [facility] BUN 16 6 - 19 mg/dL [facility] CREATININE 0.70 0.5 - 1.5 mg/dL [facility] GLUCOSE 133(H) 70 - 99 mg/dL [facility] ALBUMIN 4.1 3.9 - 4.8 g/dL [facility] TOTAL PROTEIN 6.7 6.5 - 8.0 g/dL [facility] CALCIUM 9.6 8.4 - 10.3 mg/dL [facility] ALKALINE PHOSPHATASE 77 39 - 117 U/L [facility] TOTAL BILIRUBIN 1.3(H) 0.0 - 1.2 mg/dL [facility] AST 37 0 - 37 U/L [facility] ALT 29 0 - 40 U/L [facility] GLOBULIN 2.6 1 - 4.8 g/dL [facility] EGFR 95 >59 mL/min/1.7 3m2 [facility] Comment:Estimated glomerular filtration rate calculated using the CKD-EPI refit equation. ANION GAP 15 10 - 20 mmol/L [facility] Blood 11/12/2023 12:3 7 PM EDT 11/12/2023 12:39 PM EDT us Yulisa Cox PA-C LAB BLOOD BKR ORDERABLES Final Result [address] [address] * (ABNORMAL) Hemoglobin A1c (07/22/2020 7:20 AM EDT) HEMOGLOBIN A1C 6.5(H) 4.3 - 5.8 % [facility] Blood 07/22/2020 7:20 AM EDT 07/22/2020 8:43 AM EDT us Tamiko Gibbons MD LAB BLOOD BKR ORDER EMILY Final Result [address] [address] * Hepatitis C antibody, qualitative (08/06/2019 10:35 AM EDT) HCV NON-REACTIV E NON-REACTI VE [facility] Blood 08/06/2019 10:3 5 AM EDT 08/06/2019 10:37 AM EDT Tamiko Gibbons MD LAB BLOOD BKR ORDER EMIYL Final Result [facility] [address] [place] [address] from Last 3 Months or Most Recently Relevant to Health Maintenance Insurance MEDICARE PART A & B [employer] ENHANCE SUPPLEMENT MEDICARE PART A & B [facility] MEDICARE ENHANCE SUPPLEMENT MEDICARE PART A & B [facility] MEDICARE ENHANCE SUPPLEMENT MEDICARE PART A & [place] [address] [place] [address] MEDICARE ENHANCE SUPPLEMENT MEDICARE PART A & B [facility] MEDICARE ENHANCE SUPPLEMENT MEDICARE PART A & B [employer] EN[employer]ANCE SUPPLEMENT MEDICARE PART A & B [facility] MEDICARE ENHANCE SUPPLEMENT MEDICARE PART A & B Member Subscriber Plan / Payer ( fective 2011-) Name:Wily López Member ID:[id number] Relation to Subscriber:Self Name:Wily López Subscriber ID:[id number] Payer ID:[id number] Group ID:Not on file Type:Medicare Address: [employer] [address] [place] [phone] [facility] MEDICARE ENHANCE SUPPLEMENT MEDICARE PART A & B [employer] MEDIC[employer] ENHANCE SUPPLEMENT Advance Directives For more information, please contact: [phone] (9AM - 5PM [facility], Sunday-Sunday) Documents on File Type Date Recorded Patient Sales Operations Specialist Expl anation Healthcare Proxy 09/15/2019 4:35 PM Care Teams Fiber Optics Supervisor Relationship Specialty Start Date End Date Tawnya Thompson MD [address] [place] [address] [place] [address] PCP - General Family Medicine 12/20/23 Additional Source Comments The information contained in this document represents components of the legal health record. It is not the complete legal health record.[facility]
--- OUTSIDE RECORDS SUMMARY | 2025-01-14 08:40 | XMS_ITS | Encounter Summary ---
Author Organization [facility] Address [address] [facility] [address] [place] [address] Phone Care Team Providers Care C D Reactor Operator Name Role Phone Tawnya Thompson MD Primary Care Provider [phone] Tawnya Thompson MD Primary Care Provider [phone] Encounter Details Date Type Department Care Team (Late st Contact Info) Description 12/19/2023 Procedure Pass [facility] Endoscopy Admitting Dept Virtual Department [address] [place] [address] Social History Tobacco Use Types Packs/Day Years [...] on filedocumented in this encounter Care Teams C D Reactor Operator Relationship Specialty Start Date End Date Tawnya Thompson MD PCP - General Family Medicine 06/28/21 12/19/23 Tawnya Thompson MD [address] [place] [address] PCP - General Family Medicine 12/20/23 documented as of this encounter Additional Source Comments The information contained in this document represents components of the legal health record. It is not the complete legal health record.[facility]
--- OUTSIDE RECORDS SUMMARY | 2025-01-14 08:40 | XMS_ITS | Encounter Summary ---
Author Organization [facility] Address [address] [place] [address] [place] [address] Phone Care Team Providers Care Pattern Generator Operator Name Role Phone Tamiko Gibbons MD Primary Care Provi shaunna Tamiko Gibbons MD Unavailable [phone] Unknown, Unknown Primary Care Provider Tawnya Dodd MD Primary Care Provider Tawnya Thompson MD Primary Care Provider [phone] Encounter Details Date Type Department Care Team (Late st Contact Info) Description 03/19/2017 Transcribe Orders [facility] [address] [place] [address] Tamiko Gibbons MD [address] [place] [address] [email or web address] Type 1 diabetes mellitus with complication (Primary [...] EST) ALT 17 0 - 40 U/L [facility] Blood 03/19/2017 2:37 PM EST 03/19/2017 2:40 PM EST us Tamiko Gibbons MD LAB BLOOD BKR ORDER EMILY Final Result [address] [address] * Aspartate aminotransferase (AST) (03/19/2017 2:37 PM EST) AST 22 0 - 37 U/L [facility] Blood 03/19/2017 2:37 PM EST 03/19/2017 2:40 PM EST us Tamiko Gibbons MD LAB BLOOD BKR ORDER EMILY Final Result [address] [address] * (ABNORMAL) PSA (screening) (03/19/2017 2:37 PM EST) PSA 5.04(H) 0 - 4.00 ng/mL [facility] Blood 03/19/2017 2:37 PM EST 03/19/2017 2:39 PM EST us Tamiko Gibbons MD LAB BLOOD BKR ORDER EMILY Final Result [address] [address] * (ABNORMAL) Hemoglobin A1c (03/19/2017 2:37 PM EST) HEMOGLOBIN A1C 6.5(H) 4.3 - 5.8 % [facility] Blood 03/19/2017 2:37 PM EST 03/19/2017 2:40 PM EST us Tamiko Gibbons MD LAB BLOOD BKR ORDER EMILY Final Result Performing Organization Address City/[facility]/ZIP Co de Phone Number [address] [address] * (ABNORMAL) Basic metabolic panel (03/19/2017 2:37 PM EST) SODIUM 137 133 - 146 mmol/L [facility] CHLORIDE 101 96 - 108 mmol/L [facility] POTASSIUM 4.3 3.3 - 5.1 mmol/L [facility] CO2 28 21 - 35 mmol/L [facility] BUN 20(H) 6 - 19 mg/dL [facility] CREATININE 0.90 0.5 - 1.5 mg/dL [facility] GLUCOSE 101(H) 70 - 99 mg/dL [facility] CALCIUM 8.8 8.4 - 10.3 mg/dL [facility] EGFR >60 mL/min/1.7 3m2 [facility] Comment:Abnormal if <60. If patient is -[place], multiply the result by 1.21. ANION GAP 12 10 - 20 mmol/L [facility] Blood 03/19/2017 2:37 PM EST 03/19/2017 2:40 PM EST us Tamiko Gibbons MD LAB BLOOD BKR ORDER EMILY Final Result Performing Organization Address [facility] Co de Phone Number [address] [address] documented in this encounter Visit Diagnoses Diagnosis Type 1 diabetes mellitus with complication- Primary Hyperlipidemia, unspecified hyperlipidemia type Elevated PSA Elevated prostate specific antigen (PSA) documented in this encounter Care Teams Pattern Generator Operator Relationship Specialty Start Date End Date Tamiko Gibbons MD [email or web address] PCP - General 08/25/15 05/31/21 Unknown, Yung, PCP - General 06/01/21 06/27/21 Tawnya Thompson MD PCP - General Family Medicine 06/28/21 12/19/23 Tawnya Thompson MD [address] [place] [address] [email or web address] PCP - General Family Medicine 12/20/23 Tamiko Gibbons MD [address] [place] [address] [email or web address] Insurance Assigned Provider 11/29/19 06/25/21 documented as of this encounter Additional Source Comments The information contained in this document represents components of the legal health record. It is not the complete legal health record.[facility]
--- OUTSIDE RECORDS SUMMARY | 2025-01-14 08:40 | XMS_ITS | Encounter Summary ---
Author Organization [facility] Address [address] [address] Phone Care Team Providers Care Manager Unix Name Role Phone Tamiko Gibbons MD Primary Care Provi shaunna Tamiko Gibbons MD Unavailable [phone] Unknown, Unknown Primary Care Provider Tawnya Dodd MD Primary Care Provider Tawnya Thompson MD Primary Care Provider Encounter Details Date Type Department Care Team (Late st Contact Info) Description 10/11/2017 Transcribe Orders [facility] Phleb Main [address] [place] [address] Tamiko Gibbons MD [address] [place], [place] [id number] [email or web address] Diarrhea, unspecified type (Primary Dx) Social History [...] AM EDT) [facility] ANTIGEN Negative Negative [facility] DPT OF LAB MED AND PAT+ Stool (Stool) 10/11/2017 8:2 5 AM EDT 10/11/2017 11:10 AM EDT us Tamiko Gibbons MD LAB BODY FLUIDS AND STOOL ORDERABLES Final Result [facility] DPT OF LAB MED AND PAT+ [address] [place] [address] * Fecal leukocyte examination (10/11/2017 8:25 AM EDT) Specimen Source/ Description STOOL STOOL STOOL [facility] Special Requests None MANGLE ROLL OPERATOR [facility] GRAM STAIN Rare WBC'S [facility] Report Status 10/12/2017 FINAL [facility] Stool (Stool) 10/11/2017 8:2 5 AM EDT 10/11/2017 11:10 AM EDT us Tamiko Gibbons MD LAB BODY FLUIDS AND STOOL ORDERABLES Final Result Performing Organization Address [facility] Co de Phone Number [facility] [address] [place] [address] * Ova and parasites, stool (10/11/2017 8:25 AM EDT) Specimen Source/ Description STOOL STOOL STOOL [facility] Special Requests None [facility] DIRECT EXAM No parasites found by Trichrome Stain [facility] DIRECT EXAM NO PARASITES FOUND BY DIRECT OR CONCENTRATION METHODS [facility] Report Status 10/22/2017 FINAL [facility] Stool (Stool) 10/11/2017 8:2 5 AM EDT 10/11/2017 11:10 AM EDT us Tamiko Gibbons MD LAB BODY FLUIDS AND STOOL ORDERABLES Final Result Performing Organization Address City/[facility]/ZIP Co de Phone Number [place] [address] [address] documented in this encounter Visit Diagnoses Diagnosis Diarrhea, unspecified type- Primary documented in this encounter Care Teams Manager Unix Relationship Specialty Start Date End Date Tamiko Gibbons MD [email or web address] PCP - General 08/25/15 05/31/21 Unknown, Unknown, PCP - General 06/01/21 06/27/21 Tawnya Thompson MD [email or web address] PCP - General Family Medicine 06/28/21 12/19/23 Tawnya Thompson MD [address] [place] [address] [email or web address] PCP - General Family Medicine 12/20/23 Tamiko Gibbons MD [address] [place] [address] [email or web address] Assigned Provider 11/29/19 06/25/21 documented as of this encounter Additional Source Comments The information contained in this document represents components of the legal health record. It is not the complete legal health record.[facility]
--- OUTSIDE RECORDS SUMMARY | 2025-01-14 08:40 | XMS_ITS | Encounter Summary ---
Author Organization [facility] Address [address] [place] [address] Phone Care Team Providers Care Dynamite Shooter Name Role Phone Tamiko Gibbons MD Primary Care Provi shaunna Tamiko Gibbons MD Unavailable [phone] Unknown, Unknown Primary Care Provider Tawnya Dodd MD Primary Care Provider Tawnya Thompson MD Primary Care Provider [phone] Encounter Details Date Type Department Care Team (Latest Contact Info) Description 06/07/2018 Transcribe Orders [facility] Phleb Shelia [address] [place] [address] Madalyn Ellsworth, [facility] [address] [place] [address] Abdominal pain, unspecified abdominal location (Primary Dx) [...] 9:14 AM EDT) FATTY ACID NORMAL NORMAL Neutral Fat, stool NORMAL NORMAL Stool (Stool) 06/13/2018 9:1 4 AM EDT 06/13/2018 9:16 AM EDT Madalyn Ellsworth [facility] BODY FLUIDS AND STOOLS ORD ERABLES Final Result Performing Organization Address City/[facility]/ZIP Co de Phone Number [address] [address] * Ova and parasites, stool (06/13/2018 9:14 AM EDT) Specimen Source/ Description STOOL STOOL Special Requests None DIRECT EXAM NO PARASITES FOUND BY DIRECT OR CONCENTRATION METHODS DIRECT EXAM No parasites found by Trichrome Stain Report Status 06/19/2018 FINAL Stool (Stool) 06/13/2018 9:1 4 AM EDT 06/13/2018 9:17 AM EDT Madalyn Ellsworth [facility] BODY FLUIDS AND STOOL ORDERABLES Final Result Performing Organization Address [facility] Co de Phone Number [address] [place] [address] * H. pylori antigen, stool (06/13/2018 9:14 AM EDT) ST H.PYLORI AG Negative Negative [facility] DPT OF LAB MED AND PAT+ Stool (Stool) 06/13/2018 9:1 4 AM EDT 06/13/2018 9:16 AM EDT Madalyn Ellsworth [facility] LAB BODY FLUIDS AND STOOL ORDERABLES Final Result Performing Organization Address City/[facility]/ZIP Co de Phone Number [facility] DPT OF LAB MED AND PAT+ [address] [address] * Fecal occult blood, multiple (06/13/2018 9:14 AM EDT) FECAL OCC BLD 1 DATE 42,519 Occult bld, stool, #1 Negative Negative Stool (Stool) 06/13/2018 9:1 4 AM EDT 06/13/2018 9:16 AM EDT Madalynnicole Ellsworth [facility] BODY FLUIDS AND STOOLS ORD ERABLES Final Result Performing Organization Address City/[facility]/ZIP Co de Phone Number [address] [place] [address] * Giardia antigen screen (06/13/2018 9:14 AM EDT) ST GIARDIA ANTIGEN Negative Negative [facility] DPT OF LAB MED AND PAT+ Stool (Stool) 06/13/2018 9:1 4 AM EDT 06/13/2018 9:16 AM EDT Madalynnicole Ellsworth [facility] LAB BODY FLUIDS AND STOOL ORDERABLES Final Result Performing Organization Address City/[facility]/ZIP Co de Phone Number [facility] DPT OF LAB MED AND PAT+ [address] [place] [address] * Fecal leukocyte examination (06/13/2018 9:14 AM EDT) Specimen Source/ Description STOOL STOOL Special Requests None [facility] GRAM STAIN Few WBC'S Report Status 06/14/2018 FINAL Stool (Stool) 06/13/2018 9:1 4 AM EDT 06/13/2018 9:17 AM EDT Madalyn Ellsworth [facility] LAB BODY FLUIDS AND STOOL ORDERABLES Final Result Performing Organization Address [facility] Co de Phone Number [address] [place] [address] * C. DIFFICILE PCR (06/13/2018 9:14 AM EDT) C.DIFFICILE PCR Negative Negative [facility] C.DIFFICILE STRAIN PRESUMPTIVE NEGATIVE PRESUMPTIVE NEGATIVE Comment:Detection of 027/NAP 1/BI strains of C.difficile is presumptive and is solely for epidemiological purposes and is not intended to guide or monitor treatment of infections. Stool (Stool) 06/13/2018 9:1 4 AM EDT 06/13/2018 9:17 AM EDT Madalynnicole Kiser Seng [facility] LAB BODY FLUIDS AND STOOL ORDERABLES Final Result Performing Organization Address [facility] Co de Phone Number [address] [address] * Ova and parasites, stool (06/11/2018 9:11 AM EDT) Specimen Source/ Description STOOL STOOL STOOL Special Requests None DIRECT EXAM NO PARASITES FOUND BY DIRECT OR CONCENTRATION METHODS DIRECT EXAM No parasites found by Trichrome Stain Report Status 06/19/2018 FINAL Stool (Stool) 06/11/2018 9:1 1 AM EDT 06/13/2018 9:15 AM EDT Madalyn Margitodd Ellsworth [facility] LAB BODY FLUIDS AND STOOL ORDERABLES Final Result Performing Organization Address [facility] de Phone Number [address] [address] * Ova and parasites, stool (06/10/2018 9:10 AM EDT) Specimen Source/ Description STOOL STOOL STOOL Special Requests None DIRECT EXAM NO PARASITES FOUND BY DIRECT OR CONCENTRATION METHODS DIRECT EXAM No parasites found by Trichrome Stain Report Status 06/19/2018 FINAL Stool (Stool) 06/10/2018 9:1 0 AM EDT 06/13/2018 9:13 AM EDT Madalyn Margitodd Ellsworth [facility] LAB BODY FLUIDS AND STOOL ORDERABLES Final Result Performing Organization Address City/[facility]/ZIP Co de Phone Number [address] [address] * TSH (06/07/2018 8:39 AM EDT) Pathologist [facility] TSH 3.27 0.27 - 4.20 uIU/mL Blood 06/07/2018 8:39 AM EDT 06/07/2018 8:46 AM EDT Madalyn Ellsworth [facility] LAB BLOOD BKR ORDERABLES F inal Result Performing Organization Address [facility] Co de Phone Number [address] [address] * C-Reactive Protein (06/07/2018 8:39 AM EDT) [facility] C REACTIVE PROTEIN <0.3 0.0 - 4.0 mg/L Blood 06/07/2018 8:39 AM EDT 06/07/2018 8:46 AM EDT Madalyn Ellsworth [facility] LAB BLOOD BKR ORDERABLES F inal Result Performing Organization Address [facility] Co de Phone Number [address] [address] * (ABNORMAL) Comprehensive metabolic panel (06/07/2018 8:39 AM EDT) [facility] SODIUM 139 133 - 146 mmol/L POTASSIUM 4.6 3.3 - 5.1 mmol/L CHLORIDE 104 96 - 108 mmol/L CO2 23 21 - 35 mmol/L BUN 15 6 - 19 mg/dL CREATININE 0.80 0.5 - 1.5 mg/dL GLUCOSE 107(H) 70 - 99 mg/dL ALBUMIN 4.0 3.9 - 4.8 g/dL TOTAL PROTEIN 6.3(L) 6.5 - 8.0 g/dL CALCIUM 9.1 8.4 - 10.3 mg/dL ALKALINE PHOSPHATASE 61 39 - 117 U/L TOTAL BILIRUBIN 1.0 0.0 - 1.2 mg/dL Comment: Results from certain multiple myeloma patients may show a positive bias in recovery. Not all multiple myeloma patients show the bias and severity of the bias may vary between patients. In very rare cases, gammopathy, in particular type IgM (Waldenstrom's macroglobulinemia), may cause unreliable results. AST 29 0 - 37 U/L ALT 22 0 - 40 U/L GLOBULIN 2.3 1 - 4.8 g/dL EGFR 90 >59 mL/min/1.7 3m2 Comment:If patient is black, multiply result by 1.159. Estimated glomerular filtration rate calculated using the CKD-EPI equation. ANION GAP 17 10 - 20 mmol/L Blood 06/07/2018 8:39 AM EDT 06/07/2018 8:46 AM EDT us Madalyn Ellsworth [facility] LAB BLOOD BKR ORDERABLES F inal Result [address] [place] [address] * (ABNORMAL) CBC (06/07/2018 8:39 AM EDT) WBC 5.37 3.40 - 11.20 K/uL RBC 4.40(L) 4.50 - 5.50 M/uL HGB 13.3 13.0 - 17.0 g/dL HCT 41.2 40.0 - 51.0 % PLT 219 130 - 400 K/uL MCV 93.6 79.0 - 98.0 fL MCH 30.2 27.0 - 34.8 pg MCHC 32.3 31.5 - 36.0 g/dL RDW 13.2 10.8 - 14.6 % MPV 11.2 9.4 - 12.4 fl NRBC 0.00 0.00 /100 WBCs ABSOLUTE NRBC 0.00 0.00 K/uL Blood 06/07/2018 8:39 AM EDT 06/07/2018 8:46 AM EDT Madalyn Ellsworth [facility] LAB BLOOD BKR ORDERABLES F inal Result Performing Organization Address City/[facility] Co de Phone Number [address] [address] * Immunoglobulin A (06/07/2018 8:39 AM EDT) IgA 214 70 - 400 mg/dL Blood 06/07/2018 8:39 AM EDT 06/07/2018 8:46 AM EDT [facility] LAB BLOOD BKR ORDERABLES F inal Result Performing Organization Address [facility] Co de Phone Number [address] [address] * Tissue transglutaminase IgA (06/07/2018 8:39 AM EDT) TTG IGA ANTIBODY <1.2 <4.0 (Negative) U/mL [facility] LAB MED/[facility]PERIOR Blood 06/07/2018 8:39 AM EDT 06/07/2018 8:47 AM EDT [facility] LAB BLOOD BKR ORDERABLES F inal Result Performing Organization Address [facility] Co de Phone Number [facility] MED/[facility] [address] [address] [place] [address] documented in this encounter Visit Diagnoses Diagnosis Abdominal pain, unspecified abdominal location- Primary documented in this encounter Care Teams Dynamite Shooter Relationship Specialty Start Date End Date Tamiko Gibobns MD [email or web address] PCP - General 08/25/15 05/31/21 Unknown, Unknown, PCP - General 06/01/21 06/27/21 Tawnya Thompson MD [email or web address] PCP - General Family Medicine 06/28/21 12/19/23 Tawnya Thompson MD [address] [place] [address] [email or web address] PCP - General Family Medicine 12/20/23 Tamiko Gibbons MD [address] [place] [address] [email or web address] Assigned Provider 11/29/19 06/25/21 documented as of this encounter Additional Source Comments The information contained in this document represents components of the legal health record. It is not the complete legal health record.[facility]
--- OUTSIDE RECORDS SUMMARY | 2025-01-14 08:40 | XMS_ITS | Encounter Summary ---
Author Organization [facility] Address [address] [facility] [address] [place] [address] Phone Care Team Providers Care Stage Set Up Worker Name Role Phone Tamiko Gibbons MD Primary Care Provi shaunna Tamiko Gibbons MD Unavailable [phone] Unknown, Unknown Primary Care Provider Tawnya Dodd MD Primary Care Provider Tawnya Thompson MD Primary Care Provider Encounter Details Date Type Department Care Team (Latest Contact Info) Description 01/24/2019 Transcribe Orders [facility] Phleb Shelia [address] [place] [address] Blade Velazco MD [address] [facility] [address] [place] [address] [email or web address] Benign localized hyperplasia of prostate with urinary [...] EST) PSA 4.71(H) 0 - 4.00 ng/mL [facility] Blood 01/24/2019 9:31 AM EST 01/24/2019 9:33 AM EST us Blade Velazco MD LAB BLOOD BKR ORDERABLES Final Result [facility] [address] [place] [address] documented in this encounter Visit Diagnoses Diagnosis Benign localized hyperplasia of prostate with urinary retention- Primary Benign localized hyperplasia of prostate with urinary obstruction and other lower urinary tract symptoms (LUTS) documented in this encounter Care Teams Stage Set Up Worker Relationship Specialty Start Date End Date Tamiko Gibbons MD [email or web address] PCP - General 08/25/15 05/31/21 Unknown, Unknown, PCP - General 06/01/21 06/27/21 Tawnya Thompson MD PCP - General Family Medicine 06/28/21 12/19/23 Tawnya Thompson MD [address] [place] [address] PCP - General Family Medicine 12/20/23 Tamiko Gibbons MD [address] [place] [address] [email or web address] Assigned Provider 11/29/19 06/25/21 documented as of this encounter Additional Source Comments The information contained in this document represents components of the legal health record. It is not the complete legal health record.[facility]
--- OUTSIDE RECORDS SUMMARY | 2025-01-14 08:40 | XMS_ITS | Encounter Summary ---
Author Organization [facility] Address [address] [place] [address] Phone Care Team Providers Care Acquisitions Analyst Name Role Phone Tamiko Gibbons MD Primary Care Provi shaunna Tamiko Gibbons MD Unavailable [phone] Unknown, Unknown Primary Care Provider Tawnya Dodd MD Primary Care Provider [phone] Tawnya Thompson MD Primary Care Provider Encounter Details Date Type Department Care Team (Late st Contact Info) Description 10/19/2020 Transcribe Orders Virtual Department [address] [place] [address] Tamiko Gibbons MD [address] [place], [place] [id number] [email or web address] Benign lipomatous neoplasm, unspecified (Primary Dx) Social [...] Primary documented in this encounter Care Teams Acquisitions Analyst Relationship Specialty Start Date End Date Tamiko Gibbons MD [email or web address] PCP - General 08/25/15 05/31/21 Unknown, Unknown, PCP - General 06/01/21 06/27/21 Tawnya Thompson MD [email or web address] PCP - General Family Medicine 06/28/21 12/19/23 Tawnya Thompson MD [address] [place] [id number] [email or web address] PCP - General Family Medicine 12/20/23 Tamiko Gibbons MD [address] [place] [address] [email or web address] Assigned Provider 11/29/19 06/25/21 documented as of this encounter Additional Source Comments The information contained in this document represents components of the legal health record. It is not the complete legal health record.[facility]
--- OUTSIDE RECORDS SUMMARY | 2025-01-14 08:40 | XMS_ITS | Clinical Summary ---
Author Organization [facility] Address [address] [place] [address] Care Team Providers Care Reproductive Healthcare Assistant Name Role Phone Tawnya Thompson MD Primary Care Provider [phone] Allergies No known active allergies Medications atorvastatin [...] Planning 1945 Hepatitis C Virus Screening 1945 COVID-19 Vaccine (#1) 11/20/1951 Foot Exam 1956 Ophthalmology Exam 1956 Microalbumin/Creatinine Ratio Urine 1964 DTaP/Tdap/Td Vaccines (1 - Tdap) 1965 Pneumococcal Vaccines 50+ (1 of 2 - PCV) 1965 Zoster (Shingles) Vaccine (1 of 2) 1996 RSV Vaccine 50 years and older and Patients (1 - 1-dose 75+ series) 2021 Hemoglobin A1C 01/07/2022 07/07/2021, 05/1 02/2021, 07/22/2020, Additional history exists Lipid Panel 06/29/2022 06/29/2021 Creatinine with GFR 07/16/2022 07/16/2021, 07/15/2021, 07/14/2021, Additional history exists Influenza Vaccine 09/19/2024 10/28/2010, , 12/27/2007, Additional history exists Hepatitis B Vaccines Aged Out No long er eligible based on patient's age to complete this topic Medical Devices Implanted Type Area Rn Medical Inpatient Services Device Identifier Shelf Expiration Date Model / Serial / Lot Small [place] Hole Plate Implanted:Qty: 1 on 06/29/2021 by Juliane Joel MD at [facility] Left: Cranial [employer] [id number]-[id number] / / 6 Hole Double Y-Plate Implanted:Qty: 2 on 06/29/2021 by Juliane Joel MD at [facility] Left: [employer]ranial [employer] [id number] / / 5mm Low Profile Screw Implanted:Qty: 18 on 06/29/2021 by Juliane Joel MD at [facility] Explanted:Qty: 9 on 07/12/2021 by Juliane Joel MD at [facility] Left: Cranial [employer] 16-[id number] / / 6 Hole Straight Plate Implanted:Qty: 2 on 07/12/2021 by Juliane Joel MD at [facility] Left: Cranial [employer] [id number] / / 5mm Screw Implanted:Qty: 14 on 07/12/2021 by Juliane Joel MD at [facility] Left: Cranial [employer] 16-NF-[id number] / [...] 99 mg/dL 07/16/2021 6:[address] [facility] Blood Urea Nitrogen (BUN) 12 8 - 21 mg/dL 07/16/2021 6:[address] [facility] Creatinine 0.7 0.5 - 1.3 mg/dL 07/16/2021 6:[address] [facility] eGFR >60 >59 07/16/2021 6:[address] [facility] Comment:MDRD in mL/min/1.73 sq meters. Sodium 134(L) 136 - 145 mmol/L 07/16/2021 6:[address] [facility] Potassium 3.7 3.4 - 5.3 mmol/L 07/16/2021 6:[address] [facility] Chloride 96(L) 98 - 107 mmol/L 07/16/2021 6:[address] [facility] CO2 23 22 - 33 mmol/L 07/16/2021 6:[address] [facility] Calcium 8.8 8.7 - 10.5 mg/dL 07/16/2021 6:[address] [facility] Phosphorus 2.9 2.7 - 4.5 mg/dL 07/16/2021 6:[address] [facility] Albumin 3.2(L) 3.4 - 4.8 g/dL 07/16/2021 6:47 AM [facility] BUN/Creatinine Ratio 17 10.0 - 25.0 Ratio 07/16/2021 6:[address] [facility] Blood specimen (specimen) (Plasma/Serum) 07/16/2021 5:36 AM EDT 07/16/2021 6:00 AM EDT us Dejah Smith PA LAB BLOOD ORDERABLES Final Re sult [facility] [address] [address] * (ABNORMAL) Hemoglobin A1c with Estimated Average Glucose (07/07/2021 6:31 AM EDT) Hemoglobin A1C 6.5(H) <5.7 % 07/07/2021 3:00 PM EDT [facility] Comment: A1c% Interpretation 5.7 - 6.0 Increase risk of diabetes 6.1 - 6.4 Higher risk of diabetes > or = 6.5 Consistent with diabetes Diabetes Care, 33(Supp 1):S1-S61, 2009 Estimated Average Glucose 140 mg/dL 07/07/2021 3:00 PM EDT [facility] Blood specimen (specimen) Blood specimen / Unknown 07/07/2021 6:31 AM EDT 07/07/2021 7:02 AM EDT us Herson ROMO LAB BLOOD ORDERABLES Final Result [facility] [address] [place] [address] * Lipid Panel (06/29/2021 5:36 AM EDT) Pathologist [facility] Cholesterol, Total 139 <200 mg/dL 2021 6:[address] [facility] Triglycerides 64 <150 mg/dL 06/29/2021 6:[address] [facility] Cholesterol, HDL 64 >39 mg/dL 06/30/19 6:[address] [facility] Estimated LDL 62 <130 mg/dL 06/29/2021 6:[address] [facility] Comment: NCEP Guidelines: < 100 mg/dL Optimal 100 - 129 mg/dL Near Optimal/Above Optimal 130 - 159 mg/dL Borderline High 160 - 189 mg/dL High >/= 190 mg/dL Very High Cholesterol/HDL Ratio 2.2 0.0 - 5.0 Ratio 06/29/2021 6:[address] [facility] Comment: Relative Risk Ratio - Male Ratio - Female 0.5 3.4 3.3 1.0 5.0 4.4 2.0 9.6 7.1 3.0 23.4 11.0 Blood specimen (specimen) (Plasma/Serum) 06/29/2021 5:36 AM EDT 06/29/2021 5:44 AM EDT us Haroon Reynolds APRN LAB BLOOD ORDERABLES Final Result [facility] [address] [place] [address] from Last 3 Months or Most Recently Relevant to Health Maintenance Insurance MEDICARE PART A & B [facility] SUPPLEMENT ONLY Advance Directives * Full Code (Latest Code Status on File) Date Activated Date Inactivated Comments 07/11/2021 2:06 PM * Full Code Date Activated Date Inactivated Comments 07/06/2021 6:43 PM 07/11/2021 10:46 AM * Full Code Date Activated Date Inactivated Comments 06/28/2021 10:17 PM 07/06/2021 2:42 PM Care Teams Reproductive Healthcare Assistant Relationship Specialty Start Date End Date Tawnya Thompson MD [address] [place] [id number] PCP - General Family Medicine 06/28/21
--- OUTSIDE RECORDS SUMMARY | 2025-01-14 08:40 | XMS_ITS | Clinical Summary ---
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 90 each 3 5 03/26/19 26 Active Active Problems Problem Noted Date Diagnosed Date Aortic stenosis, severe 01/30/2023 Surgical History Surgery Date Site/Laterality Comments CRANIOTOMY PROCEDURE:CRANIOTOMY;COMMENT:2020 -june CARDIAC CATHETERIZATION 01/25/2023 N/A PROCEDURE:CARDIAC CATHETERIZATION;COMMENT:Procedure : LEFT HEART CATHETERIZATION PCI; Surgeon: Cain Hopson MD; Location: [facility] CARDIAC BOX SORTER; Service: Cardiology; Laterality: N/A; CARDIAC CATHETERIZATION 01/25/2023 N/A PROCEDURE:CARDIAC CATHETERIZATION;COMMENT:Procedure : CORONARY ANGIOGRAPHY; Surgeon: Cain Hopson MD; Location: [facility] CARDIAC BOX S[facility]TER; Service: Cardiology; Laterality: N/A; AORTIC VALVE REPLACEMENT 01/30/2023 Bilateral PROCEDURE:AORTIC VALVE REPLACEMENT;COMMENT:Procedure: TAVR TF PERCUSTANEOUS; Surgeon: Rick Nicole MD; Location: [facility] HYBRID OPERATING ROOM; Service: Cardiovascular; Laterality: Bilateral; Medical History Medical History Date Comments Type 1 diabetes (CMS/HCC V24 , CMS/HCC V28) DX:Type 1 diabetes (HCC);COM MENT:wears continuous glucose monitor and insulin pumo HTN (hypertension) DX:HTN (hyper tension) HLD (hyperlipidemia) DX:HLD (hyp erlipidemia) Aortic valvar stenosis DX:Aortic valvar stenosis Subdural hematoma (CMS/HCC V 24, [facility]/HCC V28) DX:Subdural hematoma (HCC) Eye abnormality [...] Care Team (Late st Contact Info) Description 02/17/2025 11:00 AM EST Office Visit [facility] [place] [address] [address] Juhi Blake NP [address] [place] [phone] 03/26/2025 12:00 PM EST [facility] [place] [address] [phone] Aj Abdullahi MD [address] [place] [phone] Health Maintenance Due Date Last Done Comments [...] this topic Medical Devices Implanted Type Area Semiconductor Engineer Device Identifier Shelf Expiration Date Model / Serial / Lot System Perclose Prostyle Suture Medicated Abbt-Vasc [id number] Implanted:Qty: 1 on 01/25/2023 [employer] [id number] / / Valve Chetan Thv Velasquez Resilia 26mm [facility] [id number] - [id number] Implanted:Qty: 1 on 01/30/2023 by Rick Nicole MD Heart [employer] 08/23/2025 [id number] / [id number] / Procedures Procedure Name Priority Date/Time Associated Diagnosis Comments HM ANNUAL BMP BLOOD TEST Routine 01/31/2023 HEMOGLOBIN A1C Routine 01/30/2023 LIPID PANEL Routine 06/29/2021 from Last 3 Months or Most Recently Relevant to Health Maintenance Results * Annual BMP Blood Test (01/31/2023) Annual BMP Blood Test Abstracted [facility] [place] [facility] Provider HEALTH MAINTENANCE Final Result * (ABNORMAL) Hemoglobin A1c (01/30/2023) Pathologist [facility] Hemoglobin A1C 6.8(A) <=5.7 % Blood Venous blood specimen / Unknown [facility] [place] [facility] Provider LAB BLOOD ORDERABLES Nani l Result * Lipid panel (06/29/2021) Pathologist [facility] LDL/HDL Ratio 0 Comment:No Interpretation Triglycerides 0 mg/dL Comment:No Interpretation Cholesterol 0 mg/dL Comment:No Interpretation HDL 0 mg/dL Comment:No Interpretation LDL Cholesterol 0 mg/dL Comment:No Interpretation Blood Venous blood specimen / Unknown [facility] [place] [facility] Provider LAB BLOOD ORDERABLES Nani l Result from Last 3 Months or Most Recently Relevant to Health Maintenance Insurance MEDICARE [facility] Care Teams Senior Research Executive Relationship Specialty Start Date End Date Tawnya Thompson MD [facility] [address] [place] [address] PCP - General 11/06/22
--- OUTSIDE RECORDS SUMMARY | 2025-01-14 08:40 | XMS_ITS | Encounter Summary ---
Author Organization [facility] Address [address] [place] [address] [place] [address] Phone Care Team Providers Care Nutrition Associate Name Role Phone Tamiko Gibbons MD Primary Care Provi shaunna Tamiko Gibbons MD Unavailable [phone] Unknown, Unknown Primary Care Provider Tawnya Dodd MD Primary Care Provider Tawnya Thompson MD Primary Care Provider Encounter Details Date Type Department Care Team (Late st Contact Info) Description 09/13/2019 Procedure Pass [facility], Ct Scan - [address] [address] Social History Tobacco Use Types Packs/Day Years [...] on filedocumented in this encounter Care Teams Nutrition Associate Relationship Specialty Start Date End Date Tamiko Gibbons MD [email or web address] PCP - General 08/25/15 05/31/21 Unknown, Yung, PCP - General 06/01/21 06/27/21 Tawnya Thompson MD [email or web address] PCP - General Family Medicine 06/28/21 12/19/23 Tawnya Thompson MD [address] [place] [address] [email or web address] PCP - General Family Medicine 12/20/23 Tamiko Gibbons MD [address] [place] [address] [email or web address] Insurance Assigned Provider 11/29/19 06/25/21 documented as of this encounter Additional Source Comments The information contained in this document represents components of the legal health record. It is not the complete legal health record.[facility]
--- OUTSIDE RECORDS SUMMARY | 2025-01-14 08:40 | XMS_ITS | Encounter Summary ---
Author Organization [facility] Address [address] [place] [address] [place] [address] Phone Care Team Providers Care English Composition Instructor Name Role Phone Tamiko Gibbons MD Primary Care Provi shaunna Tamiko Gibbons MD Unavailable [phone] Unknown, Unknown Primary Care Provider Tawnya Dodd MD Primary Care Provider Tawnya Thompson MD Primary Care Provider Encounter Details Date Type Department Care Team (Latest Contact Info) Description 01/14/2018 Transcribe Orders [facility] Phleb Shelia [address] [place] [address] Tamiko Gibbons MD [address] [place] [address] [email or web address] Gastroesophageal reflux disease, esophagitis presence not specified [...] HEMOGLOBIN A1C 6.5(H) 4.3 - 5.8 % [facility] Blood 01/14/2018 7:32 AM EST 01/14/2018 7:36 AM EST us Tamiko Gibbons MD LAB BLOOD BKR ORDER EMILY Final Result [facility] [address] [place] [address] * (ABNORMAL) CBC and differential (01/14/2018 7:32 AM EST) WBC 5.42 3.40 - 11.20 K/uL [facility] RBC 4.17(L) 4.50 - 5.50 M/uL [facility] HGB 12.9(L) 13.0 - 17.0 g/dL [facility] HCT 39.0(L) 40.0 - 51.0 % [facility] PLT 213 130 - 400 K/uL [facility] MCV 93.5 79.0 - 98.0 fL [facility] MCH 30.9 27.0 - 34.8 pg [facility] MCHC 33.1 31.5 - 36.0 g/dL [facility] RDW 12.6 10.8 - 14.6 % [facility] MPV 10.4 9.4 - 12.4 fl [facility] NRBC 0.00 0.00 /100 WBCs [facility] ABSOLUTE NRBC 0.00 0.00 K/uL [facility] DIFF METHOD Auto [facility] NEUTS 37.6(L) 45.30 - 77.70 % [facility] LYMPHS 48.7(H) 12.30 - 39.70 % [facility] MONOS 10.3 4.10 - 12.80 % [facility] EOS 3.0 0 - 7.2 % [facility] BASOS 0.2 0 - 2.80 % [facility] Granulocytes, immature (%) 0.2 0.0 - 0.9 % [facility] ABSOLUTE NEUTS 2.04 1.40 - 7.70 K/uL [facility] ABSOLUTE LYMPHS 2.64 0.60 - 3.20 K/uL [facility] ABSOLUTE MONOS 0.56 0.11 - 0.59 K/uL [facility] ABSOLUTE EOS 0.16 0.01 - 0.50 K/uL [facility] ABSOLUTE BASOS 0.01 0.00 - 0.08 K/uL [facility] Granulocytes, immature 0.01 0.00 - 0.05 K/uL [facility] Blood 01/14/2018 7:32 AM EST 01/14/2018 7:36 AM EST us Tamiko Gibbons MD LAB BLOOD BKR ORDER EMILY Final Result Performing Organization Address City/[facility]/ZIP Co de Phone Number [address] [address] * TSH with reflex (01/14/2018 7:32 AM EST) TSH 3.59 0.27 - 4.20 uIU/mL [facility] Blood 01/14/2018 7:32 AM EST 01/14/2018 7:36 AM EST us Tamiko Gibbons MD LAB BLOOD BKR ORDER EMILY Final Result Performing Organization Address City/[facility]/ZIP Co de Phone Number [address] [address] * (ABNORMAL) Comprehensive metabolic panel (01/14/2018 7:32 AM EST) SODIUM 140 133 - 146 mmol/L [facility] POTASSIUM 4.4 3.3 - 5.1 mmol/L [facility] CHLORIDE 101 96 - 108 mmol/L [facility] CO2 24 21 - 35 mmol/L [facility] BUN 20(H) 6 - 19 mg/dL [facility] CREATININE 0.80 0.5 - 1.5 mg/dL [facility] GLUCOSE 78 70 - 99 mg/dL [facility] ALBUMIN 3.7(L) 3.9 - 4.8 g/dL [facility] TOTAL PROTEIN 5.9(L) 6.5 - 8.0 g/dL [facility] CALCIUM 9.3 8.4 - 10.3 mg/dL [facility] ALKALINE PHOSPHATASE 52 39 - 117 U/L [facility] TOTAL BILIRUBIN 1.0 0.0 - 1.2 mg/dL [facility] AST 30 0 - 37 U/L [facility] ALT 28 0 - 40 U/L [facility] GLOBULIN 2.2 1 - 4.8 g/dL [facility] EGFR 90 >59 mL/min/1.7 3m2 [facility] Comment:If patient is black, multiply result by 1.159. Estimated glomerular filtration rate calculated using the CKD-EPI equation. ANION GAP 19 10 - 20 mmol/L [facility] Blood 01/14/2018 7:32 AM EST 01/14/2018 7:36 AM EST us Tamiko Gibbons MD LAB BLOOD BKR ORDER EMILY Final Result Performing Organization Address City/State/[facility] Co de Phone Number [address] [address] documented in this encounter Visit Diagnoses Diagnosis Gastroesophageal reflux disease, esophagitis presence not specified- Primary Type 1 diabetes mellitus with complication documented in this encounter Care Teams English Composition Instructor Relationship Specialty Start Date End Date Tamiko Gibbons MD [email or web address] PCP - General 08/25/15 05/31/21 Unknown, Unknown, PCP - General 06/01/21 06/27/21 Tawnya Thompson MD PCP - General Family Medicine 06/28/21 12/19/23 Tawnya Thompson MD [address] [place] [address] PCP - General Family Medicine 12/20/23 Tamiko Gibbons MD [address] [place] [address] [email or web address] Insurance Assigned Provider 11/29/19 06/25/21 documented as of this encounter Additional Source Comments The information contained in this document represents components of the legal health record. It is not the complete legal health record.[facility]
--- OUTSIDE RECORDS SUMMARY | 2025-01-14 08:40 | XMS_ITS | Encounter Summary ---
Author Organization [facility] Address [address] [place] [address] Phone Care Team Providers Care Content Engineer Name Role Phone Tamiko Gibbons MD Primary Care Provi shaunna Tamiko Gibbons MD Unavailable [phone] Unknown, Unknown Primary Care Provider Tawnya Dodd MD Primary Care Provider [phone] Tawnya Thompson MD Primary Care Provider Encounter Details Date Type Department Care Team (Late st Contact Info) Description 10/27/2020 Ancillary Orders Virtual Department [address] [place] [address] Tamiko Gibbons MD [address] [place], [place] [phone] [email or web address] Benign lipomatous neoplasm, unspecified Social History Tobacco [...] unspecified documented in this encounter Care Teams Content Engineer Relationship Specialty Start Date End Date Tamiko Gibbons MD [email or web address] PCP - General 08/25/15 05/31/21 Unknown, Unknown, PCP - General 06/01/21 06/27/21 Tawnya Thompson MD [email or web address] PCP - General Family Medicine 06/28/21 12/19/23 Tawnya Thompson MD [address] [place] [id number] [email or web address] PCP - General Family Medicine 12/20/23 Tamiko Gibbons MD [address] [place] [address] [email or web address] Insurance Assigned Provider 11/29/19 06/25/21 documented as of this encounter Additional Source Comments The information contained in this document represents components of the legal health record. It is not the complete legal health record.[facility]
--- OUTSIDE RECORDS SUMMARY | 2025-01-14 08:40 | XMS_ITS | Encounter Summary ---
Author Organization [facility] Address [address] [place] [address] [place] [address] Phone Care Team Providers Care Certified Recreational Therapist Name Role Phone Tamiko Gibbons MD Primary Care Provi shaunna Tamiko Gibbons MD Unavailable [phone] Unknown, Unknown Primary Care Provider Tawnya Dodd MD Primary Care Provider Tawnya Thompson MD Primary Care Provider Encounter Details Date Type Department Care Team (Late st Contact Info) Description 08/12/2018 Transcribe Orders [facility] Phleb [facility] [address] [place] [address] Tamiko Gibbons MD [address] [place] [address] [email or web address] Type 2 diabetes mellitus with complication, unspecified whether half-way insulin use (Primary Dx) Social History Tobacco [...] (08/12/2018 7:32 AM EDT) HDL 68 mg/dL [facility] Comment: Interpretation <40 mg/dL: Low HDL cholesterol (major risk factor for CHD) Greater than or equal to 60 mg/dL: High HDL cholesterol ( negative risk factor for CHD) HDL - cholesterol is affected by a number of factors, e.g. smoking, excerise, hormones, sex and age. CHOLESTEROL 168 0 - 240 mg/dL [facility] TRIGLYCERIDES 69 30 - 160 mg/dL [facility] LDL 86 50 - 129 mg/dL [facility] Comment: LDL levels in terms of risk for coronary heart disease: <100 mg/dL: Optimal 100-129 mg/dL: Near or above optimal 130-159 mg/dL: Borderline high 160-189 mg/dL: High >190 mg/dL: Very High CARDIAC RISK RATIO 2.5(L) 3.4 - 5.0 C [facility] Blood 08/12/2018 7:32 AM EDT 08/12/2018 7:42 AM EDT us Tamiko Gibbons MD LAB BLOOD BKR ORDER EMILY Final Result [address] [address] * (ABNORMAL) Comprehensive metabolic panel (08/12/2018 7:32 AM EDT) SODIUM 139 133 - 146 mmol/L [facility] POTASSIUM 4.3 3.3 - 5.1 mmol/L [facility] CHLORIDE 105 96 - 108 mmol/L [facility] CO2 24 21 - 35 mmol/L [facility] BUN 22(H) 6 - 19 mg/dL [facility] CREATININE 0.80 0.5 - 1.5 mg/dL [facility] GLUCOSE 74 70 - 99 mg/dL [facility] ALBUMIN 3.7(L) 3.9 - 4.8 g/dL [facility] TOTAL PROTEIN 6.2(L) 6.5 - 8.0 g/dL [facility] CALCIUM 8.9 8.4 - 10.3 mg/dL [facility] ALKALINE PHOSPHATASE 55 39 - 117 U/L [facility] TOTAL BILIRUBIN 1.0 0.0 - 1.2 mg/dL [facility] AST 26 0 - 37 U/L [facility] ALT 18 0 - 40 U/L [facility] GLOBULIN 2.5 1 - 4.8 g/dL [facility] EGFR 90 >59 mL/min/1.7 3m2 [facility] Comment:If patient is black, multiply result by 1.159. Estimated glomerular filtration rate calculated using the CKD-EPI equation. ANION GAP 14 10 - 20 mmol/L [facility] Blood 08/12/2018 7:32 AM EDT 08/12/2018 7:42 AM EDT us Tamiko Gibbons MD LAB BLOOD BKR ORDER EMILY Final Result Performing Organization Address City/State/[facility] Co de Phone Number [address] [address] documented in this encounter Visit Diagnoses Diagnosis Type 2 diabetes mellitus with complication, unspecified whether half-way insulin use- Primary documented in this encounter Care Teams Certified Recreational Therapist Relationship Specialty Start Date End Date Tamiko Gibbons MD [email or web address] PCP - General 08/25/15 05/31/21 Unknown, Unknown, PCP - General 06/01/21 06/27/21 Tawnya Thompson MD PCP - General Family Medicine 06/28/21 12/19/23 Tawnya Thompson MD [address] [place] [address] PCP - General Family Medicine 12/20/23 Tamiko Gibbons MD [address] [place] [address] [email or web address] Assigned Provider 11/29/19 06/25/21 documented as of this encounter Additional Source Comments The information contained in this document represents components of the legal health record. It is not the complete legal health record.[facility]
--- OUTSIDE RECORDS SUMMARY | 2025-01-14 08:40 | XMS_ITS | Encounter Summary ---
Author Organization [facility] Address [address] [facility] [address] [place] [address] Phone Care Team Providers Care Human Resources Office Assistant Name Role Phone Tamiko Gibbons MD Primary Care Provi shaunna Tamiko Gibbons MD Unavailable [phone] Unknown, Unknown Primary Care Provider Tawnya Dodd MD Primary Care Provider Tawnya Thompson MD Primary Care Provider [phone] Encounter Details Date Type Department Care Team (Late st Contact Info) Description 07/16/2019 Ancillary Orders Virtual Department [address] [place] [address] Tamiko Gibbons MD [address] [place], [place] [phone] [email or web address] Acute pain of right shoulder; Weakness of [...] extremity documented in this encounter Care Teams Human Resources Office Assistant Relationship Specialty Start Date End Date Tamiko Gibbons MD [email or web address] PCP - General 08/25/15 05/31/21 Unknown, Yung, PCP - General 06/01/21 06/27/21 Tawnya Thompson MD [email or web address] PCP - General Family Medicine 06/28/21 12/19/23 Tawnya Thompson MD [address] [place] [address] PCP - General Family Medicine 12/20/23 Tamiko Gibbons MD [address] [place] [address] [email or web address] Assigned Provider 11/29/19 06/25/21 documented as of this encounter Additional Source Comments The information contained in this document represents components of the legal health record. It is not the complete legal health record.[facility]
--- OUTSIDE RECORDS SUMMARY | 2025-01-14 08:40 | XMS_ITS | Encounter Summary ---
Author Organization [facility] Address [address] [place] [address] [place] [address] Phone Care Team Providers Care Biological Sciences Instructor Name Role Phone Tamiko Gibbons MD Primary Care Provi shaunna Tamiko Gibbons MD Unavailable [phone] Unknown, Unknown Primary Care Provider Tawnya Dodd MD Primary Care Provider Tawnya Thompson MD Primary Care Provider Encounter Details Date Type Department Care Team (Late st Contact Info) Description 09/13/2019 Procedure Pass [facility], Ct Scan - [address] [address] Social History Tobacco Use Types Packs/Day Years [...] on filedocumented in this encounter Care Teams Biological Sciences Instructor Relationship Specialty Start Date End Date Tamiko Gibbons MD [email or web address] PCP - General 08/25/15 05/31/21 Unknown, Yung, PCP - General 06/01/21 06/27/21 Tawnya Thompson MD PCP - General Family Medicine 06/28/21 12/19/23 Tawnya Thompson MD [address] [place] [address] PCP - General Family Medicine 12/20/23 Tamiko Gibbons MD [address] [place] [address] [email or web address] Assigned Provider 11/29/19 06/25/21 documented as of this encounter Additional Source Comments The information contained in this document represents components of the legal health record. It is not the complete legal health record.[facility]
--- OUTSIDE RECORDS SUMMARY | 2025-01-14 08:40 | XMS_ITS | Encounter Summary ---
Author Organization [facility] Address [address] [place] [address] [place] [address] Phone Care Team Providers Care Resource Economist Name Role Phone Tamiko Gibbons MD Primary Care Provi shaunna Tamiko Gibbons MD Unavailable [phone] Unknown, Unknown Primary Care Provider Tawnya Dodd MD Primary Care Provider Tawnya Thompson MD Primary Care Provider [phone] Encounter Details Date Type Department Care Team (Late st Contact Info) Description 02/28/2019 Transcribe Orders [facility] Phleb Shelia [address] [place] [address] Tamiko Gibbons MD [address] [place] [address] [email or web address] Type 1 diabetes mellitus with complication (Primary [...] EST) SODIUM 138 133 - 146 mmol/L [facility] POTASSIUM 4.7 3.3 - 5.1 mmol/L [facility] CHLORIDE 100 96 - 108 mmol/L [facility] CO2 27 21 - 35 mmol/L [facility] BUN 18 6 - 19 mg/dL [facility] CREATININE 0.80 0.5 - 1.5 mg/dL [facility] GLUCOSE 95 70 - 99 mg/dL [facility] ALBUMIN 4.0 3.9 - 4.8 g/dL [facility] TOTAL PROTEIN 6.8 6.5 - 8.0 g/dL [facility] CALCIUM 9.3 8.4 - 10.3 mg/dL [facility] ALKALINE PHOSPHATASE 75 39 - 117 U/L [facility] TOTAL BILIRUBIN 1.2 0.0 - 1.2 mg/dL [facility] AST 30 0 - 37 U/L [facility] ALT 21 0 - 40 U/L [facility] GLOBULIN 2.8 1 - 4.8 g/dL [facility] EGFR 89 >59 mL/min/1.7 3m2 [facility] Comment:If patient is black, multiply result by 1.159. Estimated glomerular filtration rate calculated using the CKD-EPI equation. ANION GAP 16 10 - 20 mmol/L [facility] Blood 02/28/2019 7:32 AM EST 02/28/2019 7:35 AM EST us Tamiko Gibbons MD LAB BLOOD BKR ORDER EMILY Final Result [facility] [address] [place] [address] * (ABNORMAL) CBC and differential (02/28/2019 7:32 AM EST) WBC 5.29 3.40 - 11.20 K/uL [facility] RBC 4.32(L) 4.50 - 5.50 M/uL [facility] HGB 13.4 13.0 - 17.0 g/dL [facility] HCT 40.5 40.0 - 51.0 % [facility] PLT 212 130 - 400 K/uL [facility] MCV 93.8 79.0 - 98.0 fL [facility] MCH 31.0 27.0 - 34.8 pg [facility] MCHC 33.1 31.5 - 36.0 g/dL [facility] RDW 12.6 10.8 - 14.6 % [facility] MPV 10.7 9.4 - 12.4 fl [facility] NRBC 0.00 0.00 /100 WBCs [facility] ABSOLUTE NRBC 0.00 0.00 K/uL [facility] DIFF METHOD Auto [facility] NEUTS 39.3(L) 45.30 - 77.70 % [facility] LYMPHS 45.0(H) 12.30 - 39.70 % [facility] MONOS 12.5 4.10 - 12.80 % [facility] EOS 2.6 0 - 7.2 % [facility] BASOS 0.4 0 - 2.80 % [facility] Granulocytes, immature (%) 0.2 0.0 - 0.9 % [facility] ABSOLUTE NEUTS 2.08 1.40 - 7.70 K/uL [facility] ABSOLUTE LYMPHS 2.38 0.60 - 3.20 K/uL [facility] ABSOLUTE MONOS 0.66(H) 0.11 - 0.59 K/uL [facility] ABSOLUTE EOS 0.14 0.01 - 0.50 K/uL [facility] ABSOLUTE BASOS 0.02 0.00 - 0.08 K/uL [facility] Granulocytes, immature 0.01 0.00 - 0.05 K/uL [facility] Blood 02/28/2019 7:32 AM EST 02/28/2019 7:35 AM EST us Tamiko Gibbons MD LAB BLOOD BKR ORDER EMILY Final Result [facility] [address] [place] [address] * (ABNORMAL) Hemoglobin A1c (02/28/2019 7:32 AM EST) HEMOGLOBIN A1C 7.2(H) 4.3 - 5.8 % [facility] Blood 02/28/2019 7:32 AM EST 02/28/2019 7:35 AM EST us Tamiko Gibbons MD LAB BLOOD BKR ORDER EMILY Final Result Performing Organization Address City/[facility]/ZIP Co de Phone Number [address] [address] * (ABNORMAL) PSA (screening) (02/28/2019 7:32 AM EST) PSA 4.24(H) 0 - 4.00 ng/mL [facility] Blood 02/28/2019 7:32 AM EST 02/28/2019 7:34 AM EST us Tamiko Gibbons MD LAB BLOOD BKR ORDER EMILY Final Result [address] [address] documented in this encounter Visit Diagnoses Diagnosis Type 1 diabetes mellitus with complication- Primary Elevated PSA Elevated prostate specific antigen (PSA) documented in this encounter Care Teams Resource Economist Relationship Specialty Start Date End Date Tamiko Gibbons MD [email or web address] PCP - General 08/25/15 05/31/21 Unknown, Yung, PCP - General 06/01/21 06/27/21 Tawnya Thompson MD [email or web address] PCP - General Family Medicine 06/28/21 12/19/23 Tawnya Thompson MD [address] [place] [address] PCP - General Family Medicine 12/20/23 Tamiko Gibbons MD [address] [place] [address] [email or web address] Insurance Assigned Provider 11/29/19 06/25/21 documented as of this encounter Additional Source Comments The information contained in this document represents components of the legal health record. It is not the complete legal health record.[facility]
--- OUTSIDE RECORDS SUMMARY | 2025-01-14 08:40 | XMS_ITS | Encounter Summary ---
Author Organization [facility] Address [address] [place] [address] [place] [address] Phone Care Team Providers Care Motor Pool Clerk Name Role Phone Tamiko Gibbons MD Primary Care Provi shaunna Tamiko Gibbons MD Unavailable [phone] [phone] Unknown, Unknown Primary Care Provider Tawnya Dodd MD Primary Care Provider [phone] Tawnya Thompson MD Primary Care Provider Encounter Details Date Type Department Care Team (Late st Contact Info) Description 10/02/2017 Transcribe Orders [facility] Phleb [facility] [address]nd [place] [address] Tamiko Gibbons MD [address] [place] [address] [email or web address] Type 1 diabetes mellitus with complication (Primary [...] EDT) PSA 3.91 0 - 4.00 ng/mL [facility] Blood 10/02/2017 7:40 AM EDT 10/02/2017 7:44 AM EDT us Tamiko Gibbons MD LAB BLOOD BKR ORDER EMILY Final Result [address] [address] * (ABNORMAL) Lipid panel (10/02/2017 7:40 AM EDT) HDL 80 mg/dL [facility] Comment: Interpretation: Risk Level Males Decreased >45 mg/dL Average 40-45 mg/dL Increased <40 mg/dL CHOLESTEROL 172 0 - 240 mg/dL [facility] TRIGLYCERIDES 67 30 - 160 mg/dL [facility] LDL 79 50 - 129 mg/dL [facility] Comment: LDL levels in terms of risk for coronary heart disease: <100 mg/dL: Optimal 100-129 mg/dL: Near or above optimal 130-159 mg/dL: Borderline high 160-189 mg/dL: High >190 mg/dL: Very High CARDIAC RISK RATIO 2.2(L) 3.4 - 5.0 C [facility] Blood 10/02/2017 7:40 AM EDT 10/02/2017 7:44 AM EDT us Tamiko Gibbons MD LAB BLOOD BKR ORDER EMILY Final Result Performing Organization Address City/[facility]/ZIP Co de Phone Number [address] [address] * (ABNORMAL) Comprehensive metabolic panel (10/02/2017 7:40 AM EDT) SODIUM 140 133 - 146 mmol/L [facility] POTASSIUM 4.4 3.3 - 5.1 mmol/L [facility] CHLORIDE 102 96 - 108 mmol/L [facility] CO2 25 21 - 35 mmol/L [facility] BUN 17 6 - 19 mg/dL [facility] CREATININE 0.80 0.5 - 1.5 mg/dL [facility] GLUCOSE 126(H) 70 - 99 mg/dL [facility] ALBUMIN 3.7(L) 3.9 - 4.8 g/dL [facility] TOTAL PROTEIN 6.3(L) 6.5 - 8.0 g/dL [facility] CALCIUM 9.3 8.4 - 10.3 mg/dL [facility] ALKALINE PHOSPHATASE 56 39 - 117 U/L [facility] TOTAL BILIRUBIN 0.9 0.0 - 1.2 mg/dL [facility] AST 25 0 - 37 U/L [facility] ALT 23 0 - 40 U/L [facility] GLOBULIN 2.6 1 - 4.8 g/dL [facility] EGFR 91 >59 mL/min/1.7 3m2 [facility] Comment:If patient is black, multiply result by 1.159. Estimated glomerular filtration rate calculated using the CKD-EPI equation. ANION GAP 17 10 - 20 mmol/L [facility] Blood 10/02/2017 7:40 AM EDT 10/02/2017 7:44 AM EDT us Tamiko Gibbons MD LAB BLOOD BKR ORDER EMILY Final Result Performing Organization Address City/State/[facility] Co de Phone Number [address] [address] documented in this encounter Visit Diagnoses Diagnosis Type 1 diabetes mellitus with complication- Primary Hyperlipidemia, unspecified hyperlipidemia type documented in this encounter Care Teams Motor Pool Clerk Relationship Specialty Start Date End Date Tamiko Gibbons MD [email or web address] PCP - General 08/25/15 05/31/21 Unknown, Yung, PCP - General 06/01/21 06/27/21 Tawnya Thompson MD [email or web address] PCP - General Family Medicine 06/28/21 12/19/23 Tawnya Thompson MD [address] [place] [address] [email or web address] PCP - General Family Medicine 12/20/23 Tamiko Gibbons MD [address] [place] [address] [email or web address] Insurance Assigned Provider 11/29/19 06/25/21 documented as of this encounter Additional Source Comments The information contained in this document represents components of the legal health record. It is not the complete legal health record.[facility]
--- OUTSIDE RECORDS SUMMARY | 2025-01-14 08:41 | XMS_ITS | Encounter Summary ---
Author Organization [facility] Address [address] [place] [address] [place] [address] Phone Care Team Providers Care Radiation Protection Engineer Name Role Phone Tawnya Thompson MD Primary Care Provider Tawnya Thompson MD Primary Care Provider Encounter Details Date Type Department Care Team (Latest Contact Info) Description 09/21/2023 Transcribe Orders [facility] Phleb [place] [address] [place] [address] Yulisa Cox PA-C [address] [facility], [address] [place] [address] [email or web address] Change in bowel habits (Primary Dx) Social [...] Pancreatic Elastase, Feces 118(L) >200 (Normal) mcg/g [facility] Comment: (NOTE) Interpretation: Borderline (100-200 mcg/g); Consistent with slight to moderate pancreatic insufficiency Stool (Stool) 09/29/2023 8:3 0 AM EDT 09/29/2023 10:24 AM EDT us Yulisa Cox PA-C BODY FLUIDS AND STOOLS ORDERABL ES Final Result Performing Organization Address [place]/[facility]/ZIP Co de Phone Number [facility] [address] [place] [address] * (ABNORMAL) Stool fat/fiber exam (09/29/2023 8:30 AM EDT) FATTY ACID INCREASED(A ) NORMAL [facility] Neutral Fat, stool NORMAL NORMAL [facility] Stool (Stool) 09/29/2023 8:3 0 AM EDT 09/29/2023 10:25 AM EDT Yulisa Cox PA-C BODY FLUIDS AND STOOLS ORDERABL ES Final Result Performing Organization Address City/[facility]/ZIP Co de Phone Number [facility] [address] [place] [address] * Ova and parasites, stool (09/29/2023 8:30 AM EDT) Parasitic exam FINAL 4 1342 [facility] DPT OF LAB MED AND PAT+ Comment: (NOTE) SOURCE: STOOL, STLP OVA AND PARASITE, MICROSCOPY, F FINAL No parasites seen. Cryptosporidium, Cyclospora, and microsporidia are not readily detected by this method. Single negative specimen does not rule out parasitic infection. Stool (Stool) 09/29/2023 8:3 0 AM EDT 09/29/2023 10:25 AM EDT Yulisa Cox PA-C LAB BODY FLUIDS AND STOOL ORDER EMILY Final Result Performing Organization Address City/[facility]/ZIP Co de Phone Number [facility] DPT OF LAB MED AND PAT+ [address] [place] [address] * Stool culture (09/29/2023 8:30 AM EDT) Special Requests None 09/29/2023 10:22 AM EDT [facility] Stool Culture NO SALMONELLA, SHIGELLA OR CAMPYLOBACTER ISOLATED 09/30/2023 10:31 AM EDT [facility] Stool (Stool) 09/29/2023 8:3 0 AM EDT 09/29/2023 10:25 AM EDT Yulisa Cox PA-C LAB MICROBIOLOGY CULTURE ORDERA BLES Final Result Performing Organization Address [place]/[facility] Co de Phone Number [facility] [address] [place] [address] * Ova and parasites, stool (09/22/2023 2:42 PM EDT) Parasitic exam FINAL 4 1214 [facility] DPT OF LAB MED AND PAT+ Comment: (NOTE) SOURCE: STOOL, STLP OVA AND PARASITE, MICROSCOPY, F FINAL No parasites seen. Leukocytes present. Red blood cells present. Cryptosporidium, Cyclospora, and microsporidia are not readily detected by this method. Single negative specimen does not rule out parasitic infection. Stool (Stool) 09/22/2023 2:4 2 PM EDT 09/28/2023 3:06 PM EDT Yulisa Cox PA-C LAB BODY FLUIDS AND STOOL ORDER EMILY Final Result Performing Organization Address [place]/[facility]/ZIP Co de Phone Number [facility] DPT OF LAB MED AND PAT+ [address] [place] [address] * Vitamin B12 (09/21/2023 2:43 PM EDT) VITAMIN B12 596 232 - 1,245 pg/mL [facility] Blood 09/21/2023 2:43 PM EDT 09/21/2023 2:53 PM EDT us Yulisa Cox PA-C LAB BLOOD BKR ORDERABLES Final Result [address] [address] * TSH (09/21/2023 2:43 PM EDT) TSH 1.95 0.27 - 4.20 uIU/mL [facility] Blood 09/21/2023 2:43 PM EDT 09/21/2023 2:53 PM EDT us Yulisa Cox PA-C LAB BLOOD BKR ORDERABLES Final Result Performing Organization Address [place]/[facility]/ZIP Co de Phone Number [address] [address] * C-Reactive Protein (09/21/2023 2:43 PM EDT) Pathologist [facility] C REACTIVE PROTEIN <3.0 0.0 - 4.0 mg/L [facility] Blood 09/21/2023 2:43 PM EDT 09/21/2023 2:53 PM EDT us Yulisa Cox PA-C LAB BLOOD BKR ORDERABLES Final Result Performing Organization Address City/[facility]/ZIP Co de Phone Number [address] [address] * (ABNORMAL) Comprehensive metabolic panel (09/21/2023 2:43 PM EDT) SODIUM 137 133 - 146 mmol/L [facility] POTASSIUM 4.3 3.3 - 5.1 mmol/L [facility] CHLORIDE 102 96 - 108 mmol/L ROBERT [...] PA-C LAB BLOOD BKR ORDERABLES Final Result [facility] [address] [place] [address] * CBC (09/21/2023 2:43 PM EDT) WBC [...] PA-C LAB BLOOD BKR ORDERABLES Final Result Performing Organization Address City/[facility]/ZIP Co de Phone Number [address] [address] * Immunoglobulin A (09/21/2023 2:43 PM EDT) IgA 193 70 - 400 mg/dL [facility] Blood 09/21/2023 2:43 PM EDT 09/21/2023 2:53 PM EDT us Yulisa Cox PA-C LAB BLOOD BKR ORDERABLES Final Result Performing Organization Address [place]/[facility]/ZIP Co de Phone Number [address] [address] * Tissue transglutaminase IgA (09/21/2023 2:43 PM EDT) Pathologist [facility] TTG IGA ANTIBODY <1.2 <4.0 (Negative) U/mL [facility] Blood 09/21/2023 2:43 PM EDT 09/21/2023 2:53 PM EDT us Yulisa Cox PA-C LAB BLOOD BKR ORDERABLES Final Result Performing Organization Address City/[facility]/ZIP Co de Phone Number [facility] [address] [place] [address] * Ova and parasites, stool (09/21/2023 2:41 PM EDT) Parasitic exam FINAL 4 1236 [facility] DPT OF LAB MED AND PAT+ Comment: (NOTE) SOURCE: STOOL, STLP OVA AND PARASITE, MICROSCOPY, F FINAL No parasites seen. Leukocytes present. Red blood cells present. Cryptosporidium, Cyclospora, and microsporidia are not readily detected by this method. Single negative specimen does not rule out parasitic infection. Stool (Stool) 09/21/2023 2:4 1 PM EDT 09/28/2023 3:05 PM EDT us Yulisa Cox PA-C LAB BODY FLUIDS AND STOOL ORDER EMILY Final Result [facility] DPT OF LAB MED AND PAT+ [address] [place] [address] documented in this encounter Visit Diagnoses Diagnosis Change in bowel habits- Primary Other symptoms involving digestive system documented in this encounter Care Teams Radiation Protection Engineer Relationship Specialty Start Date End Date Tawnya Thompson MD PCP - General Family Medicine 06/28/21 12/19/23 Tawnya Thompson MD [address] [place] [address] PCP - General Family Medicine 12/20/23 documented as of this encounter Additional Source Comments The information contained in this document represents components of the legal health record. It is not the complete legal health record.[facility]
--- OUTSIDE RECORDS SUMMARY | 2025-01-14 08:41 | XMS_ITS | Encounter Summary ---
Author Organization [facility] Address [address] [facility] [address] [place] [address] Phone Care Team Providers Care Gasoline Finisher Name Role Phone Tawnya Thompson MD Primary Care Provider [phone] Tawnya Thompson MD Primary Care Provider [phone]- [phone] Encounter Details Date Type Department Care Team (Late st Contact Info) Description 02/07/2023 Procedure Pass [facility] Endoscopy Admitting Dept Virtual Department [address] [place] [address] Social History Tobacco Use Types Packs/Day Years [...] on filedocumented in this encounter Care Teams Gasoline Finisher Relationship Specialty Start Date End Date Tawnya Thompson MD [email or web address] PCP - General Family Medicine 06/28/21 12/19/23 Tawnya Thompson MD [address] [place] [address] [email or web address] PCP - General Family Medicine 12/20/23 documented as of this encounter Additional Source Comments The information contained in this document represents components of the legal health record. It is not the complete legal health record.[facility]
--- OUTSIDE RECORDS SUMMARY | 2025-01-14 08:41 | XMS_ITS | Encounter Summary ---
Author Organization [facility] Address [address] [facility] [address] [place] [address] Phone Care Team Providers Care Coal Picker Name Role Phone Tawnya Thompson MD Primary Care Provider [phone] Tawnya Thompson MD Primary Care Provider [phone] Encounter Details Date Type Department Care Team (Late st Contact Info) Description 06/28/2021 Procedure Pass [facility], Ct Scan - [address] [address] Social History Tobacco Use Types Packs/Day Years [...] 11:43 AM EDT Angela Dorantes RN * [place] Suicide Severity Rating Scale (Screener/Recent Self-Report) Question [...] on filedocumented in this encounter Care Teams Coal Picker Relationship Specialty Start Date End Date Tawnya Thompson MD [email or web address] PCP - General Family Medicine 06/28/21 12/19/23 Tawnya Thompson MD [address] [place] [address] PCP - General Family Medicine 12/20/23 documented as of this encounter Additional Source Comments The information contained in this document represents components of the legal health record. It is not the complete legal health record.[facility]
--- OUTSIDE RECORDS SUMMARY | 2025-01-14 08:41 | XMS_ITS | Encounter Summary ---
Author Organization [facility] Address [address] [place] [address] [place] [address] Phone Care Team Providers Care Guardian Ad Litem Name Role Phone Tawnya Thompson MD Primary Care Provider [phone]- [phone] Tawnya Thompson MD Primary Care Provider [phone]- [phone] Encounter Details Date Type Department Care Team (Late st Contact Info) Description 07/01/2021 Ancillary Orders [facility],Outside Imaging [address] [place] [address] System, Provider Not In, [facility] [address] [address] Social History Tobacco Use Types Packs/Day Years [...] on filedocumented in this encounter Care Teams Guardian Ad Litem Relationship Specialty Start Date End Date Tawnya Thompson MD [email or web address] PCP - General Family Medicine 06/28/21 12/19/23 Tawnya Thompson MD [address] [place] [address] PCP - General Family Medicine 12/20/23 documented as of this encounter Additional Source Comments The information contained in this document represents components of the legal health record. It is not the complete legal health record.[facility]
--- OUTSIDE RECORDS SUMMARY | 2025-01-14 08:41 | XMS_ITS | Encounter Summary ---
Author Organization [facility] Address [address] [facility] [address] [place] [address] Phone Care Team Providers Care Jacker Feeder Name Role Phone Tamiko Gibbons MD Primary Care Provi shaunna Tamiko Gibbons MD Unavailable [phone] Unknown, Unknown Primary Care Provider Tawnya Dodd MD Primary Care Provider Tawnya Thompson MD Primary Care Provider [phone] Encounter Details Date Type Department Care Team (Late st Contact Info) Description 05/31/2020 Transcribe Orders [facility] Phleb Main [address] [place] [address] Tamiko Gibbons MD [address] [place] [address] [email or web address] Type 1 diabetes mellitus with complication (Primary [...] mellitus with complication Neuropathy BASIC METABOLIC PANEL (BMP) Routine 05/31/2020 7:49 AM EDT Type 1 diabetes mellitus with complication Neuropathy documented in this encounter Results * Vitamin B12 (05/31/2020 7:49 AM EDT) VITAMIN B12 467 232 - 1,245 pg/mL [facility] Blood 05/31/2020 7:49 AM EDT 05/31/2020 8:00 AM EDT us Tamiko Gibbons MD LAB BLOOD BKR ORDER EMILY Final Result Performing Organization Address City/[facility]/ZIP Co de Phone Number [address] [address] * (ABNORMAL) Hemoglobin A1c (05/31/2020 7:49 AM EDT) HEMOGLOBIN A1C 6.7(H) 4.3 - 5.8 % [facility] Blood 05/31/2020 7:49 AM EDT 05/31/2020 8:00 AM EDT us Tamiko Gibbons MD LAB BLOOD BKR ORDER EMILY Final Result Performing Organization Address City/[facility]/ZIP Co de Phone Number [address] [address] * TSH with reflex (05/31/2020 7:49 AM EDT) TSH 4.19 0.27 - 4.20 uIU/mL [facility] Blood 05/31/2020 7:49 AM EDT 05/31/2020 8:00 AM EDT Tamiko Gibbons MD LAB BLOOD BKR ORDER EMILY Final Result Performing Organization Address [facility] Co de Phone Number [address] [address] * (ABNORMAL) Lipid panel (05/31/2020 7:49 AM EDT) Pathologist [facility] HDL 67 mg/dL [facility] Comment: Interpretation <40 mg/dL: Low HDL cholesterol (major risk factor for CHD) Greater than or equal to 60 mg/dL: High HDL cholesterol ( negative risk factor for CHD) HDL - cholesterol is affected by a number of factors, e.g. smoking, excerise, hormones, sex and age. CHOLESTEROL 168 0 - 240 mg/dL [facility] TRIGLYCERIDES 66 30 - 160 mg/dL [facility] LDL 88 50 - 129 mg/dL [facility] Comment: LDL levels in terms of risk for coronary heart disease: <100 mg/dL: Optimal 100-129 mg/dL: Near or above optimal 130-159 mg/dL: Borderline high 160-189 mg/dL: High >190 mg/dL: Very High CARDIAC RISK RATIO 2.5(L) 3.4 - 5.0 [facility] Blood 05/31/2020 7:49 AM EDT 05/31/2020 8:00 AM EDT us Tamiko Gibbons MD LAB BLOOD BKR ORDER EMILY Final Result Performing Organization Address [facility] Co de Phone Number [address] [address] * Basic metabolic panel (05/31/2020 7:49 AM EDT) Pathologist [facility] SODIUM 141 133 - 146 mmol/L [facility] CHLORIDE 104 96 - 108 mmol/L [facility] POTASSIUM 4.4 3.3 - 5.1 mmol/L [facility] CO2 28 21 - 35 mmol/L [facility] BUN 18 6 - 19 mg/dL [facility] CREATININE 0.80 0.5 - 1.5 mg/dL [facility] GLUCOSE 91 70 - 99 mg/dL [facility] CALCIUM 9.3 8.4 - 10.3 mg/dL [facility] EGFR 89 >59 mL/min/1.7 3m2 [facility] Comment:Estimated glomerular filtration rate calculated using the CKD-EPI equation. ANION GAP 13 10 - 20 mmol/L [facility] Blood 05/31/2020 7:49 AM EDT 05/31/2020 8:00 AM EDT us Tamiko Gibbons MD LAB BLOOD BKR ORDER EMILY Final Result [address] [address] documented in this encounter Visit Diagnoses Diagnosis Type 1 diabetes mellitus with complication- Primary Neuropathy Mononeuritis of unspecified site documented in this encounter Care Teams Jacker Feeder Relationship Specialty Start Date End Date Tamiko Gibbons MD [email or web address] PCP - General 08/25/15 05/31/21 Unknown, Yung, PCP - General 06/01/21 06/27/21 Tawnya Thompson MD [email or web address] PCP - General Family Medicine 06/28/21 12/19/23 Tawnya Thompson MD [address] [place] [address] [email or web address] PCP - General Family Medicine 12/20/23 Tamiko Gibbons MD [address] [place] [address] [email or web address] Assigned Provider 11/29/19 06/25/21 documented as of this encounter Additional Source Comments The information contained in this document represents components of the legal health record. It is not the complete legal health record.[facility]
--- OUTSIDE RECORDS SUMMARY | 2025-01-14 08:41 | XMS_ITS | Encounter Summary ---
Author Organization [facility] Address [address] [place] [address] [place] [address] Phone Care Team Providers Care Floating Labor Gang Supervisor Name Role Phone Tawnya Thompson MD Primary Care Provider [phone] Tawnya Thompson MD Primary Care Provider [phone] Encounter Details Date Type Department Care Team (Latest Contact Info) Description 07/07/2021 Transcribe Orders Virtual Department [address] [place] [address] [place] [address] Subdural hematoma (Primary Dx) Social History Tobacco [...] hemorrhage documented in this encounter Care Teams Floating Labor Gang Supervisor Relationship Specialty Start Date End Date Tawnya Thompson MD PCP - General Family Medicine 06/28/21 12/19/23 Tawnya Thompsno MD [address] [place] [address] PCP - General Family Medicine 12/20/23 documented as of this encounter Additional Source Comments The information contained in this document represents components of the legal health record. It is not the complete legal health record.[facility]
== END 2025-01-14 08:55 | disposition home or self-care (01) ==
LOC: HO.RHES 08:20
PROVIDERS: PCP Family Medicine; Visit Provider Internal Medicine Rheumatology
DX: M06.9 Rheumatoid arthritis, unspecified (principal); Z79.899 Other long term (current) drug therapy; M72.0 Palmar fascial fibromatosis [Dupuytren]
CPT/HCPCS: 99214; G2211

== ENCOUNTER → 2025-01-14 08:19 | Outpatient (BNVA) | payer MEDICARE, OTHER, SELFPAY | PROVIDERS: PCP Family Medicine; Visit Provider Internal Medicine Rheumatology | DX: M06.032 Rheumatoid arthritis without rheumatoid factor, left wrist (principal); M06.031 Rheumatoid arthritis without rheumatoid factor, right wrist; M72.0 Palmar fascial fibromatosis [Dupuytren]; Z79.899 Other long term (current) drug therapy | CPT/HCPCS: 99212 ==

== ENCOUNTER 2025-02-05 09:28 | Outpatient (AMB) | payer MEDICARE, OTHER, SELFPAY ==
--- NOTE | 2025-02-05 09:29 | A.OFFVIS_ITS ---
Vital Signs 02/05/25 09:32 Height 5 ft 11 in Weight 162 lb 4.163 oz BMI 22.6 BP 122/60 Blood Pressure Location Rt brachial Position Sitting Pulse 62 Pulse Source Pulse Oximeter Pulse Oximetry (%) 96 Intake Visit Reasons: 3months Intake Note: Patient presents for follow up on rheumatoid arthritis. Accompanied by: Self / Same As Patient Allergies No Known Allergies Allergy (Verified 02/05/25 09:32) HPI HPI 3months: Details: He saw his nascar pit crew person yesterday who did not approve of him starting on hydroxychloroquine due to concern of rare risk of hypoglycemia, which patient is already experiencing with his history of type 1 diabetes. Patient's accompanies visit. Physical Exam Vital Signs: Last Vital Signs Pulse 62 02/05/25 09:32 BP 122/60 02/05/25 09:32 Pulse Ox 96 02/05/25 09:32 BMI result Body Mass Index 22.6 Const Other: General: Comfortable CVS: RRR Respiratory: clear to auscultation bilaterally. Good respiratory effort Skin: No lesions seen MSK: Tenderness of left wrist with mild synovitis present. No squaring of CMCs. Dupuytren's contractures present bilateral. 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 Normal range of motion of shoulders, hips, knees and ankles. Assessment & Plan Assessment & Plan (1) Rheumatoid arthritis: Comment: Recurrent left synovitis. Failed intra-articular cortisone course. In the past prednisone course caused hyperglycemia. 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 He is planning surgery in April. He is experiencing hypoglycemia episodes with this history of type 1 diabetes. Hydroxychloroquine as a rare risk of causing hypoglycemia. I will avoid hydroxychloroquine. We discussed next steps with Sulfasalazine. Discussed side effects, benefits and drug monitoring. With his upcoming plan for wrist surgery, I recommended that he continue conventional DMARD therapy methotrexate. Risks of worsening inflammatory arthritis is greater being off of DMARD therapy, which will then require course of prednisone to treat his flare. Prednisone contributes to hyperglycemia for patient, may affect wound healing and increased risk for infection. Despite active RA he is tolerating symptoms. Rheumatology history: Seronegative. Presenting with synovitis in hands, atypical RA with subjective proximal muscle weakness mimicking PMR but normal inflammatory markers and muscle enzymes. Background Dupuytren's contractures with inability to make a full fist. He has had recurrent left wrist pain and swelling requiring intra-articular cortisone injections (3 x 2023). He has had decreased effectiveness of two cortisone injections. He has recurrent left wrist synovitis. He self discontinued leflunomide with resulting improvement. Mild elevation in AST may be related to leflunomide, which resolved August 2024 labs. I will avoid hydroxychloroquine due to risk of photosensitivity and patient would like to avoid retinal toxicity with his underlying history of diabetes. MRI left wrist December 2024 confirmed synovitis, DISI and extensor tendinopathy. Code(s): M06.9 - Rheumatoid arthritis, unspecified Category: Medical Qualifiers: Rheumatoid factor presence: without rheumatoid factor Laterality: bilateral Plan: Labs for drug monitoring on high-risk medication requested from [facility] that he had on February 02 Continue methotrexate 17.5 mg once weekly Continue folic acid 1 mg daily Start Sulfasalazine 500 mg twice a day. Labs are due in 1 month. Lab requisition printed for patient. Return to clinic in 3 months (2) Other half-way (current) drug therapy: Code(s): Z79.899 - Other half-way (current) drug therapy Category: Medical Plan: See above Orders: Orders Complete Blood Count Auto Diff Today Z79.899 - Other terminal block assembler (current) drug therapy Alanine Aminotransferase Today Z79.899 - Other terminal block assembler (current) drug therapy Aspartate Amino Transferase Today Z79.899 - Other terminal block assembler (current) drug therapy Creatinine Today Z79.899 - Other terminal block assembler (current) drug therapy C Reactive Protein Today Z79.899 - Other terminal block assembler (current) drug therapy Erythrocyte Sedimentation Rate Today Z79.899 - Other terminal block assembler (current) drug therapy Medications: New sulfasalazine Labs due in 1 month 0.5 grams PO BID 60 tabs 0RF Refilled methotrexate sodium Recheck liver function test in 2 weeks 17.5 mg (7 x 2.5 mg) PO QWEEK 84 tabs 0RF 12 weeks Coding Level of Care Code Est Pt Level 4 (69498) Add On Problem Visit Only Diagnoses Rheumatoid arthritis M06.9 Rheumatoid factor presence: without rheumatoid factor Laterality: bilateral Other terminal block assembler (current) drug therapy Z79.899 Time Spent (min) 30
[2025-02-05 09:32] VITALS: BP 122/60; PULSE 62; O2SAT 96; BMI 22.6
--- OUTSIDE RECORDS SUMMARY | 2025-02-05 10:51 | XMS_ITS | Clinical Summary ---
Author Organization [facility] Address [address] [place] [address] Care Team Providers Care Front End Technician Name Role Phone Tawnya Thompson MD Primary Care Provider [phone] Allergies No known active allergies Medications atorvastatin [...] C Virus Screening 1945 COVID-19 Vaccine (#1) 05/21/1946 Foot Exam 1956 Ophthalmology Exam 1955 Microalbumin/Creatinine [...] this topic Medical Devices Implanted Type Area Aviation Electronic Warfare Operator Device Identifier Shelf Expiration Date Model / Serial / Lot Small Preston Hole Plate Implanted:Qty: 1 on 06/29/2021 by Juliane Joel MD at [facility] Left: Cranial [employer] [id number] / / 6 Hole Double Y-Plate Implanted:Qty: 2 on 06/29/2021 by Juliane Joel MD at [facility] Left: Cranial [employer] [id number] / / 5mm Low Profile Screw Implanted:Qty: 18 on 06/29/2021 by Juliane Joel MD at [facility] Explanted:Qty: 9 on 07/12/2021 by Juliane Joel MD at [facility] Left: Cranial [employer] [id number] / / 6 Hole Straight Plate Implanted:Qty: 2 on 07/12/2021 by Juliane Joel MD at [facility] Left: Cranial [employer] [id number] / / 5mm Screw Implanted:Qty: 14 on 07/12/2021 by Juliane Joel MD at [facility] Left: Cranial [employer] 16-[id number] [...] - 99 mg/dL 07/16/2021 6:47 AM EDT [facility] Blood Urea Nitrogen (BUN) 12 8 - 21 mg/dL 07/16/2021 6:47 AM EDT [facility] Creatinine 0.7 0.5 - 1.3 mg/dL 07/16/2021 6:47 AM EDT [facility] eGFR >60 >59 07/16/2021 6:47 AM EDT [facility] Comment:MDRD in mL/min/1.73 sq meters. Sodium 134(L) 136 - 145 mmol/L 07/16/2021 6:47 AM EDT [facility] Potassium 3.7 3.4 - 5.3 mmol/L 07/16/2021 6:47 AM T [facility] Chloride 96(L) 98 - 107 mmol/L 07/16/2021 6:47 AM EDT [facility] CO2 23 22 - 33 mmol/L 07/16/2021 6:47 AM EDT [facility] Calcium 8.8 8.7 - 10.5 mg/dL 07/16/2021 6:47 AM T [facility] Phosphorus 2.9 2.7 - 4.5 mg/dL 07/16/2021 6:47 AM T [facility] Albumin 3.2(L) 3.4 - 4.8 g/dL 07/16/2021 6:47 AM [facility] BUN/Creatinine Ratio 17 10.0 - 25.0 Ratio 07/16/2021 6:47 AM T [facility] Blood specimen (specimen) (Plasma/Serum) 07/16/2021 5:36 AM EDT 07/16/2021 6:00 AM EDT us Dejah Smith PA LAB BLOOD ORDERABLES Final Re sult [facility] [address] [address] * (ABNORMAL) Hemoglobin A1c with Estimated Average [...] Herson ROMO LAB BLOOD ORDERABLES Final Result [facility] [address] [place] [address] * Lipid Panel (06/29/2021 5:36 AM EDT) Pathologist [facility] Cholesterol, Total 139 <200 mg/dL 2021 6:12 AM EDT [facility] Triglycerides 64 <150 mg/dL 06/29/2021 6:12 AM EDT [facility] Cholesterol, HDL 64 >39 mg/dL 06/30/19 6:12 AM EDT [facility] Estimated LDL 62 <130 mg/dL 06/29/2021 6:12 AM T [facility] Comment: NCEP Guidelines: < 100 mg/dL Optimal 100 - 129 mg/dL Near Optimal/Above Optimal 130 - 159 mg/dL Borderline High 160 - 189 mg/dL High >/= 190 mg/dL Very High Cholesterol/HDL Ratio 2.2 0.0 - 5.0 Ratio 06/29/2021 6:12 AM T [facility] Comment: Relative Risk Ratio - Male Ratio - Female 0.5 3.4 3.3 1.0 5.0 4.4 2.0 9.6 7.1 3.0 23.4 11.0 Blood specimen (specimen) (Plasma/Serum) 06/29/2021 5:36 AM EDT 06/29/2021 5:44 AM EDT us Haroon Reynolds APRN LAB BLOOD ORDERABLES Final Result [facility] [address] [place] [address] from Last 3 Months or Most Recently Relevant to Health Maintenance Insurance MEDICARE PART A & B [facility] SUPPLEMENT ONLY Advance Directives * Full Code (Latest Code Status on File) Date Activated Date Inactivated Comments 07/11/2021 2:06 PM * Full Code Date Activated Date Inactivated Comments 07/06/2021 6:43 PM 07/11/2021 10:46 AM * Full Code Date Activated Date Inactivated Comments 06/28/2021 10:17 PM 07/06/2021 2:42 PM Care Teams Front End Technician Relationship Specialty Start Date End Date Tawnya Thompson MD [address] [place] [id number] PCP - General Family Medicine 06/28/21
--- OUTSIDE RECORDS SUMMARY | 2025-02-05 10:51 | XMS_ITS | Clinical Summary ---
Author Organization [facility] Prior to 07/19/[address] [place] [id number] Care Team Providers Care Java Android Developer Name Role Phone Tawnya Thompson MD Primary [...] this topic Medical Devices Implanted Type Area City Magistrate Device Identifier Shelf Expiration Date Model / Serial / Lot System Perclose Prostyle Suture Medicated Abbt-Vasc [id number] - [id number] Implanted:Qty: 1 on 01/25/2023 at [facility] [employer] [employer] B[facility]JI [id number] / / Valve Chetan Thv Velasquez Resilia 26mm [facility] [id number] - [id number] Implanted:Qty: 1 on 01/30/2023 by Rick Nicole MD at [facility] Heart [employer] 08/23/2025 [id number] / [id number] / Advance Directives For more information, please contact: [phone] Latest Code Status on File Code Status [...] AM 01/25/2023 8:01 PM . Care Teams Java Android Developer Relationship Specialty Start Date End Date Tawnya Thompson MD [address] [place] [phone] PCP - General Family Medicine 11/06/22
--- OUTSIDE RECORDS SUMMARY | 2025-02-05 10:51 | XMS_ITS | Clinical Summary ---
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 90 each 3 5 03/26/19 26 Active Active Problems Problem Noted Date Diagnosed Date Aortic stenosis, severe 01/30/2023 Surgical History Surgery Date Site/Laterality Comments CRANIOTOMY PROCEDURE:CRANIOTOMY;COMMENT:2020 -june CARDIAC CATHETERIZATION 01/25/2023 N/A PROCEDURE:CARDIAC CATHETERIZATION;COMMENT:Procedure : LEFT HEART CATHETERIZATION PCI; Surgeon: Cain Hopson MD; Location: [facility] CARDIAC AUTOMOBILE PAINTER; Service: Cardiology; Laterality: N/A; CARDIAC CATHETERIZATION 01/25/2023 N/A PROCEDURE:CARDIAC CATHETERIZATION;COMMENT:Procedure : CORONARY ANGIOGRAPHY; Surgeon: Cain Hopson MD; Location: [facility] CARDIAC AUTOMOBILE PAINTER; Service: Cardiology; Laterality: N/A; AORTIC VALVE REPLACEMENT 01/30/2023 Bilateral PROCEDURE:AORTIC VALVE REPLACEMENT;COMMENT:Procedure: TAVR TF PERCUSTANEOUS; Surgeon: Rick Nicole MD; Location: [facility] HYBRID OPERATING ROOM; Service: Cardiovascular; Laterality: Bilateral; Medical History Medical History Date Comments Type 1 diabetes (CMS/HCC V24 , CMS/HCC V28) DX:Type 1 diabetes (HCC);COM MENT:wears continuous glucose monitor and insulin pumo HTN (hypertension) DX:HTN (hyper tension) HLD (hyperlipidemia) DX:HLD (hyp erlipidemia) Aortic valvar stenosis DX:Aortic valvar stenosis Subdural hematoma (CMS/HCC V 24, [facility] V28) DX:Subdural hematoma (HCC) Eye abnormality DX:Eye [...] 03/26/2025 12:00 PM EST Office Visit [facility] [place] [address] [facility] [facility] [address] [place] [address] Aj Abdullahi MD [address] [facility] [address] [place], [place] [id number] Health Maintenance Due Date Last Done Comments [...] this topic Medical Devices Implanted Type Area Radiology Supervisor Device Identifier Shelf Expiration Date Model / Serial / Lot System Perclose Prostyle Suture [facility] [id number] Implanted:Qty: 1 on 01/25/2023 [facility] [id number] / / Valve Chetan Thv Velasquez Resilia 26mm [facility] [id number] - [id number] Implanted:Qty: 1 on 01/30/2023 by Rick Nicole MD Heart [employer] 08/23/2025 [id number] / [id number] / Procedures Procedure Name Priority Date/Time Associated Diagnosis Comments ANNUAL BMP BLOOD TEST Routine 01/31/2023 HEMOGLOBIN A1C Routine 01/30/2023 LIPID PANEL Routine 06/29/2021 from Last 3 Months or Most Recently Relevant to Health Maintenance Results * Annual BMP Blood Test (01/31/2023) Pathologist [facility] Annual BMP Blood Test Abstracted Result [facility] Provider HEALTH MAINTENANCE Final Result * (ABNORMAL) Hemoglobin A1c (01/30/2023) [facility] Hemoglobin A1C 6.8(A) <=5.7 % Blood Venous blood specimen / Unknown Result [facility] Provider LAB BLOOD ORDERABLES Nani l Result * Lipid panel (06/29/2021) [facility] LDL/HDL Ratio 0 Comment:No Interpretation Triglycerides 0 mg/dL Comment:No Interpretation Cholesterol 0 mg/dL Comment:No Interpretation HDL 0 mg/dL Comment:No Interpretation LDL Cholesterol 0 mg/dL Comment:No Interpretation Blood Venous blood specimen / Unknown Result [facility] Provider LAB BLOOD ORDERABLES Nani l Result from Last 3 Months or Most Recently Relevant to Health Maintenance Insurance MEDICARE [facility] Care Teams Adult School Teacher Relationship Specialty Start Date End Date Tawnya Thompson MD [facility] [address] [place] [address] PCP - General 11/06/22
== END 2025-02-05 10:34 | disposition home or self-care (01) ==
LOC: HO.RHES 09:29
PROVIDERS: PCP Family Medicine; Visit Provider Internal Medicine Rheumatology
DX: M06.9 Rheumatoid arthritis, unspecified (principal); Z79.899 Other long term (current) drug therapy
CPT/HCPCS: 99214; G2211

== ENCOUNTER → 2025-02-05 09:28 | Outpatient (BNVA) | payer MEDICARE, OTHER, SELFPAY | PROVIDERS: PCP Family Medicine; Visit Provider Internal Medicine Rheumatology | DX: M06.09 Rheumatoid arthritis without rheumatoid factor, multiple sites (principal); Z79.899 Other long term (current) drug therapy | CPT/HCPCS: 99212 ==